=== PATIENT | male | born 1945 | race Caucasian/White ===

== ENCOUNTER 2022-12-19 09:16 | Outpatient (OUT) | payer MEDICARE, SELFPAY ==
[2022-12-19 09:51] LABS: Basophils Absolute Auto 0.1 10^3/uL (0.0-0.1); Basophils Percent Auto 0.6 % (0.2-2.0); Eosinophils Absolute Auto 0.2 10^3/uL (0.0-0.7); Hematocrit 39.2 % (42.0-54.0); Immature Granulocytes Abs Auto 0.07 10^3/uL (0.00-0.03); Immature Granulocytes Pct Auto 0.6 % (0.0-0.5); Lymphocytes Absolute Auto 3.4 10^3/uL (1.2-3.8); Mean Corpuscular HGB Conc 33.2 g/dL (29.9-35.2); Mean Corpuscular Hemoglobin 30.4 pg (25.9-34.0); Mean Corpuscular Volume 91.8 fL (80.0-94.0); Mean Platelet Volume 9.1 fL (9.5-13.5); Monocytes Absolute Auto 0.7 10^3/uL (0.3-0.8); Monocytes Percent Auto 6.5 % (1.7-12.0); Neutrophils Absolute Auto 6.4 10^3/uL (1.4-6.5); Neutrophils Percent Auto 59.3 % (43.0-75.0); Platelet Count 272 10^3/uL (150-450); Red Blood Count 4.27 10^6/uL (4.70-6.10); Red Cell Distribution Width 13.8 % (11.0-15.0); White Blood Count 10.9 10^3/uL (4.0-11.0)
[2022-12-19 10:25] LABS: Alanine Aminotransferase 30 U/L (16-63); Anion Gap 13.7; BUN Creatinine Ratio 18.5; Calcium 9.1 mg/dL (8.5-10.1); Carbon Dioxide 27.4 mmol/L (21.0-32.0); Chloride 101 mmol/L (98-107); Chol HDL Ratio 2.7; Cholesterol 114 mg/dL (<=200); Estimated GFR (African America >60 (>=60); Estimated GFR (Non-African Ame 51 (>=60); Glucose 153 mg/dL (74-106); HDL Cholesterol 42 mg/dL (40-60); LDL Cholesterol Calculated 45.4 mg/dL; Potassium 4.1 mmol/L (3.5-5.1); Sodium 138 mmol/L (136-145); Triglycerides 133 mg/dL (<=150); VLDL CHOLESTEROL 26.6 mg/dL
[2022-12-19 10:37] LABS: Prostate Specific Antigen Scrn 0.46 ng/mL (<=4.00)
[2022-12-19 13:01] LABS: Estimated Average Glucose 131 mg/dL; Glycohemoglobin A1C 6.2 % (4.5-6.2)
== END 2022-12-19 09:17 | disposition home or self-care (01) ==
PROVIDERS: PCP Internal Medicine; Visit Provider Internal Medicine
DX: Z79.899 Other long term (current) drug therapy (principal); E11.65 Type 2 diabetes mellitus with hyperglycemia; E78.00 Pure hypercholesterolemia, unspecified; I25.10 Atherosclerotic heart disease of native coronary artery without angina pectoris; I10 Essential (primary) hypertension; Z12.5 Encounter for screening for malignant neoplasm of prostate
CPT/HCPCS: 36415; 80048; 80061; 82043; 83036; 84460; 85025; G0103

== ENCOUNTER 2023-04-11 07:43 | Outpatient (OUT) | payer MEDICARE, SELFPAY ==
[2023-04-11 08:07] LABS: Basophils Absolute Auto 0.1 10^3/uL (0.0-0.1); Basophils Percent Auto 0.9 % (0.2-2.0); Eosinophils Absolute Auto 0.3 10^3/uL (0.0-0.7); Eosinophils Percent Auto 2.8 % (0.9-7.0); Hematocrit 38.6 % (42.0-54.0); Hemoglobin 12.6 g/dL (14.0-18.0); Immature Granulocytes Abs Auto 0.04 10^3/uL (0.00-0.03); Immature Granulocytes Pct Auto 0.4 % (0.0-0.5); Lymphocytes Absolute Auto 4.2 10^3/uL (1.2-3.8); Lymphocytes Percent Auto 38.2 % (20.5-60.0); Mean Corpuscular HGB Conc 32.6 g/dL (29.9-35.2); Mean Corpuscular Hemoglobin 30.1 pg (25.9-34.0); Mean Corpuscular Volume 92.1 fL (80.0-94.0); Mean Platelet Volume 9.3 fL (9.5-13.5); Monocytes Percent Auto 9.3 % (1.7-12.0); Neutrophils Absolute Auto 5.3 10^3/uL (1.4-6.5); Neutrophils Percent Auto 48.4 % (43.0-75.0); Platelet Count 282 10^3/uL (150-450); Red Blood Count 4.19 10^6/uL (4.70-6.10); Red Cell Distribution Width 14.6 % (11.0-15.0); White Blood Count 10.9 10^3/uL (4.0-11.0)
[2023-04-11 09:33] LABS: Percent Iron Saturation 20.9 %
== END 2023-04-11 07:44 | disposition home or self-care (01) ==
PROVIDERS: PCP Internal Medicine; Visit Provider Internal Medicine
DX: D64.9 Anemia, unspecified (principal)
CPT/HCPCS: 36415; 82607; 82728; 82746; 83540; 83550; 85025

== ENCOUNTER 2023-04-26 07:25 | Outpatient (OUT) | payer MEDICARE, SELFPAY ==
--- NOTE | 2023-04-26 08:30 | CA_ITS ---
[facility] Test Date: 2023-04-26 Pat Name: POOJA QUEVEDO Department: Room: - Gender: Male Hyperbaric Nurse: Kiki Benoit : 1945 Requested By: MAE MCCORMICK Order Number: [id number] Reading MD: ANABELA SAWANT Interpretive Statements Monophasic doppler waveforms of the LLE PVR waveforms with delayed upstroke, blunted amplitude and loss of dicrotic notch in the LLE. Right: - significant pressure gradient between the DP and PT cuff - abnormal OLEG - normal TBI Left: - abnormal pressure gradient between the brachial and calf cuff - abnormal OLEG - abnormal TBI Impression: - nondiagnostic results of the right lower extremity due to elevated indices as a result of calcified, noncompressible arterial anderson - right TBI, which is not influenced by arterial calcification, is slightly depressed, consistent with mild hemodynamic impairment of the right lower extremity at rest. - nondiagnostic results of the left lower extremity due to elevated DP index as a result of calcified, noncompressible arterial anderson - left calf, PT and TBI consistent with severe hemodynamic impairment of the left lower extremity at rest - clinical correlation advised Electronically Signed On 04-28-2023 7:27:19 EDT by ANABELA SAWANT
== END 2023-04-26 07:26 | disposition home or self-care (01) ==
LOC: CARD 07:26
PROVIDERS: PCP Internal Medicine
DX: I65.23 Occlusion and stenosis of bilateral carotid arteries (principal); I73.9 Peripheral vascular disease, unspecified; I99.8 Other disorder of circulatory system
CPT/HCPCS: 93923

== ENCOUNTER 2023-06-28 09:55 | Outpatient (OUT) | payer MEDICARE, SELFPAY ==
--- OUTSIDE RECORDS SUMMARY | 2023-06-28 09:59 | XMS_ITS | CCD ---
Author Name Unknown Address [address] [place] [address] Organization [facility] Care Team Providers Care Weapons Designer Name Role Phone Bipin Cruz Unavailable Unavailable Zahler, Bipin Unavailable Unavailable Nancy, Bipin Unavailable Unavailable ROBIN DAWKINS~[id number] UNKNOWN Unavailable Unavailable Nill, Jean-Paul R Unavailable Unavailable Nill, Jean-Paul R Unavailable Unavailable Nill, Jean-Paul R Unavailable Unavailable ROBIN DAWKINS~[id number] UNKNOWN Unavailable Unavailable Nill, Jean-Paul R Unavailable Unavailable Nill, Jean-Paul R Unavailable Unavailable Nill, Jean-Paul R Unavailable Unavailable ROBIN DAWKINS~[id number] UNKNOWN Unavailable Unavailable TRENT, RONNY Admitting Unavailable TRENT, RONNY Attending Unavailable JUANCHO, ROBIN Referring Unavailable JUANCHO, ROBIN Primary Care Unavailable Juancho, Robin Unavailable JUANCHO, DR PEÑALOZA Admitting Unavailable BALL, DR PEÑALOZA Attending Unavailable BALL, DR PEÑALOZA Primary Care Unavailable BALL, DR PEÑALOZA Consulting Unavailable ABBAS, DR WALL Admitting Unavailable ABBAS, DR WALL Attending Unavailable BALL, DR PEÑALOZA Primary Care Unavailable ABBAS, DR WALL Consulting Unavailable ABBAS, DR WALL Admitting Unavailable ABBAS, DR WALL Attending Unavailable BALL, DR PEÑALOZA Primary Care Unavailable ABBAS, DR WALL Consulting Unavailable ZieberMagdaleno Consulting Unavailable TIFFANY ODONNELL Attending Unavailable MOUKARBRADHA PEÑA Attending Unavailable Allergies Allergy Classification Reported Allergen(s) Allergy Type Date of Onset Reaction(s) Facility (9 sources) lisinopril; Translations: [lisinopril] Drug Allergy 11-02-19 19 [facility], Unknown [facility] Repository (3 sources) losartan; Translations: [losartan] Drug Allergy 04-20-20 [facility] Repository (1 source) nystatin / triamcinolone; Translations: [Tri-Statin II] Drug Allergy [facility] Repository (3 sources) black walnut pollen extract; Translations: [[id number] REDUCTASE INHIBITORS] Drug Allergy 02-07-20 12 [facility] Repository (7 sources) Angiotensin-convert ing enzyme inhibitor agent Drug allergy Unknown [facility] Other (7 sources) Hmg-Coa Reductase Inhibitors (Statins) Propensity to adverse reactions Unknown [facility] Other (7 sources) Simvastatin Drug Allergy Unknown [facility] Other (7 sources) FELICIA inhibitor use, contraindication Propensity to adverse reactions 10-13-19 17 Comment:advers e rxn/side effects [facility] Other (7 sources) patient allergy list reviewed by nurse or physicia Propensity to adverse reactions 12-13-19 Comment:Done [facility] Other Medications Current Medications Medication Drug Class(es) Dates Sig (Normalized) Sig (Original) allopurinol 300 mg oral tablet (14 sources) Xanthine Oxidase Inhibitor take 1 tablet by mouth every twenty-four hours Allopurinol 300 MG 1 tablet Orally Once a day for 90 days Active amLODIPine 10 mg oral tablet (14 sources) Dihydropyridine Calcium Channel [place] take 1 tablet by mouth once daily amLODIPine Besylate 10 MG 1 tablet Orally Once a day Active aspirin 81 mg delayed release oral tablet (9 sources) Platelet Aggregation Inhibitor, Nonsteroidal Anti-inflammatory Drug take 1 tablet by mouth every twenty-four hours Aspirin 81 81 MG 1 tablet Orally Once a day Active azithromycin 250 mg oral tablet (3 sources) Macrolide Antimicrobial Start: 10-31-2022 Azithromycin 250 MG as directed Orally daily for 5 days October, Active benazepril (5 sources) Angiotensin Converting Enzyme Inhibitor Benazepril HCl Active clopidogrel (14 sources) P2Y12 Platelet Inhibitor Plavix Active Contour Next Test - (14 sources) Start: 09-21-2022 Contour Next Test - Use to test home BS qd In Vitro daily for 90 days Aug, Active furosemide 40 mg oral tablet (9 sources) Loop Diuretic take 1 tablet by mouth every twenty-four hours Furosemide 40 MG 1 tablet Orally Once a day Active metFORMIN hydrochloride 500 mg oral tablet (14 sources) Biguanide take 1 tablet by mouth every twenty-four hours metFORMIN HCl 500 MG 1 tablet with a meal Orally Once a day Active metoprolol tartrate 100 mg oral tablet (20 sources) beta-Adrenergic Bronwyn take 1 tablet by mouth twice daily Metoprolol Tartrate 100 MG Take 1 tablet by mouth twice daily Active take 1 tablet by mouth twice brandy ly Metoprolol Tartrate 50 MG Take 1 tablet by mouth twice daily Active omeprazole 40 mg delayed release oral capsule (3 sources) Proton Pump Inhibitor Start: 04-21-2023 take 1 capsule by mouth once daily Omeprazole 40 MG 1 capsule 30 minutes before morning meal Orally Once a day for 30 days Mar, Active microencapsulated potassium chloride 20 meq extended release oral tablet (9 sources) take 1 tablet by mouth every twenty-four hours Klor-Con M20 20 MEQ 1 tablet with food Orally Once a day Active rosuvastatin calcium 20 mg oral tablet (9 sources) HMG-CoA Reductase Inhibitor take 1 tablet by mouth every twenty-four hours Rosuvastatin Calcium 20 MG 1 tablet Orally Once a day Active valACYclovir 1000 mg oral tablet (6 sources) Herpesvirus Nucleoside Analog DNA Polymerase Inhibitor, Herpes Simplex Virus Nucleoside Analog DNA Polymerase Inhibitor, Herpes Zoster Virus Nucleoside Analog DNA Polymerase Inhibitor Start: 03-20-2023 take 1 tablet by mouth every eight hours valACYclovir HCl 1 GM 1 tablet Orally tid for 7 days Feb, Active Completed/Discontinued Medications Medication Drug Class(es) Dates Sig (Normalized) Sig (Original) ASA (14 sources) ASA Not-Taking Fish Oils (14 sources) Fish Oil Not-Angel ing latanoprost (14 sources) Prostaglandin Analog Latanoprost Not-Taking Lidocaine (15 sources) Antiarrhythmic, Amide Local Anesthetic Start: 04-20-2023 Lidocaine Mar, 20 mg Start: 11-22-2022 Lidocaine 30 2022 20 mg Niacin (14 sources) Nicotinic Acid Niacin Not-Takin g Suprep Bowel Prep . (14 sources) Start: 12-03-2014 Suprep Bowel Prep . as directed Orally 1 for 1 days Nov, Not-Taking triamcinolone acetonide 40 mg/ml injectable suspension (20 sources) Corticosteroid Start: 11-22-2022 Kenalog-40 Mar, 40 mg Start: 09-21-2022 Kenalog-40 Aug, 60 mg Problems Active Problems Problem Classification Problem Date Documented Da te Episodic/Chronic Acute bronchitis (2 sources) Acute bronchitis due to other specified organisms; Translations: [Acute bronchitis] Episodic Allergic reactions (1 source) Generalized atopic dermatitis; Translations: [Other atopic dermatitis and related conditions] Onset: 05-09-2013 Chronic Cardiac dysrhythmias (17 sources) Paroxysmal atrial fibrillation; Translations: [Paroxysmal atrial fibrillation] Onset: 05-26-2022 Chronic Chronic kidney disease (14 sources) Chronic kidney disease stage 3A ; Translations: [Stage 3a chronic kidney disease] Chronic Chronic obstructive pulmonary disease and bronchiectasis (12 sources) Simple chronic bronchitis; Translations: [Simple chronic bronchitis] Chronic Coronary atherosclerosis and other heart disease (20 sources) Coronary arteriosclerosis; Translations: [Atherosclerotic heart disease of [place] coronary artery without angina pectoris] Onset: 06-26-1959 Chronic Coronary atherosclerosis and other heart disease (4 sources) Presence of coronary angioplasty implant and graft; Translations: [Presence of aortocoronary bypass graft] Onset: 06-14-2023 Episodic Deficiency and other anemia (4 sources) Anemia, unspecified Episodic Deficiency and other anemia (1 source) Anemia; Translations: [Anemia, unspecified] Episodic Diabetes mellitus with complications (20 sources) Type 2 diabetes mellitus; Translations: [Type 2 diabetes mellitus with hyperglycemia] Onset: 06-26-1959 Chronic Diabetes mellitus without complication (1 source) Type 2 diabetes mellitus without complication; Translations: [Diabetes mellitus without mention of complication, type II or unspecified type, not stated as uncontrolled] Chronic Disorders of lipid metabolism (20 sources) Hypercholesterolemia; Translations: [Pure hypercholesterolemia, unspecified] Onset: 06-26-1959 Chronic Esophageal disorders (3 sources) Gastro-esophageal reflux disease with esophagitis; Translations: [Gastroesophageal reflux disease with esophagitis without hemorrhage] Chronic Essential hypertension (20 sources) Essential hypertension; Translations: [Essential (primary) hypertension] Onset: 12-21-2021 Chronic Gout and other crystal arthropathies (1 source) Primary gout; Translations: [Idiopathic gout, unspecified site] Chronic Hyperplasia of prostate (3 sources) Benign prostatic hypertrophy without outflow obstruction; Translations: [Hypertrophy (benign) of prostate without urinary obstruction and other lower urinary tract symptoms [LUTS]] Onset: 06-26-1959 Chronic Immunizations and screening for infectious disease (2 sources) Contact with and (suspected) exposure to other viral communicable diseases; Translations: [Vaccination given] Resolved: 05-15-2020 Episodic Mycoses (1 source) Candidiasis of mouth; Translations: [Candidal stomatitis] Episodic Occlusion or stenosis of precerebral arteries (20 sources) Occlusion and stenosis of bilateral carotid arteries; Translations: [Right carotid artery stenosis] Onset: 10-03-2018 Chronic Osteoarthritis (20 sources) Osteoarthritis of joint of right shoulder region; Translations: [Primary osteoarthritis, right shoulder] Onset: 09-05-2017 Chronic Other aftercare (2 sources) Other chief executive officer (current) drug therapy; Translations: [OTH FLIGHT OPERATIONS MANAGER CURRENT DRUG THERAPY] Onset: 12-21-2021 Episodic Other aftercare (1 source) Long-term current use of drug therapy; Translations: [Other usp (current) drug therapy] Episodic Other circulatory disease (14 sources) Peripheral arterial occlusive disease; Translations: [Disorder of arteries and arterioles, unspecified] Chronic Other circulatory disease (2 sources) Disorder of arteries and arterioles, unspecified Chronic Other circulatory disease (1 source) Other disorder of circulatory system; Translations: [OTHER DISORDER CIRCULATORY SYSTEM] Onset: 10-09-2022 Episodic Other circulatory disease (1 source) Other specified symptoms and signs involving the circulatory and respiratory systems; Translations: [OTH SPEC SX SIGNS INVLV CIRC RS] Onset: 10-09-2022 Episodic Other connective tissue disease (4 sources) Personal history of other diseases of the musculoskeletal system and connective tissue Episodic Other connective tissue disease (1 source) H/O: musculoskeletal disease; Translations: [Personal history of other diseases of the musculoskeletal system and connective tissue] Episodic Other diseases of veins and lymphatics (16 sources) Peripheral venous insufficiency; Translations: [Venous insufficiency (chronic) (peripheral)] Onset: 02-23-2017 Episodic Other diseases of veins and lymphatics (1 source) Venous insufficiency (chronic) (peripheral) Episodic Other eye disorders (1 source) Optic disc edema; 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] Chronic Other gastrointestinal disorders (9 sources) Diarrhea; Translations: [Diarrhea] Onset: 10-30-2014 Episodic Other gastrointestinal disorders (8 sources) Constipation; Translations: [Constipation] Episodic Other gastrointestinal disorders (1 source) Oropharyngeal dysphagia; Translations: [Dysphagia, oropharyngeal phase] Episodic Other injuries and conditions due to external causes (1 source) History of fall; Translations: [History of falling] Episodic Other lower respiratory disease (2 sources) Shortness of breath; Translations: [Shortness of breath] Onset: 06-14-2023 Episodic Other nervous system disorders (4 sources) Chronic pain; Translations: [Other chronic pain] Chronic Other nervous system disorders (2 sources) Other chronic pain Chronic Other nervous system disorders (1 source) Nervous system and sense organ diseases; Translations: [Other disorders of nervous system and sense organs] Episodic Other non-traumatic joint disorders (1 source) Lower limb joint arthritis; Translations: [Osteoarthrosis, unspecified whether generalized or localized, lower leg] Onset: 06-26-1959 Chronic Other non-traumatic joint disorders (1 source) Pain in right shoulder Episodic Other non-traumatic joint disorders (2 sources) Arthralgia of the lower leg; Translations: [Pain in joint, lower leg] Onset: 11-17-2015 Episodic Other non-traumatic joint disorders (2 sources) Shoulder joint pain; Translations: [Pain in joint, shoulder region] Onset: 09-05-2017 Episodic Other non-traumatic joint disorders (2 sources) Pain in left shoulder Episodic Other nutritional; endocrine; and metabolic disorders (1 source) Obesity; Translations: [Obesity, unspecified] Chronic Other nutritional; endocrine; and metabolic disorders (1 source) Simple obesity ; Translations: [Other obesity due to excess calories] Onset: 10-12-2015 Chronic Other nutritional; endocrine; and metabolic disorders (1 source) Body mass index 30+ - obesity; Translations: [Body mass index 31.0-31.9, adult] Onset: 10-12-2015 Chronic Other nutritional; endocrine; and metabolic disorders (2 sources) Obese class I; Translations: [Body mass index 32.0-32.9, adult] Onset: 10-12-2015 Chronic Other nutritional; endocrine; and metabolic disorders (3 sources) Overweight Episodic Other screening for suspected conditions (not mental disorders or infectious disease) (10 sources) Liver function tests abnormal; Translations: [Elevated liver function tests] Onset: 12-21-2021 Episodic Other skin disorders (1 source) Localized swelling, mass and lump, right lower limb; Translations: [Localized swelling, mass and lump, right lower limb] Episodic Other upper respiratory disease (15 sources) Allergic rhinitis due to pollen; Translations: [Allergic rhinitis due to pollen] Chronic Other upper respiratory disease (1 source) Allergic rhinitis due to pollen Chronic Other upper respiratory disease (1 source) Allergic rhinitis; Translations: [Allergic rhinitis, unspecified] Chronic Other upper respiratory infections (3 sources) Acute maxillary sinusitis; Translations: [Acute maxillary sinusitis, unspecified] Onset: 10-12-2016 Episodic Peripheral and visceral atherosclerosis (12 sources) Peripheral vascular disease, unspecified; Translations: [Peripheral vascular disease] Onset: 10-04-2022 Chronic Spondylosis; intervertebral disc disorders; other back problems (2 sources) Degeneration of lumbar intervertebral disc; Translations: [Degeneration of lumbar or lumbosacral intervertebral disc] Chronic Substance-related disorders (1 source) Tobacco user; Translations: [Nicotine dependence, cigarettes, in remission] Chronic Unclassified (1 source) Long-term current use of drug therapy; Translations: [Long-term (current) use of other medications] Onset: 11-16-2016 Unclassified (1 source) Traumatic subdural hemorrhage with loss of consciousness status unknown, initial encounter; Translations: [Traumatic subdural hemorrhage with loss of consciousness status unknown, initial encounter] Unclassified (1 source) Aortocoronary artery bypass graft; Translations: [Postprocedural aortocoronary bypass status] Onset: 04-04-2016 Unclassified (1 source) Other ventricular tachycardia; Translations: [Other ventricular tachycardia] Viral infection (6 sources) Post-herpetic polyneuropathy; 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] Episodic Past or Other Problems Problem Classification Problem Date Documented Date Episodic/Chronic Abdominal hernia (1 source) Umbilical hernia; Translations: [Umbilical hernia without mention of obstruction or gangrene] Onset: 11-17-2015 Episodic Alcohol-related disorders (1 source) Alcohol withdrawal syndrome; Translations: [Alcohol dependence with withdrawal, uncomplicated] Resolved: 06-13-2020 Chronic Allergic reactions (1 source) Allergic contact dermatitis due to plants, except food; Translations: [Allergic contact dermatitis due to plants, except food] Onset: 02-23-2017 Episodic Bacterial infection; unspecified site (1 source) Bacterial infectious disease; Translations: [Bacterial infection, unspecified, in conditions classified elsewhere and of unspecified site] Onset: 10-12-2016 Episodic Cardiac dysrhythmias (1 source) Tachycardia; Translations: [Tachycardia, unspecified] Onset: 12-23-2014 Episodic Chronic kidney disease (1 source) Chronic kidney disease Chronic ulcer of skin (1 source) Non-pressure chronic ulcer of other part of left foot limited to breakdown of skin; Translations: [Non-prs chronic ulcer oth prt l foot limited to brkdwn skin] Resolved: 06-14-2021 Chronic E Codes: Adverse effects of medical drugs (1 source) Antihypertensive adverse reaction; Translations: [Adverse effect of other antihypertensive drugs, initial encounter] Onset: 04-20-2016 Episodic Esophageal disorders (1 source) Esophageal disorders Nonspecific chest pain (1 source) Chest pain; Translations: [Chest pain, unspecified] Resolved: 03-08-2021 Episodic Open wounds of extremities (1 source) Open wound of shoulder region with tendon involvement; Translations: [Laceration of muscle, fascia and tendon of long head of biceps, left arm, initial encounter] Onset: 01-14-2016 Episodic Other connective tissue disease (1 source) Pain in right leg; Translations: [PAIN IN RIGHT LEG] Onset: 04-01-2022 Episodic Other connective tissue disease (1 source) Pain in left leg; Translations: [PAIN IN LEFT LEG] Onset: 04-01-2022 Episodic Other connective tissue disease (1 source) Cramp in limb; Translations: [Cramp of limb] Onset: 02-15-2016 Episodic Other liver diseases (1 source) Elevated levels of transaminase & lactic acid dehydrogenase; Translations: [Nonspecific elevation of levels of transaminase or lactic acid dehydrogenase (LDH)] Onset: 10-30-2014 Episodic Other lower respiratory disease (2 sources) Cough; Translations: [Cough] Onset: 09-10-2015 Episodic Other lower respiratory disease (1 source) Dyspnea; Translations: [Other forms of dyspnea] Onset: 09-10-2015 Episodic Other nervous system disorders (1 source) Paresthesia; Translations: [Paresthesia of skin] Onset: 02-15-2016 Episodic Other non-traumatic joint disorders (1 source) Arthralgia of the pelvic region and thigh; Translations: [Pain in joint, pelvic region and thigh] Onset: 11-04-2014 Episodic Other non-traumatic joint disorders (1 source) Disorder of bursa of shoulder region; Translations: [Unspecified disorders of bursae and tendons in shoulder region] Onset: 04-23-2018 Episodic Other skin disorders (1 source) Actinic keratosis; Translations: [Actinic keratosis] Onset: 05-09-2013 Episodic Other skin disorders (1 source) Other seborrheic keratosis; Translations: [Other seborrheic keratosis] Onset: 12-05-2017 Episodic Other upper respiratory disease (1 source) Seasonal allergic rhinitis; Translations: [Other seasonal allergic rhinitis] Resolved: 03-08-2021 Chronic Residual codes; unclassified (1 source) Requires influenza virus vaccination; Translations: [Need for prophylactic vaccination and inoculation, Influenza] Onset: 05-11-2017 Episodic Residual codes; unclassified (1 source) Localized edema; Translations: [Localized edema] Onset: 10-12-2015 Episodic Screening and history of mental health and substance abuse codes (1 source) History of tobacco use; Translations: [Personal history of tobacco use, presenting hazards to health] Onset: 10-12-2015 Episodic Viral infection (2 sources) Disease caused by 2019-nCoV; Translations: [COVID-19] Resolved: 09-02-2020 Results Test Name Value Interpretation Reference Range Facility Office Visiton 06-14-2023 Follow-up visit [id number] Eloisa Marrufo 1945 M Date Provider Department Center 06/14/2023 RADHA ESCOBAR FRANCISCO JAVIER [facility] Family History Problem Relation Age of Onset Heart failure Mother Family Status - Relation Status Age at Mother Level of Service:21225 IN OFFICE/OUTPATIENT ESTABLISHED LOW MDM 20 MIN Normal [facility] Office Visiton 12-14-2022 Follow-up visit [id number] Eloisa Marrufo 1945 M Date Provider Department Center 12/14/2022 TIFFANY WINTER [facility] Family History Problem Relation Age of Onset Heart failure Mother Family Status - Relation Status Age at Mother Level of Service:29373 IN OFFICE/OUTPATIENT ESTABLISHED MOD MDM 30-39 MIN Reason for Visit and Comments: Follow-up [023489] - 6 month follow up Normal [facility] US CAROTID ART BILon 023 US CAROTID ART CHER EXAMINATION: US MCKEON TID ART CHER HISTORY: Peripheral vascular disease (disorder) ; carotid bruit bilaterally COMPARISON: Ultrasound carotid artery bilateral 09/09/2021 TECHNIQUE: Duplex Doppler ultrasound analysis of carotid and vertebral arteries. . Bilateral carotid arterial duplex examination was performed using B-mode, color flow and spectral analysis. Carotid stenosis is reported according to validated velocity parameters, similar to NASCET criteria. FINDINGS: RIGHT CAROTID ARTERY: Mild atherosclerotic plaque within CCA; moderate within bulb and ICA. 60% area reduction within proximal ICA. RIGHT VERTEBRAL: Antegrade flow. Subclavian: PSV: 95.1 cm/s EDV: 6.6 cm/s CCA: Prox: PSV: 58.1 cm/s EDV: 10.9 cm/s Mid: PSV: 76.8 cm/s EDV: 10.9 cm/s Distal: PSV: 92.2 cm/s EDV: 13.1 cm/s BULB: PSV: 90.3 cm/s EDV: 12.8 cm/s ICA: Prox: PSV: 64.4 cm/s EDV: 17.6 cm/s Mid: PSV: 180.9 cm/s EDV: 47.1 cm/s Distal: PSV: 34.0 cm/s EDV: 6.5 cm/s ECA: PSV: 81.4 cm/s EDV: 0.0 cm/s VERTEBRAL: PSV: 69.8 cm/s EDV: 23.2 cm/s ICA/CCA ratio: PSV: 2.0 EDV: 3.6 LEFT CAROTID ARTERY: Mild atherosclerotic plaque within CCA; mild/moderate plaque within bulb and ICA. LEFT VERTEBRAL: Antegrade flow. Subclavian: PSV: 148.5 cm/s EDV: 7.2 cm/s CCA: Prox: PSV: 113.6 cm/s EDV: 23.0 cm/s Mid: PSV: 112.9 cm/s EDV: 19.2 cm/s Distal: PSV: 98.4 cm/s EDV: 14.4 cm/s BULB: PSV: 116.1 cm/s EDV: 16.0 cm/s ICA: Prox: PSV: 67.7 cm/s EDV: 14.4 cm/s Mid: PSV: 100.0 cm/s EDV: 20.8 cm/s Distal: PSV: 69.3 cm/s EDV: 19.2 cm/s ECA: PSV: 82.2 cm/s EDV: 4.7 cm/s VERTEBRAL: PSV: 43.9 cm/s EDV: 12.8 cm/s ICA/CCA ratio: PSV: 1.2 EDV: 1.1 IMPRESSION: 1. 50-69% flow stenosis within the right carotid artery. 60% area reduction within proximal ICA. 2. 0-49% flow stenosis within left carotid artery. Mild/moderate atherosclerotic disease. Electronically authenticated by: MAGDALENO GLEZ Date: 2022-10-04 16:[address] [facility] CBC AUTO DIFFon 12-16-2021 BASO # 0.1 103/ul Normal 0.0-0.1 [facility] Comment on above: Performed By: #### C BC #### [facility] [address] [place] [address] Dr. Rui Moore Basophils/100 WBC (Bld) 0.5 % Normal 0.2-2.0 [facility] Comment on above: Performed By: #### C BC #### [facility] [address] [place] [address] Dr. Rui Moore EO # 0.0 103/ul Normal 0.0-0.7 [facility] Comment on above: Performed By: #### C BC #### [facility] [address] [place] [address] Dr. Rui Moore Eosinophils/100 WBC (Bld) 0.4 % Critically low 0.9-7.0 [facility] Comment on above: Performed By: #### C BC #### [facility] [address] [place] [address] Dr. Rui Moore Erythrocyte distribution width (RBC) [Ratio] 13.2 % Normal 11.0-15.0 [facility] Comment on above: Performed By: #### C BC #### [facility] [address] [place] [address] Dr. Rui Moore Hematocrit (Bld) [Volume fraction] 38.1 % Critically low 42.0-54.0 [facility] Comment on above: Performed By: #### C BC #### [facility] [address] [place] [address] Dr. uRi Moore Hemoglobin (Bld) [Mass/Vol] 12.3 g/dL Critically low 14.0-18.0 [facility] Comment on above: Performed By: #### C BC #### [facility] [address] [place] [address] Dr. Rui Moore IG # 0.06 10e3/ul Critically high 0.00-0.03 [facility] Comment on above: Performed By: #### C BC #### [facility] [address] [place] [address] Dr. Rui Moore IG % 0.5 % Normal 0.0-0.5 [facility] [facility] Comment on above: Performed By: #### C BC #### [facility] [address] [place] [address] Dr. Rui Moore LYMPH # 3.5 103/ul Normal 1.2-3.8 [facility] Comment on above: Performed By: #### C BC #### [facility] [address] [place] [address] Dr. Rui Moore Lymphocytes/100 WBC (Bld) 31.9 % Normal 20.5-60.0 [facility] Comment on above: Performed By: #### C BC #### [facility] [address] [place] [address] Dr. Rui Moore MANUAL DIFF REQ NO Normal [facility] Comment on above: Performed By: #### C BC #### [facility] [address] [place] [address] Dr. Rui Moore MCH (RBC) [Entitic mass] 29.9 pg Normal 25.9-34.0 [facility] Comment on above: Performed By: #### C BC #### [facility] [address] [place] [address] Dr. Rui Moore MCHC (RBC) [Mass/Vol] 32.3 g/dL Normal 29.9-35.2 [facility] Comment on above: Performed By: #### C BC #### [facility] [address] [place] [address] Dr. Rui Moore MCV (RBC) [Entitic vol] 92.5 fL Normal 80.0-94.0 [facility] Comment on above: Performed By: #### C BC #### [facility] [address] [address] [address] Rui Moore MONO # 0.7 103/ul Normal 0.3-0.8 [facility] Comment on above: Performed By: #### C BC #### [facility] [address] [address] [address] Rui Moore Monocytes/100 WBC (Bld) 6.6 % Normal 1.7-12.0 [facility] Comment on above: Performed By: #### C BC #### [facility] [address] [place] [address] Dr. Rui Moore NEUT # 6.6 103/ul Critically high 1.4-6.5 [facility] Comment on above: Performed By: #### C BC #### [facility] [address] [place] [address] Dr. Rui Moore Neutrophils/100 WBC (Bld) 60.1 % Normal 43.0-75.0 [facility] Comment on above: Performed By: #### C BC #### [facility] [address] [place] [address] Dr. Rui Moore Platelet mean volume (Bld) [Entitic vol] 9.3 fL Critically low 9.5-13.5 [facility] Comment on above: Performed By: #### C BC #### [facility] [address] [place] [address] Dr. Rui Moore PLT 307 103/ul Normal 150-[address] [facility] Comment on above: Performed By: #### C BC #### [facility] [address] [place] [address] Dr. Rui Moore RBC 4.12 106/ul Critically low 4.70-6.[address] [facility] Comment on above: Performed By: #### C BC #### [facility] [address] [place] [address] Dr. Rui Moore WBC 11.0 103/ul Normal 4.0-11.[address] [facility] Comment on above: Performed By: #### C BC #### [facility] [address] [address] [address] Rui Moore GLYCOHEMOGLOBIN A1Con 2021 ADA RECOMMENDATION SEE BELOW Normal [facility] Comment on above: Result Comment: ADA RECOMMENDED LIMIT 4.0 - 6.0 ADA THERAPEUTIC TARGET < 7.0 ACTION SUGGESTED > 7.0 Performed By: #### A 1C #### [facility] [address] [address] [address] Rui Moore Glucose [Mass/Vol] 143 mg/dL Normal [facility] Comment on above: Performed By: #### A 1C #### [facility] [address] [address] [address] Rui Moore HbA1c (Bld) [Mass fraction] 6.6 % Critically high 4.5-6.2 [facility] Comment on above: Performed By: #### A 1C #### [facility] [address] [place] [address] Dr. Rui Moore LIPID PROFILEon 12-16-2021 CHOL-HDL RATIO NORM SEE BELOW Normal [facility] Comment on above: Result Comment: 3.3 - 4.4 LOW RISK 4.4 - 7.1 AVERAGE RISK 7.1 - 11.0 MODERATE RISK >11.0 HIGH RISK Performed By: #### L JOYA BMP, ALT #### [facility] [address] [place] [address] Dr. Rui Moore Cholesterol [Mass/Vol] 109 mg/dL Normal <=[address] [facility] Comment on above: Performed By: #### L IPID BMP, ALT #### [facility] [address] [place] [address] Dr. Rui Moore Cholesterol in HDL [Mass/Vol] 39 mg/dL Critically low 40-[address] [facility] Comment on above: Performed By: #### L IPID, BMP, ALT #### [facility] [address] [place] [address] Dr. Rui Moore Cholesterol in LDL [Mass/Vol] 51.6 mg/dL Normal [facility] Comment on above: Performed By: #### L IPID, BMP, ALT #### [facility] [address] [address] [address] Rui Moore Cholesterol.total/ Cholesterol in HDL [Mass ratio] 2.8 {ratio} Normal [facility] Comment on above: Performed By: #### L IPID, BMP, ALT #### [facility] [address] [address] [address] Rui Moore HDL NORMAL > or = 60 mg/dl - LO W CARDIOVASCULAR RISK <40 mg/dl - HIGH CARDIOVASCULAR RISK Normal [facility] Comment on above: Performed By: #### L IPID, BMP, ALT #### [facility] [address] [address] [address] Rui Moore LDL CALC NORMAL SEE BELOW Normal [facility] Comment on above: Result Comment: <100 mg/dl OPTIMAL 100 - 129 mg/dl NEAR OR ABOVE OPTIMAL 130 - 159 mg/dl BORDERLINE HIGH 160 - 189 mg/dl HIGH >190 mg/dl VERY HIGH Performed By: #### L IPID, BMP, ALT #### [facility] [address] [place] [address] Dr. Rui Moore Triglyceride [Mass/Vol] 92 mg/dL Normal <=[address] [facility] Comment on above: Performed By: #### L IPID BMP, ALT #### [facility] [address] [place] [address] Dr. Rui Moore VLDL CALC 18.4 mg/dL Normal [facility] Comment on above: Performed By: #### L IPID, BMP, ALT #### [facility] [address] [place] [address] Dr. Rui Moore MICROALBUMIN, RAND URon 11-25 mALB 8.3 mg/L Normal <=30.[address] [facility] Comment on above: Performed By: #### M ALBR #### [facility] [address] [place] [address] Dr. Rui Moore PROF CHEM 8 (BAS METB)on Anion gap [Moles/Vol] 14.6 mmol/L Normal [facility] Comment on above: Performed By: #### L IPID, BMP, ALT #### [facility] [address] [address] [address] Rui Moore Calcium [Mass/Vol] 9.1 mg/dL Normal 8.5-10.[address] [facility] Comment on above: Performed By: #### L IPID, BMP, ALT #### [facility] [address] [address] [address] Rui Moore Chloride [Moles/Vol] 101 mmol/L Normal 98-107 [facility] Comment on above: Performed By: #### L IPID, BMP, ALT #### [facility] [address] [address] [address] Rui Moore CO2 [Moles/Vol] 25.9 mmol/L Normal 21.0-32.[address] [facility] Comment on above: Performed By: #### L IPID, BMP, ALT #### [facility] [address] [address] [address] Rui Moore Creatinine [Mass/Vol] 1.23 mg/dL Normal 0.70-1.30 [facility] Comment on above: Performed By: #### L IPID, BMP, ALT #### [facility] [address] [address] [address] Rui Moore EGFR-AF EGYPTIAN >60 Normal >=60 [facility] Comment on above: Performed By: #### L IPID, BMP, ALT #### [facility] [address] [place] [address] Dr. Rui Moore EGFR-NON AF EGYPTIAN 57 mL/min/1.73m2 Critically low >=60 [facility] Comment on above: Performed By: #### L IPID, BMP, ALT #### [facility] [address] [address] [address] Rui Moore Glucose [Mass/Vol] 141 mg/dL Critically high 74-106 [facility] Comment on above: Performed By: #### L IPID, BMP, ALT #### [facility] [address] [address] [address] Rui Moore Potassium [Moles/Vol] 4.5 mmol/L Normal 3.5-5.[address] [facility] Comment on above: Performed By: #### L IPID, BMP, ALT #### [facility] [address] [address] [address] Rui Moore Sodium [Moles/Vol] 137 mmol/L Normal 136-145 [facility] Comment on above: Performed By: #### L IPID, BMP, ALT #### [facility] [address] [place] [address] Dr. Rui Moore Urea nitrogen [Mass/Vol] 22.0 mg/dL Critically high 7.0-18.0 [facility] Comment on above: Performed By: #### L IPID, BMP, ALT #### [facility] [address] [place] [address] Dr. Rui Moore Urea nitrogen/Creatinin e [Mass ratio] 17.9 mg/mg Normal [facility] Comment on above: Performed By: #### L IPID, BMP, ALT #### [facility] [address] [place] [address] Dr. Rui Moore [place] 12-16-2021 ALT [Catalytic activity/Vol] 42 U/L Normal 16-63 [facility] Comment on above: Performed By: #### L IPID, BMP, ALT #### [facility] [address] [place] [address] Dr. Rui Moore Operative Reporton [id number] Operative Report Date of Surgery: 10/02/2017SURGEON: Shiva Cronin M.D.OPERATION: Bilateral ultrasound-guided single shot transverse abdominisplane blocks for postoperative pain controlANESTHESIA: GeneralPROCEDURE: The patient was interviewed and examined. Anesthetic optionsfor postoperative pain control were discussed in great detail. After alengthy discussion encompassing risks, benefits and alternatives of theprocedure, the patient elected to undergo the procedure. In the OperatingRoom after induction of general anesthesia, the right side of the patientwas prepped in a sterile fashion. Visualization of the transverseabdominis plane was excellent and a 21 gauge 100 mm Pajunk needle wasadvanced with excellent ultrasound visualization. There were noparesthesias and under direct ultrasound visualization, 35 cc of an [place] Naropin solution was injected in divided doses with frequentaspiration. There were no signs of intraneural, intravascular orintraperitoneal injection. Next, the left side was prepped in a sterilefashion. Visualization of the transverse abdominis plane was excellent andagain a 21 gauge 100 mm Pajunk needle was advanced with excellentultrasound visualization. Under direct ultrasound visualization, 35 cc ofthe above solution was injected in divided doses with frequent aspiration.Again, there were no signs of intraneural, intravascular or intraperitonealinjection. The patient tolerated the procedure very well. Within severalminutes, the patient began to show signs and symptoms of successfulblockade.Shiva Cronin M.D.glsDictated: 10/02/2017 #[id number]: 10/02/2017 #[id number]: Shiva Cronin M.D. [facility] Comment on above: Result Comment: Elec tronically Signed By: Shiva Cronin MD\.br\Date and Time Signed: 10/06/17 12:06 EDT Progress Note-Physicianon Progress Note-Physician Patient: POOJA MARRUFO Age: 72 years Sex: Male : 1945 Associated Diagnoses: None Author: Shiva Cronin MD Preoperative Information Anesthesia history: Patient History: No personal or Family history of problems with anesthesia. Re-eval prior to induction: Inital eval reviewed: No significant interval change. Review of Systems Constitutional: Negative. Cardiovascular: Cardiovascular risk stratafacation reviewed, 1 FOS without difficulty, No chest pain. Respiratory: No SOB. Hematology/Lymphatics: Negative. Gastrointestinal: Negative. Musculoskeletal: OTHER. Neurologic Psychiatric: Negative. Health Status Allergies: Allergic Reactions (Selected)Severity Not DocumentedLisinopril- Dry cough.Losartan- Hives.Tri-Statin II- Statins, statins and vomiting. Current medications: (Selected) Inpatient MedicationsOrderedCefazolin 2 gram IVPB: 2 gram = 50 mL, Soln-IV, IV Piggyback, PREOP, Routine, Start date 10/02/17 6:30:00 EDT, 50 mL/hr, Infuse over 1 hour(s)Lactated Ringers IV Maritza 1000 mL 1,000 mL: 1,000 mL, IV, 150 mL/hr, Routine, Start date 10/02/17 6:30:00 EDT, 6.7 hour(s), Total volume (mL): 1,000Documented MedicationsDocumentedFish Oil: 3,600 mg, Oral, Daily, Refill(s) 0, Prophylaxisallopurinol 300 mg Tab: 300 mg = 1 tab(s), Oral, Daily, Refills(s) 0, Gout painamlodipine: 10 mg, Oral, Daily, High blood pressureaspirin: 325 mg, Oral, Daily, Blood Thinnerazithromycin: 250 mg, Oral, Daily, Infection or prophylaxis for antibioticsfurosemide 40 mg Tab: 40 mg = 1 tab(s), Oral, Daily, Refills(s) 0, diuretic/water pillmetformin: 500 mg, Oral, BID, Blood glucosemetoprolol 50 mg ER Tab: 50 mg = 1 tab(s), Oral, BID, Refills(s) 0, High blood pressureniacin 500 mg ER Tab: 2,000 mg = 4 tab(s), Oral, Daily, Refills(s) 0, High cholesterolpotassium chloride 20 mEq ER Tab: 20 mEq = 1 tab(s), Oral, Daily, Refills(s) 0, Prophylaxispravastatin: 30 mg, Oral, Daily, High cholesterol Problem list: All ProblemsHypertension / SNOMED CT 2073619541 / ConfirmedDiabetes / SNOMED CT 479499719 / ConfirmedUmbilical hernia / SNOMED CT 3294757724 / ConfirmedPeripheral artery disease / SNOMED CT 2041267850 / ConfirmedAcid reflux / SNOMED CT 466821926 / ConfirmedCAD (coronary artery disease) / SNOMED CT 97988408 / ConfirmedResolved: High cholesterol / SNOMED CT 34338249 Histories Past Medical History: No active or resolved past medical history items have been selected or recorded. Procedure history: CEA - Carotid endarterectomy left ([id number]) on 03/09/2016 at 70 Years.Allograft bypass of coronary artery x3 stents ([id number]) on 03/09/2016 at 70 Years.Comments:09/19/2017 16:41 - Herman MEEHAN, [facility] , graft to the LAD and left radial artery graft to the OM1 and SVG to PDAColonoscopy ([id number]) on 12/31/2014 at 69 Years.Entire RCA - Right coronary artery stent ([id number]) on 02/10/2012 at 66 Years.History of subdural hematoma ([id number]) on 08/03/2010 at 64 Years.Cataract b/l ([id number]).Femoral-popliteal artery bypass graft right and left ([id number]).Comments: 16:39 - Herman MEEHAN, Dyhvfbw1783/2013stents legs/ 12/13// 10/21/2005/ 12/22/2007. Social History Social & Psychosocial XjbnjiQagwsii06/27/2018 Risk Assessment: High Risk09/19/2017 Use: Current Type: Beer Frequency: 3-5 times per weekSubstance Abuse09/19/2017 Risk Assessment: Denies Substance GwsvkPhttlnn42/27/2018 Risk Assessment: Denies Tobacco Use09/19/2017 Type: Cigarettes Comment: quit in 1991 - 09/19/2017 10:05 - Herman MEEHAN, Elen. Physical Examination Pain assessment: Self-reports no pain. Airway: Mallampati classification: II (soft palate, fauces, uvula visible). Distance: Adequate. Mouth: Adequate opening. Neck: Full range of motion. Respiratory: Respirations are non-labored. Cardiovascular: Regular rhythm. Neurologic: Alert, Oriented. Review / Management Results review: All Results 09/19/2017 10:37 EDT WBC 9.3 E9/L RBC 4.3 E12/L Hgb 13.9 gm/dL Hct 40.0 % MCV 92.8 fL MCH 32.3 pg MCHC 34.9 gm/dL RDW 13.7 % Platelet 311.0 E9/L MPV 8.4 fL Neutro Auto 63.5 % Lymph Auto 25.9 % [place] Auto 8.1 % Eos Auto 1.4 % Basophil Auto 1.1 % Neutro Absolute 5.9 E9/L Lymph Absolute 2.4 E9/L [place] Absolute 0.7 E9/L Eos Absolute 0.1 E9/L Basophil Absolute 0.1 E9/L Glucose Lvl 157 mg/dL BUN 21 mg/dL Creatinine 1.1 mg/dL eGFR >60 mL/min/1.73 m2 eGFR AA >60 mL/min/1.73 m2 BUN/Creat Ratio 19 Sodium Lvl 133 mmol/L LOW Potassium Lvl 3.9 mmol/L Chloride 96 mmol/L LOW CO2 29 mmol/L AGAP 12 mEq/L Calcium Lvl 9.1 mg/dL Alk Phos 66 Int._Unit/L ALT 39 Int._Unit/L AST 28 Int._Unit/L Total Protein 7.7 gm/dL Albumin Lvl 4.1 gm/dL Globulin 3.6 gm/dL A/G Ratio 1.1 Bili Total 0.8 mg/dL , No qualifying data available. Chest x-ray results Reason For ExamPre OpPOWERSCRIBE REPORTIMPRESSION: NO EVIDENCE OF ACTIVE CHEST DISEASE.CLINICAL HISTORY: Pre Op. Prior smoker.COMMENT: There are sternotomy wires and mediastinal surgical clips. The heart is normal insize. The mediastinum is unremarkable. There is a small granuloma at the left lungbase posterolaterally. No infiltration nor pleural effusion is evident. Signature Line FINAL REPORT Dictated: 09/19/2017 1:33 pm Pio Suresh M.D. LSigned (Electronic Signature): 09/19/2017 1:33 pmSigned by: Pio Suresh M.D. LTranscribed by: LOREN Technologist: ABI REPORTThis document has an imageResult type: XR Chest 2 ViewsResult date: September 19, 2017 10:49 EDTResult status: Auth (Verified)Result title: XR Chest 2 ViewsPerformed by: Pio Suresh M.D. on September 19, 2017 13:33 EDTVerified by: Pio Suresh M.D. on September 19, 2017 13:33 EDTEncounter info: [id number], Palomo Dixon, Outpatient, 09/19/2017 - 09/19/2017 Radiology results ECG interpretation: SINUS RHYTHM. Plan [place] [employer] Anesthesiologists (ASA) physical status classification: Class III. Anesthetic Preoperative Plan Anesthesia: General. , Regional TAPblock for post op pain control.. Anesthetic plan, risks, benefits, and alternatives discussed with the patient and/or family. Patient verbalized understanding. Pt agrees with anesthetic plan and accepts all risks including but not limited to; Bleeding, infection, nerve injury, dental injury, eye injury, headache, low blood pressure, serious problems with the heart and lungs, allergic reactions, failed block and .. Normal [facility] Comment on above: Result Comment: Elec tronically Signed By: Shiva Cronin MD\.br\Date and Time Signed: 10/05/17 13:04 EDT Progress Note-Physician Patient: POOJA MARRUFO Age: 72 years Sex: Male : 1945 Associated Diagnoses: None Author: Shiva Cronin MD Postoperative Information Post Operative Note: Post Anesthesia Care Unit. Anesthetic utilized: General. Health Status Allergies: Allergic Reactions (All)Severity Not DocumentedLisinopril- Dry cough.Losartan- Hives.Tri-Statin II- Statins, statins and vomiting. Problem list: All ProblemsHypertension / SNOMED CT 5880164998 / ConfirmedDiabetes / SNOMED CT 557846852 / ConfirmedUmbilical hernia / SNOMED CT 7039898426 / ConfirmedPeripheral artery disease / SNOMED CT 8352547924 / ConfirmedAcid reflux / SNOMED CT 332454830 / ConfirmedCAD (coronary artery disease) / SNOMED CT 05630869 / ConfirmedResolved: High cholesterol / SNOMED CT 52716771 Physical Examination Intake and Output adequate hydration Vital Signs 10/02/2017 11:30 EDT Heart Rate Monitored 75 bpm Respiratory Rate Monitored 17 br/min Systolic Blood Pressure 159 mmHg HI Diastolic Blood Pressure 88 mmHg Blood Pressure Location Right arm SpO2 94 % 10/02/2017 11:24 EDT Temperature Temporal Artery 36.6 DegC Heart Rate Monitored 84 bpm Respiratory Rate Monitored 16 br/min Systolic Blood Pressure 162 mmHg HI Diastolic Blood Pressure 81 mmHg Blood Pressure Location Right arm SpO2 95 % Pain assessment: Self-reports no pain, Pain Assessment 10/02/2017 11:50 EDT Patient Preferred Pain Tool Numeric rating Numeric Pain Scale 0 = No pain Numeric Pain Score 0 10/02/2017 11:24 EDT Patient Preferred Pain Tool Numeric rating Numeric Pain Scale 0 = No pain Numeric Pain Score 0 . General: Alert and oriented, No acute distress. HENT: Oral mucosa is moist, dentition unchanged. Respiratory: Respirations: Are within normal limits. Pattern: Regular. Cardiovascular: Normal rate. Neurologic: Alert, Oriented. Review / Management Lines and Tubes: Peripheral catheter. ECG interpretation: Within normal limits. Condition: Stable. Assessment Anesthetic outcome No anesthetic complications noted. Adequate pain relief. No Complaint of nausea and vomiting. Plan Transfer/ Discharge: Patient can be discharged from PACU when criteria met, Patient can be discharged from anesthesia care. Condition stable. Normal [facility] Comment on above: Result Comment: Elec tronically Signed By: Mehrdad GALE, Shiva\.br\Date and Time Signed: 10/05/17 13:04 EDT Coding Summary.on 10-03-2017 Coding Summary. CODING DATE: 018 FINAL [facility] STATUS: Home (Routine DC) PAYOR: Medicare APC DESCRIPTION 5361 Level 1 Laparoscopy and Related Services ADMIT DX: REASON FOR VISIT DX: K42.0 Umbilical hernia with obstruction, without gangrene FINAL DX: PRINCIPAL: K42.0 Umbilical hernia with obstruction, without gangrene SECONDARY: I25.10 Atherosclerotic heart disease of [place] coronary artery without angina pectoris I10 Essential (primary) hypertension E11.40 Type 2 diabetes mellitus with diabetic neuropathy, unspecified E78.5 Hyperlipidemia, unspecified M10.9 Gout, unspecified I73.9 Peripheral vascular disease, unspecified Z86.79 Personal history of other diseases of the circulatory system Z95.1 Presence of aortocoronary bypass graft Z79.82 nursing home (current) use of aspirin Z95.820 Peripheral vascular angioplasty status with implants and grafts Z87.891 Personal history of nicotine dependence PYMT PROC APC STAT DESCRIPTION DOCTOR NAME DATE 00980 5361 J1 Laparoscopy, surgical, Jean-Paul Roberts MD 10/02/2017 repair, ventral, umbilical, spigelian or epigastric hernia (includes mesh insertion, when performed); incarcerated or strangulated 51989 Anesthesia for hernia JeanP-aul Roberts MD 10/02/2017 repairs in lower abdomen; not otherwise specified 50680 Transversus abdominis Shiva Cronin MD 10/02/2017 plane (TAP) block (abdominal plane block, rectus sheath block) bilateral; by injections (includes imaging guidance, when performed) XP Separate Practitioner * NOTE: The code number assigned matches the documented diagnosis and / or procedure in the patient's chart. However, the narrative phrase printed from the coding software may appear abbreviated, or result in slightly different terminology. Revised Coded By: Haley Leyva Revised Date Saved: 10/03/2017 10:41 am Normal [facility] Main OR Intraoperative Recor don 10-03-2017 Main OR Intraoperative Record IntraOp Document Type FT Summary Primary Physician: Jean-Paul Roberts MD Finalized Date/Time: 10/03/17 10:03:38 Pt. Name: POOJA MARRUFO /Sex: 1945 Male Med Rec #: [id number] Physician: Jean-Paul Roberts MD Financial #: [id number] Pt. Type: A Room/Bed: [facility] Admit/Disch: 10/02/17 06:11:00 - 10/02/17 14:55:00 Institution: Case Times FT Entry 1 Patient Times In Room 10/02/17 08:51:00 Out Room 10/02/17 11:22:00 Procedure Times Start 10/02/17 09:30:00 Stop 10/02/17 11:16:00 Anesthesia Times Start 10/02/17 08:51:00 Stop 10/02/17 11:22:00 Block Timeout w/ 10/02/17 09:10:00 Anesthesia Last Modified By: Kassy Mathews CST 10/02/17 11:25:54 General Comments: 0910- BILATERAL TAP BLOCKS PERFORMED BY DR CORNIN USING ULTRASOUND AND AREA PREPPED USING CHLORAPREP, PATIENT UNDER ANESTHESIA AT TIME OF BLOCKS, UNDER CONSTANT OBSERVATION PER ANESTHESIA. - KYRA MEEHAN 0945- ROBOT DOCKED AT PATIENT. - KYRA RN 0951- SURGEON BACK TO SURGEON CONSOLE. - KYRA RN 1101- SURGEON RESCRUBBED AND AWAY FROM CONSOLE. - KYRA MEEHAN 1102- ROBOT UNDOCKED. - KYRA MEEHAN 10/03/2017 Chart opened to review and send charges Radha rivera Case Attendance FT Entry 1 Entry 2 Entry 3 Case Attendee Mehrdad GALE, Shiva Roberts MD, Jean-Paul Dixon, SHEFALI Watson Role Performed Anesthesiologist of Surgeon - Primary [employer] Record Time In 10/02/17 08:51:00 10/02/17 08:51:00 10/02/17 08:51:00 Time Out 10/02/17 11:22:00 10/02/17 11:22:00 10/02/17 11:22:00 Procedure HERNIA REPAIR, ROBOT HERNIA REPAIR, ROBOT HERNIA REPAIR, ROBOT ASSISTED(.) ASSISTED(.) ASSISTED(.) Comments Last Modified By: Anurag RN, Bia Osborn RN, Bia Osborn RN, Bia Campbell 10/02/17 11:25:55 10/02/17 11:25:55 10/02/17 11:25:55 Entry 4 Entry 5 Case Attendee Anurag MEEHAN, Bia Baker CST/Sushma LEACH Role Performed Infection Control Nurse - Primary Scrub - Primary Time In 10/02/17 08:51:00 10/02/17 08:51:00 Time Out 10/02/17 11:22:00 10/02/17 11:22:00 Procedure HERNIA REPAIR, ROBOT HERNIA REPAIR, ROBOT ASSISTED(.) ASSISTED(.) Comments Last Modified By: Anurag RN, Bia Bryant RN 10/02/17 11:25:55 10/02/17 11:25:55 General Comments: SKIP QUINTANILLA PRESENT FOR PROCEDURE. Jonh RAE RNtaxi truck driver Protocols FT Pre-Care Text: Implements protective measures prior to operative or invasive procedure, confirms identity before the operative or invasive procedure, verifies operative procedure, surgical site, and laterality Entry 1 Procedure(s) HERNIA REPAIR, ROBOT Patient Identity Birthday, ID Band ASSISTED(.) Verified (select at Check, Patient least 2): Participation Consents / H and P Anesthesia Consent, Operative Site N/A Verified HandP, Surgery/Procedure Marking Verified Consent, Transfusion Consent Surgical Site Yes Laterality Verified Yes Verified Procedure Verified Yes Correct Patient Yes Position Verified Availability Equipment, Implant, Prep Dry n/a Verified (If Medication Applicable) PreOp Antibiotic Yes Time Out Shiva Cronin MD, Nill Given Matthias GALE, Zack Braden, RN Anurag Foss RN, Olivia Rios CST/Sushma LEACH Time Out Complete 10/02/17 09:27:00 Outcomes Met? Yes Last Modified By: Bia Osborn RN 10/02/17 09:39:19 Post-Care Text: The patient is free from signs and symptoms of injury caused by extraneous objects Allergy Information FT Pre-Care Text: Verifies allergies Entry 1 Allergies Reviewed? Yes Allergies Reviewed Self/Patient With Outcomes Met? Yes Last Modified By: Bia Osborn RN 10/02/17 07:52:55 Post-Care Text: The patient received appropriate medication(s) safely administered during the perioperative period Surgical Procedures FT Entry 1 Procedure Description Procedure HERNIA REPAIR, ROBOT Modifiers . ASSISTED Surgeon Description ROBOTIC ASSISTED UMBLICIAL HERNIA REPAIR WITH MESH Primary Procedure Yes Primary Surgeon Jean-Paul Roberts MD Start 10/02/17 09:30:00 Stop 10/02/17 11:16:00 Anesthesia Type General Surgical Service General Wound Class 1 - Clean Last Modified By: Bia Osborn RN 10/02/17 11:25:58 General Case Data FT Pre-Care Text: Classifies surgical wound, implements aseptic technique, initiates traffic control Entry 1 Case Information OR OR 6 FT Case Level Level 5 Wound Class 1 - Clean Specialty General ASA Class 3 Preop Diagnosis UMBILICAL HERNIA Postop Same As Preop Yes Postop Diagnosis UMBILICAL HERNIA Outcomes Met? Yes Last Modified By: Bia Osborn RN 10/02/17 09:39:31 Post-Care Text: The patient is free from signs and symptoms of infection Skin Assessment (Pre Procedure) FT Pre-Care Text: Implements protective measures to prevent skin/ tissue injury due to thermal or mechanical sources Evaluates for signs and symptoms of physical injury to skin and tissue Entry 1 Skin Integrity Intact, [place], Warm, and Skin Abnormality Yes Dry, Bruised Abnormality Location BRUISING ON LEFT FOREARM Outcomes Met? Yes Last Modified By: Bia Osborn RN 10/02/17 11:30:38 Post-Care Text: The patient is free from signs and symptoms of injury caused by extraneous objects Patient Positioning FT Pre-Care Text: Identifies physical alterations that require additional precautions for procedure-specific positioning, verifies presence of prosthetics or corrective devices, positions the patient, evaluates the patient for signs and symptoms of injury as a result of positioning Entry 1 Procedure HERNIA REPAIR, ROBOT Body Position Supine ASSISTED(.) Feet Uncrossed? Yes Left Arm Position Tucked and Padded at Side Right Arm Position Extended on Padded Arm Left Leg Position Extended Board Right Leg Position Extended Positioning Device Safety Strap, Pillow Under Head Large, Other/See Comments Press Points Checked Yes By Bia Osborn RN, Sutherland, RN Nichole C, Barney MD, Armando Shannon MD, Jean-Paul RArmando MD, Michael R Outcomes Met? Yes Last Modified By: Bia Osborn RN 10/02/17 09:42:59 Post-Care Text: The patient is free from signs and symptoms of injury related to positioning General Comments: PATIENT POSITONED SUPINE ON BED WITH PILLOW UNDER HEAD PER ANESTHESIA, RIGHT ARM EXTENDED ON PADDED ARM BOARD, LEFT ARM TUCKED AND PADDED AT SIDE WITH PINK FOAM ARM CRADDLE, WEDGE PLACED UNDER RIGHT HIP PER SURGEON, SAFETY STRAP PLACED ACROSS THIGHS, PRESSURE POINTS CHECKED, ANESTHESIA AND SURGEON VERIFIED POSITIONING PRIOR TO PROCEDURE. Jonh RAE RN Patient Care Devices FT Pre-Care Text: Implements protective measures to prevent skin/ tissue injury due to thermal or mechanical sources Entry 1 Entry 2 Entry 3 Equipment Type CAUTERY UNIT[F] INSUFLATORS[F] INSUFLOW HEATER UNIT[F] Equipment Number davinci BOOM ROOM 6 BOOM ROOM 6 Equipment Setting Outcomes Met? Yes Yes Yes Last Modified By: Bia Osborn RN, RN, Bia Bryant RN 10/02/17 07:39:31 10/02/17 07:39:31 10/02/17 07:39:31 Entry 4 Entry 5 Entry 6 Equipment Type MISTRAL FORCED AIR MONITOR CHARGE SURGERY SONOSITE ULTRASOUND WARMING SYSTEM UNIT[F] [F] UNIT[F] Equipment Number [id number] Equipment Setting Outcomes Met? Yes Yes Yes Last Modified By: Bia Osborn RN, RN, Emily A Coy RN, Emily A 10/02/17 07:39:31 10/02/17 07:39:31 10/02/17 07:39:31 Entry 7 Entry 8 Equipment Type VENA FLOW UNIT[F] DAVINCI EQUIPMENT [F] Equipment Number Equipment Setting Outcomes Met? Yes Yes Last Modified By: Bia Osborn RN, RN, Emily A 10/02/17 07:39:31 10/02/17 09:43:20 Post-Care Text: The patient is free from signs and symptoms of injury caused by extraneous objects Transport To OR FT Pre-Care Text: Transports according to individual needs. Evaluates for signs and symptoms of skin and tissue injury as a result of transfer or transport Entry 1 Via Cart By Bia Osborn RN Safety Precautions Side Rails Up Outcomes Met? Yes Last Modified By: Bia Osborn RN 10/02/17 08:15:54 Post-Care Text: The patient is free from signs and symptoms of injury related to transfer/transport Cautery FT Pre-Care Text: Implements protective measures to prevent injury due to electrical sources, and evaluates for signs and symptoms of electrical injury Entry 1 ESU Identification Equipment Number DAVINCI ESU Settings Cut 35 Coag 35 Bipolar 35 ESU Grounding Pad Site Right Thigh Hair Removal Pad No Site Pre Pad Site Clear and Intact Post Pad Site Clear and Intact Condition Condition Grounding Pad Bia Osborn RN Placed By Outcomes Met? Yes Last Modified By: Bia Osborn RN 10/02/17 09:46:14 Post-Care Text: The patient if free from signs and symptoms of electrical injury Counts Verification FT Pre-Care Text: Performs required counts Entry 1 Entry 2 Procedure(s) HERNIA REPAIR, ROBOT HERNIA REPAIR, ROBOT ASSISTED(.) ASSISTED(.) Type Initial Final Items Instruments, Sponges, Sponges, Sharps Sharps Status Correct Correct Time 10/02/17 08:52:00 10/02/17 11:07:00 By Bia Osborn RN, Sharp Bia Osborn RN, Sharp VOCATIONAL TRAINING INSTRUCTOR/SA, Sushma VOCATIONAL TRAINING INSTRUCTOR/SA, Sushma Outcomes Met? Yes Yes Last Modified By: Bia Osborn RN, RN, Emily A 10/02/17 09:46:46 10/02/17 11:07:22 Post-Care Text: The patient is free from signs and symptoms of injury caused by extraneous objects Skin Prep FT Pre-Care Text: Performs skin preparations Entry 1 Procedure HERNIA REPAIR, ROBOT Prep Area abdomen ASSISTED(.) Prep Agents Betadine Scrub and Solution Hair Removal Methods Clipper Site DR ROBERTS USED CLIPPERS ON ABDOMEN By Bia Osborn RN Outcomes Met? Yes Last Modified By: Bia Osborn RN 10/02/17 09:48:03 Post-Care Text: The patient is free from signs and symptoms of infection Departure From OR FT Pre-Care Text: Transports according to individual needs. Evaluates for signs and symptoms of skin and tissue injury as a result of transfer or transport. Entry 1 Via Cart Safety Precautions Side Rails Up PostOp Destination PACU Transported By Bia Osborn RN Patient Status Stable Skin. Condition Intact, [place], Warm, and Description UNCHANGED FROM Dry, Bruised PREVIOUSLY Airway Maintenance Oxygen in Use? Yes Airway Device Simple Mask Flow Rate 8 L/min Outcomes Met? Yes Last Modified By: Bia Osborn RN 10/02/17 11:31:29 Post-Care Text: The patient is free from signs and symptoms of injury related to transfer/transport General Comments: REPORT GIVEN TO MINIATURE TRAIN DRIVERRN. Jonh RAE RN Dressing/Packing FT Pre-Care Text: Administers care to wound sites Entry 1 Type Dressing Site and Details dermanbond mini to all incisions, 2x2, and opsites to rlq abdomen, cottonballs, 4x4's and medipore tape to umbilicus and abdominal binder Outcomes Met? Yes Last Modified By: Bia Osborn RN 10/02/17 11:27:10 Post-Care Text: The patient is free from signs and symptoms of infection Medication Administration FT Pre-Care Text: Verifies allergies, administers prescribed medications and solutions, administers prescribed antibiotic therapy and immunizing agents as ordered, evaluates response to medications Administers prescribed medications and solutions Entry 1 Expiration Date Yes Outcomes Met? Yes Verified Last Modified By: Bia Osborn RN 10/02/17 07:40:06 Post-Care Text: The patient received appropriate medication(s) safely administered during the perioperative period For Culver-Zack please see scanned medication reconcilliation form for medications used at the field during the procedure. Implant Log FT Pre-Care Text: Records devices implanted during the operative or invasive procedure Entry 1 Implant/Explant Implant Implant Identification Description MESH STEX ROUND 9CM Lot Number [id number] (3.6 ) [SYM9][F] Public Relations Studies Director FT-[employer] Catalog ?# [id number] [F] Size 9CM Expiration Date 06/25/22 Usage Data Implant Site ABDOMEN - UMBILICAL Quantity 1 REGION Outcomes Met? Yes Last Modified By: Bia Osborn RN 10/02/17 10:23:24 Post-Care Text: The patient is free from signs and symptoms of injury caused by extraneous objects Drains/Tubes FT Pre-Care Text: Administers care to invasive device sites Entry 1 Device Type TUBE NASOGASTIC SUMP Location MOUTH 18FR [[id number]][F] Quantity 1 Fluid SCANT AMOUNT BLOOD Characteristics Inserted By Shiva Cronin MD Present on Arrival? No Immediate DC? No DC'd at End of Case? Yes DC'd By Shiva Cronin MD Outcomes Met? Yes Last Modified By: Bia Osborn RN 10/02/17 10:01:51 Post-Care Text: The patient is free from signs and symptoms of infection Urinary Catheter Pre-Care Text: Patient is prepped using sterile technique. Entry 1 Urinary Catheter TRAY URINE JANIS CATH Present Upon Arrival No Inserted LF 16FR [[id number]][F] Insertion Date/Time 10/02/17 09:05:00 Urine Residual 100 Insertion Site Uretheral Urine CLEAR/YELLOW URINE Characteristics Inserted By Bia Osborn RN Discontinued? Yes When was the Discontinued at end of DC'd By Bia Osborn RN catheter case discontinued? Outcomes Met? Yes Last Modified By: Bia Osborn RN 10/02/17 11:31:04 Post-Care Text: The patient is free from signs of trauma. Cultures and Specimens FT Pre-Care Text: Manages specimen handling and disposition Manages culture specimen collection Entry 1 Cultures Ordered Yes Culture Disposition Designated OR Area Culture Source URINE FROM PINEDO Specimens Ordered No Frozen Section Times Outcomes Met? Yes Last Modified By: Bia Osborn RN 10/02/17 10:29:15 Post-Care Text: The patient is free from signs and symptoms of injury caused by extraneous objects The patient is free from signs and symptoms of infection Temperature Control Entry 1 Temperature Control BLANKET MISTRAL AIR Quantity 1 Aid TORSO [[id number]][F] Fluid/[place] Unit Mistral warming system Setting HIGH/43 Body Site Upper anterior torso Last Modified By: Bia Osborn RN 10/02/17 09:49:45 Case Comments Finalized By: Kassy Mathews CST Document Signatures Signed By: Bia Osborn RN 10/02/17 11:26 Bia Osborn RN 10/02/17 11:27 Bia Osborn RN 10/02/17 11:29 Bia Osborn RN 10/02/17 11:31 Kassy Mathews CST 10/03/17 10:03 Normal [facility] History and Physicalon 10-02 History and Physical Patient: POOJA MARRUFO Age: 72 years Sex: Male : 1945 Associated Diagnoses: None Author: Jean-Paul Roberts MD Subjective no changes to H & P Normal [facility] Comment on above: Result Comment: Elec tronically Signed By: Jean-Paul Roberts MD\.br\Date and Time Signed: 10/02/17 08:31 EDT Inpatient Patient Summaryon 10-02-2017 [facility] Instructions[facility] INFORMATION Name: POOJA MARRUFO PHYSICIANS Admitting Physician: Jean-Paul Roberst MD Physician: Jean-Paul Roberts MD PCP: Vidhi DAWKINS DO Diagnosis: Incarcerated umbilical hernia Comment: PATIENT EDUCATION INFORMATIONInstructions:Medic ation Leaflets:Follow up:With: Address: When: Jean-Paul [place] [address] [facility] ([employer] Within 7 to 10 days MEDICATION LISTFill New Prescriptions:acetaminophen-h ydrocodone (acetaminophen-hydrocodone 325 mg-5 mg oral tablet) 1 tab(s) By Mouth every 4 hours as needed for Pain not to exceed 8 tablets/day take with food or milkComment: Normal [facility] Main OR PACU I Recordon Main OR PACU I Record PACU Phase I Document Type FT Summary Primary Physician: Jean-Paul Roberts MD Finalized Date/Time: 10/02/17 12:01:59 Pt. Name: JENNA MARRUFOEMMA Membreno.O.B./Sex: 1945 Male Med Rec #: [id number] Physician: Jean-Paul Roberts MD Financial #: [id number] Pt. Type: A Room/Bed: [facility] Admit/Disch: 10/02/17 06:11:42 - Institution: Case Times PACU I FT Pre-Care Text: Identifies barriers to communication and implements measures to provide psychological support Develops individualized plan of care, and ensures continuity of care Maintains patient's dignity and privacy, and maintains patient confidentiality Identifies and reports philosophical, cultural, and spiritual beliefs and values Identifies individual values and wishes concerning care Implements aseptic technique, and administers prescribed antibiotic therapy and immunizing agents as ordered Evaluates postoperative tissue perfusion Implements thermoregulation measures, and monitors body temperature Evaluates postoperative respiratory status Evaluates postoperative cardiac status Evaluates postoperative neurological status Assesses pain control, collaborated in initiating patient-controlled analgesia and implements alternative methods of pain control Verifies allergies, administers prescribed medications and solutions, evaluates response to medications Entry 1 In PACU I 10/02/17 11:24:00 Discharge from PACU 10/02/17 11:54:00 I Outcomes Met? Yes Last Modified By: Cinthia Sharif RN 10/02/17 12:01:48 Post-Care Text: The patient demonstrates knowledge of the expected response to the operative or invasive procedure The patient's care is consistent with the individualized perioperative plan of care The patient's right to privacy is maintained The patient's value system, lifestyle, ethnicity, and culture are considered, respected, and incorporated into the perioperative plan of care The patient participates in decisions affecting his or her perioperative plan of care The patient is free from signs and symptoms of infection The patient has wound/tissue perfusion consistent with or improved from baseline levels established preoperatively The patient is at or returning to normothermia at the conclusion of the immediate postoperative period The patient's respiratory function is consistent with or improved from baseline levels established preoperatively The patient's cardiovascular status is consistent with or improved from baseline levels established preoperatively The patient's cardiovascular status is consistent with or improved from baseline levels established preoperatively The patient demonstrates and/or reports adequate pain control throughout the perioperative period The patient received appropriate medication(s), safely administered during the perioperative period Acuity Level PACU I FT Entry 1 Start Time 10/02/17 11:24:00 Stop Time 10/02/17 11:54:00 Acuity Level Acuity Level I Last Modified By: Cinthia Sharif RN 10/02/17 12:01:56 Finalized By: Cinthia Sharif RN Document Signatures Signed By: Cinthia Sharif RN 10/02/17 12:01 Normal [facility] Main OR Preoperative Recordo n 10-02-2017 Main OR Preoperative Record PreOp Document Type FT Summary Primary Physician: Jean-Paul Roberts MD Finalized Date/Time: 10/02/17 09:50:16 Pt. Name: POOJA MARRUFO/Sex: 1945 Male Med Rec #: [id number] Physician: Jean-Paul Roberts MD Financial #: [id number] Pt. Type: A Room/Bed: [facility] Admit/Disch: 10/02/17 06:11:42 - Institution: Case Times PreOp FT Pre-Care Text: Verifies consent for planned procedure, identifies individual values and wishes concerning care, includes family members in perioperative teaching Entry 1 Patient Times. In Pre Surgery 10/02/17 06:15:00 Out Pre Surgery 10/02/17 08:49:00 Outcomes Met? Yes Last Modified By: Bia Osborn RN 10/02/17 09:50:12 Post-Care Text: The patient participates in decisions affecting his or her perioperative plan of care Finalized By: Bia Osborn RN Document Signatures Signed By: Bia Osborn RN 10/02/17 09:50 Normal [facility] Operative Reporton 8 Operative Report Date of Surgery: 10/02/2017SURGEON: Jean-Paul Roberts M.D.PREOPERATIVE DIAGNOSIS: Chronically incarcerated umbilical herniaPOSTOPERATIVE DIAGNOSIS: Chronically incarcerated umbilical herniaOPERATION: Robotic-assisted umbilicus herniorrhaphy with 9 cm Symbotexmesh insertionANESTHESIA: General endotracheal as well as TAP blockANESTHESIOLOGIST: Shiva Cronin M.D.ESTIMATED BLOOD LOSS: Less than 15 mLINDICATIONS AND CONSENT: The patient is a 72-year-old male with a longhistory of enlarging, chronically incarcerated umbilical hernia. He hashad no previous abdominal surgery. The indications, risks, benefits,alternatives of proceeding with robotic-assisted umbilical herniorrhaphywere explained extensively to the patient including risks of bleeding,infection, scarring pain, recurrent hernia, bowel injury, blood clot,pulmonary embolus, heart attack, anesthesia complications, need for furthersurgery or mesh removal. All of his questions were answered. Informedconsent was obtained.PROCEDURE: The patient was brought to the Operating Room and placed in thesupine position. General anesthesia was induced. A Pinedo catheter wasinserted using sterile technique. Bilateral TAP block was performed by . The patient was then prepped and draped in the usual sterilefashion. A right subcostal port site incision was made with a scalpelblade and carried down through subcutaneous tissue using blunt dissection.The fascia was grasped and incised. Two 0 Vicryl stay sutures were placedon either side of the fascia and was entered sharply. A finger wasinserted. There were no adhesions noted. The Adrianna trocar was theninserted and secured using the stay sutures. The abdomen was theninsufflated with carbon dioxide to a pressure of 15 mmHg. The scope wasthen inserted and the abdomen was visualized. An 8.5 mm robotic cameraport was then inserted laterally in the right mid abdomen under directvisualization and the 8 mm robotic port was then placed in the right lowerquadrant also under direct visualization. The #1 V-Loc suture was thenbrought into the abdomen and placed in the area of the falciform ligamentfor safekeeping until it would be used for closure of the abdominal wall.The robot was then docked. The bipolar grasper was placed in the #2 karuna monopolar scissors in the #1 arm. I then broke scrub and went to thessm health caresole. There was noted to be chronically incarcerated omentum within thehernia. The defect was noted to be approximately 2 cm although the herniasac was approximately 3-4 cm on the external abdomen. It was carefullytaken down using sharp dissection as well as electrocautery. Omentum wasall freed up. The peritoneum and fatty tissue then surrounding theumbilicus was freed up circumferentially to allow apposition of the mesh tothe abdominal wall. The two instruments were then treated out for needledrivers and the #1 nonabsorbable V-Loc was then used to close the defectlongitudinally, running the stitch from the inferior aspect to superiorlyand then back down inferiorly. There was good hemostasis. It should benoted the abdominal pressure was decreased to 8 mmHg during the closure.The scissors were then brought in through the #2 port and the suture wascut. The port was removed from the Adrianna in the right upper quadrant andthe [place] grasper was then used to bring the needle out through theHasson trocar under direct visualization. The 9 cm Symbotex mesh was thenbrought in with three 2-0 absorbable V-Loc sutures. These were all placedin the upper abdominal wall for safekeeping. The mesh was then unrolled sothat coated surface was out. It was secured circumferentially using theinterrupted 2-0 V-Loc sutures. Additional stitch was used to close theperitoneum. There was a small defect due to chronic scarring and thedefect of the hernia itself. This was just overlying the coated mesh.Once this was completed, scissors were brought in through the #2 arm andall three sutures were cut. The robotic port was then removed from theHasson then under direct visualization, the three needles were then broughtout through the Adrianna direct under direct visualization. Once this wascomplete, the last needle concrete mixing truck driver was brought out through the #1 arm. Therobot was then docked. I then scrubbed back into the field and examinedthe repair. It was noted to be intact. There was no evidence of bleeding.All port sites were examined upon withdrawal of the ports. There was notedto be good hemostasis. The fascia from the right subcostal incision wasthen closed with a 0 Vicryl kedojt-pc-fofjr suture. All port sites wereinfiltrated with the Exparel solution as was the umbilical area. Incisionswere then closed with interrupted 4-0 Monocryl subcuticular sutures. Asterile pressure dressing was applied at the umbilicus as well as anabdominal binder. Sponge and needle counts were correct x2 per nursingpersonnel. Dermabond glue was applied to the incisions as well. Thepatient tolerated the procedure well, was extubated. Pinedo catheter wasremoved. He was sent to Recovery Room in good condition.Jean-Paul Roberts M.D.glsDictated: 10/02/2017 #[id number]: 10/02/2017 #[id number]: Cherie Newby M.D. Normal [facility] Comment on above: Result Comment: Elec tronically Signed By: Armando GALE, Jean-Paul Bates\Date and Time Signed: 10/02/17 13:56 EDT UA With Cult Reflexon 2017 Bilirubin Ql (U) Negative Normal Negative [facility] Comment on above: Performed By: #### 1 [id number] ####[id number] [place] [address] COLOR:TYPE:PT:URIN E:NOM:AUTO STRAW Abnormal Yellow [facility] Comment on above: Performed By: #### 1 [id number] ####[facility] [address] [place] [address] Erythrocytes (RBC) 0-3 Normal 0-3 [facility] Comment on above: Performed By: #### 1 [id number] ####[facility] [address] [place] [address] GLUCOSE:MCNC:PT:UR INE:QN:TEST STRIP Negative Normal Negative [facility] Comment on above: Performed By: #### 1 [id number] ####[facility] [address] [place] [id number] KETONES:MCNC:PT:UR INE:QN:TEST STRIP Negative Normal Negative [facility] Comment on above: Performed By: #### 1 [id number] ####[facility] [address] [place] [id number] LEUKOCYTES:PRTHR:P T:URINE:ORD:AUTOMA JAMESON Negative Normal Negative [facility] Comment on above: Performed By: #### 1 [id number] ####[facility] [address] [place] [address] UA Spec Desc Pinedo Normal [facility] Comment on above: Performed By: #### 1 [id number] ####[facility] [address] [place] [address] Urine, clarity CLEAR Normal Clear [facility] Comment on above: Performed By: #### 1 [id number] ####[facility] [address] [place] [address] Urine, hemoglobin presence Negative Normal Negative [facility] Comment on above: Performed By: #### 1 [id number] ####[facility] [address] [place] [address] Urine, leukocytes in sedmiment 0-5 Normal 0-5 [facility] Comment on above: Performed By: #### 1 [id number] ####[facility] [address] [place] [address] Urine, nitrite presence Negative Normal Negative [facility] Comment on above: Performed By: #### 1 [id number] ####[facility] [address] [place] [address] Urine, pH 6.5 [pH] Invalid Interpretation Code 5.0-9.0 [facility] Comment on above: Performed By: #### 1 [id number] ####[facility] [address] [place] [address] Urine, protein Negative Normal Negative [facility] Comment on above: Performed By: #### 1 [id number] ####[facility] [address] [place] [address] Urine, specific gravity <=1.005 Invalid Interpretation Code 1.005-1.030 [facility] Comment on above: Performed By: #### 1 [id number] ####[facility] [address] [place] [address] Urine, squamous cells in sediment 0-2 Normal 0-2 [facility] Comment on above: Performed By: #### 1 [id number] ####[facility] [address] [place] [address] Urine, urobilinogen 0.2 {Aleja'U}/dL Normal 0.0-1.0 [facility] Comment on above: Performed By: #### 1 [id number] ####[facility] [address] [place] [address] Coding Summary.on 09-20-2017 Coding Summary. CODING DATE: 018 FINAL [facility] STATUS: Home (Routine DC) PAYOR: Medicare APC DESCRIPTION 5521 Level 1 Imaging without Contrast ADMIT DX: REASON FOR VISIT DX: Z01.818 Encounter for other preprocedural examination FINAL DX: PRINCIPAL: Z01.818 Encounter for other preprocedural examination SECONDARY: PYMT PROC APC STAT DESCRIPTION DOCTOR NAME DATE NOTE: The code number assigned matches the documented diagnosis and / or procedure in the patient's chart. However, the narrative phrase printed from the coding software may appear abbreviated, or result in slightly different terminology. Coded By: Una Zarco Date Saved: 09/20/2017 11:31 am Normal [facility] Auto Diffon 09-19-2017 Basophils Auto #/vol (Bld) 0.1 E9/L Normal 0.0-0.2 [facility] Comment on above: Order Comment: Order Added by Mike Expert. Performed By: #### 2 104572, 3967723, 4846755, [id number] ####[address] [address] Basophils Auto #/vol (Bld) 1.1 % Normal 0.0-2.0 [facility] Comment on above: Order Comment: Order Added by Mike Expert. Performed By: #### 2 995933, 2612970, 6605427, 04488006 ####[address] [address] Eosinophils 0.1 E9/L Normal 0.0-0.5 [facility] Comment on above: Order Comment: Order Added by Mike Expert. Performed By: #### 2 459075, 6397121, 3634912, [id number] ####[address] [place] [address] Eosinophils/100 leukocytes 1.4 % Normal 0.0-8.0 [facility] Comment on above: Order Comment: Order Added by Mike Expert. Performed By: #### 2 644488, 8087893, 3484704, 63627415 ####[address] [place] [address] Lymphocytes 2.4 E9/L Normal 1.0-4.0 [facility] Comment on above: Order Comment: Order Added by Mike Expert. Performed By: #### 2 420378, 1324988, 4248563, 17784014 ####[address] [address] Lymphocytes/100 leukocytes 25.9 % Normal 14.0-50.0 [facility] Comment on above: Order Comment: Order Added by Mike Expert. Performed By: #### 2 458023, 3286176, 1419405, 33606901 ####[address] [place] [address] Monocytes 0.7 E9/L Normal 0.2-1.0 [facility] Comment on above: Order Comment: Order Added by Discern Expert. Performed By: #### 2 606992, 8963774, 9736888, 91820567 ####[address] [address] Monocytes/100 leukocytes 8.1 % Normal 4.0-14.0 [facility] Comment on above: Order Comment: Order Added by Discern Expert. Performed By: #### 2 535187, 6859678, 4560033, 09316869 ####[address] [address] Neutrophils 5.9 E9/L Normal 2.0-7.5 [facility] Comment on above: Order Comment: Order Added by Discern Expert. Performed By: #### 2 581800, 7297410, 6724177, 15174906 ####[address] [address] Neutrophils/100 leukocytes 63.5 % Normal 36.0-75.0 [facility] Comment on above: Order Comment: Order Added by Discern Expert. Performed By: #### 2 062792, 1950311, 9933292, 31639488 ####[address] [address] CBC w/ Auto Diffon Erythrocyte distribution width Auto Ratio (RBC) 13.7 % Normal 10.9-14.2 [facility] Comment on above: Performed By: #### 2 243663, 0164759, 6063360, 09184596 ####[address] [address] Erythrocytes (RBC) 4.3 E12/L Normal 4.3-5.9 [facility] Comment on above: Performed By: #### 2 416406, 6328798, 2369883, 64309224 ####[address] [address] Hematocrit (HCT) 40.0 % Normal 37.7-49.0 [facility] Comment on above: Performed By: #### 2 310422, 6972231, 8456315, 93583298 ####[address] [place] [address] Hemoglobin mass conc (Bld) 13.9 g/dL Normal 13.5-17.5 [facility] Comment on above: Performed By: #### 2 328543, 7215682, 4121701, 32235471 ####[address] [address] MCH 32.3 pg Normal 27.0-34.0 [facility] Comment on above: Performed By: #### 2 957531, 4347388, 5209972, 36680997 ####[address] [address] MCHC mass conc (RBC) 34.9 g/dL Normal 31.4-39.3 [facility] Comment on above: Performed By: #### 2 437306, 3360753, 3076208, 76090041 ####[address] MCV 92.8 fL Normal 80.0-100.0 [facility] Comment on above: Performed By: #### 2 483738, 8533174, 5569877, 15256882 ####[address] [address] Platelet mean volume (PMV) 8.4 fL Normal 6.4-10.8 [facility] Comment on above: Performed By: #### 2 807170, 1337775, 5190408, 82840086 ####[address] [address] Platelets 311.0 E9/L Normal 150.0-500.0 [facility] Comment on above: Performed By: #### 2 895562, 6836865, 2489655, 93355048 ####[address] [address] WBC (Leukocytes) 9.3 E9/L Normal 4.0-11.0 [facility] Comment on above: Performed By: #### 2 123063, 5811896, 3257715, 88528979 ####[facility] [address] [place] [address] CMPon 09-19-2017 Alanine aminotransferase (ALT) 39 Int._Unit/L Normal 6-46 [facility] Comment on above: Performed By: #### 2 753338, 3071721, 1818708, 30019548 ####[address] [place] [address] Albumin 4.1 g/dL Normal 3.3-5.0 [facility] Comment on above: Performed By: #### 2 674462, 3214981, 3319362, 54262853 ####[address] Albumin 1.1 g/dL Normal 1.1-2.2 [facility] Comment on above: Performed By: #### 2 265325, 9411897, 8306478, 16243392 ####[address] [address] Alkaline phosphatase (ALP) 66 Int._Unit/L Normal 21-98 [facility] Comment on above: Performed By: #### 2 922058, 1846616, 7870457, 91716082 ####[address] [place] [address] Anion gap 12 mmol/L Normal 6-16 [facility] Comment on above: Performed By: #### 2 072199, 0807036, 4198685, 58573280 ####[address] [place] [address] Aspartate aminotransferase (AST) 28 Int._Unit/L Normal 5-43 [facility] Comment on above: Performed By: #### 2 279686, 6821466, 9176937, 11706718 ####[address] [place] [address] Bilirubin (total) 0.8 mg/dL Normal 0.0-1.1 [facility] Comment on above: Performed By: #### 2 849849, 4026627, 2907050, 08673097 ####[facility] [address] [place] [address] BUN/Creatinine Ratio 19 No Units Normal 10-20 [facility] Comment on above: Performed By: #### 2 123717, 5064930, 4706859, 71021574 ####[facility] [address] [place] [address] Calcium 9.1 mg/dL Normal 8.9-11.1 [facility] Comment on above: Performed By: #### 2 009554, 3300299, 8049798, 66258403 ####[facility] [address] [place] [address] Chloride 96 mmol/L Low 101-111 [facility] Comment on above: Performed By: #### 2 216363, 7108853, 9791077, 88999419 ####[facility] [address] CO2 29 mmol/L Normal 21-31 [facility] Comment on above: Performed By: #### 2 001120, 5198790, 0993569, 47616263 ####[facility] [address] [place] [address] Creatinine 1.1 mg/dL Normal 0.5-1.3 [facility] Comment on above: Performed By: #### 2 455233, 8192647, 2865503, 86683625 ####[facility] [address] [place] [address] Globulin 3.6 g/dL Normal 1.4-4.0 [facility] Comment on above: Performed By: #### 2 267071, 7567214, 5358414, 20451945 ####[facility] [address] [place] [address] Glucose mass conc 157 mg/dL Normal 55-199 [facility] Comment on above: Result Comment: If t his glucose result represents a fasting glucose, interpretation should refer to the following reference range: 55-99 mg/dL Performed By: #### 2 933274, 2866807, 4562187, 55148327 ####[facility] [address] [place] [address] Potassium molar conc 3.9 mmol/L Normal 3.5-5.3 [facility] Comment on above: Performed By: #### 2 270162, 0891812, 8026180, 63329700 ####[facility] [address] [place] [address] Protein 7.7 g/dL Normal 6.0-7.8 [facility] Comment on above: Performed By: #### 2 925519, 7848643, 8620417, 81358687 ####[facility] [address] [place] [address] Sodium 133 mmol/L Low 135-145 [facility] Comment on above: Performed By: #### 2 513556, 2526267, 9195677, 60856094 ####[facility] [address] [place] [address] Urea nitrogen 21 mg/dL Normal 5-21 [facility] Comment on above: Performed By: #### 2 936503, 5138870, 5553623, 49096033 ####[facility] [address] [place] [address] XR Chest 2 Viewson 8 XR Chest 2 Views Exam Date/Time:2017 10:49 EDTReason for Exam:Pre OpReportIMPRESSION: NO EVIDENCE OF ACTIVE CHEST DISEASE.CLINICAL HISTORY: Pre Op. Prior smoker.COMMENT: There are sternotomy wires and mediastinal surgical clips. The heart is normal insize. The mediastinum is unremarkable. There is a small granuloma at the left lungbase posterolaterally. No infiltration nor pleural effusion is evident. FINAL REPORT Dictated: 09/19/2017 1:33 pm DemetricePio schumacher M.D. Signed (Electronic Signature): 09/19/2017 1:33 pm Signed by: Pio Suresh M.D. Transcribed by: LOREN Technologist: IRENA Charles [facility] eGFRon 09-19-2017 eGFR (black) mL/min/{1.73_m2} Normal >=59 [facility] Comment on above: Order Comment: Order added by Discern Expert. Result Comment: eGFR is race adjusted. AA=. Performed By: #### 2 064210, 9705454, 1691490, 83544880 ####[facility] [address] [place] [address] eGFR (non-black) mL/min/{1.73_m2} Normal >=59 [facility] Comment on above: Order Comment: Order added by Discern Expert. Result Comment: [employer] chris kidney disease could be indicated at eGFR's of less than 60 mL/min/1.73m2. Kidney failure is indicated at less than 15 mL/min/1.73m2. Performed By: #### 2 692120, 3780876, 4665303, 27898694 ####[facility] [address] [place] [address] Coding Summary.on 04-19-2017 Coding Summary. 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 However, the narrative phrase printed from the coding software may appear abbreviated, or result in slightly different terminology. Coded By: Haley Leyva Date Saved: 04/19/2017 03:05 pm Normal [facility] Vital Signs Date Time Vital Sign Value Performing Clinician Facility 04-20-2023 08:30-0400 Body height 187.96 cm Robin Ball Other [facility] Other 04-20-2023 08:30-0400 Body mass index (BMI) [Ratio] 29.3 kg/m2 Robin Ball Other [facility] Other 04-20-2023 08:30-0400 Body weight 103.51 kg Robin Ball Other [facility] Other 04-20-2023 08:30-0400 Diastolic blood pressure 66 mm[Hg] Robin Ball Other [facility] Other 04-20-2023 08:30-0400 Respiratory rate 12 /min Robin Ball Other [facility] Other 04-20-2023 08:30-0400 Systolic blood pressure 124 mm[Hg] Robin Ball Other [facility] Other 12-15-2022 08:30-0400 Body height 187.96 cm Robin Ball Other [facility] Other 12-15-2022 08:30-0400 Body mass index (BMI) [Ratio] 29.76 kg/m2 Robin Ball Other [facility] Other 12-15-2022 08:30-0400 Body weight 105.14 kg Robin Ball Other [facility] Other 12-15-2022 08:30-0400 Diastolic blood pressure 71 mm[Hg] Robin Ball Other [facility] Other 12-15-2022 08:30-0400 Respiratory rate 12 /min Robin Ball Other [facility] Other 12-15-2022 08:30-0400 Systolic blood pressure 127 mm[Hg] Robin Ball Other [facility] Other 11-22-2022 13:45-0400 Body height 187.96 cm Robin Ball Other [facility] Other 11-22-2022 13:45-0400 Body mass index (BMI) [Ratio] 29.94 kg/m2 Robin Ball Other [facility] Other 11-22-2022 13:45-0400 Body weight 105.78 kg Robin Ball Other [facility] Other 11-22-2022 13:45-0400 Diastolic blood pressure 64 mm[Hg] Robin Ball Other [facility] Other 11-22-2022 13:45-0400 Respiratory rate 12 /min Robin Ball Other [facility] Other 11-22-2022 13:45-0400 Systolic blood pressure 115 mm[Hg] Robin Ball Other [facility] Other 09-21-2022 09:30-0400 Body height 187.96 cm Robin Ball Other [facility] Other 09-21-2022 09:30-0400 Body mass index (BMI) [Ratio] 31.17 kg/m2 Robin Ball Other [facility] Other 09-21-2022 09:30-0400 Body weight 110.13 kg Robin Ball Other [facility] Other 09-21-2022 09:30-0400 Diastolic blood pressure 68 mm[Hg] Robin Ball Other [facility] Other 09-21-2022 09:30-0400 Respiratory rate 12 /min Robin Ball Other [facility] Other 09-21-2022 09:30-0400 Systolic blood pressure 130 mm[Hg] Robin Ball Other [facility] Other Encounters Encounter Date Encounter Type Care Provider Facility Start: 06-14-2023 End: 06-14-[address] [facility] Start: 04-21-2023 End: 04-21-2023 ambulatory Robin Ball Other [facility] Other Start: 04-21-2023 Telephone encounter Robin Ball [facility] Start: 04-20-2023 End: 04-20-2023 ambulatory Robin Ball Other [facility] Other Start: 04-20-2023 Office outpatient vi sit 25 minutes Robin Ball [facility] Start: 04-12-2023 End: 04-12-2023 ambulatory Robin Ball Other [facility] Other Start: 04-12-2023 Telephone encounter Robin Ball [facility] Start: 04-07-2023 End: 04-07-2023 ambulatory Robin Ball Other [facility] Other Start: 04-07-2023 Telephone encounter Robin Ball [facility] Start: 02-06-2023 End: 02-06-2023 ambulatory Robin Ball Other [facility] Other Start: 02-06-2023 Telephone encounter Robin Ball [facility] Start: 12-20-2022 End: 12-20-2022 ambulatory Orbin Ball Other [facility] Other Start: 12-20-2022 Telephone encounter Robin Dawkins [facility] Start: 12-15-2022 End: 12-15-2022 ambulatory Robin Dawkins Other [facility] Other Start: 12-15-2022 Patient encounter procedure Robin Dawkins [facility] Start: 12-14-2022 End: 12-14-2022 ambulatory [facility] Start: 11-22-2022 End: 11-22-2022 ambulatory Robin Dawkins Other [facility] Other Start: 11-22-2022 Office outpatient vi sit 15 minutes Robin Ball [facility] Start: 11-22-2022 Telephone encounter Robin Dawkins [facility] Start: 10-31-2022 End: 10-31-2022 ambulatory Robin Dawkins Other [facility] Other Start: 10-31-2022 Office outpatient vi sit 15 minutes Robin Dawkins [facility] Start: 10-04-2022 End: 10-05-[address] MAE MCCORMICK [facility] Other Start: 10-04-2022 Telephone encounter Robin Dawkins [facility] Start: 09-21-2022 End: 09-21-2022 ambulatory Robin Dawkins Other [facility] Other Start: 09-21-2022 Office outpatient vi sit 25 minutes Robin Dawkins [facility] Start: 03-30-2022 End: 03-31-[address] MAE MCCORMICK Facility:[facility] Start: 12-16-2021 End: 12-17-[address] ROBIN DAWKINS Facility:[facility] Start: 12-06-2021 Adult health examination Robin Dawkins Other [facility] Other Start: 10-03-2018 End: 10-04-2018 Patient encounter procedure RONNY NEWMAN Facility:[facility] Start: 10-02-2017 End: 10-02-2017 Ambulatory Jean-Paul Roberts Facility:[facility] Start: 09-19-2017 End: 09-20-2017 Ambulatory Jean-Paul Roberts Facility:[facility] Start: 04-18-2017 End: 04-18-2017 Ambulatory Bipin Cruz Facility:[facility] Procedures Date Procedure Procedure Detail Performing Clinician Start: 12-16-[address] JOVANY DAWKINS Comment on above: Performed By: #### P [facility] #### [facility] [address] [place] [address] Dr. Rui Moore Start: 06-09-2016 Removal of suture Scott Dawkins Other Start: 11-10-2015 Screening for malign ant neoplasm of colon Robin Dawkins Other Start: 10-21-2013 Screening for malign ant neoplasm of prostate Robin Dawkins Other Depression screening Jose n Juancho Other Screening for malign ant neoplasm of prostate Robin Dawkins Other Immunizations Immunization Date Immunization Notes Care Provider Fa [facility] 11-16-2022 tetanus toxoid, redu suzy diphtheria toxoid, and acellular pertussis vaccine, adsorbed Robin Dawkins Other [facility] Other 04-06-2022 influenza, high dose seasonal, preservative-free Robin Dawkins Other [facility] Other 03-17-2022 COVID-19 Pfizer (bivalent) Robin Dawkins Other [facility] Other 10-06-2021 COVID-19 Vaccine Pfi zer - Documentation Purposes Only Robin Dawkins Other [facility] Other 03-31-2021 COVID-19 Vaccine Pfi zer - Documentation Purposes Only Robin Dawkins Other [facility] Other 09-28-2020 COVID-19 Vaccine Pfi zer - Documentation Purposes Only Robin Dawkins Other [facility] Other 09-01-2020 COVID-19 Vaccine Pfi zer - Documentation Purposes Only Robin Dawkins Other [facility] Other 04-01-2020 influenza virus vaccine, split virus (incl. purified surface antigen) Robin Dawkins Other [facility] Other 04-18-2019 influenza virus vaccine, split virus (incl. purified surface antigen) Robin Dawkins Other [facility] Other 04-12-2018 influenza virus vaccine, split virus (incl. purified surface antigen) Robin Dawkins Other [facility] Other 05-11-2017 influenza virus vaccine, split virus (incl. purified surface antigen) Robin Dawkins Other [facility] Other 04-04-2016 influenza virus vaccine, split virus (incl. purified surface antigen) Robin Dawkins Other [facility] Other 04-16-2015 influenza virus vaccine, split virus (incl. purified surface antigen) Robin Dawkins Other [facility] Other 04-16-2015 pneumococcal conjuga te vaccine, 13 valent Robin Dawkins Other [facility] Other 01-24-2015 zoster vaccine, live Benjami robb Dawkins Other [facility] Other 12-30-2013 pneumococcal polysaccharide vaccine, 23 valent Robin Dawkins Other [facility] Other 04-04-2013 pneumococcal conjuga te vaccine, 13 valent Robin Dawkins Other [facility] Other 04-03-2013 tetanus and diphther ia toxoids, adsorbed, preservative free, for adult use (5 Lf of tetanus toxoid and 2 Lf of diphtheria toxoid) Robin Dawkins Other [facility] Other 03-08-2012 tetanus and diphther ia toxoids, adsorbed, preservative free, for adult use (5 Lf of tetanus toxoid and 2 Lf of diphtheria toxoid) Robin Dawkins Other [facility] Other 09-29-2010 diphtheria, tetanus toxoids and acellular pertussis vaccine, unspecified formulation Robin Dawkins Other [facility] Other 04-28-2010 pneumococcal polysaccharide vaccine, 23 valent Robin [facility] Other [facility] Other Payers Date Payer Category Payer Medicare [id number] 1960 Medicare [id number] 2.1 [id number] 1960 Unknown [id number] 1945 Unknown [id number] [id number] 1945 Unknown [id number] 2.16.84 [id number] 1945 Unknown [id number] 2.16.84 [id number] 1945 Unknown [id number] 2.16.84 [id number] Social History Date Type Detail Facility Sex Assigned At [facility] Other Medical Equipment Procedure Code Equipment Code Equipment Origin al Text Equipment Identifier Dates Start: 09-21-2022 Clinical Notes 09-21-2022 to 06-14-2023 Note Date & Type Note Facility 06-14-2023 Note [facility] Bennett Marrufo is a 77 y.o. year old male patient being seen for 6 mo follow up CAD, hypertension, hyperlipidemia, PAF, and PAD. He underwent PCI to the LLE in December [address] Mccormick. Had OLEG's last month. He denies chest pain, SOB, and palpitations. Doing well. Patient Active Problem List Diagnosis Abnormal results of cardiovascular function studies Bilateral lower extremity pain Cardiac arrhythmia Carotid artery occlusion Coronary atherosclerosis Essential hypertension History of carotid endarterectomy Hyperlipidemia Internal carotid artery stenosis, bilateral Intracranial subdural hemorrhage (CMS/HCC) Lower limb ischemia Obesity Paroxysmal atrial fibrillation (CMS/HCC) PAD (peripheral artery disease) (CMS/HCC) Type 2 diabetes mellitus without complication (CMS/HCC) Pre-operative cardiovascular examination Claudication (CMS/HCC) Dry eyes PCO (posterior capsular opacification), left Peripheral opacity of both corneas Family History Problem Relation Name Age of Onset Heart failure Mother Social History Tobacco Use Smoking status: Former Types: Cigarettes Smokeless tobacco: Never HPI Mr. Pooja Marrufo is seen in follow up. He is a 77-year-old man. He has CAD, hypertension and PAD. He is known to have coronary artery disease status post bare metal stenting of the right coronary artery in January 2012 who is also known to have history of diabetes, hyperlipidemia, hypertension, and peripheral vascular disease status post bypass surgery performed by Dr. Mae Mccormick. His cath in 02/2016 showed severe 3 vessel disease. He underwent combined CABG x3 and left carotid endarterectomy. In April 2020 he was admitted to the [facility] with COVID-19. He developed atrial fibrillation. He has been maintained on Xarelto for anticoagulation. After visit in October 2020 I checked Holter monitor. This showed an episode of NSVT. I checked an echocardiogram and a stress test and those were nonrevealing. His ejection fraction was around 45-50% by echo and 52% by stress test and there was no ischemia. On 01/11/2023 he underwent Left external iliac artery angioplasty and stenting by Dr Mccormick. Today he reports that he has been doing well. No palpitations, no chest pain, He has mild shortness of breath on moderate exertion. He has occasional right lower extremity swelling. Review of Systems Cardiovascular: Positive for claudication (improving s/p PCI), dyspnea on exertion and leg swelling (RLE). Hematologic/Lymphatic: Bruises/bleeds easily. Musculoskeletal: Positive for back pain, joint pain, muscle weakness and myalgias. Neurological: Positive for light-headedness (upon standing too quickly). All other systems reviewed and are negative. Objective Visit Vitals BP 122/70 (BP Location: Left arm, Patient Position: Sitting) Pulse 65 Ht 1.88 m (6' 2 ) Wt 103 kg (226 lb) SpO2 97% BMI 29.02 kg/m??? Smoking Status Former BSA 2.32 m??? Physical Exam Constitutional: Appearance: He is well-developed. He is obese. He is not ill-appearing. HENT: Head: Normocephalic and atraumatic. Nose: Nose normal. Eyes: General: No scleral icterus. Pupils: Pupils are equal, round, and reactive to light. Neck: Thyroid: No thyromegaly. Vascular: No JVD. Cardiovascular: Rate and Rhythm: Normal rate and regular rhythm. Pulses: Radial pulses are 0 on the right side and 2+ on the left side. Heart sounds: Normal heart sounds. No murmur heard. No friction rub. No gallop. Pulmonary: Effort: Pulmonary effort is normal. No respiratory distress. Breath sounds: Normal breath sounds. No wheezing or rales. Chest: Chest wall: No tenderness. Abdominal: General: Bowel sounds are normal. There is no distension. Palpations: Abdomen is soft. Tenderness: There is no abdominal tenderness. Musculoskeletal: General: No swelling. Cervical back: Neck supple. Right lower leg: No edema. Left lower leg: No edema. Skin: General: Skin is warm and dry. Neurological: General: No focal deficit present. Mental Status: He is alert and oriented to person, place, and time. Psychiatric: Mood and Affect: Mood normal. Behavior: Behavior is cooperative. Judgment: Judgment normal. Allergies Allergies Allergen Reactions Anfejly-Obi-Omc Reductase Inhibitors Other Lisinopril Losartan Medications Current Outpatient Medications: allopurinol (Zyloprim) 300 mg tablet, allopurinol 300 mg tablet TAKE 1 TABLET BY MOUTH ONCE DAILY, Disp: , Rfl: amLODIPine (Norvasc) 10 mg tablet, Take 1 tablet (10 mg) by mouth in the morning., Disp: 90 tablet, Rfl: 3 aspirin 81 mg EC tablet, in the morning., Disp: , Rfl: clopidogrel (Plavix) 75 mg tablet, clopidogrel 75 mg tablet, Disp: , Rfl: furosemide (Lasix) 40 mg tablet, Take 1 tablet by mouth once daily, Disp: 90 tablet, Rfl: 3 metFORMIN (Glucophage) 500 m (more content not included)... [facility] 04-20-2023 Evaluation note Encounter Date Diagnosis Assessment Notes Mar, ASHD (arteriosclerotic heart disease) (ICD-10 - I25.10) Mar, Type 2 diabetes mellitus with hyperglycemia, without long-term current use of insulin (ICD-10 - E11.65) Mar, Atherosclerosis of [place] artery of both lower extremities with intermittent claudication (ICD-10 - I70.213) Mar, Pain in left shoulder (ICD-10 - M25.512) Mar, Primary osteoarthritis, left shoulder (ICD-10 - M19.012) Mar, Primary hypertension (ICD-10 - I10) Mar, Elevated cholesterol (ICD-10 - E78.00) Mar, Overweight (ICD-10 - E66.3) Mar, Hx of gout (ICD-10 - Z87.39) Mar, Anemia, unspecified type (ICD-10 - D64.9) Mar, Other chronic pain (ICD-10 - G89.29) [employer] Other [id number] Evaluation note* Encounter Date Diagnosis Assessment Notes Treatment Notes Treatment Clinical Notes Mar, ASHD (arteriosclerotic heart disease) (ICD-10 - I25.10) This patient is stable without activity related CP, dyspnea or lightheadedness. They are instructed to continue exercise and AHA diet plan. Continue secondary prevention measures. Mar, Type 2 diabetes mellitus with hyperglycemia, without long-term current use of insulin (ICD-10 - E11.65) This patient is following a comprehensive diabetic treatment plan. They are checking their feet daily for calluses and nonhealing ulcers. They are being seen for yearly dilated eye examinations. Goals: SBP less than 130, LDL less than 100, FBS less than 140, A1C less than 7%. They are checking their BS daily, will which are reviewed at the office visit. Continue regular routine monitoring of A1C,] Microalbumin, Dilated eye exam and Foot exam Mar, Atherosclerosis of [place] artery of both lower extremities with intermittent claudication (ICD-10 - I70.213) Much improved after his sugery. Continue secondary prevention measures. Walk daily until pain, rest and start again. Inspect feet for cuts or calluses Mar, Pain in left shoulde r (ICD-10 - M25.512) IA injection given w/o complications He is aware his pain may worsen prior to improving Ice and rest. Mar, Primary osteoarthritis, left shoulder (ICD-10 - M19.012) ROM exercises, ice/heat and Tylenol. Requesting IA injection Mar, Primary hypertension (ICD-10 - I10) This patient is instructed to consume a healthy, low-fat, low-salt diet. They are also encouraged to continue exercise to achieve/maintain a normal BMI. Mar, Elevated cholesterol (ICD-10 - E78.00) Instructed on diet and exercise with continued statin therapy.Discussed the beneficial effects of lowering cholesterol in reducing the risk for cerebrovascular and cardiovascular disease. Mar, Overweight (ICD-10 - E66.3) This patient has been instructed on a low-fat, high-fiber diet. They are instructed to reduce calories, portion sizes and snacks. It is recommended that they exercise for 30 minutes, 3-5 times weekly. Mar, Gastroesophageal reflux disease with esophagitis without hemorrhage (ICD-10 - K21.00) Diet instructions: Smaller portions, avoid eating and laying flat, avoid eating or drinking prior to bedtime. Weight loss. Restart PPI Mar, Anemia, unspecified type (ICD-10 - D64.9) Monitor for now, no s/s GIB. Recheck H/H, B12, Fe, FA in 3mo Mar, Other chronic pain (ICD-10 - G89.29) Mar, Hx of gout (ICD-10 - Z87.39) No acute attacks present at this time. [employer] Other 10-13-2023 Evaluation note* Encounter Date Diagnosis Assessment Notes Treatment Notes Treatment Clinical Notes Mar, Anemia, unspecified type (ICD-10 - D64.9) [employer] Other 06-22-2023 Evaluation note* Encounter Date Diagnosis Assessment Notes Treatment Notes Treatment Clinical Notes Nov, Medicare annual wellness visit, subsequent (ICD-10 - Z00.00) Personalized health advice was given to the beneficiary including a written plan for screenings discussed and provided. Advanced care planning reviewed and/or information given as requested. Additional counseling was provided here today in regards to, [ ]. The above visit was performed by [ ], under direct supervision of [ ]. Document reviewed and amended by provider signed below. Nov, ASHD (arteriosclerotic heart disease) (ICD-10 - I25.10) This patient is stable without activity related CP, dyspnea or lightheadedness. They are instructed to continue exercise and AHA diet plan. Nov, Type 2 diabetes mellitus with hyperglycemia, without long-term current use of insulin (ICD-10 - E11.65) This patient is following a comprehensive diabetic treatment plan. They are checking their feet daily for calluses and nonhealing ulcers. They are being seen for yearly dilated eye examinations. Goals: SBP less than 130, LDL less than 100, FBS less than 140, AC and A1C less than 7%. They are checking their BS daily, will which are reviewed at the office visit. Continue regular routine monitoring of A1C,] Microalbumin, Dilated eye exam and Foot exam Nov, Elevated cholesterol (ICD-10 - E78.00) Instructed on diet and exercise with continued statin therapy.Discussed the beneficial effects of lowering cholesterol in reducing the risk for cerebrovascular and cardiovascular disease. Nov, Primary hypertension (ICD-10 - I10) This patient is instructed to consume a healthy, low-fat, low-salt diet. They are also encouraged to continue exercise to achieve/maintain a normal BMI. Nov, Overweight (ICD-10 - E66.3) This patient has been instructed on a low-fat, high-fiber diet. They are instructed to reduce calories, portion sizes and snacks. It is recommended that they exercise for 30 minutes, 3-5 times weekly. Nov, Screening PSA (prostate specific antigen) (ICD-10 - Z12.5) Nov, High risk medication use (ICD-10 - Z79.899) Nov, Hx of gout (ICD-10 - Z87.39) [employer] Other 06-21-2023 NoteRCRI- 3 points Class IV Risk 15.0???% 30-day risk of , PR, or cardiac arrest From a cardiology perspective pt may proceed with planned vascular procedure, he is a moderate risk for a low risk procedure. May hold plavix if neededUn[facility]06-21-2023 NoteContinue metoprolol for rate control, anticoagulation was DCd per Dr Lucero. In rhythm per assessment Previous note per Dr Lucero Mr. Marrufo is stable from the cardiac standpoint with no symptoms of angina or heart failure. His recent cardiac testing included an echocardiogram that showed relatively stable LV systolic function with an ejection fraction around 50%. His stress test did not show ischemia. His blood pressure and heart rate are elevated. I will increase metoprolol tartrate to 150 mg twice daily. He is currently in sinus rhythm. He is asking again about coming off Xarelto. I think this could be reasonable given that there was no evidence of recurrence of atrial fibrillation on monitoring and since the atrial fibrillation happened in the setting of COVID-19 infection.[facility]06-21-2023 NotePT is planning for angiogram/intervention with Dr Mccormick- vascular surgery [facility]06-21-2023 NoteUTP CARDIOLOGY PROGRESS NOTE HPI: Pooja Marrufo is a 77 y.o. male here for Coronary Artery Disease, Hypertension, Atrial Fibrillation, and Peripheral Vascular Disease HPI Currently pt denied chest pain, shortness of breath, orthopnea or palpitations. Reports claudication and symptoms of LLE and planning angiogram/intervention. States he would like to resume exercising but is limited from claudication. Overall from a cardiac perspective pt is doing well. Review of Systems Constitutional: Negative. Respiratory: Negative. Cardiovascular: Negative. Neurological: Negative. All other systems reviewed and are negative. Visit Vitals BP 126/70 (BP Location: Left arm, Patient Position: Sitting, BP Cuff Size: Large adult) Pulse 69 Ht 1.88 m (6' 2 ) Wt 105 kg (232 lb 3.2 oz) SpO2 99% BMI 29.81 kg/m??? Smoking Status Former BSA 2.34 m??? Allergies Allergen Reactions Nljhqjy-Tpa-Bfb Reductase Inhibitors Other Lisinopril Losartan Medications: Current Outpatient Medications on File Prior to Visit Medication Sig Dispense Refill allopurinol (Zyloprim) 300 mg tablet allopurinol 300 mg tablet TAKE 1 TABLET BY MOUTH ONCE DAILY amLODIPine (Norvasc) 10 mg tablet amlodipine 10 mg tablet TAKE 1 TABLET BY MOUTH ONCE DAILY FOR 90 DAYS aspirin 81 mg EC tablet in the morning. clopidogrel (Plavix) 75 mg tablet clopidogrel 75 mg tablet furosemide (Lasix) 40 mg tablet furosemide 40 mg tablet TAKE 1 TABLET BY MOUTH ONCE DAILY metFORMIN (Glucophage) 500 mg tablet metformin 500 mg tablet TAKE 1 TABLET BY MOUTH BEFORE BREAKFAST AND EVENING MEAL methocarbamol (Robaxin) 500 mg tablet Take 500 mg by mouth every 8 (eight) hours if needed. metoprolol tartrate (Lopressor) 100 mg tablet metoprolol tartrate 100 mg tablet TAKE 1 TABLET BY MOUTH TWICE DAILY 180 tablet 3 metoprolol tartrate (Lopressor) 50 mg tablet metoprolol tartrate 50 mg tablet TAKE 1 TABLET BY MOUTH TWICE DAILY 180 tablet 3 omega-3 fatty acids-fish oil 360-1,200 mg capsule Take 3 capsules by mouth in the morning. potassium chloride CR (K-Tab) 20 mEq ER tablet Take 1 tablet (20 mEq) by mouth in the morning. as directed 90 tablet 3 rosuvastatin (Crestor) 20 mg tablet rosuvastatin 20 mg tablet TAKE 1 TABLET BY MOUTH ONCE DAILY IN THE EVENING 90 tablet 3 traMADol (Ultram) 50 mg tablet Take 50 mg by mouth every 4 (four) hours if needed. No current facility-administered medications on file prior to visit. Physical Exam: Constitutional: Appearance: Normal appearance. Without apparent distress, chronically ill HENT: Head: Normocephalic and atraumatic. Nose: Nose normal. Mouth/Throat: Mouth: Mucous membranes are moist. Eyes: Extraocular Movements: Extraocular movements intact. Conjunctiva/sclera: Conjunctivae normal. Neck: Vascular: No JVD. Cardiovascular: Rate and Rhythm: Normal rate and regular rhythm. Pulses: Dorsalis pedis pulses are 2 on the right side and 1on the left side. Posterior tibial pulses are 2 on the right side and 1 on the left side. Heart sounds: Normal heart sounds, S1 normal and S2 normal. Pulmonary: Effort: Pulmonary effort is normal. Breath sounds: Normal breath sounds. Abdominal: General: Bowel sounds are normal. Palpations: Abdomen is soft. Musculoskeletal: General: Normal range of motion. Cervical back: Normal range of motion. Right lower leg: No edema. Left lower leg: No edema. Skin: General: Skin is warm and dry. Capillary Refill: Capillary refill takes less than 2 seconds. Neurological: General: No focal deficit present. Mental Status: alert and oriented to person, place, and time. Psychiatric: Mood and Affect: Mood normal. Behavior: Behavior normal. Thought Content: Thought content normal. Judgment: Judgment normal. Labs: Blood testing 12/16/2021: Hemoglobin 12.3, platelets 307, potassium 4.5, BUN 22, creatinine 1.23, LFTs normal, HDL 39, cholesterol 109, triglycerides 92, LDL 52. Blood testing 12/14/2020: Hemoglobin 12.2, potassium 4.3, BUN 21, creatinine 1.15, LFTs normal, HDL 55, LDL 98, triglycerides 90, cholesterol 169. Last lab values have been reviewed CV Testing: Stress test 12/17/2020: No ischemia, small-moderate fixed inferior wall perfusion defect, similar in size to prior studies, mild ventriculomegaly which has increased in size since prior study. Low ejection fraction just below normal 52%. Normal wall motion. Duplex ultrasound 12/10/2020: Patent femoropopliteal graft on the right, patent left femoral graft with reduced flow. Echocardiogram 12/10/2020: LV function is difficult to assess but appears mildly reduced, EF 45-50%, moderate diastolic dysfunction, RV is normal size and systolic function, mild to moderate tricuspid regurgitation, RVSP is normal at 32 mmHg. Event monitor 11/11/2020-12/10/2020: Sinus rhythm with PVCs and episodes of nonsustained ventricular tachycardia, longest consisting of 10 beats. EKG (more content not included)...[facility] 12-14-2022 NoteLipid abnormalities are Continue crestor- pt having annual labs tomorrow and if LDL remains > 70 he needs to increase crestor to 40 mg daily Chol 163, LDL 99.4UnMad[facility]06-21-2023 NoteHypertension is well controlled 126/70 Continue amlodipine, metoprololUnMadison Health06-21-2023 NoteCoronary artery disease is stable without concerning symptoms Continue GDMT- ASA, plavix, metoprolol, crestor continue risk factor modifications- heart healthy diet, regular exercise as tolerated and continue all medications.[facility] 11-22-2022 Evaluation note* Encounter Date Diagnosis Assessment Notes Treatment Notes Treatment Clinical Notes October, Pain in right shoulder (ICD-10 - M25.511) Injection given under sterile technique w/o complications. Aware it may get worse before it improves. October, Primary osteoarthritis of right shoulder (ICD-10 - M19.011) Ice/heat and ROM exercises. Handout given to patient. October, Peripheral arterial occlusive disease (ICD-10 - I77.9) Walk daily and inspect feet daily for cuts. Continue antiplatelet therapy October, Simple chronic bronchitis (ICD-10 - J41.0) Mucinex as needed. No wheezing or dyspnea noted on examination October, Other This patient is stable without activity related CP, dyspnea or lightheadedness. They are instructed to continue exercise and AHA diet plan. [employer] Other 05-08-2023 Evaluation note* Encounter Date Diagnosis Assessment Notes Treatment Notes Treatment Clinical Notes October, Acute bronchitis due to other specified organisms (ICD-10 - J20.8) Instructed to use Robitussin or Mucinex for cough, saline or Flonase NS for congestion, Tylenol for pain and fever. October, ASHD (arteriosclerotic heart disease) (ICD-10 - I25.10) This patient is stable without activity related CP, dyspnea or lightheadedness. They are instructed to continue exercise and AHA diet plan. [employer] Other 04-11-2023 Evaluation note* Encounter Date Diagnosis Assessment Notes Treatment Notes Treatment Clinical Notes Sep, Stenosis of right carotid artery (ICD-10 - I65.21) Carotid US: 50-69% right carotid artery, 0-49% left carotid artery - 09/2022 [employer] Other 03-29-2023 Evaluation note* Encounter Date Diagnosis Assessment Notes Treatment Notes Treatment Clinical Notes Aug, ASHD (arteriosclerotic heart disease) (ICD-10 - I25.10) This patient is stable without activity related CP, dyspnea or lightheadedness. They are instructed to continue exercise and AHA diet plan. Aug, Peripheral arterial occlusive disease (ICD-10 - I77.9) Walk daily and continue antiplatelet and statin therapy. Inspect feet daily for cuts Aug, Primary hypertension (ICD-10 - I10) This patient is instructed to consume a healthy, low-fat, low-salt diet. They are also encouraged to continue exercise to achieve/maintain a normal BMI. Aug, Elevated cholesterol (ICD-10 - E78.00) Diet and exercise with continued statin therapy. Aug, Type 2 diabetes mellitus with hyperglycemia, without long-term current use of insulin (ICD-10 - E11.65) This patient is following a comprehensive diabetic treatment plan. They are checking their feet daily for calluses and nonhealing ulcers. They are being seen for yearly dilated eye examinations. Goals: SBP less than 130, LDL less than 100, FBS less than 140, AC and A1C less than 7%. They are checking their BS daily, will which are reviewed at the office visit. A1C: [ ] Microalbumin: [ ] Eye exam: [ ] Foot exam: [ ] Aug, Stage 3a chronic kidney disease (ICD-10 - N18.31) The patient is instructed on adequate control of hypertension and diabetes, if appropriate. They are also educated on the associated risks of NSAIDs and PPI use with kidney disease. They were instructed on adequate fluid balance and to avoid dehydration. Aug, Chronic venous insufficiency (ICD-10 - I87.2) Avoid salt and elevate lower extremities, support stockings, inspect legs and feet daily for blisters and ulcerations. Aug, Paroxysmal atrial fibrillation (ICD-10 - I48.0) This patient is in NSR or rate controlled. This patient is anticoagulated to prevent thromboembolic events. 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 Aug, Anemia, unspecified type (ICD-10 - D64.9) Aug, Hx of gout (ICD-10 - Z87.39) No recent flares, continue urate lowering treatment Aug, Acute seasonal allergic rhinitis due to pollen (ICD-10 - J30.1) [employer] Other Evaluation noteNo InformationNort Field [facility] Other History general Narrative - Reported* Type Description Date Medical History Elevated liver function tests Medical History Constipation Medical History Diarrhea Medical History ASHD (arteriosclerotic heart dis ease) Medical History Peripheral arterial occlusive di sease Medical History Primary hypertension Medical History Elevated cholesterol Medical History Controlled type 2 di abetes mellitus with hyperglycemia, without long-term current use of insulin Medical History Stage 3a chronic kidney disease Medical History Chronic venous insufficiency Medical History Paroxysmal atrial fibrillation Surgical History STENTS Surgical History SUBDURAL HEMATOMA Surgical History BYPASS Hospitalization History SEE SURGICAL HX [employer] Other History general Narrative - Reported* Type Description Date Medical History Elevated liver function tests Medical History Constipation Medical History Diarrhea Medical History ASHD (arteriosclerotic heart dis ease) Medical History Peripheral arterial occlusive di sease Medical History Primary hypertension Medical History Elevated cholesterol Medical History Controlled type 2 di abetes mellitus with hyperglycemia, without long-term current use of insulin Medical History Stage 3a chronic kidney disease Medical History Chronic venous insufficiency Medical History Paroxysmal atrial fibrillation Surgical History STENTS Surgical History SUBDURAL HEMATOMA Surgical History BYPASS Surgical History Left external iliac angioplasty /stenting 12/2022 Hospitalization History SEE SURGICAL HX [employer] Other History general Narrative - Reported* Type Description Date Medical History Elevated liver function tests Medical History Constipation Medical History Diarrhea Medical History ASHD (arteriosclerotic heart dis ease) Medical History Peripheral arterial occlusive di sease Medical History Primary hypertension Medical History Elevated cholesterol Medical History Controlled type 2 di abetes mellitus with hyperglycemia, without long-term current use of insulin Medical History Stage 3a chronic kidney disease Medical History Chronic venous insufficiency Medical History Paroxysmal atrial fibrillation Surgical History STENTS Surgical History SUBDURAL HEMATOMA Surgical History BYPASS Surgical History Left external iliac angioplasty /stenting 12/2022 Surgical History Colonoscopy 2015 Hospitalization History SEE SURGICAL HX [employer] Other Summary Purpose Family History No Family History Records FoundNo Family History Records FoundNo Family History Records FoundNo Family History Records Found Advance Directives No Advanced Directives Records FoundNo Advanced Directives Records FoundNo Advanced Directives Records FoundNo Advanced Directives Records Found Additional Source Comments (unrecognized sect ion and content) No Status Records FoundNo Status Records FoundNo Status Records FoundNo Status Records Found INFORMATION SOURCE (unrecogn ized section and content) DATE CREATED AUTHOR 12/14/2017 [facility] DATE CREATED AUTHOR AUTHOR'S ORGANIZ ATION 10/08/2018 [facility] DATE CREATED AUTHOR AUTHOR'S ORGANIZ ATION [facility]20[facility] DATE CREATED AUTHOR AUTHOR'S ORGANIZ ATION 06/15/2023 [facility] REASON FOR VISIT (unrecogniz ed section and content) FOLLOW UPNo InformationCough , Congestion- NEGATIVE COVID [phone] in TodayCheck Up from 6connectNORTHERN COLORADO REHABILITATION HOSPITALLab ResultsNo InformationLab workLab results4 month Follow upScript4 month Follow upNo Information FOR RECORDS PERTAINING TO PATIENTS WHO ARE OR HAVE BEEN ENROLLED IN A CHEMICAL DEPENDENCY/SUBSTANCEABUSE PROGRAM, SOME INFORMATION MAY BE OMITTED. This clinical summary was aggregated from multiple sources. Caution should be exercised in using it in the provision of clinical care. This summary normalizes information from multiple sources, and as a consequence, information in this document may materially change the coding, format and clinical context of patient data. In addition, data may be omitted in some cases. CLINICAL DECISIONS SHOULD BE BASED ON THE PRIMARY CLINICAL RECORDS. [employer] provides no warranty or guarantee of the accuracy or completeness of information in this document.
--- NOTE | 2023-06-28 11:47 | CA_ITS ---
Patient Name: POOJA QUEVEDO MR#: [id number] : 1945 Exam Date: 06/28/2023 Ordering Doctor: DR RADHA CASTELLON M.D. ECHOCARDIOGRAM REPORT PROCEDURE: CA ECHO DOPPLER COMPLETE INDICATIONS: Shortness of breath COMPARISON: None. DESCRIPTION: COMPLETE ECHOCARDIOGRAM Real-time transthoracic echocardiography with 2D, M-mode, spectral and color flow Doppler performed. QUALITY: Technical quality was good. LEFT VENTRICLE: Normal chamber size. Mild concentric left ventricular hypertrophy. LV EF: Global left ventricular systolic function is normal. Calculated left ventricular ejection fraction is 55%. DIASTOLIC: Normal diastolic function. ATRIAL SEPTUM: Inadequately seen. LEFT ATRIUM: Normal chamber size. RIGHT ATRIUM: Normal chamber size. RIGHT VENTRICLE: Normal chamber size. Normal right ventricular systolic function. TRICUSPID VALVE: Normal mobility and thickness. No stenosis with mild regurgitation. No evidence of pulmonary hypertension. RVSP 32mmHg MITRAL VALVE: No evidence of mitral valve stenosis. Mitral annular calcification. Mild mitral regurgitation. AORTIC VALVE: Normal trileaflet appearance. Mildly calcified aortic valve. Normal leaflet mobility. No evidence of aortic valve stenosis. No aortic regurgitation. AORTIC ROOT: Normal diameter and appearance. PULMONIC VALVE: Normal thickness and mobility. No stenosis. Trivial regurgitation. PERICARDIUM: Anterior free space; trivial effusion versus fat pad. IVC: Collapses with inspirations. CONCLUSION: 1. Left ventricular systolic function is normal; visually estimated ejection fraction is 55 to 60% 2. The right ventricle is normal in size and systolic function 3. Mildly increased left ventricular wall thickness 4. Normal diastolic function 5. Mild tricuspid regurgitation 6. Mild mitral regurgitation 7. Anterior free space; trivial effusion versus fat pad Adult Echocardiography Procedure Report Left Ventricle LVEDD (3.7 - 5.6 cm): 5.53 cm LVESD (2.2 - 4.0 cm): 3.74 cm LVIVS thickness (0.6 - 1.2 cm): 1.07 cm LVPW thickness (0.5 - 1.0 cm): 1.15 cm e': 0.08 m/s E - e': 7.22 LVOT Max Gradient: 2.41 mm[Hg] LVOT Area (cm2): 0.78 m/s Peak Velocity (LVOT): 0.78 m/s Mean Velocity (LVOT): 0.53 m/s LVOT Diameter 2.15 cm Left Ventricular Ejection Fraction: 54.99 % Left Atrium LA Volume Index (2D A2C): 29.89 ml/m2 Left Atrium Systolic Dimension: 3.84 cm Mitral Valve MV E to A Ratio: 0.92 Mitral Valve A-Wave Peak Velocity: 0.60 m/s Mitral Valve E-Wave Peak Velocity: 0.55 m/s Right Ventricle RV Internal Diastolic Dimension: 3.32 cm Aorta AO Root Diam: 3.44 cm Ascending Ao Diam: 3.32 cm Aortic Valve AoV Area (Peak Mina): 2.23 cm2, 2.23 cm2 AoV Area (VTI): 2.18 cm2, 2.18 cm2 Peak Velocity(Antegrade Flow): 1.26 m/s Peak Gradient(Antegrade Flow): 6.39 mm[Hg] Mean Velocity(Antegrade Flow): 0.80 m/s Mean Gradient(Antegrade Flow): 3.02 mm[Hg] Velocity Time Integral: 27.69 cm Tricuspid Valve Peak Velocity (Regurgitant Flow): 2.71 m/s, 2.70 m/s, 2.46 m/s, 2.41 m/s Pulmonic Valve Mean Gradient: 3.00 mm[Hg], 4.83 mm[Hg], 4.98 mm[Hg] Mean Velocity: 0.77 m/s, 1.04 m/s, 1.05 m/s Peak Velocity: 1.57 m/s Peak Gradient: 8.03 mm[Hg], 10.55 mm[Hg], 11.20 mm[Hg] Right Atrium Right Atrium Systolic Pressure: 51.39 ml, 51.39 ml Dictated by: Theron Bailey M.D. on 07/04/2023 at 09:37 Approved by: Theron Bailey M.D. on 07/04/2023 at 09:40
== END 2023-06-28 09:56 | disposition home or self-care (01) ==
LOC: CARD 09:55
PROVIDERS: PCP Internal Medicine; Visit Provider Internal Medicine Interventional Cardiology
DX: R06.02 Shortness of breath (principal)
CPT/HCPCS: 93306

== ENCOUNTER 2023-07-20 10:18 | Outpatient (OUT) | payer MEDICARE, SELFPAY ==
--- OUTSIDE RECORDS SUMMARY | 2023-07-20 10:22 | XMS_ITS | CCD ---
Author Name Unknown Address [address] [place] [address] Organization [facility] Care Team Providers Care Sales Correspondent Name Role Phone Bipin Cruz Unavailable Unavailable Zahler, Bipin Unavailable Unavailable Bipin Cruz Unavailable Unavailable ROBIN DAWKINS~[phone] UNKNOWN Unavailable Unavailable Nill, Jean-Paul R Unavailable Unavailable Nill, Jean-Paul R Unavailable Unavailable Nill, Jean-Paul R Unavailable Unavailable ROBIN DAWKINS~[phone] UNKNOWN Unavailable Unavailable Nill, Jean-Paul R Unavailable Unavailable Nill, Jean-Paul R Unavailable Unavailable Nill, Jean-Paul R Unavailable Unavailable ROBIN DAWKINS~[id number] UNKNOWN Unavailable Unavailable TRENT, RONNY Admitting Unavailable TRENT, RONNY Attending Unavailable JUANCHO, ROBIN Referring Unavailable JUANCHO, ROBIN Primary Care Unavailable Robin Dawkins Unavailable JUANCHO, DR PEÑALOZA Admitting Unavailable BALL, [...] Allergy Type Date of Onset Reaction(s) Facility (10 sources) lisinopril; Translations: [lisinopril] Drug Allergy 11-02-19 19 [facility], Unknown [facility] Repository (3 sources) losartan; Translations: [losartan] Drug Allergy 04-20-20 [facility] Repository (1 source) nystatin / triamcinolone; Translations: [Tri-Statin II] Drug Allergy [facility] Repository (3 sources) black walnut pollen extract; Translations: [AJMGIIQ-CRH-FTP REDUCTASE INHIBITORS] Drug Allergy 02-07-20 12 [facility] Repository (8 sources) Angiotensin-convert ing enzyme inhibitor agent Drug allergy Unknown Catacel Other (8 sources) Hmg-Coa Reductase Inhibitors (Statins) Propensity to adverse reactions Unknown Catacel Other (8 sources) Simvastatin Drug Allergy Unknown Catacel Other (8 sources) FELICIA inhibitor use, contraindication Propensity to adverse reactions 10-13-19 17 Comment:advers e rxn/side effects Catacel Other (8 sources) patient allergy list reviewed by nurse or physicia Propensity to adverse reactions 12-13-19 Comment:Done Catacel Other Medications Current Medications Medication Drug Class(es) Dates Sig (Normalized) Sig (Original) allopurinol 300 mg oral tablet (15 sources) Xanthine Oxidase Inhibitor take 1 tablet by mouth every twenty-four hours Allopurinol 300 MG 1 tablet Orally Once a day for 90 days Active amLODIPine 10 mg oral tablet (15 sources) Dihydropyridine Calcium Channel Bronwyn take 1 tablet by mouth every twenty-four hours amLODIPine Besylate 10 MG 1 tablet Orally Once a day Active aspirin 81 mg delayed release oral tablet (10 sources) Platelet Aggregation Inhibitor, Nonsteroidal Anti-inflammatory Drug take 1 tablet by mouth every twenty-four hours Aspirin 81 81 MG 1 tablet Orally Once a day Active azithromycin 250 mg oral tablet (3 sources) Macrolide Antimicrobial Start: 10-31-2022 Azithromycin 250 MG as directed Orally daily for 5 days October, Active benazepril (5 sources) Angiotensin Converting Enzyme Inhibitor Benazepril HCl Active clopidogrel (15 sources) P2Y12 Platelet Inhibitor Plavix Active Contour Next Test - (15 sources) Start: 09-21-2022 Contour Next Test - Use to test home BS qd In Vitro daily for 90 days Aug, Active furosemide 40 mg oral tablet (10 sources) Loop Diuretic take 1 tablet by mouth every twenty-four hours Furosemide 40 MG 1 tablet Orally Once a day Active metFORMIN hydrochloride 500 mg oral tablet (15 sources) Biguanide take 1 tablet by mouth every twelve hours metFORMIN HCl 500 MG 1 tablet with a meal Orally TWICE A DAY for 90 days Active take 1 tablet by frank th every twenty-four hours metFORMIN HCl 500 MG [...] omeprazole 40 mg delayed release oral capsule (4 sources) Proton Pump Inhibitor Start: 04-21-2023 take 1 capsule by mouth once daily Omeprazole 40 MG 1 capsule 30 minutes before morning meal Orally Once a day for 30 days Mar, Active microencapsulated potassium chloride 20 meq extended release oral tablet (10 sources) take 1 tablet by mouth every twenty-four hours Klor-Con M20 20 MEQ 1 tablet with food Orally Once a day Active rosuvastatin calcium 20 mg oral tablet (10 sources) HMG-CoA Reductase Inhibitor take 1 tablet by mouth every twenty-four hours Rosuvastatin Calcium 20 MG 1 tablet Orally Once a day Active valACYclovir 1000 mg oral tablet (7 sources) Herpesvirus Nucleoside Analog DNA Polymerase Inhibitor, Herpes Simplex Virus Nucleoside Analog DNA Polymerase Inhibitor, Herpes Zoster Virus Nucleoside Analog DNA Polymerase Inhibitor Start: 03-20-2023 take 1 tablet by mouth every eight hours valACYclovir HCl 1 GM 1 tablet Orally tid for 7 days Feb, Active Start: 03-20-2023 take 1 tablet by frank th every eight hours valACYclovir HCl 1 GM 1 tablet Orally tid for 7 days Feb, Active Completed/Discontinued Medications Medication Drug Class(es) Dates Sig (Normalized) Sig (Original) ASA (15 sources) ASA Not-Taking/P RN ASA Not-Taking Fish Oils (15 sources) Fish Oil Not-Angel ing/PRN Fish Oil Not-Angel ing latanoprost (15 sources) Prostaglandin Analog Latanoprost Not-Taking/PRN Latanoprost Not- Taking Lidocaine (17 sources) Antiarrhythmic, Amide Local Anesthetic Start: 04-20-2023 Lidocaine 26 Oct 23 20 mg Start: 11-22-2022 Lidocaine 30 M 2022 20 mg Niacin (15 sources) Nicotinic Acid Niacin Not-Takin g/PRN Niacin Not-Takin g Suprep Bowel Prep . (15 sources) Start: 12-03-2014 Suprep Bowel P rep . as directed Orally 1 for 1 days Nov, Not-Taking/PRN Start: 12-03-2014 Suprep Bowel P rep . as directed Orally 1 for 1 [...] related conditions] Onset: 05-09-2013 Chronic Cardiac dysrhythmias (18 sources) Paroxysmal atrial fibrillation; Translations: [Paroxysmal atrial fibrillation] Onset: 05-26-2022 Chronic Chronic kidney disease (15 sources) Chronic kidney disease stage 3A ; Translations: [Stage 3a chronic kidney disease] Chronic Chronic obstructive pulmonary disease and bronchiectasis (13 sources) Simple chronic bronchitis; Translations: [Simple chronic bronchitis] Chronic Coronary atherosclerosis and other heart disease (20 sources) Coronary arteriosclerosis; Translations: [Atherosclerotic heart disease of [place] coronary artery without angina pectoris] Onset: 06-26-1959 Chronic Coronary atherosclerosis and other heart disease (4 sources) Presence of coronary angioplasty implant and graft; Translations: [Presence of aortocoronary bypass graft] Onset: 06-14-2023 Episodic Deficiency and other anemia (5 sources) Anemia, unspecified Episodic Deficiency and other [...] hypercholesterolemia, unspecified] Onset: 06-26-1959 Chronic Esophageal disorders (4 sources) Gastro-esophageal reflux disease with esophagitis; Translations: [...] 09-05-2017 Chronic Other aftercare (2 sources) Other roasterman (current) drug therapy; Translations: [OTH WARDROBE CONSULTANT CURRENT DRUG THERAPY] Onset: 12-21-2021 Episodic Other aftercare (1 source) Long-term current use of drug therapy; Translations: [Other roasterman (current) drug therapy] Episodic Other circulatory disease (15 sources) Peripheral arterial occlusive disease; Translations: [Disorder [...] Episodic Other diseases of veins and lymphatics (17 sources) Peripheral venous insufficiency; Translations: [Venous insufficiency [...] Onset: 06-14-2023 Episodic Other nervous system disorders (5 sources) Chronic pain; Translations: [Other chronic pain] [...] lower limb] Episodic Other upper respiratory disease (16 sources) Allergic rhinitis due to pollen; Translations: [Allergic rhinitis due to pollen] Chronic Other upper respiratory disease (1 source) Allergic rhinitis due to pollen Chronic Other upper respiratory disease (1 source) Allergic rhinitis; Translations: [Allergic rhinitis, unspecified] Chronic Other upper respiratory infections (3 sources) Acute maxillary sinusitis; Translations: [Acute maxillary sinusitis, unspecified] Onset: 10-12-2016 Episodic Peripheral and visceral atherosclerosis (13 sources) Peripheral vascular disease, unspecified; Translations: [Peripheral [...] tachycardia; Translations: [Other ventricular tachycardia] Viral infection (7 sources) Post-herpetic polyneuropathy; 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] Episodic [...] Range Facility Office Visiton 06-14-2023 Follow-up visit [id number] Eloisa Marrufo 1945 M Date Provider Department Center 06/14/2023 RADHA ESCOBAR Family History Problem Relation Age of Onset Heart failure Mother Family Status - Relation Status Age at Mother Level of Service:09092 [place] OFFICE/OUTPATIENT ESTABLISHED LOW MDM 20 MIN Normal [facility] Office Visiton 12-14-2022 Follow-up visit [id number] Eloisa Marrufo 1945 M Date Provider Department Center 12/14/2022 TIFFANY WINTER [facility] Family History Problem Relation Age of Onset Heart failure Mother Family Status - Relation Status Age at Mother Level of Service:77149 [place] OFFICE/OUTPATIENT ESTABLISHED MOD [facility] 30-39 MIN Reason for Visit and Comments: Follow-up [056774] - 6 month follow up Normal [facility] US CAROTID ART BILon 023 US CAROTID [...] MAGDALENO GLEZ Date: 2022-10-04 16:04 Normal [facility] CBC AUTO DIFFon 12-16-2021 BASO # 0.1 103/ul Normal 0.0-0.1 [facility] Comment on above: Performed By: #### C BC #### [facility] [address] [place] [address] Dr. Rui Moore Basophils/100 WBC (Bld) 0.5 % Normal 0.2-2.0 [facility] Comment on above: Performed By: #### C BC #### [facility] [address] [place] [address] Dr. Rui Moore EO # 0.0 103/ul Normal 0.0-0.7 [facility] Comment on above: Performed By: #### C BC #### [facility] [address] [place] [address] Dr. Rui Moore Eosinophils/100 WBC (Bld) 0.4 % Critically low 0.9-7.0 [facility] Comment on above: Performed By: #### C BC #### [facility] [address] [place] [address] Dr. Rui Moore Erythrocyte distribution width (RBC) [Ratio] 13.2 % Normal 11.0-15.0 [facility] Comment on above: Performed By: #### C BC #### [facility] [address] [place] [address] Dr. Rui Moore Hematocrit (Bld) [Volume fraction] 38.1 % Critically low 42.0-54.0 [facility] Comment on above: Performed By: #### C BC #### [facility] [address] [place] [address] Dr. Rui Moore Hemoglobin (Bld) [Mass/Vol] 12.3 g/dL Critically low 14.0-18.0 [facility] Comment on above: Performed By: #### C BC #### [facility] [address] [place] [address] Dr. Rui Moore IG # 0.06 10e3/ul Critically high 0.00-0.03 [facility] Comment on above: Performed By: #### C BC #### [facility] [address] [place] [address] Dr. Rui Moore IG % 0.5 % Normal 0.0-0.5 [facility] Comment on above: Performed By: #### C BC #### [facility] [address] [place] [address] Dr. Rui Moore LYMPH # 3.5 103/ul Normal 1.2-3.8 [facility] Comment on above: Performed By: #### C BC #### [facility] [address] [place] [address] Dr. Rui Moore Lymphocytes/100 WBC (Bld) 31.9 % Normal 20.5-60.0 [facility] Comment on above: Performed By: #### C BC #### [facility] [address] [place] [address] Dr. Rui Moore MANUAL DIFF REQ NO Normal [facility] Comment on above: Performed By: #### C BC #### [facility] [address] [place] [address] Dr. uRi Moore MCH (RBC) [Entitic mass] 29.9 pg Normal 25.9-34.0 [facility] Comment on above: Performed By: #### C BC #### [facility] [address] [place] [address] Dr. Rui Moore MCHC (RBC) [Mass/Vol] 32.3 g/dL Normal 29.9-35.2 [facility] Comment on above: Performed By: #### C BC #### [facility] [address] [place] [address] Dr. Rui Moore MCV (RBC) [Entitic vol] 92.5 fL Normal 80.0-94.0 [facility] Comment on above: Performed By: #### C BC #### [facility] [address] [place] [address] Dr. Rui Moore MONO # 0.7 103/ul Normal 0.3-0.8 [facility] Comment on above: Performed By: #### C BC #### [facility] [address] [place] [address] Dr. Rui Moore Monocytes/100 WBC (Bld) 6.6 % Normal 1.7-12.0 [facility] Comment on above: Performed By: #### C BC #### [facility] [address] [place] [address] Dr. Rui Moore NEUT # 6.6 103/ul Critically high 1.4-6.5 [facility] Comment on above: Performed By: #### C BC #### [facility] [address] [place] [address] Dr. Rui Moore Neutrophils/100 WBC (Bld) 60.1 % Normal 43.0-75.0 [facility] Comment on above: Performed By: #### C BC #### [facility] [address] [place] [address] Dr. Rui Moore Platelet mean volume (Bld) [Entitic vol] 9.3 fL Critically low 9.5-13.5 [facility] Comment on above: Performed By: #### C BC #### [facility] [address] [place] [address] Dr. Rui Moore PLT 307 103/ul Normal 150-450 [facility] Comment on above: Performed By: #### C BC #### [facility] [address] [address] [address] Rui Moore RBC 4.12 106/ul Critically low 4.70-6.10 [facility] Comment on above: Performed By: #### C BC #### [facility] [address] [address] [address] Rui Moore WBC 11.0 103/ul Normal 4.0-11.0 [facility] Comment on above: Performed By: #### C BC #### [facility] [address] [place] [address] Dr. Rui Moore GLYCOHEMOGLOBIN A1Con 2021 ADA RECOMMENDATION SEE BELOW Normal [facility] Comment on above: Result Comment: ADA RECOMMENDED LIMIT 4.0 - 6.0 ADA THERAPEUTIC TARGET < 7.0 ACTION SUGGESTED > 7.0 Performed By: #### A 1C #### [facility] [address] [place] [address] Dr. Rui Moore Glucose [Mass/Vol] 143 mg/dL Normal [facility] Comment on above: Performed By: #### A 1C #### [facility] [address] [place] [address] Dr. Rui Moore HbA1c (Bld) [Mass fraction] 6.6 % Critically high 4.5-6.2 [facility] Comment on above: Performed By: #### A 1C #### [facility] [address] [place] [address] Dr. Rui Moore LIPID PROFILEon 12-16-2021 CHOL-HDL RATIO NORM SEE BELOW Normal [facility] Comment on above: Result Comment: 3.3 - 4.4 LOW RISK 4.4 - 7.1 AVERAGE RISK 7.1 - 11.0 MODERATE RISK >11.0 HIGH RISK Performed By: #### L IPSANDRA BMP, ALT #### [facility] [address] [place] [address] Dr. Rui Moore Cholesterol [Mass/Vol] 109 mg/dL Normal <=200 [facility] Comment on above: Performed By: #### L IPSANDRA, BMP, ALT #### [facility] [address] [address] [address] Rui Moore Cholesterol in HDL [Mass/Vol] 39 mg/dL Critically low 40-60 [facility] Comment on above: Performed By: #### L IPID, BMP, ALT #### [facility] [address] [address] [address] Rui Moore Cholesterol in LDL [Mass/Vol] 51.6 mg/dL Normal [facility] Comment on above: Performed By: #### L IPID, BMP, ALT #### [facility] [address] [address] [address] Rui Moore Cholesterol.total/ Cholesterol in HDL [Mass ratio] 2.8 {ratio} Normal [facility] Comment on above: Performed By: #### L IPID, BMP, ALT #### [facility] [address] [address] [address] Rui Moore HDL NORMAL > or = 60 mg/dl - LO W CARDIOVASCULAR RISK <40 mg/dl - HIGH CARDIOVASCULAR RISK Normal [facility] Comment on above: Performed By: #### L IPID, BMP, ALT #### [facility] [address] [place] [address] Dr. Rui Moore LDL CALC NORMAL SEE BELOW Normal [facility] Comment on above: Result Comment: <100 mg/dl OPTIMAL 100 - 129 mg/dl NEAR OR ABOVE OPTIMAL 130 - 159 mg/dl BORDERLINE HIGH 160 - 189 mg/dl HIGH >190 mg/dl VERY HIGH Performed By: #### L IPID, BMP, ALT #### [facility] [address] [place] [address] Dr. Rui Moore Triglyceride [Mass/Vol] 92 mg/dL Normal <=150 [facility] Comment on above: Performed By: #### L IPID, BMP, ALT #### [facility] [address] [place] [address] Dr. Rui Moore VLDL CALC 18.4 mg/dL Normal [facility] Comment on above: Performed By: #### L IPID, BMP, ALT #### [facility] [address] [address] [address] Rui Moore MICROALBUMIN, RAND URon 06-2 mALB 8.3 mg/L Normal <=30.0 [facility] Comment on above: Performed By: #### M ALBR #### [facility] [address] [address] [address] Rui Moore PROF CHEM 8 (BAS METB)on Anion gap [Moles/Vol] 14.6 mmol/L Normal [facility] Comment on above: Performed By: #### L IPID, BMP, ALT #### [facility] [address] [address] [address] Rui Moore Calcium [Mass/Vol] 9.1 mg/dL Normal 8.5-10.1 [facility] Comment on above: Performed By: #### L IPID, BMP, ALT #### [facility] [address] [place] [address] Dr. Rui Moore Chloride [Moles/Vol] 101 mmol/L Normal 98-107 [facility] Comment on above: Performed By: #### L IPID, BMP, ALT #### [facility] [address] [address] [address] Rui Moore CO2 [Moles/Vol] 25.9 mmol/L Normal 21.0-32.0 [facility] Comment on above: Performed By: #### L IPID, BMP, ALT #### [facility] [address] [address] [address] Rui Moore Creatinine [Mass/Vol] 1.23 mg/dL Normal 0.70-1.30 [facility] Comment on above: Performed By: #### L IPID, BMP, ALT #### [facility] [address] [place] [address] Dr. Rui Moore EGFR-AF SWAZI >60 Normal >=60 [facility] Comment on above: Performed By: #### L IPID, BMP, ALT #### [facility] [address] [address] [address] Rui Moore EGFR-NON AF SWAZI 57 mL/min/1.73m2 Critically low >=60 [facility] Comment on above: Performed By: #### L IPID, BMP, ALT #### [facility] [address] [place] [address] Dr. Rui Moore Glucose [Mass/Vol] 141 mg/dL Critically high 74-106 [facility] Comment on above: Performed By: #### L IPID, BMP, ALT #### [facility] [address] [place] [address] Dr. Rui Moore Potassium [Moles/Vol] 4.5 mmol/L Normal 3.5-5.1 [facility] Comment on above: Performed By: #### L IPID, BMP, ALT #### [facility] [address] [place] [address] Dr. Rui Moore Sodium [Moles/Vol] 137 mmol/L Normal 136-145 [facility] Comment on above: Performed By: #### L IPID, BMP, ALT #### [facility] [address] [place] [address] Dr. Rui Moore Urea nitrogen [Mass/Vol] 22.0 mg/dL Critically high 7.0-18.0 [facility] Comment on above: Performed By: #### L IPID, BMP, ALT #### [facility] [address] [place] [address] Dr. Rui Moore Urea nitrogen/Creatinin e [Mass ratio] 17.9 mg/mg Normal [facility] Comment on above: Performed By: #### L IPID, BMP, ALT #### [facility] [address] [place] [address] Dr. Rui Moore [facility] 12-16-2021 ALT [Catalytic activity/Vol] 42 U/L Normal 16-63 [facility] Comment on above: Performed By: #### L IPID, BMP, ALT #### [facility] [address] [place] [address] Dr. Rui Moore Operative Reporton --[id number] Operative Report Date of Surgery: 10/02/2017SURGEON: [...] and symptoms of successfulblockade.Shiva Cronin M.D.glsDictated: 10/02/2017 #[id number]: 10/02/2017 #[id number]: Shiva Cronin M.D. [facility] Comment on above: Result Comment: Elec tronically [...] Problem list: All ProblemsHypertension / SNOMED CT 9848415024 / ConfirmedDiabetes / SNOMED CT 989416425 / ConfirmedUmbilical hernia / SNOMED CT 5154335202 / ConfirmedPeripheral artery disease / SNOMED CT 4134050689 / ConfirmedAcid reflux / SNOMED CT 222427679 / ConfirmedCAD (coronary artery disease) / SNOMED CT 56009689 / ConfirmedResolved: High cholesterol / SNOMED CT 24380821 Histories Past Medical History: No active or resolved past medical history items have been selected or recorded. Procedure history: CEA - Carotid endarterectomy left ([id number]) on 03/09/2016 at 70 Years.Allograft bypass of coronary artery x3 stents ([id number]) on 03/09/2016 at 70 Years.Comments:09/19/2017 16:41 - Elen Sutton RNwith left mammary artery , graft to the LAD and left radial artery graft to the OM1 and SVG to PDAColonoscopy ([id number]) on 12/31/2014 at 69 Years.Entire RCA - Right coronary artery stent ([id number]) on 02/10/2012 at 66 Years.History of subdural hematoma ([id number]) on 08/03/2010 at 64 Years.Cataract b/l ([id number]).Femoral-popliteal artery bypass graft right and left ([id number]).Comments: 16:39 - Elen Sutton RNstents legs/ /// 10/21/2005/ 12/22/2007. Social History Social & Psychosocial [id number]/27/2018 Risk Assessment: High Risk09/19/2017 Use: Current Type: Beer Frequency: 3-5 times per weekSubstance Abuse09/19/2017 Risk Assessment: Denies Substance IzacbPizfgkm13/27/2018 Risk Assessment: Denies Tobacco Use09/19/2017 Type: Cigarettes Comment: quit in 1991 - 09/19/2017 10:05 - Elen Sutton RN. Physical Examination Pain assessment: Self-reports no pain. [...] Auto 63.5 % Lymph Auto 25.9 % [place] Auto 8.1 % Eos Auto 1.4 % Basophil Auto 1.1 % Neutro Absolute 5.9 E9/L Lymph Absolute 2.4 E9/L [place] Absolute 0.7 E9/L Eos Absolute 0.1 E9/L [...] (Electronic Signature): 09/19/2017 1:33 pmSigned by: Pio Suersh M.D. LTranscribed by: LOREN Technologist: ABI REPORTThis document has an imageResult type: XR Chest 2 ViewsResult date: September 19, 2017 10:49 EDTResult status: Auth (Verified)Result title: XR Chest 2 ViewsPerformed by: Pio Suresh M.D. on September 19, 2017 13:33 EDTVerified by: Pio Suresh M.D. on September 19, 2017 13:33 EDTEncounter info: [id number], [facility], Outpatient, 09/19/2017 - 09/19/2017 Radiology results ECG interpretation: SINUS RHYTHM. Plan [place] [employer] (ASA) physical status classification: [...] allergic reactions, failed block and .. Normal [facility] Comment on above: Result Comment: Elec [...] Problem list: All ProblemsHypertension / SNOMED CT 1237613658 / ConfirmedDiabetes / SNOMED CT 318592089 / ConfirmedUmbilical hernia / SNOMED CT 3897556335 / ConfirmedPeripheral artery disease / SNOMED CT 1629005797 / ConfirmedAcid reflux / SNOMED CT 313992742 / ConfirmedCAD (coronary artery disease) / SNOMED CT 28995858 / ConfirmedResolved: High cholesterol / SNOMED CT 55201280 Physical Examination Intake and Output adequate hydration [...] discharged from anesthesia care. Condition stable. Normal [facility] Comment on above: Result Comment: Elec tronically Signed By: Mehrdad GALE, Shiva\.br\Date and Time Signed: 10/05/17 13:04 EDT Coding Summary.on 10-03-2017 Coding Summary. CODING DATE: 018 FINAL [facility] DSCH STATUS: Home (Routine DC) PAYOR: Medicare APC DESCRIPTION 5361 Level 1 Laparoscopy and Related Services ADMIT DX: REASON FOR VISIT DX: K42.0 Umbilical hernia with obstruction, without gangrene FINAL DX: PRINCIPAL: K42.0 Umbilical hernia with obstruction, without gangrene SECONDARY: I25.10 Atherosclerotic heart disease of [place] coronary artery without angina pectoris I10 Essential (primary) hypertension E11.40 Type 2 diabetes mellitus with diabetic neuropathy, unspecified E78.5 Hyperlipidemia, unspecified M10.9 Gout, unspecified I73.9 Peripheral vascular disease, unspecified Z86.79 Personal history of other diseases of the circulatory system Z95.1 Presence of aortocoronary bypass graft Z79.82 MCFP (current) use of aspirin Z95.820 Peripheral vascular angioplasty status with implants and grafts Z87.891 Personal history of nicotine dependence PYMT PROC APC STAT DESCRIPTION DOCTOR NAME DATE 31879 0598 J1 Laparoscopy, surgical, Jean-Paul Roberts MD 10/02/2017 repair, ventral, umbilical, spigelian or epigastric hernia (includes mesh insertion, when performed); incarcerated or strangulated 14062 Anesthesia for hernia Jean-Paul Roberts MD 10/02/2017 repairs in lower abdomen; not otherwise specified 94822 Transversus abdominis Shiva Cronin MD 10/02/2017 plane [...] Revised Date Saved: 10/03/2017 10:41 am Normal [facility] Main OR Intraoperative Recor don 10-03-2017 Main OR Intraoperative Record IntraOp Document Type FT Summary Primary Physician: Jean-Paul Roberts MD Finalized Date/Time: 10/03/17 10:03:38 Pt. Name: POOJA MARRUFO D.O.B./Sex: 1945 Male Med Rec #: [id number] Physician: Jean-Paul Roberts MD Financial #: [id number] Pt. Type: A Room/Bed: [place] [address] Admit/Disch: 10/02/17 06:11:00 - 10/02/17 14:55:00 Institution: Case Times FT Entry 1 Patient Times In Room 10/02/17 08:51:00 Out Room 10/02/17 11:22:00 Procedure Times Start 10/02/17 09:30:00 Stop 10/02/17 11:16:00 Anesthesia Times Start 10/02/17 08:51:00 Stop 10/02/17 11:22:00 Block Timeout w10/02/17 09:10:00 Anesthesia Last Modified By: Kassy Mathews CST 10/02/17 11:25:54 General Comments: 0910- BILATERAL TAP BLOCKS PERFORMED BY DR CRONIN USING ULTRASOUND AND AREA PREPPED USING CHLORAPREP, PATIENT UNDER ANESTHESIA AT TIME OF BLOCKS, UNDER CONSTANT OBSERVATION PER ANESTHESIA. - KYRA MEEHAN 0919- ROBOT DOCKED AT PATIENT. - KYRA MEEHAN 0941- SURGEON BACK TO SURGEON CONSOLE. - KYRA MEEHAN 6353- SURGEON RESCRUBBED AND AWAY FROM CONSOLE. - E.COY RN 1102- ROBOT UNDOCKED. Jonh RAE RN 10/03/2017 Chart opened to review and send charges Radha staff rn Case Attendance FT Entry 1 Entry 2 Entry 3 Case Attendee Mehrdad GALE, Shiva Roberts MD, Jean-Paul Dixon, RN Rajwinder Watson Role Performed Anesthesiologist of Surgeon - Primary ENGLISH COMPOSITION TEACHER Record Time In 10/02/17 08:51:00 10/02/17 08:51:00 10/02/17 08:51:00 Time Out 10/02/17 11:22:00 10/02/17 11:22:00 10/02/17 11:22:00 Procedure HERNIA REPAIR, ROBOT HERNIA REPAIR, ROBOT HERNIA REPAIR, ROBOT ASSISTED(.) ASSISTED(.) ASSISTED(.) Comments Last Modified By: Anurag RN, Bia Osborn RN, Bia Osborn RN, Bia Campbell 10/02/17 11:25:55 10/02/17 11:25:55 10/02/17 11:25:55 Entry 4 Entry 5 Case Attendee Anurag MEEHAN, Bia Baker INSERT MOLDING OPERATOR/Sushma LEACH Role Performed Fractionation Supervisor - Primary Scrub - Primary Time In 10/02/17 08:51:00 10/02/17 08:51:00 Time Out 10/02/17 11:22:00 10/02/17 11:22:00 Procedure HERNIA REPAIR, ROBOT HERNIA REPAIR, ROBOT ASSISTED(.) ASSISTED(.) Comments Last Modified By: Anurag MEEHAN, Bia Osborn RN, Bia Campbell 10/02/17 11:25:55 10/02/17 11:25:55 General Comments: SKIP SINGH REP PRESENT FOR PROCEDURE. Jonh RAE RNduplex trimmer Protocols FT Pre-Care Text: Implements protective measures [...] Medication Applicable) PreOp Antibiotic Yes Time Out Mehrdad GALE, Armando Shannon MD, Jean-Paul Fritz, Zack, RN Rajwinder Watson, Anurag MEEHAN, Olivia Rios INSERT MOLDING OPERATOR/SASushma Time Out Complete 10/02/17 09:27:00 Outcomes Met? [...] and tissue Entry 1 Skin Integrity Intact, [place], Warm, and Skin Abnormality Yes Dry, Bruised [...] Other/See Comments Press Points Checked Yes By Anurag MEEHAN, Zack Rios RN Nichole C, Barney MD, Armando Shannon MD, Armando Braden MD, Jean-Paul Fritz Outcomes Met? Yes Last Modified By: Bia [...] Met? Yes Yes Yes Last Modified By: Anurag RN, Bia Osborn RN, Bia Bryant RN 10/02/17 07:39:31 10/02/17 07:39:31 10/02/17 07:39:31 Entry 4 Entry 5 Entry 6 Equipment Type MISTRAL FORCED AIR MONITOR CHARGE SURGERY SONOSITE ULTRASOUND WARMING SYSTEM UNIT[F] [F] UNIT[F] Equipment Number M6 Equipment Setting Outcomes Met? Yes Yes Yes Last Modified By: Anurag RN, Bia Osborn RN, Bia Bryant RN 10/02/17 07:39:31 10/02/17 [...] injury Entry 1 ESU Identification Equipment Number [id number] ESU Settings Cut 35 Coag 35 Bipolar [...] 08:52:00 10/02/17 11:07:00 By Bia Osborn RN, Bia Camara RN, Sharp INSERT MOLDING OPERATOR/SA, Sushma INSERT MOLDING OPERATOR/SA, Sushma Outcomes Met? Yes Yes Last Modified [...] RN Patient Status Stable Skin. Condition Intact, [place], Warm, and Description UNCHANGED FROM Dry, Bruised PREVIOUSLY Airway Maintenance Oxygen in Use? Yes Airway Device Simple Mask Flow Rate 8 L/min Outcomes Met? Yes Last Modified By: Bia Osborn RN 10/02/17 11:31:29 Post-Care Text: The patient is free from signs and symptoms of injury related to transfer/transport General Comments: REPORT GIVEN TO [facility]. Jonh RAE RN Dressing/Packing FT Pre-Care Text: [...] Description MESH STEX ROUND 9CM Lot Number [id number] (3.6 ) [SYM9][F] Call Or Contact Centre Manager FT-COVIDIEN Catalog ?# SYM9 [F] Size 9CM Expiration [...] Type TUBE NASOGASTIC SUMP Location MOUTH 18FR [[id number]][F] Quantity 1 Fluid SCANT AMOUNT BLOOD Characteristics [...] Present Upon Arrival No Inserted LF 16FR [[id number]][F] Insertion Date/Time 10/02/17 09:05:00 Urine Residual 100 [...] BLANKET MISTRAL AIR Quantity 1 Aid TORSO [[id number]][F] Fluid/Carson Unit Mistral warming system Setting HIGH/43 Body Site Upper anterior torso Last Modified By: Bia Osborn RN 10/02/17 09:49:45 Case Comments Finalized By: Kassy Mathews CST Document Signatures Signed By: Bia Osborn RN 10/02/17 11:26 Anurag MEEHAN, Bia Campbell 10/02/17 11:27 Anurag MEEHAN, Bia Campbell 10/02/17 11:29 Anurag MEEHAN, Bia Campbell 10/02/17 11:31 Kassy Mathews CST 10/03/17 10:03 [facility] History and Physicalon 10-02 History and Physical Patient: POOJA MARRUFO Age: 72 years Sex: Male : 1945 Associated Diagnoses: None Author: Jean-Paul Roberts MD Subjective no changes to H & P [facility] Comment on above: Result Comment: Elec tronically Signed By: Jean-Paul Roberts MD\.br\Date and Time Signed: 10/02/17 08:31 EDT Inpatient Patient Summaryon 10-02-2017 Inpatient [facility] InstructionsPERSON INFORMATION Name: POOJA MARRUFO PHYSICIANS Admitting Physician: Jean-Paul Roberts MD Physician: Jean-Paul Roberts MD PCP: Vidhi DAWKINS DO Diagnosis: Incarcerated umbilical hernia Comment: PATIENT EDUCATION INFORMATIONInstructions:Medic ation Leaflets:Follow up:With: Address: When: Jean-Paul Roberts [address] [place] [id number] [facility] [place] () Within 7 to 10 days MEDICATION LISTFill New Prescriptions:acetaminophen-h ydrocodone (acetaminophen-hydrocodone 325 mg-5 mg oral tablet) 1 tab(s) By Mouth every 4 hours as needed for Pain not to exceed 8 tablets/day take with food or milkComment: Normal [facility] Main OR PACU I Recordon Main OR PACU I Record PACU Phase I Document Type FT Summary Primary Physician: Jean-Paul Roberts MD Finalized Date/Time: 10/02/17 12:01:59 Pt. Name: POOJA MARRUFO Lam /Sex: 1945 Male Med Rec #: [id number] Physician: Jean-Paul Roberts MD Financial #: [id number] Pt. Type: A Room/Bed: [facility] Admit/Disch: 10/02/17 06:11:42 - Institution: Case [...] By: Cinthia Sharif RN 10/02/17 12:01 Normal [facility] Main OR Preoperative Recordo n 10-02-2017 Main OR Preoperative Record PreOp Document Type FT Summary Primary Physician: Jean-Paul Roberts MD Finalized Date/Time: 10/02/17 09:50:16 Pt. Name: POOJA MARRUFO Lam CastanoB./Sex: 1945 Male Med Rec #: [id number] Physician: Jean-Paul Roberts MD Financial #: [id number] Pt. Type: A Room/Bed: Admit/Disch: 10/02/17 06:11:42 - Institution: Case Times [...] By: Bia Osborn RN 10/02/17 09:50 Normal [facility] Operative Reporton 8 Operative Report Date of [...] [facility] to [facility] [...] visualization. Once this wascomplete, the last needle gas truck driver was brought out through the #1 arm. Therobot was then docked. I then scrubbed back into the field and examinedthe repair. It was noted to be intact. There was no evidence of bleeding.All port sites were examined upon withdrawal of the ports. There was notedto be good hemostasis. The fascia from the right subcostal incision wasthen closed with a 0 Vicryl hfbjio-xa-otvrh suture. All port sites wereinfiltrated with the [...] Room in good condition.Jean-Paul Roberts M.D.glsDictated: 10/02/2017 #[id number]: 10/02/2017 #[id number]: Cherie Newby M.D. Normal [facility] Comment on above: Result Comment: Elec tronically Signed By: Armando GALE, eJan-Paul Bates\Date and Time Signed: 10/02/17 13:56 EDT UA With Cult Reflexon 2017 Bilirubin Ql (U) Negative Normal Negative [facility] Comment on above: Performed By: #### 1 [id number] ####[place] [address] COLOR:TYPE:PT:URIN E:NOM:AUTO STRAW Abnormal Yellow [facility] Comment on above: Performed By: #### 1 [id number] ####[place] [address] Erythrocytes (RBC) 0-3 Normal 0-3 [facility] Comment on above: Performed By: #### 1 [id number] ####[place] [address] GLUCOSE:MCNC:PT:UR INE:QN:TEST STRIP Negative Normal Negative [facility] Comment on above: Performed By: #### 1 [id number] ####[place] [address] KETONES:MCNC:PT:UR INE:QN:TEST STRIP Negative Normal Negative [facility] Comment on above: Performed By: #### 1 [id number] ####[place] [address] LEUKOCYTES:PRTHR:P T:URINE:ORD:AUTOMA JAMESON Negative Normal Negative [facility] Comment on above: Performed By: #### 1 [id number] ####[address] [address] UA Spec Desc Pinedo Normal [facility] Comment on above: Performed By: #### 1 [id number] ####[address] [address] Urine, clarity CLEAR Normal Clear [facility] Comment on above: Performed By: #### 1 [id number] ####[facility] [address] [place] [facility] [place] [address] Urine, hemoglobin presence Negative Normal Negative [facility] Comment on above: Performed By: #### 1 [id number] ####[facility] [address] [facility] [place] [address] Urine, leukocytes in sedmiment 0-5 Normal 0-5 [facility] Comment on above: Performed By: #### 1 1786620 ####[facility] [address] [place] [address] Urine, nitrite presence Negative Normal Negative [facility] Comment on above: Performed By: #### 1 6910213 ####[facility] [address] [place] [address] Urine, pH 6.5 [pH] Invalid Interpretation Code 5.0-9.0 [facility] Comment on above: Performed By: #### 1 1309080 ####[facility] [address] [place] [address] Urine, protein Negative Normal Negative [facility] Comment on above: Performed By: #### 1 8608515 ####[facility] [address] [place] [address] Urine, specific gravity <=1.005 Invalid Interpretation Code 1.005-1.030 [facility] Comment on above: Performed By: #### 1 [id number] ####[facility] [address] [place] [address] Urine, squamous cells in sediment 0-2 Normal 0-2 [facility] Comment on above: Performed By: #### 1 1774158 ####[facility] [address] [place] [facility] [place] [address] Urine, urobilinogen 0.2 {Aleja'U}/dL Normal 0.0-1.0 [facility] Comment on above: Performed By: #### 1 9014480 ####[facility] [address] [place] [address] Coding Summary.on 09-20-2017 Coding Summary. CODING DATE: 03/28/2 018 [facility] DSCH STATUS: Home (Routine DC) PAYOR: Medicare APC [...] Zarco Date Saved: 09/20/2017 11:31 am Normal [facility] Auto Diffon 09-19-2017 Basophils Auto #/vol (Bld) 0.1 E9/L Normal 0.0-0.2 [facility] Comment on above: Order Comment: Order Added by Discern Expert. Performed By: #### 2 410071, 7236928, 6184158, 30440855 ####[facility] [address] [place] [address] Basophils Auto #/vol (Bld) 1.1 % Normal 0.0-2.0 [facility] Comment on above: Order Comment: Order Added by Discern Expert. Performed By: #### 2 951301, 7357955, 1615911, 88055139 ####[facility] [address] [place] [address] Eosinophils 0.1 E9/L Normal 0.0-0.5 [facility] Comment on above: Order Comment: Order Added by Discern Expert. Performed By: #### 2 760400, 7646476, 6031372, 62848022 ####[facility] [address] [place] [address] Eosinophils/100 leukocytes 1.4 % Normal 0.0-8.0 [facility] Comment on above: Order Comment: Order Added by Discern Expert. Performed By: #### 2 034355, 6346914, 6690667, 59506294 ####[facility] [address] [place] [address] Lymphocytes 2.4 E9/L Normal 1.0-4.0 [facility] Comment on above: Order Comment: Order Added by Mike Expert. Performed By: #### 2 222886, 8936315, 2316849, 11603558 ####[place] [address] [place] [address] Lymphocytes/100 leukocytes 25.9 % Normal 14.0-50.0 [facility] Comment on above: Order Comment: Order Added by Mike Expert. Performed By: #### 2 515334, 7196749, 7885956, 36399677 ####[place] [address] [place] [address] Monocytes 0.7 E9/L Normal 0.2-1.0 [facility] Comment on above: Order Comment: Order Added by Mike Expert. Performed By: #### 2 644783, 5008700, 9814451, 41160047 ####[address] [address] Monocytes/100 leukocytes 8.1 % Normal 4.0-14.0 [facility] Comment on above: Order Comment: Order Added by Mike Expert. Performed By: #### 2 390401, 3625880, 8130087, 80668783 ####[place] [address] [place] [address] Neutrophils 5.9 E9/L Normal 2.0-7.5 [facility] Comment on above: Order Comment: Order Added by Mike Expert. Performed By: #### 2 103147, 0499586, 2220538, 73939549 ####[place] [address] [place] [address] Neutrophils/100 leukocytes 63.5 % Normal 36.0-75.0 [facility] Comment on above: Order Comment: Order Added by Mike Expert. Performed By: #### 2 965154, 9047103, 5565030, 23008024 ####[place] [address] [place] [address] CBC w/ Auto Diffon 8 Erythrocyte distribution width Auto Ratio (RBC) 13.7 % Normal 10.9-14.2 [facility] Comment on above: Performed By: #### 2 888536, 4827627, 4745065, 13058185 ####[facility] [address] [place] [address] Erythrocytes (RBC) 4.3 E12/L Normal 4.3-5.9 [facility] Comment on above: Performed By: #### 2 116629, 3465383, 1512504, 55228535 ####[place] [address] Hematocrit (HCT) 40.0 % Normal 37.7-49.0 [facility] Comment on above: Performed By: #### 2 155755, 2233747, 7220490, 90532226 ####[place] [address] Hemoglobin mass conc (Bld) 13.9 g/dL Normal 13.5-17.5 [facility] Comment on above: Performed By: #### 2 994940, 0967775, 5312972, 28878382 ####[place] [address] [place] [address] MCH 32.3 pg Normal 27.0-34.0 [facility] Comment on above: Performed By: #### 2 597406, 5354374, 4276305, 54596687 ####[place] [address] [place] [address] MCHC mass conc (RBC) 34.9 g/dL Normal 31.4-39.3 [facility] Comment on above: Performed By: #### 2 661981, 7332164, 8352819, 02908340 ####[place] [address] [place] [address] MCV 92.8 fL Normal 80.0-100.0 [facility] Comment on above: Performed By: #### 2 531069, 1862325, 3367675, 37502668 ####[place] [address] Platelet mean volume (PMV) 8.4 fL Normal 6.4-10.8 [facility] Comment on above: Performed By: #### 2 930386, 7661663, 3973556, 08018232 ####[place] [address] [place] [address] Platelets 311.0 E9/L Normal 150.0-500.0 [facility] Comment on above: Performed By: #### 2 978378, 7287875, 0010140, 49765136 ####[address] [address] WBC (Leukocytes) 9.3 E9/L Normal 4.0-11.0 [facility] Comment on above: Performed By: #### 2 073399, 9874707, 1437471, 00352267 ####[address] [address] CMPon 09-19-2017 Alanine aminotransferase (ALT) 39 Int._Unit/L Normal 6-46 [facility] Comment on above: Performed By: #### 2 609514, 4361493, 7432503, 74114286 ####[place] [address] Albumin 4.1 g/dL Normal 3.3-5.0 [facility] Comment on above: Performed By: #### 2 853523, 9604548, 0949050, 58570442 ####[place] [address] [place] [address] Albumin 1.1 g/dL Normal 1.1-2.2 [facility] Comment on above: Performed By: #### 2 339621, 1808188, 4517645, 96831877 ####[place] [address] Alkaline phosphatase (ALP) 66 Int._Unit/L Normal 21-98 [facility] Comment on above: Performed By: #### 2 991597, 3439553, 2030667, 55067474 ####[address] [place] [address] Anion gap 12 mmol/L Normal 6-16 [facility] Comment on above: Performed By: #### 2 565112, 5797844, 9760685, 39767374 ####[facility] [address] [place] [address] Aspartate aminotransferase (AST) 28 Int._Unit/L Normal 5-43 [facility] Comment on above: Performed By: #### 2 947549, 0652675, 5340992, 08235372 ####[facility] [address] [place] [address] Bilirubin (total) 0.8 mg/dL Normal 0.0-1.1 [facility] Comment on above: Performed By: #### 2 648200, 1188380, 1090428, 38956614 ####[facility] [address] [place] [address] BUN/Creatinine Ratio 19 No Units Normal 10-20 [facility] Comment on above: Performed By: #### 2 551591, 1000034, 1115897, 42205179 ####[facility] [address] [place] [address] Calcium 9.1 mg/dL Normal 8.9-11.1 [facility] Comment on above: Performed By: #### 2 723381, 8545799, 0691067, 98563844 ####[facility] [address] [place] [address] Chloride 96 mmol/L Low 101-111 [facility] Comment on above: Performed By: #### 2 664912, 5239353, 3186942, 22446307 ####[facility] [address] [place] [address] CO2 29 mmol/L Normal 21-31 [facility] Comment on above: Performed By: #### 2 428798, 8673929, 0195531, 47018808 ####[facility] [address] [place] [address] Creatinine 1.1 mg/dL Normal 0.5-1.3 [facility] Comment on above: Performed By: #### 2 814154, 9335960, 9181423, 03251025 ####[facility] [address] [place] [address] Globulin 3.6 g/dL Normal 1.4-4.0 [facility] Comment on above: Performed By: #### 2 683624, 7368334, 6922351, 76172220 ####[facility] [address] [place] [address] Glucose mass conc 157 mg/dL Normal 55-199 [facility] Comment on above: Result Comment: If t his glucose result represents a fasting glucose, interpretation should refer to the following reference range: 55-99 mg/dL Performed By: #### 2 978064, 7003824, 3674904, 50129536 ####[facility] [address] [place] [address] Potassium molar conc 3.9 mmol/L Normal 3.5-5.3 [facility] Comment on above: Performed By: #### 2 631950, 6583429, 6108339, 03782496 ####[facility] [address] [place] [address] Protein 7.7 g/dL Normal 6.0-7.8 [facility] Comment on above: Performed By: #### 2 966435, 6264446, 1243555, 42376935 ####[facility] [address] [place] [address] Sodium 133 mmol/L Low 135-145 [facility] Comment on above: Performed By: #### 2 939799, 0502099, 0802794, 06784522 ####[facility] [address] [place] [address] Urea nitrogen 21 mg/dL Normal 5-21 [facility] Comment on above: Performed By: #### 2 191792, 0602749, 9397682, 58379412 ####[facility] [address] [place] [address] XR Chest 2 Viewson 8 XR Chest [...] evident. FINAL REPORT Dictated: 09/19/2017 1:33 pm Pio Suresh M.D. Signed (Electronic Signature): 09/19/2017 1:33 pm Signed by: Pio Suresh M.D. Transcribed by: LOREN Technologist: IRENA [facility] eGFRon 09-19-2017 eGFR (black) mL/min/{1.73_m2} Normal >=59 [facility] Comment on above: Order Comment: Order added by Discern Expert. Result Comment: eGFR is race adjusted. AA=. Performed By: #### 2 797643, 3134173, 4667165, 89177090 ####[facility] [address] [place] [address] eGFR (non-black) mL/min/{1.73_m2} Normal >=59 [facility] Comment on above: Order Comment: Order added by Discern Expert. Result Comment: Software Engineering Project Manager chris kidney disease could be indicated at eGFR's of less than 60 mL/min/1.73m2. Kidney failure is indicated at less than 15 mL/min/1.73m2. Performed By: #### 2 079689, 1812558, 0537245, 42859229 ####[facility] [address] [place] [address] Coding Summary.on 04-19-2017 Coding Summary. 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 SECONDARY: PYMT PROC APC STAT DESCRIPTION DOCTOR NAME DATE 95728 5481 T Discission of secondary Bipin Cruz [...] Haley Leyva Date Saved: 04/19/2017 03:05 pm [facility] Vital Signs Date Time Vital Sign Value Performing Clinician Facility 04-20-2023 08:30-0400 Body height 187.96 cm Robin Ball Other [facility] Other 04-20-2023 08:30-0400 Body mass index (BMI) [Ratio] 29.3 kg/m2 Robin Ball Other [facility] Other 04-20-2023 08:30-0400 Body weight 103.51 kg Robin Ball Other [facility] Other 04-20-2023 08:30-0400 Diastolic blood pressure 66 mm[Hg] Robin Ball Other [facility] Other 04-20-2023 08:30-0400 Respiratory rate 12 /min Robin Ball Other [facility] Other 04-20-2023 08:30-0400 Systolic blood pressure 124 mm[Hg] Robin Ball Other [facility] Other 12-15-2022 08:30-0400 Body height 187.96 cm Robin Ball Other [facility] Other 12-15-2022 08:30-0400 Body mass index (BMI) [Ratio] 29.76 kg/m2 Robin Ball Other [facility] Other 12-15-2022 08:30-0400 Body weight 105.14 kg Robin Ball Other [facility] Other 12-15-2022 08:30-0400 Diastolic blood pressure 71 mm[Hg] Robin Ball Other [facility] Other 12-15-2022 08:30-0400 Respiratory rate 12 /min Robin Ball Other [facility] Other 12-15-2022 08:30-0400 Systolic blood pressure 127 mm[Hg] Robin Ball Other [facility] Other 11-22-2022 13:45-0400 Body height 187.96 cm Robin Ball Other [facility] Other 11-22-2022 13:45-0400 Body mass index (BMI) [Ratio] 29.94 kg/m2 Robin Ball Other [facility] Other 11-22-2022 13:45-0400 Body weight 105.78 kg Robin Ball Other [facility] Other 11-22-2022 13:45-0400 Diastolic blood pressure 64 mm[Hg] Robin Ball Other [facility] Other 11-22-2022 13:45-0400 Respiratory rate 12 /min Robin Ball Other [facility] Other 11-22-2022 13:45-0400 Systolic blood pressure 115 mm[Hg] Robin Ball Other [facility] Other 09-21-2022 09:30-0400 Body height 187.96 cm Robin Ball Other [facility] Other 09-21-2022 09:30-0400 Body mass index (BMI) [Ratio] 31.17 kg/m2 Robin Ball Other [facility] Other 09-21-2022 09:30-0400 Body weight 110.13 kg Robin Ball Other [facility] Other 09-21-2022 09:30-0400 Diastolic blood pressure 68 mm[Hg] Roibn Ball Other [facility] Other 09-21-2022 09:30-0400 Respiratory rate 12 /min Robin Ball Other [facility] Other 09-21-2022 09:30-0400 Systolic blood pressure 130 mm[Hg] Robin Ball Other [facility] Other Encounters Encounter Date Encounter Type Care Provider Facility Start: 07-19-2023 End: 07-19-2023 ambulatory Robin Ball Other [facility] Other Start: 07-19-2023 Telephone encounter [facility] Start: 06-14-2023 End: 06-14-2023 ambulatory [facility] Start: 04-21-2023 End: 04-21-2023 ambulatory Robin Ball Other [facility] Other Start: 04-21-2023 Telephone encounter Robin Ball [facility] Start: 04-20-2023 End: 04-20-2023 ambulatory Robin Ball Other [facility] Other Start: 04-20-2023 Office outpatient vi sit 25 minutes Robin Ball [facility] Start: 04-12-2023 End: 04-12-2023 ambulatory Robin Ball Other [facility] Other Start: 04-12-2023 Telephone encounter Robin Ball [facility] Start: 04-07-2023 End: 04-07-2023 ambulatory Robin Ball Other [facility] Other Start: 04-07-2023 Telephone encounter Robin Ball [facility] Start: 02-06-2023 End: 02-06-2023 ambulatory Robin Ball Other [facility] Other Start: 02-06-2023 Telephone encounter Robin Ball [facility] Start: 12-20-2022 End: 12-20-2022 ambulatory Robin Ball Other [facility] Other Start: 12-20-2022 Telephone encounter Robin Ball [facility] Start: 12-15-2022 End: 12-15-2022 ambulatory Robin Ball Other [facility] Other Start: 12-15-2022 Patient encounter procedure Robin Ball [facility] Start: 12-14-2022 End: 12-14-2022 ambulatory [facility] Start: 11-22-2022 End: 11-22-2022 ambulatory Robin Ball Other [facility] Other Start: 11-22-2022 Office outpatient vi sit 15 minutes Robin Ball [facility] Start: 11-22-2022 Telephone encounter Robin Ball [facility] Start: 10-31-2022 End: 10-31-2022 ambulatory Robin Ball Other [facility] Other Start: 10-31-2022 Office outpatient vi sit 15 minutes Robin Ball [facility] Start: 10-04-2022 End: 10-05-[address] MAE MCCORMICK [facility] Start: 10-04-2022 Telephone encounter [facility] Start: 09-21-2022 End: 09-21-2022 ambulatory Robin Dawkins Other [facility] Other Start: 09-21-2022 Office outpatient vi sit 25 minutes Robin Dawkins [facility] Start: 03-30-2022 End: 03-31-[address] MAE MCCORMICK Facility:[facility] Start: 12-16-2021 End: 12-17-[address] ORBIN DAWKINS Facility:[facility] Start: 12-06-2021 Adult health examination Robin Dawkins Other [facility] Other Start: 10-03-2018 End: 10-04-2018 Patient encounter procedure RONNY NEWMAN Facility:[facility] Start: 10-02-2017 End: 10-02-2017 Ambulatory Jean-Paul Roberts Facility:[place] Start: 09-19-2017 End: 09-20-2017 Ambulatory Jean-Paul Roberts Facility:[place] Start: 04-18-2017 End: 04-18-2017 Ambulatory Bipin Cruz Facility:[place] Procedures Date Procedure Procedure Detail Performing Clinician Start: 12-16-[address] MANZO IN [place] Comment on above: Performed By: #### P [facility] #### [facility] [address] [place] [address] Dr. Rui Moore Start: 06-09-2016 Removal of suture Scott Dawkins Other Start: 11-10-2015 Screening for malign ant neoplasm of colon Robin Dawkins Other Start: 10-21-2013 Screening for malign ant neoplasm of prostate Robin Dawkins Other Depression screening Jose Dawkins Other Screening for malign ant neoplasm of prostate Robin Dawkins Other Immunizations Immunization Date Immunization Notes Care Provider Karyn messina 11-16-2022 tetanus toxoid, redu suzy diphtheria toxoid, and acellular pertussis vaccine, adsorbed Robin Dawkins Other [facility] Other 04-06-2022 influenza, high dose seasonal, preservative-free Robin Dawkins Other [facility] Other 03-17-2022 COVID-19 Pfizer (bivalent) Robin Dawkins Other [facility] Other 10-06-2021 COVID-19 Vaccine Pfi zer - Documentation Purposes Only Robin Dawkins Other [facility] Other 03-31-2021 COVID-19 Vaccine Pfi zer - Documentation Purposes Only Robin Dawkins Other [facility] Other 09-28-2020 COVID-19 Vaccine Pfi zer - Documentation Purposes Only Robin Dawkins Other [facility] Other 09-01-2020 COVID-19 Vaccine Pfi zer - Documentation Purposes Only Robin Dawkins Other [facility] Other 04-01-2020 influenza virus vaccine, split virus (incl. purified surface antigen) Robin Dawkins Other [facility] Other 04-18-2019 influenza virus vaccine, split virus (incl. purified surface antigen) Robin Dawkins Other [facility] Other 04-12-2018 influenza virus vaccine, split virus (incl. purified surface antigen) Robin Dawkins Other [facility] Other 05-11-2017 influenza virus vaccine, split virus (incl. purified surface antigen) Robin Dawkins Other [facility] Other 04-04-2016 influenza virus vaccine, split virus (incl. purified surface antigen) Robin Dawkins Other [facility] Other 04-16-2015 influenza virus vaccine, split virus (incl. purified surface antigen) Robin Dawkins Other [facility] Other 04-16-2015 pneumococcal conjuga te vaccine, 13 valent Robin Dawkins Other [facility] Other 01-24-2015 zoster vaccine, live Jose Dawkins Other [facility] Other 12-30-2013 pneumococcal polysaccharide vaccine, 23 valent Robin Dawkins Other [facility] Other 04-04-2013 pneumococcal conjuga te vaccine, 13 valent Robin Dawkins Other [facility] Other 04-03-2013 tetanus and diphther ia toxoids, adsorbed, preservative free, for adult use (5 Lf of tetanus toxoid and 2 Lf of diphtheria toxoid) Robin Dawkins Other [facility] Other 03-08-2012 tetanus and diphther ia toxoids, adsorbed, preservative free, for adult use (5 Lf of tetanus toxoid and 2 Lf of diphtheria toxoid) Robin Dawkins Other [facility] Other 09-29-2010 diphtheria, tetanus toxoids and acellular pertussis vaccine, unspecified formulation Robin Dawkins Other [facility] Other 04-28-2010 pneumococcal polysaccharide vaccine, 23 valent Robin Dawkins Other [facility] Other Payers Date Payer Category Payer Medicare [id number] 1960 Medicare [id number] [id number] [id number] 1960 Unknown [id number] 1945 Unknown [id number] 1945 Unknown [id number] 1945 Unknown [id number] 1945 Unknown [id number] Social History Date Type Detail Facility Sex Assigned At [facility] Other Medical Equipment Procedure Code Equipment Code Equipment Origin al Text Equipment Identifier Dates Start: 09-21-2022 Clinical Notes 09-21-2022 to 07-19-2023 Note Date & Type Note Facility 07-19-2023 Evaluation note Encounter Date Diagnosis Assessment Notes Jun, Anemia, unspecified type (ICD-10 - D64.9) [facility] Other [id number] NoteUT Cardiology [facility] Subjective Pooja Marrufo is a 77 y.o. year old [...] April 2020 he was admitted to the [facility] with COVID-19. He developed atrial fibrillation. [...] Judgment: Judgment normal. 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 (ICD-10 - I70.213) Mar, Pain in left shoulde r (ICD-10 - M25.512) Mar, Primary osteoarthritis, left shoulder (ICD-10 - M19.012) Mar, Primary hypertension (ICD-10 - I10) Mar, Elevated cholesterol (ICD-10 - E78.00) Mar, Overweight (ICD-10 - E66.3) Mar, Hx of gout (ICD-10 - Z87.39) Mar, Anemia, unspecified type (ICD-10 - D64.9) Mar, Other chronic pain (ICD-10 - G89.29) [place] Other 10-26-2023 Evaluation note* Encounter Date Diagnosis Assessment Notes [...] exam and Foot exam Mar, Atherosclerosis of holy cross artery of both lower extremities with intermittent [...] No acute attacks present at this time. [facility] Other 10-13-2023 Evaluation note* Encounter Date Diagnosis Assessment Notes Treatment Notes Treatment Clinical Notes Mar, Anemia, unspecified type (ICD-10 - D64.9) [facility] Other 06-22-2023 Evaluation note* Encounter Date Diagnosis [...] Nov, Hx of gout (ICD-10 - Z87.39) [facility] Other 06-21-2023 NoteRCRI- 3 points Class IV Risk 15.0???% 30-day risk of , [place], or cardiac arrest From a cardiology perspective pt may proceed with planned vascular procedure, he is a moderate risk for a low risk procedure. May hold plavix if neededThe [facility] NoteContinue metoprolol for rate control, anticoagulation was [...] fibrillation happened in the setting of COVID-19 infection.[facility]06-21-2023 NotePT is planning for angiogram/intervention with Dr Mccormick- vascular surgery [facility]06-21-2023 NoteUTP CARDIOLOGY PROGRESS NOTE HPI: Pooja Marrufo [...] Former BSA 2.34 m??? Allergies Allergen Reactions Csbqvci-Oju-Nuw Reductase Inhibitors Other Lisinopril Losartan Medications: Current [...] of 10 beats. EKG (more content not included)...[facility] 12-14-2022 NoteLipid abnormalities are Continue crestor- pt having annual labs tomorrow and if LDL remains > 70 he needs to increase crestor to 40 mg daily Chol 163, LDL 99.4Un[facility]06-[facility]-2023 NoteHypertension is well controlled 126/70 Continue amlodipine, metoprololUnMount Carmel Health System06-21-2023 NoteCoronary artery disease is stable without concerning symptoms Continue GDMT- ASA, plavix, metoprolol, crestor continue risk factor modifications- heart healthy diet, regular exercise as tolerated and continue all medications.[facility] 11-22-2022 Evaluation note* Encounter Date Diagnosis Assessment [...] to continue exercise and AHA diet plan. [facility] Other 05-08-2023 Evaluation note* Encounter Date Diagnosis [...] to continue exercise and AHA diet plan. [facility] Other 04-11-2023 Evaluation note* Encounter Date Diagnosis Assessment Notes Treatment Notes Treatment Clinical Notes Sep, Stenosis of right carotid artery (ICD-10 - I65.21) Carotid US: 50-69% right carotid artery, 0-49% left carotid artery - 09/2022 [facility] Other 03-29-2023 Evaluation note* Encounter Date Diagnosis [...] are maintaining regular scheduled appts with their x ray technician. Aug, Anemia, unspecified type (ICD-10 - D64.9) Aug, Hx of gout (ICD-10 - Z87.39) No recent flares, continue urate lowering treatment Aug, Acute seasonal allergic rhinitis due to pollen (ICD-10 - J30.1) [facility] Other Evaluation noteNo InformationNortMomondo Group Limited Other History general Narrative - Reported* Type [...] History BYPASS Hospitalization History SEE SURGICAL HX [facility] Other Hisrmho general Narrative - Reported* Type Description Date [...] /stenting 12/2022 Hospitalization History SEE SURGICAL HX [facility] Other History general Narrative - Reported* Type [...] iliac angioplasty /stenting 12/2022 Surgical History Colonoscopy 2014 Hospitalization History SEE SURGICAL HX [facility] Other Summary Purpose Family History No Family [...] section and content) DATE CREATED AUTHOR 12/14/2017 [facility] DATE CREATED AUTHOR AUTHOR'S ORGANIZ ATION 10/08/2018 [facility] DATE CREATED AUTHOR AUTHOR'S ORGANIZ ATION 10/09/2022 [facility] DATE CREATED AUTHOR AUTHOR'S ORGANIZ ATION 06/15/2023 [facility] REASON FOR VISIT (unrecogniz ed section and content) FOLLOW UPNo InformationCough , Congestion- NEGATIVE COVID [id number] in TodayCheck Up from [facility] ResultsNo InformationLab workLab results4 month Follow upScript4 month Follow upNo InformationRepeat Labs FOR RECORDS PERTAINING TO PATIENTS WHO ARE [...] BE BASED ON THE PRIMARY CLINICAL RECORDS. [facility]. provides no warranty or guarantee of the accuracy or completeness of information in this document.
[2023-07-20 10:35] LABS: Basophils Absolute Auto 0.1 10^3/uL (0.0-0.1); Eosinophils Absolute Auto 0.2 10^3/uL (0.0-0.7); Eosinophils Percent Auto 2.2 % (0.9-7.0); Hematocrit 37.7 % (42.0-54.0); Hemoglobin 12.3 g/dL (14.0-18.0); Immature Granulocytes Abs Auto 0.04 10^3/uL (0.00-0.03); Immature Granulocytes Pct Auto 0.4 % (0.0-0.5); Lymphocytes Absolute Auto 3.7 10^3/uL (1.2-3.8); Lymphocytes Percent Auto 36.1 % (20.5-60.0); Mean Corpuscular HGB Conc 32.6 g/dL (29.9-35.2); Mean Corpuscular Hemoglobin 30.4 pg (25.9-34.0); Mean Corpuscular Volume 93.1 fL (80.0-94.0); Mean Platelet Volume 9.1 fL (9.5-13.5); Monocytes Absolute Auto 0.9 10^3/uL (0.3-0.8); Monocytes Percent Auto 8.9 % (1.7-12.0); Neutrophils Absolute Auto 5.3 10^3/uL (1.4-6.5); Neutrophils Percent Auto 51.4 % (43.0-75.0); Platelet Count 258 10^3/uL (150-450); Red Blood Count 4.05 10^6/uL (4.70-6.10); Red Cell Distribution Width 13.4 % (11.0-15.0); White Blood Count 10.3 10^3/uL (4.0-11.0)
[2023-07-20 11:29] LABS: Percent Iron Saturation 21.9 %
== END 2023-07-20 10:19 | disposition home or self-care (01) ==
LOC: LAB 10:19
PROVIDERS: PCP Internal Medicine; Visit Provider Internal Medicine
DX: D64.9 Anemia, unspecified (principal)
CPT/HCPCS: 36415; 82607; 82728; 82746; 83540; 83550; 85025

== ENCOUNTER 2023-07-27 10:26 | Outpatient (OUT) | payer MEDICARE, SELFPAY ==
--- NOTE | 2023-07-27 10:30 | NM_ITS ---
Patient Name: POOJA QUEVEDO MR#: [id number] : 1945 Exam Date: 07/27/2023 Ordering Doctor: DR RADHA CASTELLON M.D. RADIOLOGY REPORT PROCEDURE: NM MANDY PERF SPECT REST STR COMPARISON: None. INDICATIONS: CHEST PAIN, CORONARY ARTERY DISEASE TECHNIQUE: Exam Description: Stress/Rest one day protocol gated SPECT Rest Imagin.0 mCi Tc-99m Cardiolite IV on 07/27/2023 Stress Imaging 30.9 mCi Tc-99m Cardiolite IV on 07/27/2023 Exercise Protocol: 0.4 mg Lexiscan given IV Heart Rate (bpm): Rest: 70 Max: 80 PMHR: 52 Blood Pressure: Rest: 128/68 Max: 128/68 Symptoms: Rest and peak stress ECG findings were normal and the exercise portion of the study was normal per attending physician Dr. Josse Dawkins . For more details please see separate cardiac stress test report. FINDINGS: QUALITY OF STUDY: Excellent. PERFUSION DEFECT: None. LOCATION: N/A SIZE: N/A. SEVERITY: N/A. TYPE: N/A. WALL MOTION: Normal. LV SIZE: Normal. 100 mL. TID / TCD: None; 0.8 LVEF: Normal. Calculated EF 57%. SUMMARY: Myocardial perfusion imaging study is NORMAL. CONCLUSION: 1. Normal nuclear medicine myocardial perfusion scan. Dictated by: Magdaleno Irwin M.D. on 07/28/2023 at 14:51 Approved by: Magdaleno Irwin M.D. on 07/28/2023 at 14:59
--- OUTSIDE RECORDS SUMMARY | 2023-07-27 10:40 | XMS_ITS | CCD ---
Author Name Unknown Address [address] [place] [address] Organization [facility] Care Team Providers [facility] Name Role Phone Bipin Cruz Unavailable Unavailable Zahler, Bipin Unavailable Unavailable Bipin Cruz Unavailable Unavailable ROBIN DAWKINS~[id number] UNKNOWN Unavailable Unavailable Nill, Jean-Paul R Unavailable Unavailable Nill, Jean-Paul R Unavailable Unavailable Nill, Jean-Paul R Unavailable Unavailable ROBIN DAWKINS~[id number] UNKNOWN Unavailable Unavailable Nill, Jean-Paul R Unavailable Unavailable Nill, Jean-Paul R Unavailable Unavailable Nill, Jean-Paul R Unavailable Unavailable ROBIN DAWKINS~[id number] UNKNOWN Unavailable Unavailable TRENT, RONNY Admitting Unavailable [...] Allergy Type Date of Onset Reaction(s) Facility (11 sources) lisinopril; Translations: [lisinopril] Drug Allergy 11-02-19 19 AOF, Unknown [facility] Repository (3 sources) losartan; Translations: [losartan] Drug Allergy 04-20-20 [facility] Repository (1 source) nystatin / triamcinolone; Translations: [Tri-Statin II] Drug Allergy AOF [facility] Repository (3 sources) black walnut pollen extract; Translations: [[id number] REDUCTASE INHIBITORS] Drug Allergy 02-07-20 12 [facility] Repository (9 sources) Angiotensin-convert ing enzyme inhibitor agent Drug allergy Unknown [facility] Other (9 sources) Hmg-Coa Reductase Inhibitors (Statins) Propensity to adverse reactions Unknown [facility] Other (9 sources) Simvastatin Drug Allergy Unknown [facility] Other (9 sources) FELICIA inhibitor use, contraindication Propensity to adverse reactions 10-13-19 17 Comment:advers e rxn/side effects [facility] Other (9 sources) patient allergy list reviewed by nurse or physicia Propensity to adverse reactions 12-13-19 Comment:Done [facility] Other Medications Current Medications Medication Drug Class(es) Dates Sig (Normalized) Sig (Original) allopurinol 300 mg oral tablet (16 sources) Xanthine Oxidase Inhibitor take 1 tablet by mouth every twenty-four hours Allopurinol 300 MG 1 tablet Orally Once a day for 90 days Active amLODIPine 10 mg oral tablet (16 sources) Dihydropyridine Calcium Channel Bronwyn take 1 tablet by mouth every twenty-four hours amLODIPine Besylate 10 MG 1 tablet Orally Once a day Active aspirin 81 mg delayed release oral tablet (11 sources) Platelet Aggregation Inhibitor, Nonsteroidal Anti-inflammatory Drug take 1 tablet by mouth every twenty-four hours Aspirin 81 81 MG 1 tablet Orally Once a day Active azithromycin 250 mg oral tablet (3 sources) Macrolide Antimicrobial Start: 10-31-2022 Azithromycin 250 MG as directed Orally daily for 5 days October, Active benazepril (5 sources) Angiotensin Converting Enzyme Inhibitor Benazepril HCl Active clopidogrel (16 sources) P2Y12 Platelet Inhibitor Plavix Active Contour Next Test - (16 sources) Start: 09-21-2022 Contour Next Test - Use to test home BS qd In Vitro daily for 90 days Aug, Active furosemide 40 mg oral tablet (11 sources) Loop Diuretic take 1 tablet by mouth every twenty-four hours Furosemide 40 MG 1 tablet Orally Once a day Active metFORMIN hydrochloride 500 mg oral tablet (16 sources) Biguanide take 1 tablet by mouth [...] omeprazole 40 mg delayed release oral capsule (5 sources) Proton Pump Inhibitor Start: 04-21-2023 take 1 capsule by mouth once daily Omeprazole 40 MG 1 capsule 30 minutes before morning meal Orally Once a day for 30 days Mar, Active microencapsulated potassium chloride 20 meq extended release oral tablet (11 sources) take 1 tablet by mouth every twenty-four hours Klor-Con M20 20 MEQ 1 tablet with food Orally Once a day Active rosuvastatin calcium 20 mg oral tablet (11 sources) HMG-CoA Reductase Inhibitor take 1 tablet by mouth every twenty-four hours Rosuvastatin Calcium 20 MG 1 tablet Orally Once a day Active valACYclovir 1000 mg oral tablet (8 sources) Herpesvirus Nucleoside Analog DNA Polymerase Inhibitor, [...] Class(es) Dates Sig (Normalized) Sig (Original) ASA (16 sources) ASA Not-Taking/P RN ASA Not-Taking Fish Oils (16 sources) Fish Oil Not-Angel ing/PRN Fish Oil Not-Angel ing latanoprost (16 sources) Prostaglandin Analog Latanoprost Not-Taking/PRN Latanoprost Not- Taking Lidocaine (19 sources) Antiarrhythmic, Amide Local Anesthetic Start: 04-20-2023 Lidocaine 26 Oct 23 20 mg Start: 11-22-2022 Lidocaine 30 M 2022 20 mg Niacin (16 sources) Nicotinic Acid Niacin Not-Takin g/PRN Niacin Not-Takin g Suprep Bowel Prep . (16 sources) Start: 12-03-2014 Suprep Bowel P rep [...] related conditions] Onset: 05-09-2013 Chronic Cardiac dysrhythmias (19 sources) Paroxysmal atrial fibrillation; Translations: [Paroxysmal atrial fibrillation] Onset: 05-26-2022 Chronic Chronic kidney disease (16 sources) Chronic kidney disease stage 3A ; Translations: [Stage 3a chronic kidney disease] Chronic Chronic obstructive pulmonary disease and bronchiectasis (14 sources) Simple chronic bronchitis; Translations: [Simple chronic bronchitis] Chronic Coronary atherosclerosis and other heart disease (20 sources) Coronary arteriosclerosis; Translations: [Atherosclerotic heart disease of elem coronary artery without angina pectoris] Onset: 06-26-1960 [...] hypercholesterolemia, unspecified] Onset: 06-26-1959 Chronic Esophageal disorders (5 sources) Gastro-esophageal reflux disease with esophagitis; Translations: [...] 09-05-2017 Chronic Other aftercare (2 sources) Other termination clerk (current) drug therapy; Translations: [OTH SENIOR ARCHITECT CURRENT DRUG THERAPY] Onset: 12-21-2021 Episodic Other aftercare (1 source) Long-term current use of drug therapy; Translations: [Other termination clerk (current) drug therapy] Episodic Other circulatory disease (16 sources) Peripheral arterial occlusive disease; Translations: [Disorder [...] Episodic Other diseases of veins and lymphatics (18 sources) Peripheral venous insufficiency; Translations: [Venous insufficiency [...] Onset: 06-14-2023 Episodic Other nervous system disorders (6 sources) Chronic pain; Translations: [Other chronic pain] [...] lower limb] Episodic Other upper respiratory disease (17 sources) Allergic rhinitis due to pollen; Translations: [Allergic rhinitis due to pollen] Chronic Other upper respiratory disease (1 source) Allergic rhinitis due to pollen Chronic Other upper respiratory disease (1 source) Allergic rhinitis; Translations: [Allergic rhinitis, unspecified] Chronic Other upper respiratory infections (3 sources) Acute maxillary sinusitis; Translations: [Acute maxillary sinusitis, unspecified] Onset: 10-12-2016 Episodic Peripheral and visceral atherosclerosis (14 sources) Peripheral vascular disease, unspecified; Translations: [Peripheral [...] tachycardia; Translations: [Other ventricular tachycardia] Viral infection (8 sources) Post-herpetic polyneuropathy; 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] Episodic [...] Range Facility Office Visiton 06-14-2023 Follow-up visit [id number] Eloisa Marrufo 1945 M Date Provider Department Center 06/14/2023 RADHA ESCOBAR Family History Problem Relation Age of Onset Heart failure Mother Family Status - Relation Status Age at Mother Level of Service:18968 MA OFFICE/OUTPATIENT ESTABLISHED LOW MDM 20 MIN Normal [facility] Office Visiton 12-14-2022 Follow-up visit [id number] Eloisa Marrufo 1945 M Date Provider Department Center 12/14/2022 TIFFANY WINTER [facility] Family History Problem Relation Age of Onset Heart failure Mother Family Status - Relation Status Age at Mother Level of Service:29525 MA OFFICE/OUTPATIENT ESTABLISHED MOD [facility] 30-39 MIN Reason for Visit and Comments: Follow-up [573093] - 6 month follow up Normal [facility] US CAROTID ART BILon 023 US CAROTID [...] MAGDALENO GLEZ Date: 2022-10-04 16:04 Normal [facility] CBC AUTO DIFFon 12-16-2021 BASO # 0.1 103/ul Normal 0.0-0.1 [facility] Comment on above: Performed By: #### C BC #### [facility] [address] [place] [address] Dr. Rui Moore Basophils/100 WBC (Bld) 0.5 % Normal 0.2-2.0 [facility] Comment on above: Performed By: #### C BC #### [facility] [address] [place] [address] Dr. Rui Moore EO # 0.0 103/ul Normal 0.0-0.7 [facility] Comment on above: Performed By: #### C BC #### [facility] [address] [place] [address] Dr. Rui Moore Eosinophils/100 WBC (Bld) 0.4 % Critically low 0.9-7.0 [facility] Comment on above: Performed By: #### C BC #### [facility] [address] [place] [address] Dr. Rui Moore Erythrocyte distribution width (RBC) [Ratio] 13.2 % Normal 11.0-15.0 [facility] Comment on above: Performed By: #### C BC #### [facility] [address] [place] [address] Dr. Rui Moore Hematocrit (Bld) [Volume fraction] 38.1 % Critically low 42.0-54.0 [facility] Comment on above: Performed By: #### C BC #### [facility] [address] [place] [address] Dr. Rui Moore Hemoglobin (Bld) [Mass/Vol] 12.3 g/dL Critically low 14.0-18.0 [facility] Comment on above: Performed By: #### C BC #### [facility] [address] [place] [address] Dr. Rui Moore IG # 0.06 10e3/ul Critically high 0.00-0.03 [facility] Comment on above: Performed By: #### C BC #### [facility] [address] [place] [address] Dr. Rui Moore IG % 0.5 % Normal 0.0-0.5 [facility] Comment on above: Performed By: #### C BC #### [facility] [address] [place] [address] Dr. Rui Moore LYMPH # 3.5 103/ul Normal 1.2-3.8 [facility] Comment on above: Performed By: #### C BC #### [facility] [address] [place] [address] Dr. Rui Moore Lymphocytes/100 WBC (Bld) 31.9 % Normal 20.5-60.0 [facility] Comment on above: Performed By: #### C BC #### [facility] [address] [place] [address] Dr. Rui Moore MANUAL DIFF REQ NO Normal [facility] Comment on above: Performed By: #### C BC #### [facility] [address] [place] [address] Dr. Rui Moore MCH (RBC) [Entitic mass] 29.9 pg Normal 25.9-34.0 [facility] Comment on above: Performed By: #### C BC #### [facility] [address] [place] [address] Dr. Rui Moore MCHC (RBC) [Mass/Vol] 32.3 g/dL Normal 29.9-35.2 [facility] Comment on above: Performed By: #### C BC #### [facility] [address] [place] [address] Dr. Rui Moore MCV (RBC) [Entitic vol] 92.5 fL Normal 80.0-94.0 [facility] Comment on above: Performed By: #### C BC #### [facility] [address] [place] [address] Dr. Rui Moore MONO # 0.7 103/ul Normal 0.3-0.8 [facility] Comment on above: Performed By: #### C BC #### [facility] [address] [place] [address] Dr. Rui Moore Monocytes/100 WBC (Bld) 6.6 % Normal 1.7-12.0 [facility] Comment on above: Performed By: #### C BC #### [facility] [address] [place] [address] Dr. Rui Moore NEUT # 6.6 103/ul Critically high 1.4-6.5 [facility] Comment on above: Performed By: #### C BC #### [facility] [address] [place] [address] Dr. Rui Moore Neutrophils/100 WBC (Bld) 60.1 % Normal 43.0-75.0 [facility] Comment on above: Performed By: #### C BC #### [facility] [address] [place] [address] Dr. Rui Moore Platelet mean volume (Bld) [Entitic vol] 9.3 fL Critically low 9.5-13.5 [facility] Comment on above: Performed By: #### C BC #### [facility] [address] [place] [address] Dr. Rui Moore PLT 307 103/ul Normal 150-450 [facility] Comment on above: Performed By: #### C BC #### [facility] [address] [address] [address] Rui Moore RBC 4.12 106/ul Critically low 4.70-6.10 [facility] Comment on above: Performed By: #### C BC #### [facility] [address] [address] [address] Rui Moore WBC 11.0 103/ul Normal 4.0-11.0 [facility] Comment on above: Performed By: #### C BC #### [facility] [address] [place] [address] Dr. Rui Moore GLYCOHEMOGLOBIN A1Con 2021 ADA RECOMMENDATION SEE BELOW Normal [facility] Comment on above: Result Comment: ADA RECOMMENDED LIMIT 4.0 - 6.0 ADA THERAPEUTIC TARGET < 7.0 ACTION SUGGESTED > 7.0 Performed By: #### A 1C #### [facility] [address] [place] [address] Dr. Rui Moore Glucose [Mass/Vol] 143 mg/dL Normal [facility] Comment on above: Performed By: #### A 1C #### [facility] [address] [place] [address] Dr. Rui Moore HbA1c (Bld) [Mass fraction] 6.6 % Critically high 4.5-6.2 [facility] Comment on above: Performed By: #### A 1C #### [facility] [address] [place] [address] Dr. Rui Moore LIPID PROFILEon 12-16-2021 CHOL-HDL RATIO NORM SEE BELOW Normal [facility] Comment on above: Result Comment: 3.3 - 4.4 LOW RISK 4.4 - 7.1 AVERAGE RISK 7.1 - 11.0 MODERATE RISK >11.0 HIGH RISK Performed By: #### L IPSANDRA BMP, ALT #### [facility] [address] [place] [address] Dr. Rui Moore Cholesterol [Mass/Vol] 109 mg/dL Normal <=200 [facility] Comment on above: Performed By: #### L IPSANDRA, BMP, ALT #### [facility] [address] [address] [address] Rui Moore Cholesterol in HDL [Mass/Vol] 39 mg/dL Critically low 40-60 [facility] Comment on above: Performed By: #### L IPID, BMP, ALT #### [facility] [address] [address] [address] Rui Moore Cholesterol in LDL [Mass/Vol] 51.6 mg/dL Normal [facility] Comment on above: Performed By: #### L IPID, BMP, ALT #### [facility] [address] [address] [address] Rui Moore Cholesterol.total/ Cholesterol in HDL [Mass ratio] 2.8 {ratio} Normal [facility] Comment on above: Performed By: #### L IPID, BMP, ALT #### [facility] [address] [address] [address] Rui Moore HDL NORMAL > or = 60 mg/dl - LO W CARDIOVASCULAR RISK <40 mg/dl - HIGH CARDIOVASCULAR RISK Normal [facility] Comment on above: Performed By: #### L IPID, BMP, ALT #### [facility] [address] [place] [address] Dr. Rui Moore LDL CALC NORMAL SEE BELOW Normal [facility] Comment on above: Result Comment: <100 mg/dl OPTIMAL 100 - 129 mg/dl NEAR OR ABOVE OPTIMAL 130 - 159 mg/dl BORDERLINE HIGH 160 - 189 mg/dl HIGH >190 mg/dl VERY HIGH Performed By: #### L IPID, BMP, ALT #### [facility] [address] [place] [address] Dr. Rui Moore Triglyceride [Mass/Vol] 92 mg/dL Normal <=150 [facility] Comment on above: Performed By: #### L IPID, BMP, ALT #### [facility] [address] [place] [address] Dr. Rui Moore VLDL CALC 18.4 mg/dL Normal [facility] Comment on above: Performed By: #### L IPID, BMP, ALT #### [facility] [address] [address] [address] Rui Moore MICROALBUMIN, RAND URon 06-2 mALB 8.3 mg/L Normal <=30.0 [facility] Comment on above: Performed By: #### M ALBR #### [facility] [address] [address] [address] Rui Moore PROF CHEM 8 (BAS METB)on Anion gap [Moles/Vol] 14.6 mmol/L Normal [facility] Comment on above: Performed By: #### L IPID, BMP, ALT #### [facility] [address] [address] [address] Rui Moore Calcium [Mass/Vol] 9.1 mg/dL Normal 8.5-10.1 [facility] Comment on above: Performed By: #### L IPID, BMP, ALT #### [facility] [address] [place] [address] Dr. Rui Moore Chloride [Moles/Vol] 101 mmol/L Normal 98-107 [facility] Comment on above: Performed By: #### L IPID, BMP, ALT #### [facility] [address] [address] [address] Rui Moore CO2 [Moles/Vol] 25.9 mmol/L Normal 21.0-32.0 [facility] Comment on above: Performed By: #### L IPID, BMP, ALT #### [facility] [address] [address] [address] Rui Moore Creatinine [Mass/Vol] 1.23 mg/dL Normal 0.70-1.30 [facility] Comment on above: Performed By: #### L IPID, BMP, ALT #### [facility] [address] [place] [address] Dr. Rui Moore EGFR-AF PUERTO RICAN >60 Normal >=60 [facility] Comment on above: Performed By: #### L IPID, BMP, ALT #### [facility] [address] [address] [address] Rui Moore EGFR-NON AF PUERTO RICAN 57 mL/min/1.73m2 Critically low >=60 [facility] Comment on above: Performed By: #### L IPID, BMP, ALT #### [facility] [address] [place] [address] Dr. Rui Moore Glucose [Mass/Vol] 141 mg/dL Critically high 74-106 [facility] Comment on above: Performed By: #### L IPID, BMP, ALT #### [facility] [address] [place] [address] Dr. Rui Moore Potassium [Moles/Vol] 4.5 mmol/L Normal 3.5-5.1 [facility] Comment on above: Performed By: #### L IPID, BMP, ALT #### [facility] [address] [place] [address] Dr. Rui Moore Sodium [Moles/Vol] 137 mmol/L Normal 136-145 [facility] Comment on above: Performed By: #### L IPID, BMP, ALT #### [facility] [address] [place] [address] Dr. Rui Moore Urea nitrogen [Mass/Vol] 22.0 mg/dL Critically high 7.0-18.0 [facility] Comment on above: Performed By: #### L IPID, BMP, ALT #### [facility] [address] [place] [address] Dr. Rui Moore Urea nitrogen/Creatinin e [Mass ratio] 17.9 mg/mg Normal [facility] Comment on above: Performed By: #### L IPID, BMP, ALT #### [facility] [address] [place] [address] Dr. Rui Moore [facility] 12-16-2021 ALT [Catalytic activity/Vol] 42 U/L Normal 16-63 [facility] Comment on above: Performed By: #### L IPID, BMP, ALT #### [facility] [address] [place] [address] Dr. Rui Moore Operative Reporton --201 8 [...] and symptoms of successfulblockade.Shiva Cronin M.D.glsDictated: 10/02/2017 #[id number]: 10/02/2017 #[id number]: Shiva Cronin M.D. [place] Comment on above: Result Comment: Elec tronically [...] Problem list: All ProblemsHypertension / SNOMED CT 4082763685 / ConfirmedDiabetes / SNOMED CT 739274532 / ConfirmedUmbilical hernia / SNOMED CT 8057115544 / ConfirmedPeripheral artery disease / SNOMED CT 3939148492 / ConfirmedAcid reflux / SNOMED CT 428566959 / ConfirmedCAD (coronary artery disease) / SNOMED CT 56011938 / ConfirmedResolved: High cholesterol / SNOMED CT 48225747 Histories Past Medical History: No active or resolved past medical history items have been selected or recorded. Procedure history: CEA - Carotid endarterectomy left ([id number]) on 03/09/2016 at 70 Years.Allograft bypass of coronary artery x3 stents ([id number]) on 03/09/2016 at 70 Years.Comments:09/19/2017 16:41 - Elen Sutton RNwith left mammary artery , graft to the LAD and left radial artery graft to the OM1 and SVG to PDAColonoscopy ([id number]) on 12/31/2014 at 69 Years.Entire RCA - Right coronary artery stent ([id number]) on 02/10/2012 at 66 Years.History of subdural hematoma ([id number]) on 08/03/2010 at 64 Years.Cataract b/l ([id number]).Femoral-popliteal artery bypass graft right and left ([id number]).Comments: 16:39 - Elen Sutton RNstents legs/ /// 10/21/2005/ 12/22/2007. Social History Social & Psychosocial AizwhvQvhpszb51/27/2018 Risk Assessment: High Risk09/19/2017 Use: Current Type: Beer Frequency: 3-5 times per weekSubstance Abuse09/19/2017 Risk Assessment: Denies Substance ThhpeHixouqa53/27/2018 Risk Assessment: Denies Tobacco Use09/19/2017 Type: Cigarettes [...] Auto 63.5 % Lymph Auto 25.9 % [place] Auto 8.1 % Eos Auto 1.4 % Basophil Auto 1.1 % Neutro Absolute 5.9 E9/L Lymph Absolute 2.4 E9/L [place]lette Absolute 0.7 E9/L Eos Absolute 0.1 E9/L [...] title: XR Chest 2 ViewsPerformed by: Pio Surehs M.D. on September 19, 2017 13:33 EDTVerified by: Pio Suresh M.D. on September 19, 2017 13:33 EDTEncounter info: [id number], [facility], Outpatient, 09/19/2017 - 09/19/2017 Radiology results ECG interpretation: SINUS RHYTHM. Plan Citizen Of [place] Society of Anesthesiologists (ASA) physical status classification: [...] allergic reactions, failed block and .. Normal [facility] Comment on above: Result Comment: Elec [...] Problem list: All ProblemsHypertension / SNOMED CT 2774606408 / ConfirmedDiabetes / SNOMED CT 065407346 / ConfirmedUmbilical hernia / SNOMED CT 6948706395 / ConfirmedPeripheral artery disease / SNOMED CT 1374156610 / ConfirmedAcid reflux / SNOMED CT 634805657 / ConfirmedCAD (coronary artery disease) / SNOMED CT 37486661 / ConfirmedResolved: High cholesterol / SNOMED CT 51661282 Physical Examination Intake and Output adequate hydration [...] discharged from anesthesia care. Condition stable. Normal [facility] Comment on above: Result Comment: Elec tronically Signed By: Mehrdad GALE, Shiva\.br\Date and Time Signed: 10/05/17 13:04 EDT Coding Summary.on 10-03-2017 Coding Summary. CODING DATE: 018 FINAL [facility] STATUS: Home (Routine DC) PAYOR: Medicare APC DESCRIPTION 5361 Level 1 Laparoscopy and Related Services ADMIT DX: REASON FOR VISIT DX: K42.0 Umbilical hernia with obstruction, without gangrene FINAL DX: PRINCIPAL: K42.0 Umbilical hernia with obstruction, without gangrene SECONDARY: I25.10 Atherosclerotic heart disease of elem coronary artery without angina pectoris I10 Essential (primary) hypertension E11.40 Type 2 diabetes mellitus with diabetic neuropathy, unspecified E78.5 Hyperlipidemia, unspecified M10.9 Gout, unspecified I73.9 Peripheral vascular disease, unspecified Z86.79 Personal history of other diseases of the circulatory system Z95.1 Presence of aortocoronary bypass graft Z79.82 half-way (current) use of aspirin Z95.820 Peripheral vascular angioplasty status with implants and grafts Z87.891 Personal history of nicotine dependence PYMT PROC APC STAT DESCRIPTION DOCTOR NAME DATE 07472 [id number] J1 Laparoscopy, surgical, Jean-Paul Roberts MD 10/02/2017 repair, ventral, umbilical, spigelian or epigastric hernia (includes mesh insertion, when performed); incarcerated or strangulated 18650 Anesthesia for hernia Jean-Paul Roberts MD 10/02/2017 repairs in lower abdomen; not otherwise specified 12989 Transversus abdominis Shiva Cronin MD 10/02/2017 plane [...] Revised Date Saved: 10/03/2017 10:41 am Normal [facility] Main OR Intraoperative Recor don 10-03-2017 Main OR Intraoperative Record IntraOp Document Type FT Summary Primary Physician: Jean-Paul Roberts MD Finalized Date/Time: 10/03/17 10:03:38 Pt. Name: POOJA MARRUFO D.O.B./Sex: 1945 Male Med Rec #: [id number] Physician: Jean-Paul Roberts MD Financial #: [id number] Pt. Type: A Room/Bed: [place] [address] Admit/Disch: 10/02/17 06:11:00 - 10/02/17 14:55:00 Institution: [...] CONSTANT OBSERVATION PER ANESTHESIA. - KYRA MEEHAN 0968- ROBOT DOCKED AT PATIENT. - KYRA MEEHAN 0933- SURGEON BACK TO SURGEON CONSOLE. - KYRA MEEHAN 4092- SURGEON RESCRUBBED AND AWAY FROM CONSOLE. - E.COY RN 1102- ROBOT UNDOCKED. Jonh RAE RN 10/03/2017 Chart opened to review and send charges Radha yarrow gatherer Case Attendance FT Entry 1 Entry 2 Entry 3 Case Attendee Mehrdad GALE, Shiva Roberts MD, Jean-Paul Dixon, RN Rajwinder Watson Role Performed Anesthesiologist of Surgeon - Primary INTERNATIONAL ACCOUNT REPRESENTATIVE Record Time In 10/02/17 08:51:00 10/02/17 08:51:00 10/02/17 08:51:00 Time Out 10/02/17 11:22:00 10/02/17 11:22:00 10/02/17 11:22:00 Procedure HERNIA REPAIR, ROBOT HERNIA REPAIR, ROBOT HERNIA REPAIR, ROBOT ASSISTED(.) ASSISTED(.) ASSISTED(.) Comments Last Modified By: Anurag RN, Bia Osborn RN, Bia Osborn RN, Bia Campbell 10/02/17 11:25:55 10/02/17 11:25:55 10/02/17 11:25:55 Entry 4 Entry 5 Case Attendee Anurag MEEHAN, Bia Baker BURLAP WORKER/Sushma LEACH Role Performed Survey Worker - Primary Scrub - Primary Time In 10/02/17 08:51:00 10/02/17 08:51:00 Time Out 10/02/17 11:22:00 10/02/17 11:22:00 Procedure HERNIA REPAIR, ROBOT HERNIA REPAIR, ROBOT ASSISTED(.) ASSISTED(.) Comments Last Modified By: Anurag MEEHAN, Bia Osborn RN, Bia Campbell 10/02/17 11:25:55 10/02/17 11:25:55 General Comments: SKIP SINGH REP PRESENT FOR PROCEDURE. Jonh RAE RNfinisher denture Protocols FT Pre-Care Text: Implements protective measures [...] RN Rajwinder Watson, Anurag MEEHAN, Olivia Rios BURLAP WORKER/SASushma Time Out Complete 10/02/17 09:27:00 Outcomes Met? [...] and tissue Entry 1 Skin Integrity Intact, Franquez, Warm, and Skin Abnormality Yes Dry, Bruised [...] Bia Osborn RN, Bia Camara RN, Sharp BURLAP WORKER/SA, Sushma BURLAP WORKER/SA, Sushma Outcomes Met? Yes Yes Last Modified [...] DR ROBERTS USED CLIPPERS ON ABDOMEN By Bai Osborn RN Outcomes Met? Yes Last Modified [...] RN Patient Status Stable Skin. Condition Intact, Franquez, Warm, and Description UNCHANGED FROM Dry, Bruised PREVIOUSLY Airway Maintenance Oxygen in Use? Yes Airway Device Simple Mask Flow Rate 8 L/min Outcomes Met? Yes Last Modified By: Bia Osborn RN 10/02/17 11:31:29 Post-Care Text: The patient is free from signs and symptoms of injury related to transfer/transport General Comments: REPORT GIVEN TO SECURITY MESSENGERRN. Jonh RAE RN Dressing/Packing FT Pre-Care Text: [...] Description MESH STEX ROUND 9CM Lot Number [id number] (3.6 ) [SYM9][F] Brush Holder Inspector FT-COVIDIEN Catalog ?# [id number] [F] Size 9CM [...] Type TUBE NASOGASTIC SUMP Location MOUTH 18FR [[id number]][F] Quantity 1 Fluid SCANT AMOUNT BLOOD Characteristics [...] Present Upon Arrival No Inserted LF 16FR [[id number]][F] Insertion Date/Time 10/02/17 09:05:00 Urine Residual 100 [...] BLANKET MISTRAL AIR Quantity 1 Aid TORSO [[id number]][F] Fluid/Townsend Unit Mistral warming system Setting HIGH/43 Body Site Upper anterior torso Last Modified By: Bia Osborn RN 10/02/17 09:49:45 Case Comments Finalized By: Kassy Mathews CST Document Signatures Signed By: Bia Osborn RN 10/02/17 11:26 Anurag MEEHAN, Bia Campbell 10/02/17 11:27 Anurag MEEHAN, Bia Campbell 10/02/17 11:29 Anurag MEEHAN, Bia Campbell 10/02/17 11:31 Kassy Mathews CST 10/03/17 10:03 [place] History and Physicalon 10-02 History and Physical Patient: POOJA MARRUFO Age: 72 years Sex: Male : 1945 Associated Diagnoses: None Author: Jean-Paul Roberts MD Subjective no changes to H & P [place] Comment on above: Result Comment: Elec tronically Signed By: Jean-Paul Roberts MD\.br\Date and Time Signed: 10/02/17 08:31 EDT Inpatient Patient Summaryon 10-02-2017 [facility] Name: POOJA MARRUFO PHYSICIANS Admitting Physician: Jean-Paul Roberts MD Physician: Jean-Paul Roberts MD PCP: Vidhi DAWKINS DO Diagnosis: Incarcerated umbilical hernia Comment: PATIENT EDUCATION INFORMATIONInstructions:Medic ation Leaflets:Follow up:With: Address: When: Jean-Paul Roberts [address] [place] [id number] [facility] () Within 7 to 10 days MEDICATION LISTFill New Prescriptions:acetaminophen-h ydrocodone (acetaminophen-hydrocodone 325 mg-5 mg oral tablet) 1 tab(s) By Mouth every 4 hours as needed for Pain not to exceed 8 tablets/day take with food or milkComment: Normal [facility] Main OR PACU I Recordon Main OR PACU I Record PACU Phase I Document Type FT Summary Primary Physician: Jean-Paul Roberts MD Finalized Date/Time: 10/02/17 12:01:59 Pt. Name: POOJA MARRUFO Lam /Sex: 1945 Male Med Rec #: [id number] Physician: Jean-Paul Roberts MD Financial #: [id number] Pt. Type: A Room/Bed: [facility] Admit/Disch: 10/02/17 06:11:42 - Institution: Case Times [...] By: Cinthia Sharif RN 10/02/17 12:01 Normal [facility] Main OR Preoperative Recordo n 10-02-2017 Main OR Preoperative Record PreOp Document Type FT Summary Primary Physician: Jean-Paul Roberts MD Finalized Date/Time: 10/02/17 09:50:16 Pt. Name: POOJA MARRUFO Lam CastanoB./Sex: 1945 Male Med Rec #: [id number] Physician: Jean-Paul Roberts MD Financial #: [id number] Pt. Type: A Room/Bed: Admit/Disch: 10/02/17 06:11:42 [...] By: Bia Osborn RN 10/02/17 09:50 Normal [facility] Operative Reporton 8 Operative Report Date [...] [facility] [...] visualization. 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 Therobot was then docked. I then scrubbed back into the field and examinedthe repair. It was noted to be intact. There was no evidence of bleeding.All port sites were examined upon withdrawal of the ports. There was notedto be good hemostasis. The fascia from the right subcostal incision wasthen closed with a 0 Vicryl aytkwr-vz-wqigb suture. All port sites wereinfiltrated with the [...] Room in good condition.Jean-Paul Roberts M.D.glsDictated: 10/02/2017 #[id number]: 10/02/2017 #[id number]: Cherie Newby M.D. Normal [facility] Comment on above: Result Comment: Elec tronically Signed By: Armando GALE, Jean-Paul Bates\Date and Time Signed: 10/02/17 13:56 EDT UA With Cult Reflexon 2017 Bilirubin Ql (U) Negative Normal Negative [facility] Comment on above: Performed By: #### 1 [id number] ####[place] [address] COLOR:TYPE:PT:URIN E:NOM:AUTO STRAW Abnormal Yellow [facility] Comment on above: Performed By: #### 1 [id number] ####[place] [address] Erythrocytes (RBC) 0-3 Normal 0-3 [facility] Comment on above: Performed By: #### 1 [id number] ####[place] [address] GLUCOSE:MCNC:PT:UR INE:QN:TEST STRIP Negative Normal Negative [facility] Comment on above: Performed By: #### 1 [id number] ####[place] [address] KETONES:MCNC:PT:UR INE:QN:TEST STRIP Negative Normal Negative [facility] Comment on above: Performed By: #### 1 [id number] ####[place] [address] LEUKOCYTES:PRTHR:P T:URINE:ORD:AUTOMA JAMESON Negative Normal Negative [facility] Comment on above: Performed By: #### 1 [id number] ####[address] [address] UA Spec Desc Pinedo Normal [facility] Comment on above: Performed By: #### 1 [id number] ####[address] [address] Urine, clarity CLEAR Normal Clear [facility] Comment on above: Performed By: #### 1 [id number] ####[facility] [address] [place] [address] Urine, hemoglobin presence Negative Normal Negative [facility] Comment on above: Performed By: #### 1 [id number] ####[facility] [address] [facility] [place] [address] Urine, leukocytes in sedmiment 0-5 Normal 0-5 [facility] Comment on above: Performed By: #### 1 [id number] ####[facility] [address] [place] [address] Urine, nitrite presence Negative Normal Negative [facility] Comment on above: Performed By: #### 1 [id number] ####[facility] [address] [place] [address] Urine, pH 6.5 [pH] Invalid Interpretation Code 5.0-9.0 [facility] Comment on above: Performed By: #### 1 [id number] ####[facility] [address] [place] [address] Urine, protein Negative Normal Negative [facility] Comment on above: Performed By: #### 1 5708975 ####[facility] [address] [place] [address] Urine, specific gravity <=1.005 Invalid Interpretation Code 1.005-1.030 [facility] Comment on above: Performed By: #### 1 2600668 ####[facility] [address] [place] [address] Urine, squamous cells in sediment 0-2 Normal 0-2 [facility] Comment on above: Performed By: #### 1 [id number] ####[facility] [address] [place] [address] Urine, urobilinogen 0.2 {Aleja'U}/dL Normal 0.0-1.0 [facility] Comment on above: Performed By: #### 1 5642287 ####[facility] [address] [place] [address] Coding Summary.on 09-20-2017 Coding Summary. CODING DATE: 03/28/2 018 [facility] STATUS: Home (Routine DC) PAYOR: [...] Zarco Date Saved: 09/20/2017 11:31 am Normal [facility] Auto Diffon 09-19-2017 Basophils Auto #/vol (Bld) 0.1 E9/L Normal 0.0-0.2 [facility] Comment on above: Order Comment: Order Added by Discern Expert. Performed By: #### 2 321644, 6778185, 7991568, 52104037 ####[facility] [address] [place] [address] Basophils Auto #/vol (Bld) 1.1 % Normal 0.0-2.0 [facility] Comment on above: Order Comment: Order Added by Discern Expert. Performed By: #### 2 265860, 6449456, 0814747, 52064908 ####[facility] [address] [place] [address] Eosinophils 0.1 E9/L Normal 0.0-0.5 [facility] Comment on above: Order Comment: Order Added by Discern Expert. Performed By: #### 2 929052, 9362379, 7204805, 97120355 ####[facility] [address] [place] [address] Eosinophils/100 leukocytes 1.4 % Normal 0.0-8.0 [facility] Comment on above: Order Comment: Order Added by Discern Expert. Performed By: #### 2 301617, 1622261, 6428427, 40613144 ####[facility] [address] [place] [address] Lymphocytes 2.4 E9/L Normal 1.0-4.0 [facility] Comment on above: Order Comment: Order Added by Mike Expert. Performed By: #### 2 878211, 4647504, 2632307, 61522364 ####[place] [address] [place] [address] Lymphocytes/100 leukocytes 25.9 % Normal 14.0-50.0 [facility] Comment on above: Order Comment: Order Added by Mike Expert. Performed By: #### 2 731786, 1830144, 0128397, 83623404 ####[place] [address] [place] [address] Monocytes 0.7 E9/L Normal 0.2-1.0 [facility] Comment on above: Order Comment: Order Added by Mike Expert. Performed By: #### 2 210923, 9770155, 4755872, 54810509 ####[address] [address] Monocytes/100 leukocytes 8.1 % Normal 4.0-14.0 [facility] Comment on above: Order Comment: Order Added by Mike Expert. Performed By: #### 2 842794, 0567222, 7899117, 97590826 ####[place] [address] [place] [address] Neutrophils 5.9 E9/L Normal 2.0-7.5 [facility] Comment on above: Order Comment: Order Added by Mike Expert. Performed By: #### 2 337501, 0223982, 9925750, 57112231 ####[place] [address] [place] [address] Neutrophils/100 leukocytes 63.5 % Normal 36.0-75.0 [facility] Comment on above: Order Comment: Order Added by Mike Expert. Performed By: #### 2 428918, 9887917, 0143804, 01697507 ####[place] [address] [place] [address] CBC w/ Auto Diffon 8 Erythrocyte distribution width Auto Ratio (RBC) 13.7 % Normal 10.9-14.2 [facility] Comment on above: Performed By: #### 2 450531, 0032735, 4234219, 46177160 ####[facility] [address] [place] [address] Erythrocytes (RBC) 4.3 E12/L Normal 4.3-5.9 [facility] Comment on above: Performed By: #### 2 657886, 0773913, 7644635, 52261845 ####[place] [address] Hematocrit (HCT) 40.0 % Normal 37.7-49.0 [facility] Comment on above: Performed By: #### 2 759578, 2494304, 1333423, 58743148 ####[place] [address] Hemoglobin mass conc (Bld) 13.9 g/dL Normal 13.5-17.5 [facility] Comment on above: Performed By: #### 2 459039, 2334299, 4633429, 94489158 ####[place] [address] [place] [address] MCH 32.3 pg Normal 27.0-34.0 [facility] Comment on above: Performed By: #### 2 644158, 0353079, 8961465, 38732060 ####[place] [address] [place] [address] MCHC mass conc (RBC) 34.9 g/dL Normal 31.4-39.3 [facility] Comment on above: Performed By: #### 2 776284, 3588300, 2776567, 00098044 ####[place] [address] [place] [address] MCV 92.8 fL Normal 80.0-100.0 [facility] Comment on above: Performed By: #### 2 821517, 8003176, 4851638, 08276102 ####[place] [address] Platelet mean volume (PMV) 8.4 fL Normal 6.4-10.8 [facility] Comment on above: Performed By: #### 2 678440, 9576166, 1777613, 26768788 ####[place] [address] [place] [address] Platelets 311.0 E9/L Normal 150.0-500.0 [facility] Comment on above: Performed By: #### 2 112204, 4294822, 0216525, 33663565 ####[address] [address] WBC (Leukocytes) 9.3 E9/L Normal 4.0-11.0 [facility] Comment on above: Performed By: #### 2 865118, 1589181, 6121034, 24973064 ####[address] [address] CMPon 09-19-2017 Alanine aminotransferase (ALT) 39 Int._Unit/L Normal 6-46 [facility] Comment on above: Performed By: #### 2 272957, 3102082, 4446719, 65684651 ####[place] [address] Albumin 4.1 g/dL Normal 3.3-5.0 [facility] Comment on above: Performed By: #### 2 854366, 5085518, 9057656, 02217718 ####[place] [address] [place] [address] Albumin 1.1 g/dL Normal 1.1-2.2 [facility] Comment on above: Performed By: #### 2 748831, 4935075, 7686123, 90886564 ####[place] [address] Alkaline phosphatase (ALP) 66 Int._Unit/L Normal 21-98 [facility] Comment on above: Performed By: #### 2 800675, 2572590, 0316938, 79921619 ####[address] [place] [address] Anion gap 12 mmol/L Normal 6-16 [facility] Comment on above: Performed By: #### 2 070098, 2114124, 4018096, 87338961 ####[facility] [address] [place] [address] Aspartate aminotransferase (AST) 28 Int._Unit/L Normal 5-43 [facility] Comment on above: Performed By: #### 2 207899, 6183927, 9913128, 48469153 ####[facility] [address] [place] [address] Bilirubin (total) 0.8 mg/dL Normal 0.0-1.1 [facility] Comment on above: Performed By: #### 2 498094, 6155892, 6478543, 79151735 ####[facility] [address] [place] [address] BUN/Creatinine Ratio 19 No Units Normal 10-20 [facility] Comment on above: Performed By: #### 2 890988, 9463845, 3173510, 13887368 ####[facility] [address] [place] [address] Calcium 9.1 mg/dL Normal 8.9-11.1 [facility] Comment on above: Performed By: #### 2 509200, 0088061, 6225610, 60361044 ####[facility] [address] [place] [address] Chloride 96 mmol/L Low 101-111 [facility] Comment on above: Performed By: #### 2 415445, 7796249, 1031269, 40470456 ####[facility] [address] [place] [address] CO2 29 mmol/L Normal 21-31 [facility] Comment on above: Performed By: #### 2 187055, 3498534, 4205486, 20537024 ####[facility] [address] [place] [address] Creatinine 1.1 mg/dL Normal 0.5-1.3 [facility] Comment on above: Performed By: #### 2 139463, 5811088, 8728252, 24055632 ####[facility] [address] [place] [address] Globulin 3.6 g/dL Normal 1.4-4.0 [facility] Comment on above: Performed By: #### 2 055166, 3426523, 6796651, 85759782 ####[facility] [address] [place] [address] Glucose mass conc 157 mg/dL Normal 55-199 [facility] Comment on above: Result Comment: If t his glucose result represents a fasting glucose, interpretation should refer to the following reference range: 55-99 mg/dL Performed By: #### 2 906049, 7105035, 4593795, 13353525 ####[facility] [address] [place] [address] Potassium molar conc 3.9 mmol/L Normal 3.5-5.3 [facility] Comment on above: Performed By: #### 2 400901, 2244770, 0382762, 96925826 ####[facility] [address] [place] [address] Protein 7.7 g/dL Normal 6.0-7.8 [facility] Comment on above: Performed By: #### 2 817872, 1072105, 6626103, 72062418 ####[facility] [address] [place] [address] Sodium 133 mmol/L Low 135-145 [facility] Comment on above: Performed By: #### 2 097851, 8979086, 1504283, 39188456 ####[facility] [address] [place] [address] Urea nitrogen 21 mg/dL Normal 5-21 [facility] Comment on above: Performed By: #### 2 912950, 6363461, 9525301, 11269913 ####[facility] [address] [place] [address] XR Chest 2 Viewson 8 XR Chest [...] M.D. Transcribed by: LOREN Technologist: IRENA Charles [facility] eGFRon 09-19-2017 eGFR (black) mL/min/{1.73_m2} Normal >=59 [facility] Comment on above: Order Comment: Order added by Discern Expert. Result Comment: eGFR is race adjusted. AA=. Performed By: #### 2 295178, 1226850, 3109455, 11325505 ####[facility] [address] [place] [address] eGFR (non-black) mL/min/{1.73_m2} Normal >=59 [facility] Comment on above: Order Comment: Order added by Discern Expert. Result Comment: Drafter Topographical chris kidney disease could be indicated at eGFR's of less than 60 mL/min/1.73m2. Kidney failure is indicated at less than 15 mL/min/1.73m2. Performed By: #### 2 908355, 3235260, 0151303, 26390039 ####[facility] [address] [place] [address] Coding Summary.on 04-19-2017 Coding Summary. 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 FINAL DX: PRINCIPAL: H26.40 Unspecified secondary cataract SECONDARY: PYMT PROC APC STAT DESCRIPTION DOCTOR NAME DATE 43531 5481 T Discission of secondary Bipin Cruz [...] Haley Leyva Date Saved: 04/19/2017 03:05 pm [place] Vital Signs Date Time Vital Sign Value Performing Clinician Facility 04-20-2023 08:30-0400 Body height 187.96 cm Robin Ball Other [facility] Other 04-20-2023 08:30-0400 Body mass index (BMI) [Ratio] 29.3 kg/m2 Robin Ball Other [facility] Other 04-20-2023 08:30-0400 Body weight 103.51 kg Robin Ball Other [facility] Other 04-20-2023 08:30-0400 Diastolic blood pressure 66 mm[Hg] Robin Ball Other [facility] Other 04-20-2023 08:30-0400 Respiratory rate 12 /min Robin Ball Other [facility] Other 04-20-2023 08:30-0400 Systolic blood pressure 124 mm[Hg] Robin Ball Other [facility] Other 12-15-2022 08:30-0400 Body height 187.96 cm Robin Ball Other [facility] Other 12-15-2022 08:30-0400 Body mass index (BMI) [Ratio] 29.76 kg/m2 Robin Ball Other [facility] Other 12-15-2022 08:30-0400 Body weight 105.14 kg Robin Ball Other [facility] Other 12-15-2022 08:30-0400 Diastolic blood pressure 71 mm[Hg] Robin Ball Other [facility] Other 12-15-2022 08:30-0400 Respiratory rate 12 /min Robin Ball Other [facility] Other 12-15-2022 08:30-0400 Systolic blood pressure 127 mm[Hg] Robin Ball Other [facility] Other 11-22-2022 13:45-0400 Body height 187.96 cm Robin Ball Other [facility] Other 11-22-2022 13:45-0400 Body mass index (BMI) [Ratio] 29.94 kg/m2 Robin Ball Other [facility] Other 11-22-2022 13:45-0400 Body weight 105.78 kg Robin Ball Other [facility] Other 11-22-2022 13:45-0400 Diastolic blood pressure 64 mm[Hg] Robin Ball Other [facility] Other 11-22-2022 13:45-0400 Respiratory rate 12 /min Robin Ball Other [facility] Other 11-22-2022 13:45-0400 Systolic blood pressure 115 mm[Hg] Robin Ball Other [facility] Other 09-21-2022 09:30-0400 Body height 187.96 cm Robin Ball Other [facility] Other 09-21-2022 09:30-0400 Body mass index (BMI) [Ratio] 31.17 kg/m2 Robin Ball Other [facility] Other 09-21-2022 09:30-0400 Body weight 110.13 kg Robin Ball Other [facility] Other 09-21-2022 09:30-0400 Diastolic blood pressure 68 mm[Hg] Robin Ball Other [facility] Other 09-21-2022 09:30-0400 Respiratory rate 12 /min Robin Ball Other [facility] Other 09-21-2022 09:30-0400 Systolic blood pressure 130 mm[Hg] Robin Ball Other [facility] Other Encounters Encounter Date Encounter Type Care Provider Facility Start: 07-19-2023 End: 07-19-2023 ambulatory Robin Ball Other [facility] Other Start: 07-19-2023 Telephone encounter Robin Ball [facility] Start: 06-14-2023 End: 06-14-2023 ambulatory [facility] Start: 04-21-2023 End: 04-21-2023 ambulatory Robin Ball Other [facility] Other Start: 04-21-2023 Telephone encounter Robin Ball [facility] Start: 04-20-2023 End: 04-20-2023 ambulatory Robin Ball Other [facility] Other Start: 04-20-2023 Office outpatient vi sit 25 minutes Robin Ball [facility] Start: 04-12-2023 End: 04-12-2023 ambulatory Robin Ball Other [facility] Other Start: 04-12-2023 Telephone encounter Robin Ball [facility] Start: 04-07-2023 End: 04-07-2023 ambulatory Robin Ball Other [facility] Other Start: 04-07-2023 Telephone encounter Robin Ball [facility] Start: 02-06-2023 End: 02-06-2023 ambulatory Robin Ball Other [facility] Other Start: 02-06-2023 Telephone encounter Robin Ball [facility] Start: 12-20-2022 End: 12-20-2022 ambulatory Robin Ball Other [facility] Other Start: 12-20-2022 Telephone encounter Robin Ball [facility] Start: 12-15-2022 End: 12-15-2022 ambulatory Robin Ball Other [facility] Other Start: 12-15-2022 Patient encounter procedure Robin Ball [facility] Start: 12-14-2022 End: 12-14-2022 ambulatory [facility] Start: 11-22-2022 End: 11-22-2022 ambulatory Robin Ball Other [facility] Other Start: 11-22-2022 Office outpatient vi sit 15 minutes Robin Ball [facility] Start: 11-22-2022 Telephone encounter Robin Ball [facility] Start: 10-31-2022 End: 10-31-2022 ambulatory Robin Ball Other [facility] Other Start: 10-31-2022 Office outpatient vi sit 15 minutes Robin Ball [facility] Start: 10-04-2022 End: 10-05-[address] MAE MCCORMICK [facility] Other Start: 10-04-2022 Telephone encounter [facility] Start: 09-21-2022 End: 09-21-2022 ambulatory Robin Dawkins Other [facility] Other Start: 09-21-2022 Office outpatient vi sit 25 minutes Robin Dawkins [facility] Start: 03-30-2022 End: 03-31-[address] MAE MCCORMICK Facility:[facility] Start: 12-16-2021 End: 12-17-[address] ROBIN DAWKINS Facility:[facility] Start: 12-06-2021 Adult health examination Robin Dawkins Other [facility] Other Start: 10-03-2018 End: 10-04-2018 Patient encounter procedure RONNY NEWMAN Facility:[facility] Start: 10-02-2017 End: 10-02-2017 Ambulatory Jean-Paul Roberts Facility:[facility] Start: 09-19-2017 End: 09-20-2017 Ambulatory Jean-Paul Roberts Facility:[facility] Start: 04-18-2017 End: 04-18-2017 Ambulatory Bipin Cruz Facility:[facility] Procedures Date Procedure Procedure Detail Performing Clinician Start: 12-16-[address] MANZO [place] Comment on above: Performed By: #### P [facility] #### [facility] [address] [place] [address] Dr. Rui Moore Start: 06-09-2016 Removal of [...] acellular pertussis vaccine, adsorbed Robin Dawkins Other [facility] Other 04-06-2022 influenza, high dose seasonal, preservative-free Robin Dawknis Other [facility] Other 03-17-2022 COVID-19 Pfizer (bivalent) Robin Dawkins Other [facility] Other 10-06-2021 COVID-19 Vaccine Pfi zer - Documentation Purposes Only Robin Dawkins Other [facility] Other 03-31-2021 COVID-19 Vaccine Pfi zer - Documentation Purposes Only Robin Dawkins Other [facility] Other 09-28-2020 COVID-19 Vaccine Pfi zer - Documentation Purposes Only Robin Dawkins Other [facility] Other 09-01-2020 COVID-19 Vaccine Pfi zer - Documentation Purposes Only Robin Dawkins Other [facility] Other 04-01-2020 influenza virus vaccine, split virus (incl. purified surface antigen) Robin Dawkins Other [facility] Other 04-18-2019 influenza virus vaccine, split virus (incl. purified surface antigen) Robin Dawkins Other [facility] Other 04-12-2018 influenza virus vaccine, split virus (incl. purified surface antigen) Robin Dawkins Other [facility] Other 05-11-2017 influenza virus vaccine, split virus (incl. purified surface antigen) Robin Dawkins Other [facility] Other 04-04-2016 influenza virus vaccine, split virus (incl. purified surface antigen) Robin Dawkins Other [facility] Other 04-16-2015 influenza virus vaccine, split virus (incl. purified surface antigen) Robin Dawkins Other [facility] Other 04-16-2015 pneumococcal conjuga te vaccine, 13 valent Robin Dawkins Other [facility] [facility] Other 01-24-2015 zoster vaccine, live Jose Dawkins Other [facility] Other 12-30-2013 pneumococcal polysaccharide vaccine, 23 valent Robin Dawkins Other [facility] Other 04-04-2013 pneumococcal conjuga te vaccine, 13 valent Robin Dawkins Other [facility] Other 04-03-2013 tetanus and diphther ia toxoids, adsorbed, preservative free, for adult use (5 Lf of tetanus toxoid and 2 Lf of diphtheria toxoid) Robin Dawkins Other [facility] Other 03-08-2012 tetanus and diphther ia toxoids, adsorbed, preservative free, for adult use (5 Lf of tetanus toxoid and 2 Lf of diphtheria toxoid) Robin Dawkins Other [facility] Other 09-29-2010 diphtheria, tetanus toxoids and acellular pertussis vaccine, unspecified formulation Robin Dawkins Other [facility] Other 04-28-2010 pneumococcal polysaccharide vaccine, 23 valent Robin Dawkins Other [facility] Other Payers Date Payer Category Payer Medicare [id number] 1960 Medicare [id number] 2.1 [id number] 1960 Unknown [id number] 1945 Unknown [id number] 1945 Unknown [id number] [id number] [id number] 1944 Unknown [id number] [id number] [id number] 1944 Unknown [id number] [id number] Social History Date Type Detail Facility Sex Assigned At [facility] Other Medical Equipment Procedure Code Equipment Code Equipment Origin al Text Equipment Identifier Dates Start: 09-21-2022 Clinical Notes 09-21-2022 to 07-19-2023 Note Date & Type Note Facility 07-19-2023 Evaluation note Encounter Date Diagnosis Assessment Notes Jun, Anemia, unspecified type (ICD-10 - D64.9) [facility] Other 01-24-2024 Evaluation note* Encounter Date Diagnosis Assessment Notes Treatment Notes Treatment Clinical Notes Jun, Type 2 diabetes mellitus with hyperglycemia, without long-term current use of insulin (ICD-10 - E11.65) [facility] Other [id number] [facility] Subjective Pooja Marrufo is a 77 [...] April 2020 he was admitted to the [facility] with COVID-19. He developed atrial fibrillation. [...] Judgment: Judgment normal. Allergies Allergies Allergen Reactions Cmapiyi-Izy-Ihw Reductase Inhibitors Other Lisinopril Losartan Medications Current [...] metFORMIN (Glucophage) 500 m (more content not included)...[facility]10-26-20[facility] Evaluation note* Encounter Date Diagnosis Assessment Notes Treatment Notes Treatment Clinical Notes Mar, ASHD (arteriosclerot ic heart disease) (ICD-10 - I25.10) Mar, Type 2 diabetes mellitus with hyperglycemia, without long-term current use of insulin (ICD-10 - E11.65) Mar, Atherosclerosis of elem artery of both lower extremities with intermittent [...] Mar, Other chronic pain (ICD-10 - G89.29) [facility] Other 10-26-2023 Evaluation note* Encounter Date Diagnosis [...] exam and Foot exam Mar, Atherosclerosis of elem artery of both lower extremities with intermittent [...] No acute attacks present at this time. [facility] Other 10-13-2023 Evaluation note* Encounter Date Diagnosis Assessment Notes Treatment Notes Treatment Clinical Notes Mar, Anemia, unspecified type (ICD-10 - D64.9) [facility] Other 06-22-2023 Evaluation note* Encounter Date Diagnosis [...] Nov, Hx of gout (ICD-10 - Z87.39) [facility] Other 06-21-2023 NoteRCRI- 3 points Class IV Risk 15.0???% 30-day risk of , [place], or cardiac arrest From a cardiology perspective pt may proceed with planned vascular procedure, he is a moderate risk for a low risk procedure. May hold plavix [facility]2023 NoteContinue metoprolol for rate control, anticoagulation was [...] fibrillation happened in the setting of COVID-19 infection.[facility]2023 NotePT is planning for angiogram/intervention with Dr Mccormick- vascular surgery [facility]06-21-2023 NoteUTP CARDIOLOGY PROGRESS NOTE HPI: Pooja Marrufo [...] Former BSA 2.34 m??? Allergies Allergen Reactions Zkpytos-Bbt-Jzu Reductase Inhibitors Other Lisinopril Losartan Medications: Current [...] of 10 beats. EKG (more content not included)...[facility] 12-14-2022 NoteLipid abnormalities are Continue crestor- pt having annual labs tomorrow and if LDL remains > 70 he needs to increase crestor to 40 mg daily Chol 163, LDL 99.4Un[facility] NoteHypertension is well controlled 126/70 Continue amlodipine, metoprololUnC[facility]06-21-2023 NoteCoronary artery disease is stable without concerning symptoms Continue GDMT- ASA, plavix, metoprolol, crestor continue risk factor modifications- heart healthy diet, regular exercise as tolerated and continue all medications.[facility] 11-22-2022 Evaluation note* Encounter Date Diagnosis Assessment [...] to continue exercise and AHA diet plan. [facility] Other 05-08-2023 Evaluation note* Encounter Date Diagnosis [...] to continue exercise and AHA diet plan. 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 Aug, Anemia, unspecified type (ICD-10 - D64.9) Aug, Hx of gout (ICD-10 - Z87.39) No recent flares, continue urate lowering treatment Aug, Acute seasonal allergic rhinitis due to pollen (ICD-10 - J30.1) [facility] Other Evaluation noteNo InformationNort Zeus Other History general Narrative - Reported* Type [...] History BYPASS Hospitalization History SEE SURGICAL HX [facility] Other History general Narrative - Reported* Type [...] /stenting 12/2022 Hospitalization History SEE SURGICAL HX [facility] Other History general Narrative - Reported* Type [...] Colonoscopy 2015 Hospitalization History SEE SURGICAL HX [facility] Other Summary Purpose Family History No Family [...] section and content) DATE CREATED AUTHOR 12/14/2017 [facility] DATE CREATED AUTHOR AUTHOR'S ORGANIZ ATION 10/08/2018 [facility] DATE CREATED AUTHOR AUTHOR'S ORGANIZ ATION 10/09/2022 [facility] DATE CREATED AUTHOR AUTHOR'S ORGANIZ ATION 06/15/2023 [facility] REASON FOR VISIT (unrecogniz ed section and content) FOLLOW UPNo InformationCough , Congestion- NEGATIVE COVID [phone] in TodayCheck Up from FallWELLNESSLab ResultsNo InformationLab workLab results4 month Follow upScript4 month Follow upNo InformationRepeat LabsRefill FOR RECORDS PERTAINING TO PATIENTS WHO ARE [...] BE BASED ON THE PRIMARY CLINICAL RECORDS. [facility]. provides no warranty or guarantee of the accuracy or completeness of information in this document.
[2023-07-27] MEDS: REGADENOSON 0.4 MG/5 ML SYRINGE IV (13:10)
--- NOTE | 2023-07-27 13:26 | PM.STRESS ---
Stress Test Stress Test Allergies Allergy/AdvReac Type Severity Reaction Status Date / Time lisinopril AdvReac Unknown Unverified 07/27/23 12:07 losartan AdvReac Unknown Unverified 07/27/23 12:07 Ftbtzol-KXY-BmO Reductase AdvReac Unknown Unverified 07/27/23 12:07 Inhibitor Requesting physician: RADHA CASTELLON Procedure: Lexiscan stress test General Information: Reason for Stress Test: Evaluation of a patient with known coronary artery disease.] Cardiac History and Risk Factors: [Mr. Marrufo is a 77-year-old patient with known coronary disease with a history off coronary artery bypass grafting ?3 as well as PCI and stent placements ?1. Additional risk factors include essential hypertension hyperlipidemia and type 2 diabetes mellitus and peripheral vascular disease.] Resting 12 - Lead Electrocardiogram: Normal sinus rhythm with a ventricular rate of 78 bpm. MS interval is 0.14, QRS 0.08 and QT 0.40. The axis is normal there is QS deformity and in inferior limb lead III and nonspecific ST-T wave changes Stress Test: Protocol: [Lexiscan protocol] Exercise Capacity: [Not applicable] Blood Pressure Response: [Patient's blood pressure decreased with an increase in heart rate, which is appropriate for Lexiscan infusion] Rhythm: [Patient remained in sinus rhythm with occasional PVCs.] ST - Response: [There was no ST T-wave changes during infusion.] Patient Response: [The patient denied chest pain during infusion.] Interpretation: There was no objective evidence of myocardial ischemia during infusion. Cardiolite was injected with images in interpretation pending
== END 2023-07-27 10:27 | disposition home or self-care (01) ==
PROVIDERS: PCP Internal Medicine; Visit Provider Internal Medicine Interventional Cardiology
DX: I25.119 Atherosclerotic heart disease of native coronary artery with unspecified angina pectoris (principal); R07.89 Other chest pain
CPT/HCPCS: 78452; 93017; A9500; J2785

== ENCOUNTER 2023-12-23 08:32 | Outpatient (OUT) | payer MEDICARE, SELFPAY ==
--- OUTSIDE RECORDS SUMMARY | 2023-12-23 08:37 | XMS_ITS | CCD ---
Author Organization [facility] Care Team Providers Care Rejected Items Clerk Name Role Phone Nancy, Bipin Unavailable Unavailable Zahler, Bipin Unavailable Unavailable Zahler, Bipin Unavailable Unavailable ROBIN DAWKINS~[id number] UNKNOWN Unavailable Unavailable Nill, Jean-Paul R Unavailable Unavailable Nill, Jean-Paul R Unavailable Unavailable Nill, Jean-Paul R Unavailable Unavailable ROBIN DAWKINS~[phone] UNKNOWN Unavailable Unavailable Nill, Jean-Paul R Unavailable Unavailable Nill, Jean-Paul R Unavailable Unavailable Nill, Jean-Paul R Unavailable Unavailable ROBIN DAWKINS~[id number] UNKNOWN Unavailable Unavailable RONNY NEWMAN Admitting Unavailable TRENTRONNY Attending Unavailable ROBIN DAWKINS Referring Unavailable ROBIN DAWKINS Primary Care Unavailable Robin Dawkins Unavailable JESE, DR PEÑALOZA Admitting Unavailable BALL, DR PEÑALOZA Attending Unavailable BALL, DR PEÑALOZA Primary Care Unavailable BALL, DR PEÑALOZA Consulting Unavailable ABBAS, DR WALL Admitting Unavailable ABBAS, DR WALL Attending Unavailable BALL, DR PEÑALOZA Primary Care Unavailable ABBAS, DR WALL Consulting Unavailable ABBAS, DR WALL Admitting Unavailable ABBAS, DR WALL Attending Unavailable BALL, DR PEÑALOZA Primary Care Unavailable ABBAS, DR WALL Consulting Unavailable Zieber, Rancho Consulting Unavailable MOUKARBELRADHA Attending Unavailable BELLETIFFANY Attending Unavailable JANES BARRERA Attending Unavailable ROBIN DAWKINS Referring Unavailable JESE, ROBIN Carrillo Primary Care Unavailable Allergies Allergy Classification Reported Allergen(s) Allergy Type Date of Onset Reaction(s) Facility (15 sources) lisinopril; Translations: [lisinopril] Drug Allergy 11-02-19 19 [facility], Unknown, Unknown Reaction [facility] (4 sources) losartan; Translations: [losartan] Drug Allergy 04-20-20 16 [facility] (1 source) nystatin / triamcinolone; Translations: [Tri-Statin II] Drug Allergy [facility]OF [facility] (4 sources) black walnut pollen extract; Translations: [[id number]-SBO REDUCTASE INHIBITORS] Drug Allergy 02-07-20 12 [facility] Repository (9 sources) Angiotensin-convert ing enzyme inhibitor agent Drug allergy Unknown [employer] Other (10 sources) Hmg-Coa Reductase Inhibitors (Statins) Propensity to adverse reactions Unknown [employer] Other (12 sources) Simvastatin Drug Allergy 07-26-19 24 Unknown, Unknown Reaction [facility] (10 sources) FELICIA inhibitor use, contraindication Propensity to adverse reactions 10-13-19 17 Comment:advers e rxn/side effects [facility] [employer] Other (9 sources) patient allergy list reviewed by nurse or physicia Propensity to adverse reactions 12-13-19 19 Comment:Done [employer] Other (2 sources) Pjuyxyw-YVI-MfE Reductase Inhibitor Allergy to substance 07-26-19 24 Unknown Reaction [facility] (1 source) atorvastatin; Translations: [ATORVASTATIN] Drug Allergy 03-16-20 16 [facility] (1 source) cilostazol; Translations: [CILOSTAZOL] Drug Allergy 01-03-20 23 [facility] Medications Current Medications Medication Drug Class(es) Dates Sig (Normalized) Sig (Original) Allopurinol (20 sources) Xanthine Oxidase Inhibitor Start: 11-21-2023 take 1 tablet by mouth once daily Allopurinol Active 0 .ROUTE .COMPLEX 90 November 21, 2023 12:57pm Take 1 tablet by mouth once daily Start: 08-25-2023 End: 11-21-2023 take 300 mg by mouth once daily Allopurinol Discontinu ed 300 MG PO Daily August 25, 2023 1:00am November 21, 2023 12:57pm take 1 tablet by frank th every twenty-four hours Allopurinol 300 MG 1 tablet Orally Once a day Active amLODIPine 10 mg oral tablet (19 sources) Dihydropyridine Calcium Channel Bronwyn Start: 08-25-2023 take 10 mg by mouth once daily Amlodipine Active 10 MG PO Daily August 25, 2023 1:00am take 1 tablet by frank th every twenty-four hours amLODIPine Besylate 10 MG 1 tablet Orall y Once a day Active aspirin 81 mg delayed release oral tablet (14 sources) Platelet Aggregation Inhibitor, Nonsteroidal Anti-inflammatory Drug Start: 08-25-2023 take 81 mg by mouth once daily Aspirin Active 81 MG PO Daily August 25, 2023 1:00am take 1 tablet by frank th every twenty-four hours Aspirin 81 81 MG 1 tablet Orally Once a day Active azithromycin 250 mg oral tablet (3 sources) Macrolide Antimicrobial Start: 10-31-2022 Azithromycin 250 MG as directed Orally daily for 5 days October, Active benazepril (5 sources) Angiotensin Converting Enzyme Inhibitor Benazepril HCl Active clopidogrel 75 mg oral tablet (19 sources) P2Y12 Platelet Inhibitor Start: 08-25-2023 take 1 tablet by mouth once daily Clopidogrel (Plavix) 75 mg tablet Active 75 MG PO Daily August 25, 2023 1:00am Plavix Active Contour Next Test - (17 sources) Start: 09-21-2022 Contour Next T est - Use to test home BS qd In Vitro daily for 90 days Aug, Active doxycycline hyclate 100 mg oral capsule (2 sources) Tetracycline-cla ss Drug Start: 08-25-2023 take 100 mg by mouth twice daily Doxycycline Hyclate Active 100 MG PO Twice daily August 25, 2023 1:00am furosemide 40 mg oral tablet (14 sources) Loop Diuretic Start: 08-25-2023 take 40 mg by mouth once daily Furosemide Active 40 MG PO Daily August 25, 2023 1:00am take 1 tablet by frank th every twenty-four hours Furosemide 40 MG 1 tablet Orally Once a day Active latanoprost 0.05 mg/ml ophthalmic solution (19 sources) Prostaglandin Analog Start: 08-25-2023 take 1 drop(s) into the eye(s) once daily Latanoprost Active 1 DROPS EYE-BOTH Daily August 25, 2023 1:00am Latanoprost Not- Taking/PRN Latanoprost Not- Taking metFORMIN hydrochloride 500 mg oral tablet (19 sources) Biguanide Start: 08-25-2023 take 500 mg by mouth twice daily Metformin Active 500 MG PO Twice daily August 25, 2023 1:00am take 1 tablet by frank th every twelve hours metFORMIN HCl 500 MG 1 tablet with a florian l Orally TWICE A DAY Active take 1 tablet by frank th every twenty-four hours metFORMIN HCl 500 MG 1 tablet with a florian l Orally Once a day Active metoprolol tartrate 50 mg oral tablet (20 sources) beta-Adrenergic Bronwyn Start: 11-21-2023 take 1 tablet by mouth twice daily Metoprolol Tartrate Active 0 .ROUTE .COMPLEX 180 November 21, 2023 12:57pm Take 1 tablet by mouth twice daily Start: 11-21-2023 take 1 tablet by frank th twice daily Metoprolol Tartrate Active 0 .ROUTE .COMPLEX 180 November 21, 2023 12:56pm Take 1 tablet by mouth twice daily Start: 08-25-2023 End: 11-21-2023 take 100 mg by mouth twice daily Metoprolol Tartrate Discontinued 100 MG PO Twice daily August 25, 2023 1:00am November 21, 2023 12:57pm Start: 08-25-2023 End: 11-21-2023 take 50 mg by mouth twice daily Metoprolol Tartrate Di scontinued 50 MG PO Twice daily August 25, 2023 1:00am November 21, 2023 12:57pm take 1 tablet by frank th twice daily Metoprolol Tartrate 100 MG Take 1 tablet by mouth twice daily Active take 1 tablet by frank th twice daily Metoprolol Tartrate 50 MG Take 1 tablet by mouth twice daily Active niacin 500 mg oral tablet (19 sources) Nicotinic Acid Start: 08-25-2023 take 500 mg by mouth once daily Niacin Active 500 MG PO Daily August 25, 2023 1:00am Niacin Not-Takin g/PRN Niacin Not-Takin g [place]-3 Fatty Acids-Fish Oil (Fish Oil Pearls) 300-400 mg capsule (2 sources) Start: 08-25-2023 take 1 capsule by mouth once daily [place]-3 Fatty Acids-Fish Oil (Fish Oil Pearls) 300-400 mg capsule Active 1 CAP PO Daily August 25, 2023 1:00am omeprazole 40 mg delayed release oral capsule (5 sources) Proton Pump Inhibitor Start: 04-21-2023 take 1 capsule by mouth once daily Omeprazole 40 MG 1 capsule 30 minutes before morning meal Orally Once a day for 30 days Mar, Active microencapsulated potassium chloride 20 meq extended release oral tablet (14 sources) Start: 08-25-2023 Potassium Chloride (Klor-Con M20) 20 mEq tablet,ER particles/cindi ls Active 20 MEQ PO Daily August 25, 2023 1:00am take 1 tablet by frank th every twenty-four hours Klor-Con M20 20 MEQ 1 tablet with food Orally Once a day Active rosuvastatin calcium 20 mg oral tablet (14 sources) HMG-CoA Reductase Inhibitor Start: 08-25-2023 take 20 mg by mouth once daily Rosuvastatin Active 20 MG PO Daily August 25, 2023 1:00am take 1 tablet by frank th every twenty-four hours Rosuvastatin Calcium 20 MG 1 tablet Oral ly Once a day Active valACYclovir 1000 mg oral tablet (11 sources) Herpesvirus Nucleoside Analog DNA Polymerase Inhibitor, Herpes Simplex Virus Nucleoside Analog DNA Polymerase Inhibitor, Herpes Zoster Virus Nucleoside Analog DNA Polymerase Inhibitor Start: 08-25-2023 take 1000 mg by mouth three times daily Valacyclovir Active 1000 MG PO Three times daily August 25, 2023 1:00am Start: 03-20-2023 take 1 tablet by frank th every eight hours valACYclovir HCl 1 GM 1 tablet Orally tid for 7 days Feb, Active Start: 03-20-2023 take 1 tablet by frank th every eight hours valACYclovir HCl 1 GM 1 tablet Orally tid for 7 days Feb, Active Completed/Discontinued Medications Medication Drug Class(es) Dates Sig (Normalized) Sig (Original) ASA (17 sources) ASA Not-Taking/P RN ASA Not-Taking Fish Oils (17 sources) Fish Oil Not-Angel ing/PRN Fish Oil Not-Angel ing Lidocaine (20 sources) Antiarrhythmic, Amide Local Anesthetic Start: 04-20-2023 Lidocaine Mar, 20 mg Start: 11-22-2022 Lidocaine 30 2022 20 mg Suprep Bowel Prep . (17 sources) Start: 12-03-2014 Suprep Bowel P rep [...] Date Documented Da te Episodic/Chronic Acute bronchitis (3 sources) Acute bronchitis due to other specified organisms; Translations: [Acute bronchitis] Episodic Allergic reactions (1 source) Generalized atopic dermatitis; Translations: [Other atopic dermatitis and related conditions] Onset: 05-09-2013 Chronic Cardiac dysrhythmias (20 sources) Paroxysmal atrial fibrillation; Translations: [Paroxysmal atrial fibrillation] Onset: 05-26-2022 Chronic Chronic kidney disease (20 sources) Chronic kidney disease stage 3A ; Translations: [Stage 3a chronic kidney disease] 08-25-2023 Chronic Chronic obstructive pulmonary disease and bronchiectasis (15 sources) Simple chronic bronchitis; Translations: [Simple chronic bronchitis] Chronic Coronary atherosclerosis and other heart disease (20 sources) Coronary arteriosclerosis; Translations: [Atherosclerotic heart disease of [place] coronary artery without angina pectoris] Onset: 06-26-1959 Chronic Coronary atherosclerosis and other heart disease (4 sources) Presence of coronary angioplasty implant and graft; Translations: [Presence of aortocoronary bypass graft] Onset: 06-14-2023 Episodic Deficiency and other anemia (7 sources) Anemia, unspecified; Translations: [Anemia, unspecified] Episodic Deficiency and other anemia (2 sources) Anemia; Translations: [Anemia, unspecified] 12-17-2023 Episodic Diabetes mellitus with complications (20 sources) [...] hypercholesterolemia, unspecified] Onset: 06-26-1959 Chronic Esophageal disorders (8 sources) Gastro-esophageal reflux disease with esophagitis; Translations: [Gastroesophageal reflux disease with esophagitis without hemorrhage] 08-25-2023 Chronic Essential hypertension (20 sources) Essential hypertension; [...] 09-05-2017 Chronic Other aftercare (2 sources) Other ocean transportation intermediary (current) drug therapy; Translations: [OTH LONG-TERM CURRENT DRUG THERAPY] Onset: 12-21-2021 Episodic Other aftercare (1 source) Long-term current use of drug therapy; Translations: [Other ocean transportation intermediary (current) drug therapy] Episodic Other circulatory disease (19 sources) Peripheral arterial occlusive disease; Translations: [Disorder of arteries and arterioles, unspecified] 08-25-2023 Chronic Other circulatory disease (2 sources) Disorder of arteries and arterioles, unspecified Chronic Other circulatory disease (1 source) Other disorder of circulatory system; Translations: [OTHER DISORDER CIRCULATORY SYSTEM] Onset: 10-09-2022 Episodic Other circulatory disease (1 source) Other specified symptoms and signs involving the circulatory and respiratory systems; Translations: [OTH SPEC SX SIGNS INVLV CIRC RS] Onset: 10-09-2022 Episodic Other connective tissue disease (5 sources) Personal history of other diseases of the musculoskeletal system and connective tissue Episodic Other connective tissue disease (1 source) H/O: musculoskeletal disease; Translations: [Personal history of other diseases of the musculoskeletal system and connective tissue] Episodic Other diseases of veins and lymphatics (20 sources) Peripheral venous insufficiency; Translations: [Venous insufficiency (chronic) (peripheral)] Onset: 02-23-2017 08-25-2023 Episodic Other diseases of veins and lymphatics (2 sources) Venous insufficiency (chronic) (peripheral); Translations: [Venous (peripheral) insufficiency, unspecified] Episodic Other eye disorders (1 source) Optic [...] Onset: 06-14-2023 Episodic Other nervous system disorders (9 sources) Chronic pain; Translations: [Other chronic pain] 08-25-2023 Chronic Other nervous system disorders (3 sources) Other chronic pain Chronic Other nervous system disorders (1 source) Nervous system and sense organ diseases; Translations: [Other disorders of nervous system and sense organs] Episodic Other nervous system disorders (1 source) Claudication Onset: 10-05-2023 Episodic Other non-traumatic joint disorders (1 source) [...] Chronic Other nutritional; endocrine; and metabolic disorders (4 sources) Overweight Episodic Other screening for suspected conditions (not mental disorders or infectious disease) (11 sources) Liver function tests abnormal; Translations: [Elevated liver function tests] Onset: 12-21-2021 Episodic Other skin disorders (1 source) Localized swelling, mass and lump, right lower limb; Translations: [Localized swelling, mass and lump, right lower limb] Episodic Other upper respiratory disease (20 sources) Allergic rhinitis due to pollen; Translations: [Allergic rhinitis due to pollen] 08-25-2023 Chronic Other upper respiratory disease (2 sources) Allergic rhinitis due to pollen; Translations: [Allergic rhinitis due to pollen] Chronic Other upper respiratory disease (1 source) Allergic rhinitis; Translations: [Allergic rhinitis, unspecified] Chronic Other upper respiratory infections (3 sources) Acute maxillary sinusitis; Translations: [Acute maxillary sinusitis, unspecified] Onset: 10-12-2016 Episodic Peripheral and visceral atherosclerosis (16 sources) Peripheral vascular disease, unspecified; Translations: [Peripheral [...] Other ventricular tachycardia; Translations: [Other ventricular tachycardia] Unclassified (1 source) Lower Limb Ischemia Onset: 10-05-2023 Viral infection (11 sources) Post-herpetic polyneuropathy; 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] 08-25-2023 Episodic Past or Other Problems Problem Classification [...] initial encounter] Onset: 04-20-2016 Episodic Esophageal disorders (2 sources) Esophageal disorders Nonspecific chest pain (1 source) [...] edema; Translations: [Localized edema] Onset: 10-12-2015 Episodic Residual codes; unclassified (1 source) Other specified postprocedural states; Translations: [Other specified postprocedural states] Onset: 11-02-2018 Episodic Screening and history of mental health and substance abuse codes (1 source) History of tobacco use; Translations: [Personal history of tobacco use, presenting hazards to health] Onset: 10-12-2015 Episodic Viral infection (2 sources) Disease caused by 2019-nCoV; Translations: [COVID-19] Resolved: 09-02-2020 Results Test Name Value Interpretation Reference Range Facility 36on 08-10-2023 36 Regarding echo perfo rmed on 06/28/2023 and stress test performed on 07/27/2023: MD Roseline Akers MA His stress test is normal. Please tell him that with both stress test and echocardiogram being normal there is no cardiac cause behind his shortness of breath. I will see him as planned. Spoke with patient and informed him of results per Dr. Lucero. He verbalized understanding. Normal [facility] Office Visiton 12-20-2023 Follow-up visit [id number] Eloisa Marrufo R 1945 M Date Provider Department Center 06/14/2023 RADHA ESCOBAR FRANCISCO J[facility] Family History Problem Relation Age of Onset Heart failure Mother Family Status - Relation Status Age at Mother Level of Service:89478 IN OFFICE/OUTPATIENT ESTABLISHED LOW MDM 20 MIN Normal [facility] Office Visiton 12-14-2022 Follow-up visit [id number] Eloisa Marrufo R 1945 M Date Provider Department Center 12/14/2022 TIFFANY WINTER FRANCISCO J[facility] Family History Problem Relation Age of Onset Heart failure Mother Family Status - Relation Status Age at Mother Level of Service:75567 IN OFFICE/OUTPATIENT ESTABLISHED MOD MDM 30-39 MIN Reason for Visit and Comments: Follow-up [137839] - 6 month follow up Normal [facility] US CAROTID ART BILon 023 US [...] artery. Mild/moderate atherosclerotic disease. Electronically authenticated by: RANCHO GLEZ Date: 2022-10-04 16:04 Normal [facility] CBC AUTO DIFFon 12-16-2021 BASO # 0.1 103/ul Normal 0.0-0.1 [facility] Comment on above: Performed By: #### C BC #### [facility] [address] [address] [address] Rui Moore Basophils/100 WBC (Bld) 0.5 % Normal 0.2-2.0 [facility] Comment on above: Performed By: #### C BC #### [facility] [address] [place] [address] Dr. Rui Moore EO # 0.0 103/ul Normal 0.0-0.7 [facility] Comment on above: Performed By: #### C BC #### [facility] [address] [place] [address] Dr. Rui Moore Eosinophils/100 WBC (Bld) 0.4 % Critically low 0.9-7.0 [facility] Comment on above: Performed By: #### C BC #### [facility] [address] [place] [address] Dr. Rui Moore Erythrocyte distribution width (RBC) [Ratio] 13.2 % Normal 11.0-15.0 [facility] Comment on above: Performed By: #### C BC #### [facility] [address] [place] [address] Dr. Rui Moore Hematocrit (Bld) [Volume fraction] 38.1 % Critically low 42.0-54.0 [facility] Comment on above: Performed By: #### C BC #### [facility] [address] [place] [address] Dr. Rui Moore Hemoglobin (Bld) [Mass/Vol] 12.3 g/dL Critically low 14.0-18.0 [facility] Comment on above: Performed By: #### C BC #### [facility] [address] [place] [address] Dr. Rui Moore IG # 0.06 10e3/ul Critically high 0.00-0.03 [facility] Comment on above: Performed By: #### C BC #### [facility] [address] [place] [address] Dr. Rui Moore IG % 0.5 % Normal 0.0-0.5 [facility] Comment on above: Performed By: #### C BC #### [facility] [address] [place] [address] Dr. Rui Moore LYMPH # 3.5 103/ul Normal 1.2-3.8 [facility] Comment on above: Performed By: #### C BC #### [facility] [address] [place] [address] Dr. Rui Moore Lymphocytes/100 WBC (Bld) 31.9 % Normal 20.5-60.0 [facility] Comment on above: Performed By: #### C BC #### [facility] [address] [place] [address] Dr. Rui Moore MANUAL DIFF REQ NO Normal [facility] Comment on above: Performed By: #### C BC #### [facility] [address] [place] [address] Dr. Rui Moore MCH (RBC) [Entitic mass] 29.9 pg Normal 25.9-34.0 [facility] Comment on above: Performed By: #### C BC #### [facility] [address] [place] [address] Dr. Rui Moore MCHC (RBC) [Mass/Vol] 32.3 g/dL Normal 29.9-35.2 [facility] Comment on above: Performed By: #### C BC #### [facility] [address] [place] [address] Dr. Rui Moore MCV (RBC) [Entitic vol] 92.5 fL Normal 80.0-94.0 [facility] Comment on above: Performed By: #### C BC #### [facility] [address] [place] [address] Dr. Rui Moore MONO # 0.7 103/ul Normal 0.3-0.8 [facility] Comment on above: Performed By: #### C BC #### [facility] [address] [place] [address] Dr. Rui Moore Monocytes/100 WBC (Bld) 6.6 % Normal 1.7-12.0 [facility] Comment on above: Performed By: #### C BC #### [facility] [address] [place] [address] Dr. Rui Moore NEUT # 6.6 103/ul Critically high 1.4-6.5 [facility] Comment on above: Performed By: #### C BC #### [facility] [address] [place] [address] Dr. Rui Moore Neutrophils/100 WBC (Bld) 60.1 % Normal 43.0-75.0 [facility] Comment on above: Performed By: #### C BC #### [facility] [address] [address] [address] Rui Moore Platelet mean volume (Bld) [Entitic vol] 9.3 fL Critically low 9.5-13.5 [facility] Comment on above: Performed By: #### C BC #### [facility] [address] [address] [address] Rui Moore PLT 307 103/ul Normal 150-450 [facility] Comment on above: Performed By: #### C BC #### [facility] [address] [address] [address] Rui Moore RBC 4.12 106/ul Critically low 4.70-6.10 [facility] Comment on above: Performed By: #### C BC #### [facility] [address] [address] [address] Rui Moore WBC 11.0 103/ul Normal 4.0-11.0 [facility] Comment on above: Performed By: #### C BC #### [facility] [address] [address] [address] Rui Moore GLYCOHEMOGLOBIN A1Con 2021 ADA RECOMMENDATION SEE BELOW Normal [facility] Comment on above: Result Comment: ADA RECOMMENDED LIMIT 4.0 - 6.0 ADA THERAPEUTIC TARGET < 7.0 ACTION SUGGESTED > 7.0 Performed By: #### A 1C #### [facility] [address] [address] [address] Rui Moore Glucose [Mass/Vol] 143 mg/dL Normal [facility] Comment on above: Performed By: #### A 1C #### [facility] [address] [address] [address] Rui Moore HbA1c (Bld) [Mass fraction] 6.6 % Critically high 4.5-6.2 [facility] Comment on above: Performed By: #### A 1C #### [facility] [address] [address] [address] Rui Moore LIPID PROFILEon 12-16-2021 CHOL-HDL RATIO NORM SEE BELOW Normal [facility] Comment on above: Result Comment: 3.3 - 4.4 LOW RISK 4.4 - 7.1 AVERAGE RISK 7.1 - 11.0 MODERATE RISK >11.0 HIGH RISK Performed By: #### L IPID, BMP, ALT #### [facility] [address] [address] [address] Rui Moore Cholesterol [Mass/Vol] 109 mg/dL Normal <=200 [facility] Comment on above: Performed By: #### L IPID, BMP, ALT #### [facility] [address] [place] [address] Dr. Rui Moore Cholesterol in HDL [Mass/Vol] 39 mg/dL Critically low 40-60 [facility] Comment on above: Performed By: #### L IPID, BMP, ALT #### [facility] [address] [place] [address] Dr. Rui Moore Cholesterol in LDL [Mass/Vol] 51.6 mg/dL Normal [facility] Comment on above: Performed By: #### L IPID, BMP, ALT #### [facility] [address] [place] [address] Dr. Rui Moore Cholesterol.total/ Cholesterol in HDL [Mass ratio] 2.8 {ratio} Normal [facility] Comment on above: Performed By: #### L IPID, BMP, ALT #### [facility] [facility] [address] [place] [address] Dr. Rui Moore HDL NORMAL > or = 60 mg/dl - LO W CARDIOVASCULAR RISK <40 mg/dl - HIGH CARDIOVASCULAR RISK Normal [facility] Comment on above: Performed By: #### L IPID, BMP, ALT #### [facility] [address] [place] [address] Dr. Rui Moore LDL CALC NORMAL SEE BELOW Normal [facility] Comment on above: Result Comment: <100 mg/dl OPTIMAL 100 - 129 mg/dl NEAR OR ABOVE OPTIMAL 130 - 159 mg/dl BORDERLINE HIGH 160 - 189 mg/dl HIGH >190 mg/dl VERY HIGH Performed By: #### L IPID, BMP, ALT #### [facility] [address] [address] [address] Rui Moore Triglyceride [Mass/Vol] 92 mg/dL Normal <=150 [facility] Comment on above: Performed By: #### L IPID, BMP, ALT #### [facility] [address] [address] [address] Rui Moore VLDL CALC 18.4 mg/dL Normal [facility] Comment on above: Performed By: #### L IPID, BMP, ALT #### [facility] [address] [address] [address] Rui Moore MICROALBUMIN, RAND URon 11-25 mALB 8.3 mg/L Normal <=30.0 [facility] Comment on above: Performed By: #### M ALBR #### [facility] [address] [place] [address] Dr. Rui Moore PROF CHEM 8 (BAS METB)on Anion gap [Moles/Vol] 14.6 mmol/L Normal [facility] Comment on above: Performed By: #### L IPID, BMP, ALT #### [facility] [address] [place] [address] Dr. Rui Moore Calcium [Mass/Vol] 9.1 mg/dL Normal 8.5-10.1 [facility] Comment on above: Performed By: #### L IPID, BMP, ALT #### [facility] [address] [address] [address] Rui Moore Chloride [Moles/Vol] 101 mmol/L Normal 98-107 [facility] Comment on above: Performed By: #### L IPID, BMP, ALT #### [facility] [address] [place] [address] Dr. Rui Moore CO2 [Moles/Vol] 25.9 mmol/L Normal 21.0-32.0 [facility] Comment on above: Performed By: #### L IPID, BMP, ALT #### [facility] [address] [place] [address] Dr. Rui Moore Creatinine [Mass/Vol] 1.23 mg/dL Normal 0.70-1.30 [facility] Comment on above: Performed By: #### L IPID, BMP, ALT #### [facility] [address] [address] [address] Rui Moore EGFR-AF CAMEROONIAN >60 Normal >=60 [facility] Comment on above: Performed By: #### L IPID, BMP, ALT #### [facility] [address] [address] [address] Rui Moore EGFR-NON AF CAMEROONIAN 57 mL/min/1.73m2 Critically low >=60 [facility] Comment on above: Performed By: #### L IPID, BMP, ALT #### [facility] [address] [place] [address] Dr. Rui Moore Glucose [Mass/Vol] 141 mg/dL Critically high 74-106 T [facility] Comment on above: Performed By: #### L IPID, BMP, ALT #### [facility] [address] [place] [address] Dr. Rui Moore Potassium [Moles/Vol] 4.5 mmol/L Normal 3.5-5.1 [facility] Comment on above: Performed By: #### L IPID, BMP, ALT #### [facility] [address] [place] [address] Dr. Rui Moore Sodium [Moles/Vol] 137 mmol/L Normal 136-145 [facility] Comment on above: Performed By: #### L IPID, BMP, ALT #### [facility] [address] [place] [address] Dr. Rui Moore Urea nitrogen [Mass/Vol] 22.0 mg/dL Critically high 7.0-18.0 [facility] Comment on above: Performed By: #### L IPID, BMP, ALT #### [facility] [address] [address] [address] Rui Moore Urea nitrogen/Creatinin e [Mass ratio] 17.9 mg/mg Normal [facility] Comment on above: Performed By: #### L IPID, BMP, ALT #### [facility] [address] [place], [place] [address] Dr. Rui Moore [facility] 12-16-2021 ALT [Catalytic activity/Vol] 42 U/L Normal 16-63 [facility] Comment on above: Performed By: #### L IPID, BMP, ALT #### [facility] [address] [place], [place] [address] Dr. Rui Moore Operative Reporton 8 Operative Report Date of [...] and symptoms of successfulblockade.Shiva Cronin M.D.glsDictated: 10/02/2017 #[id number]: 10/02/2017 #[id number]: Shiva Cronin M.D. [facility] Comment on above: Result Comment: Elec tronically Signed By: Mehrdad GALEShiva\.br\Date and Time Signed: 10/06/17 12:06 EDT Progress Note-Physicianon Progress Note-Physician Patient: CHANO MARRUFO Age: 72 years Sex: Male : [...] Problem list: All ProblemsHypertension / SNOMED CT 3157982734 / ConfirmedDiabetes / SNOMED CT 145884944 / ConfirmedUmbilical hernia / SNOMED CT 6080128853 / ConfirmedPeripheral artery disease / SNOMED CT 2588386484 / ConfirmedAcid reflux / SNOMED CT 846288196 / ConfirmedCAD (coronary artery disease) / SNOMED CT 00502620 / ConfirmedResolved: High cholesterol / SNOMED CT 87798681 Histories Past Medical History: No active or resolved past medical history items have been selected or recorded. Procedure history: CEA - Carotid endarterectomy left ([id number]) on 03/09/2016 at 70 Years.Allograft bypass of coronary artery x3 stents ([id number]) on 03/09/2016 at 70 Years.Comments:09/19/2017 16:41 - Herman MEEHAN, Elenwith left mammary artery , graft to the LAD and left radial artery graft to the OM1 and SVG to PDAColonoscopy ([id number]) on 12/31/2014 at 69 Years.Entire RCA - Right coronary artery stent ([id number]) on 02/10/2012 at 66 Years.History of subdural hematoma (0970989380) on 08/03/2010 at 64 Years.Cataract b/l ([id number]).Femoral-popliteal artery bypass graft right and left ([id number]).Comments: 16:39 - Elen Sutton RN2012/2012stents / 12/13// 10/21/2005/ 12/22/2007. Social History Social & Psychosocial LszbtaZwxqage80/27/2018 Risk Assessment: High Risk09/19/2017 Use: Current Type: Beer Frequency: 3-5 times per weekSubstance Abuse09/19/2017 Risk Assessment: Denies Substance KujifGugbtil32/27/2018 Risk Assessment: Denies Tobacco Use09/19/2017 Type: Cigarettes [...] Auto 63.5 % Lymph Auto 25.9 % Wagoner Auto 8.1 % Eos Auto 1.4 % Basophil Auto 1.1 % Neutro Absolute 5.9 E9/L Lymph Absolute 2.4 E9/L Wagoner Absolute 0.7 E9/L Eos Absolute 0.1 E9/L [...] on September 19, 2017 13:33 EDTEncounter info: [id number], [facility], Outpatient, 09/19/2017 - 09/19/2017 Radiology results ECG interpretation: SINUS RHYTHM. Plan Citizen Of The [place] Society of Anesthesiologists (ASA) physical status classification: [...] allergic reactions, failed block and .. Normal [facility] Comment on above: Result Comment: Elec tronically Signed By: Shiva Cronin MD\.br\Date and Time Signed: 10/05/17 13:04 EDT Progress Note-Physician Patient: CHANO MARRUFO Age: 72 years Sex: Male : 1945 Associated Diagnoses: None Author: Shiva Cronin MD Postoperative Information Post Operative Note: Post Anesthesia Care Unit. Anesthetic utilized: General. Health Status Allergies: Allergic Reactions (All)Severity Not DocumentedLisinopril- Dry cough.Losartan- Hives.Tri-Statin II- Statins, statins and vomiting. Problem list: All ProblemsHypertension / SNOMED CT 7554863718 / ConfirmedDiabetes / SNOMED CT 960765245 / ConfirmedUmbilical hernia / SNOMED CT 6204360181 / ConfirmedPeripheral artery disease / SNOMED CT 5958952626 / ConfirmedAcid reflux / SNOMED CT 765164327 / ConfirmedCAD (coronary artery disease) / SNOMED CT 38037823 / ConfirmedResolved: High cholesterol / SNOMED CT 24017610 Physical Examination Intake and Output adequate hydration [...] discharged from anesthesia care. Condition stable. Normal [facility] Comment on above: Result Comment: Elec tronically Signed By: Mehrdad GALE, Shiva\.br\Date and Time Signed: 10/05/17 13:04 EDT Coding Summary.on 10-03-2017 Coding Summary. CODING DATE: 018 FINAL [facility] STATUS: Home (Routine DC) PAYOR: Medicare APC DESCRIPTION 5361 Level 1 Laparoscopy and Related Services ADMIT DX: REASON FOR VISIT DX: K42.0 Umbilical hernia with obstruction, without gangrene FINAL DX: PRINCIPAL: K42.0 Umbilical hernia with obstruction, without gangrene SECONDARY: I25.10 Atherosclerotic heart disease of [place] coronary artery without angina pectoris I10 Essential (primary) hypertension E11.40 Type 2 diabetes mellitus with diabetic neuropathy, unspecified E78.5 Hyperlipidemia, unspecified M10.9 Gout, unspecified I73.9 Peripheral vascular disease, unspecified Z86.79 Personal history of other diseases of the circulatory system Z95.1 Presence of aortocoronary bypass graft Z79.82 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 Z95.820 Peripheral vascular angioplasty status with implants and grafts Z87.891 Personal history of nicotine dependence PYMT PROC APC STAT DESCRIPTION DOCTOR NAME DATE 52225 5361 J1 Laparoscopy, surgical, Jean-Paul Roberts MD 10/02/2017 repair, ventral, umbilical, spigelian or epigastric hernia (includes mesh insertion, when performed); incarcerated or strangulated 77464 Anesthesia for hernia Jean-Paul Roberts MD 10/02/2017 repairs in lower abdomen; not otherwise specified 88532 Transversus abdominis Shiva Cronin MD 10/02/2017 plane [...] Revised Date Saved: 10/03/2017 10:41 am Normal [facility] Main OR Intraoperative Recor oswaldo 10-03-2017 Main OR Intraoperative Record IntraOp Document Type FT Summary Primary Physician: Jean-Paul Roberts MD Finalized Date/Time: 10/03/17 10:03:38 Pt. Name: CHANO MARRUFO/Sex: 1945 Male Med Rec #: [id number] Physician: Jean-Paul Roberts MD Financial #: [id number] Pt. Type: A Room/Bed: Admit/Disch: 10/02/17 06:11:00 - 10/02/17 14:55:00 Institution: Case Times FT Entry 1 Patient Times In Room 10/02/17 08:51:00 Out Room 10/02/17 11:22:00 Procedure Times Start 10/02/17 09:30:00 Stop 10/02/17 11:16:00 Anesthesia Times Start 10/02/17 08:51:00 Stop 10/02/17 11:22:00 Block Timeout w/ 10/02/17 09:10:00 Anesthesia Last Modified By: Kassy Mathews CST 10/02/17 11:25:54 General Comments: 09- BILATERAL TAP BLOCKS PERFORMED BY DR CRONIN USING ULTRASOUND AND AREA PREPPED USING CHLORAPREP, PATIENT UNDER ANESTHESIA AT TIME OF BLOCKS, UNDER CONSTANT OBSERVATION PER ANESTHESIA. - KYRA RN 0945- ROBOT DOCKED AT PATIENT. - KYRA RN 0951- SURGEON BACK TO SURGEON CONSOLE. - KYRA RN 1101- SURGEON RESCRUBBED AND AWAY FROM CONSOLE. - KYRA RN 1102- ROBOT UNDOCKED. - KYRA MEEHAN 10/03/2017 Chart opened to review and send charges Radha bobbin fixer Case Attendance FT Entry 1 Entry 2 Entry 3 Case Attendee Mehrdad GALE, Shiva Roberts MD, Jean-Paul Dixon, RN Rajwinder Watosn Role Performed Anesthesiologist of Surgeon - Primary FINISHER MACHINE Record Time In 10/02/17 08:51:00 10/02/17 08:51:00 10/02/17 08:51:00 Time Out 10/02/17 11:22:00 10/02/17 11:22:00 10/02/17 11:22:00 Procedure HERNIA REPAIR, ROBOT HERNIA REPAIR, ROBOT HERNIA REPAIR, ROBOT ASSISTED(.) ASSISTED(.) ASSISTED(.) Comments Last Modified By: Anurag MEEHAN, Bia Osborn RN, Bia Bryant RN 10/02/17 11:25:55 10/02/17 11:25:55 10/02/17 11:25:55 Entry 4 Entry 5 Case Attendee Anurag MEEHAN, Bia Baker CST/Sushma LEACH Role Performed Slubber Frame Changer - Primary Scrub - Primary Time In 10/02/17 08:51:00 10/02/17 08:51:00 Time Out 10/02/17 11:22:00 10/02/17 11:22:00 Procedure HERNIA REPAIR, ROBOT HERNIA REPAIR, ROBOT ASSISTED(.) ASSISTED(.) Comments Last Modified By: Anurag MEEHAN, Bia Osborn RN, Bia Campbell 10/02/17 11:25:55 10/02/17 11:25:55 General Comments: SKIP SINGH REP PRESENT FOR PROCEDURE. Jonh RAE RNoracle adf developer Protocols FT Pre-Care Text: Implements protective measures [...] Time Out Mehrdad GALE, Armando Shannon MD, Zack Braden, SHEFALI Watson, Anurag MEEHAN, Olivia Rios WOOL GRADER/SA, Sushma Time Out Complete 10/02/17 09:27:00 Outcomes Met? [...] and tissue Entry 1 Skin Integrity Intact, [place], Warm, and Skin Abnormality Yes Dry, Bruised [...] Met? Yes Yes Yes Last Modified By: Alexander RN, Bai A AlexanderBia palmer RN, RN, Emily A 10/02/17 07:39:31 10/02/17 07:39:31 [...] 10/02/17 11:07:00 By Bia Osborn RN, Sharp Coy RN, Emily A, Sharp WOOL GRADER/SA, Sushma WOOL GRADER/SA, Sushma Outcomes Met? Yes Yes Last Modified [...] RN Patient Status Stable Skin. Condition Intact, [place], Warm, and Description UNCHANGED FROM Dry, Bruised PREVIOUSLY Airway Maintenance Oxygen in Use? Yes Airway Device Simple Mask Flow Rate 8 L/min Outcomes Met? Yes Last Modified By: Bia Osborn RN 10/02/17 11:31:29 Post-Care Text: The patient is free from signs and symptoms of injury related to transfer/transport General Comments: REPORT GIVEN TO HELICOPTER TECHNICIANRN. Jonh RAE RN Dressing/Packing FT Pre-Care Text: [...] safely administered during the perioperative period For [place] please see scanned medication reconcilliation form for medications used at the field during the procedure. Implant Log FT Pre-Care Text: Records devices implanted during the operative or invasive procedure Entry 1 Implant/Explant Implant Implant Identification Description MESH STEX ROUND 9CM Lot Number [id number] (3.6 ) [SYM9][F] Dowel Maker FT-EnvironmentIQ Catalog ?# SYM9 [F] Size 9CM Expiration [...] Type TUBE NASOGASTIC SUMP Location MOUTH 18FR [[id number]][F] Quantity 1 Fluid SCANT AMOUNT BLOOD Characteristics [...] Present Upon Arrival No Inserted LF 16FR [[id number]][F] Insertion Date/Time 10/02/17 09:05:00 Urine Residual 100 [...] BLANKET MISTRAL AIR Quantity 1 Aid TORSO [[id number]][F] Fluid/Entiat Unit Mistral warming system Setting HIGH/43 Body Site Upper anterior torso Last Modified By: Bia Osborn RN 10/02/17 09:49:45 Case Comments Finalized By: Kassy Mathews CST Document Signatures Signed By: Bia Osborn RN 10/02/17 11:26 Bia Osborn RN 10/02/17 11:27 Bia Osborn RN 10/02/17 11:29 Bia Osborn RN 10/02/17 11:31 Kassy Mathews CST 10/03/17 10:03 Normal [facility] History and Physicalon 10-02 History and Physical Patient: CHANO MARRUFO Age: 72 years Sex: Male : 1945 Associated Diagnoses: None Author: Jean-Paul Roberts MD Subjective no changes to H & P Normal [facility] Comment on above: Result Comment: Elec tronically Signed By: Jean-Paul Roberts MD\.br\Date and Time Signed: 10/02/17 08:31 EDT Inpatient Patient Summaryon 10-02-2017 Inpatient [facility] Dis[facility] InstructionsPERSON INFORMATION Name: CHANO MARRUFO PHYSICIANS Admitting Physician: Jean-Paul Roberts MD Physician: Jean-Paul Roberts MD PCP: Vidhi DAWKINS DO Diagnosis: Incarcerated umbilical hernia Comment: PATIENT EDUCATION INFORMATIONInstructions:Medic ation Leaflets:Follow up:With: Address: When: [address] [address] Business (1) Within 7 to 10 days MEDICATION LISTFill New Prescriptions:acetaminophen-h ydrocodone (acetaminophen-hydrocodone 325 mg-5 mg oral tablet) 1 tab(s) By Mouth every 4 hours as needed for Pain not to exceed 8 tablets/day take with food or milkComment: Araceli [facility] Main OR PACU I Recordon Main OR PACU I Record PACU Phase I Document Type FT Summary Primary Physician: Jean-Paul Roberts MD Finalized Date/Time: 10/02/17 12:01:59 Pt. Name: CHAON MARRUFO Lam Coker./Sex: 1945 Male Med Rec #: [id number] Physician: Jean-Paul Roberts MD Financial #: [id number] Pt. Type: A Room/Bed: [facility] Admit/Disch: 10/02/17 06:11:42 - Institution: Case Times [...] I Outcomes Met? Yes Last Modified By: Koel MEEHAN, Cinthia Foster 10/02/17 12:01:48 Post-Care Text: The patient demonstrates [...] By: Cinthia Sharif RN 10/02/17 12:01 Normal [facility] Main OR Preoperative Recordo n 10-02-2017 Main OR Preoperative Record PreOp Document Type FT Summary Primary Physician: Jean-Paul Roberts MD Finalized Date/Time: 10/02/17 09:50:16 Pt. Name: CHANO MARRUFO Lam /Sex: 1945 Male Med Rec #: [id number] Physician: Jean-Paul Roberts MD Financial #: [id number] Pt. Type: Room/Bed: [address] [place] [address] Admit/Disch: 10/02/17 06:11:42 - Institution: Case Times [...] By: Bia Osborn RN 10/02/17 09:50 Normal [facility] Operative Reporton 8 Operative Report Date of [...] I [facility] was noted to be chronically incarcerated [...] visualization. Once this wascomplete, the last needle special needs bus driver was brought out through the #1 arm. Therobot was then docked. I then scrubbed back into the field and examinedthe repair. It was noted to be intact. There was no evidence of bleeding.All port sites were examined upon withdrawal of the ports. There was notedto be good hemostasis. The fascia from the right subcostal incision wasthen closed with a 0 Vicryl [id number]-jp-[id number] suture. All port sites wereinfiltrated with the [...] Room in good condition.Jean-Paul Roberts M.D.glsDictated: 10/02/2017 #[id number]: 10/02/2017 #[id number]: Cherie Newby M.D. Normal [facility] Comment on above: Result Comment: Elec tronically Signed By: Armando GALE, Jean-Paul Mcknightbr\Date and Time Signed: 10/02/17 13:56 EDT UA With Cult Reflexon 2017 Bilirubin Ql (U) Negative Normal Negative [facility] Comment on above: Performed By: #### 1 [id number] ####[place] [address] COLOR:TYPE:PT:URIN E:NOM:AUTO STRAW Abnormal Yellow [facility] Comment on above: Performed By: #### 1 [id number] ####[place] [address] Erythrocytes (RBC) 0-3 Normal 0-3 [facility] Comment on above: Performed By: #### 1 [id number] ####[address] [place] [id number] GLUCOSE:MCNC:PT:UR INE:QN:TEST STRIP Negative Normal Negative [facility] Comment on above: Performed By: #### 1 [id number] ####[id number] KETONES:MCNC:PT:UR INE:QN:TEST STRIP Negative Normal Negative [facility] Comment on above: Performed By: #### 1 [id number] ####[facility] [address] [address] LEUKOCYTES:PRTHR:P T:URINE:ORD:AUTOMA JAMESON Negative Normal Negative [facility] Comment on above: Performed By: #### 1 [id number] ####[facility] [address] [place] [address] UA Spec Desc [place] Normal [facility] Comment on above: Performed By: #### 1 [id number] ####[address] [address] Urine, clarity CLEAR Normal Clear [facility] Comment on above: Performed By: #### 1 [id number] ####[address] [address] Urine, hemoglobin presence Negative Normal Negative [facility] Comment on above: Performed By: #### 1 [id number] ####[address] [address] Urine, leukocytes in sedmiment 0-5 Normal 0-5 [facility] Comment on above: Performed By: #### 1 [id number] ####[address] [address] Urine, nitrite presence Negative Normal Negative [facility] Comment on above: Performed By: #### 1 [id number] ####[address] [address] Urine, pH 6.5 [pH] Invalid Interpretation Code 5.0-9.0 [facility] Comment on above: Performed By: #### 1 [id number] ####[address] [address] Urine, protein Negative Normal Negative [facility] Comment on above: Performed By: #### 1 [id number] ####[address] [address] Urine, specific gravity <=1.005 Invalid Interpretation Code 1.005-1.030 [facility] Comment on above: Performed By: #### 1 [id number] ####[address] [address] Urine, squamous cells in sediment 0-2 Normal 0-2 [facility] Comment on above: Performed By: #### 1 [id number] ####[address] [place] [address] Urine, urobilinogen 0.2 {Aleja'U}/dL Normal 0.0-1.0 [facility] Comment on above: Performed By: #### 1 [id number] ####[address] [address] Coding Summary.on 09-20-2017 Coding Summary. CODING DATE: 018 FINAL [facility] STATUS: Home (Routine DC) PAYOR: [...] [place] Date Saved: 09/20/2017 11:31 am Normal [facility] Auto Diffon 09-19-2017 Basophils Auto #/vol (Bld) 0.1 E9/L Normal 0.0-0.2 [facility] Comment on above: Order Comment: Order Added by Discern Expert. Performed By: #### 2 709580, 6285320, 3124374, [id number] ####[facility] [address] [place] [address] Basophils Auto #/vol (Bld) 1.1 % Normal 0.0-2.0 [facility] Comment on above: Order Comment: Order Added by Discern Expert. Performed By: #### 2 578127, 4711254, 3066586, 09676482 ####[facility] [address] [place] [address] Eosinophils 0.1 E9/L Normal 0.0-0.5 [facility] Comment on above: Order Comment: Order Added by Discern Expert. Performed By: #### 2 280116, 0007957, 6370402, 17756018 ####[facility] [address] [place] [address] Eosinophils/100 leukocytes 1.4 % Normal 0.0-8.0 [facility] Comment on above: Order Comment: Order Added by Mike Expert. Performed By: #### 2 254970, 3432423, 8815258, 53461456 ####[address] [place] [address] Lymphocytes 2.4 E9/L Normal 1.0-4.0 [facility] Comment on above: Order Comment: Order Added by Mike Expert. Performed By: #### 2 352721, 1251192, 5767965, 45779156 ####[address] [address] Lymphocytes/100 leukocytes 25.9 % Normal 14.0-50.0 [facility] Comment on above: Order Comment: Order Added by Mike Expert. Performed By: #### 2 668037, 2355402, 8383321, 60757738 ####[facility] [address] [place] [address] Monocytes 0.7 E9/L Normal 0.2-1.0 [facility] Comment on above: Order Comment: Order Added by Mike Expert. Performed By: #### 2 026271, 9260297, 1116756, 65971082 ####[facility] [address] [place] [address] Monocytes/100 leukocytes 8.1 % Normal 4.0-14.0 [facility] Comment on above: Order Comment: Order Added by Miek Expert. Performed By: #### 2 452569, 7021279, 9943813, 84968771 ####[facility] [address] [place] [address] Neutrophils 5.9 E9/L Normal 2.0-7.5 [facility] Comment on above: Order Comment: Order Added by Mike Expert. Performed By: #### 2 782860, 9541858, 9156409, 31752904 ####[address] [place] [address] Neutrophils/100 leukocytes 63.5 % Normal 36.0-75.0 [facility] Comment on above: Order Comment: Order Added by Discern Expert. Performed By: #### 2 328083, 0300510, 5897023, [id number] ####[address] [address] CBC w/ Auto Diffon 8 Erythrocyte distribution width Auto Ratio (RBC) 13.7 % Normal 10.9-14.2 [facility] Comment on above: Performed By: #### 2 361209, 6337738, 7392417, 92949406 ####[address] [address] Erythrocytes (RBC) 4.3 E12/L Normal 4.3-5.9 [facility] Comment on above: Performed By: #### 2 997834, 5775989, 3223404, 20611821 ####[address] [address] Hematocrit (HCT) 40.0 % Normal 37.7-49.0 [facility] Comment on above: Performed By: #### 2 296567, 8000642, 5940812, 13866650 ####[address] [place] [address] Hemoglobin mass conc (Bld) 13.9 g/dL Normal 13.5-17.5 [facility] Comment on above: Performed By: #### 2 514620, 7602098, 5740124, 91223900 ####[address] [place] [address] MCH 32.3 pg Normal 27.0-34.0 [facility] Comment on above: Performed By: #### 2 860341, 6447878, 7835007, 28040157 ####[address] [place] [address] MCHC mass conc (RBC) 34.9 g/dL Normal 31.4-39.3 [facility] Comment on above: Performed By: #### 2 329522, 3019860, 4786611, 66774045 ####[facility] [address] [place] [address] MCV 92.8 fL Normal 80.0-100.0 [facility] Comment on above: Performed By: #### 2 450372, 5289320, 2833553, 93745955 ####[address] [address] Platelet mean volume (PMV) 8.4 fL Normal 6.4-10.8 [facility] Comment on above: Performed By: #### 2 686778, 1787733, 6430813, 76183390 ####[address] [address] Platelets 311.0 E9/L Normal 150.0-500.0 [facility] Comment on above: Performed By: #### 2 413988, 2066797, 7883882, 86667770 ####[address] [address] WBC (Leukocytes) 9.3 E9/L Normal 4.0-11.0 [facility] Comment on above: Performed By: #### 2 757463, 9695269, 2963088, 12857836 ####[address] [address] CMPon 09-19-2017 Alanine aminotransferase (ALT) 39 Int._Unit/L Normal 6-46 [facility] Comment on above: Performed By: #### 2 082466, 3301705, 4109364, 83378125 ####[address] [address] Albumin 4.1 g/dL Normal 3.3-5.0 [facility] Comment on above: Performed By: #### 2 712541, 2750410, 6481852, 74467180 ####[address] [place] [address] Albumin 1.1 g/dL Normal 1.1-2.2 [facility] Comment on above: Performed By: #### 2 053279, 3972455, 3019757, 50762855 ####[facility] [address] [place] [address] Alkaline phosphatase (ALP) 66 Int._Unit/L Normal 21-98 [facility] Comment on above: Performed By: #### 2 964050, [id number], [id number], [id number] ####[facility] [address] [place] [address] Anion gap 12 mmol/L Normal 6-16 [facility] Comment on above: Performed By: #### 2 252370, 0254658, [id number], [id number] ####[id number] [place] [address] Aspartate aminotransferase (AST) 28 Int._Unit/L Normal 5-43 [facility] Comment on above: Performed By: #### 2 101906, [id number], [id number], [id number] ####[address] [address] Bilirubin (total) 0.8 mg/dL Normal 0.0-1.1 [facility] Comment on above: Performed By: #### 2 420800, 2746324, 7961061, [id number] ####[facility] [id number] BUN/Creatinine Ratio 19 No Units Normal 10-20 [facility] Comment on above: Performed By: #### 2 694048, 0580056, 5077663, [id number] ####[facility] [address] [place] [address] Calcium 9.1 mg/dL Normal 8.9-11.1 [facility] Comment on above: Performed By: #### 2 468032, 1399102, 3792768, [id number] ####[facility] [address] [place] [address] Chloride 96 mmol/L Low 101-111 [facility] Comment on above: Performed By: #### 2 877434, 0621055, 3282490, [id number] ####[facility] [address] [place] [address] CO2 29 mmol/L Normal 21-31 [facility] Comment on above: Performed By: #### 2 522205, 1637085, 9584409, [id number] ####[facility] [address] [place] [address] Creatinine 1.1 mg/dL Normal 0.5-1.3 [facility] Comment on above: Performed By: #### 2 885003, 0979789, 8960212, [id number] ####[facility] [address] [place] [address] Globulin 3.6 g/dL Normal 1.4-4.0 [facility] Comment on above: Performed By: #### 2 035004, 2628818, 6726731, [id number] ####[facility] [address] [place] [address] Glucose mass conc 157 mg/dL Normal 55-199 [facility] Comment on above: Result Comment: If t his glucose result represents a fasting glucose, interpretation should refer to the following reference range: 55-99 mg/dL Performed By: #### 2 495519, 7441644, 2643108, [id number] ####[facility] [address] [place] [address] Potassium molar conc 3.9 mmol/L Normal 3.5-5.3 [facility] Comment on above: Performed By: #### 2 069636, 0142647, 7905269, [id number] ####[facility] [address] [place] [address] Protein 7.7 g/dL Normal 6.0-7.8 [facility] Comment on above: Performed By: #### 2 340743, 0531769, 9961531, [id number] ####[facility] [address] [place] [address] Sodium 133 mmol/L Low 135-145 [facility] Comment on above: Performed By: #### 2 033027, 8986103, 1568227, [id number] ####[facility] [address] [place] [address] Urea nitrogen 21 mg/dL Normal 5-21 [facility] Comment on above: Performed By: #### 2 603311, 1972478, 7087558, [id number] ####[facility] [address] [place] [address] XR Chest 2 Viewson 8 XR Chest [...] Suresh M.D. Transcribed by: LOREN Technologist: IRENA Normal [facility] eGFRon 09-19-2017 eGFR (black) mL/min/{1.73_m2} Normal >=59 [facility] Comment on above: Order Comment: Order added by Discern Expert. Result Comment: eGFR is race adjusted. AA=. Performed By: #### 2 090438, 5350721, 7986942, [id number] ####[facility] [address] [place] [address] eGFR (non-black) mL/min/{1.73_m2} Normal >=59 [facility] Comment on above: Order Comment: Order added by Discern Expert. Result Comment: Cop Breaker chris kidney disease could be indicated at eGFR's of less than 60 mL/min/1.73m2. Kidney failure is indicated at less than 15 mL/min/1.73m2. Performed By: #### 2 406586, 7384603, 9165589, [id number] ####[facility] [address] [place] [address] Coding Summary.on 04-19-2017 Coding Summary. CODING DATE: 017 [facility] STATUS: Home (Routine DC) PAYOR: Medicare APC DESCRIPTION [facility] Procedures ADMIT DX: REASON FOR VISIT DX: H26.40 Unspecified secondary cataract FINAL DX: PRINCIPAL: H26.40 Unspecified secondary cataract SECONDARY: PYMT PROC APC STAT DESCRIPTION DOCTOR NAME DATE 5480 T Discission of secondary Bipin Cruz DO [...] Leyva Date Saved: 04/19/2017 03:05 pm Normal [facility] Vital Signs Date Time Vital Sign Value Performing Clinician Facility 12-19-2023 09:120400 Body height 187.96 cm [facility] 12-19-2023 09:120400 Body mass index (BMI) [Ratio] 28.6 kg/m2 [facility] 12-19-2023 09:12-0400 Body weight 101.26 kg [facility] 12-19-2023 09:12-0400 Diastolic blood pressure 66 mm[Hg] [facility] 12-19-2023 09:12-0400 Heart rate 60 /min [facility] 12-19-2023 09:12-0400 [facility] 12-19-2023 09:12-0400 Systolic blood pressure 127 mm[Hg] [facility] 07-26-2023 08:30-0500 Body height 187.96 cm Robin Ball Other [facility] 07-26-2023 08:30-0500 Body mass index (BMI) [Ratio] 29.04 kg/m2 Robin Ball Other [facility] [employer] Other 07-26-2023 08:30-0500 Body weight 102.6 kg Robin Ball Other [facility] 07-26-2023 08:30-0500 Diastolic blood pressure 67 mm[Hg] Robin Ball Other [facility] 07-26-2023 08:30-0500 Respiratory rate 12 /min Robin Ball Other [facility] [employer] Other 07-26-2023 08:30-0500 Systolic blood pressure 122 mm[Hg] Robin Ball Other [facility] 04-20-2023 08:30-0400 Body height 187.96 cm Robin Ball Other [facility] [employer] Other 04-20-2023 08:30-0400 Body mass index (BMI) [Ratio] 29.3 kg/m2 Robin Ball Other [employer] Other 04-20-2023 08:30-0400 Body weight 103.51 kg Robin Ball Other [employer] Other 04-20-2023 08:30-0400 Diastolic blood pressure 66 mm[Hg] Robin Ball Other [employer] Other 04-20-2023 08:30-0400 Respiratory rate 12 /min Robin Ball Other [employer] Other 04-20-2023 08:30-0400 Systolic blood pressure 124 mm[Hg] Robin Ball Other [employer] Other 12-15-2022 08:30-0400 Body height 187.96 cm Robin Ball Other [employer] Other 12-15-2022 08:30-0400 Body mass index (BMI) [Ratio] 29.76 kg/m2 Robin Ball Other [employer] Other 12-15-2022 08:30-0400 Body weight 105.14 kg Robin Ball Other [employer] Other 12-15-2022 08:30-0400 Diastolic blood pressure 71 mm[Hg] Robin Ball Other [employer] Other 12-15-2022 08:30-0400 Respiratory rate 12 /min Robin Ball Other [employer] Other 12-15-2022 08:30-0400 Systolic blood pressure 127 mm[Hg] Robin Ball Other [employer] Other 11-22-2022 13:45-0400 Body height 187.96 cm Robin Ball Other [employer] Other 11-22-2022 13:45-0400 Body mass index (BMI) [Ratio] 29.94 kg/m2 Robin Ball Other [employer] Other 11-22-2022 13:45-0400 Body weight 105.78 kg Robin Ball Other [employer] Other 11-22-2022 13:45-0400 Diastolic blood pressure 64 mm[Hg] Robin Ball Other [employer] Other 11-22-2022 13:45-0400 Respiratory rate 12 /min Robin Ball Other [employer] Other 11-22-2022 13:45-0400 Systolic blood pressure 115 mm[Hg] Robin Ball Other [employer] Other 09-21-2022 09:30-0400 Body height 187.96 cm Robin Ball Other [employer] Other 09-21-2022 09:30-0400 Body mass index (BMI) [Ratio] 31.17 kg/m2 Robin Ball Other [employer] Other 09-21-2022 09:30-0400 Body weight 110.13 kg Robin Ball Other [employer] Other 09-21-2022 09:30-0400 Diastolic blood pressure 68 mm[Hg] Robin Ball Other [employer] Other 09-21-2022 09:30-0400 Respiratory rate 12 /min Robin Ball Other [employer] Other 09-21-2022 09:30-0400 Systolic blood pressure 130 mm[Hg] Robin Ball Other [employer] Other Encounters Encounter Date Encounter Type Care Provider Facility Start: 12-19-2023 End: 12-19-2023 ambulatory [facility] Work Phone: Start: 12-19-2023 End: 12-19-2023 Patient encounter procedure [facility] Work Phone: Start: 10-05-2023 End: 10-05-2023 ambulatory [facility] Start: 09-07-2023 End: 09-07-2023 ambulatory [facility] Work Phone: Start: 09-07-2023 End: 09-07-2023 Patient encounter procedure [facility] Work Phone: Start: 08-25-2023 End: 08-25-2023 Patient encounter procedure [facility] Work Phone: Start: 07-26-2023 End: 07-26-2023 ambulatory Robin Ball Other [employer] Other Start: 07-26-2023 Office outpatient vi sit 25 minutes Robin Ball [facility] Start: 07-26-2023 End: 07-26-2023 Patient encounter procedure [facility]- Start: 07-19-2023 End: 07-19-2023 ambulatory Robin Ball Other [employer] Other Start: 07-19-2023 Telephone encounter Robin Ball [facility] Start: 06-14-2023 End: 06-14-2023 ambulatory [facility] Start: 04-21-2023 End: 04-21-2023 ambulatory Robin Ball Other [employer] Other Start: 04-21-2023 Telephone encounter Robin Ball [facility] Start: 04-20-2023 End: 04-20-2023 ambulatory Robin Ball Other [employer] Other Start: 04-20-2023 Office outpatient vi sit 25 minutes Robin Ball [facility] Start: 04-12-2023 End: 04-12-2023 ambulatory Robin Ball Other [employer] Other Start: 04-12-2023 Telephone encounter Robin Ball [facility] Start: 04-07-2023 End: 04-07-2023 ambulatory Robin Ball Other [employer] Other Start: 04-07-2023 Telephone encounter Robin Ball [facility] Start: 02-06-2023 End: 02-06-2023 ambulatory Robin Ball Other [employer] Other Start: 02-06-2023 Telephone encounter Robin Dawkins [facility] Start: 12-20-2022 End: 12-20-2022 ambulatory Robin Dawkins Other [employer] Other Start: 12-20-2022 Telephone encounter Robin Dawkins [facility] Start: 12-15-2022 End: 12-15-2022 ambulatory Robin Dawkins Other [employer] Other Start: 12-15-2022 Patient encounter procedure Robin Dawkins [facility] Start: 12-14-2022 End: 12-14-2022 ambulatory [facility] Start: 11-22-2022 End: 11-22-2022 ambulatory Robin Dawkins Other [employer] Other Start: 11-22-2022 Office outpatient vi sit 15 minutes Robin Ball [facility] Start: 11-22-2022 Telephone encounter Robin Dawkins [facility] Start: 10-31-2022 End: 10-31-2022 ambulatory Robin Dawkins Other [employer] Other Start: 10-31-2022 Office outpatient vi sit 15 minutes Robin Ball [facility] Start: 10-04-2022 End: 10-05-[address] MAE MCCORMICK [employer] Other Start: 10-04-2022 Telephone encounter Robin Dawkins [facility] Start: 09-21-2022 End: 09-21-2022 ambulatory Robin Dawkins Other [employer] Other Start: 09-21-2022 Office outpatient vi sit 25 minutes Robin Ball [facility] Start: 03-30-2022 End: 03-31-[address] MAE MCCORMICK Facility:[facility] Start: 12-16-2021 End: 12-17-[address] ROBIN DAWKINS Facility:[facility] Start: 12-06-2021 Adult health examination Robin Dawkins Other [employer] Other Start: 10-03-2018 End: 10-04-2018 Patient encounter procedure RONNY NEWMAN [facility] Start: 10-02-2017 End: 10-02-2017 Ambulatory Jean-Paul Roberts Facility:[facility] Start: 09-19-2017 End: 09-20-2017 Ambulatory Jean-Paul Roberts Facility:[facility] Start: 04-18-2017 End: 04-18-2017 Ambulatory Bipin Cruz Facility:[facility] Procedures Date Procedure Procedure Detail Performing Clinician Start: 12-16-[address] JOVANY TIWARI JESE Comment on above: Performed By: #### P [facility] #### [facility] [address] [place] [address] Dr. Rui Moore Start: 06-09-2016 Removal of suture Scott Dawkins Other Start: 11-10-2015 Screening for malign ant neoplasm of colon Robin Dawkins Other Start: 10-21-2013 Screening for malign ant neoplasm of prostate Robin Dawkins Other Depression screening Jose Dawkins Other Screening for malign ant neoplasm of prostate Robin Dawkins Other Plan of Treatment Date Care Activity Detail Author Comprehensive metabo lic 2000 panel - Serum or Plasma [facility] enter Microalbumin [Mass/volume] in Urine [facility] Immunizations Immunization Date Immunization Notes Care Provider Karyn messina 11-16-2022 tetanus and diphther ia toxoids, adsorbed, preservative free, for adult use (5 Lf of tetanus toxoid and 2 Lf of diphtheria toxoid) [facility] 11-16-2022 tetanus toxoid, redu suzy diphtheria toxoid, and acellular pertussis vaccine, adsorbed Robin Dawkins Other [employer] Other 04-06-2022 influenza virus vaccine, unspecified formulation [facility] 04-06-2022 influenza, high dose seasonal, preservative-free Robin Dawkins Other [facility] [employer] Other 03-17-2022 COVID-19 Pfizer (bivalent) Robin Dawkins Other [facility] 10-06-2021 COVID-19 Vaccine Pfi zer - Documentation Purposes Only Robin Dawkins Other [facility] 03-31-2021 COVID-19 Vaccine Pfi zer - Documentation Purposes Only Robin Dawkins Other [facility] 09-28-2020 COVID-19 Vaccine Pfi zer - Documentation Purposes Only Robin Dawkins Other [facility] 09-01-2020 COVID-19 Vaccine Pfi zer - Documentation Purposes Only Robin Dawkins Other [facility] 04-01-2020 influenza virus vaccine, split virus (incl. purified surface antigen) Robin Dawkins Other [facility] [employer] Other 04-01-2020 influenza virus vaccine, unspecified formulation [facility] 04-18-2019 influenza virus vaccine, split virus (incl. purified surface antigen) Robin Dawkins Other [facility] [employer] Other 04-18-2019 influenza virus vaccine, unspecified formulation [facility] 04-12-2018 influenza virus vaccine, split virus (incl. purified surface antigen) Robin Dawkins Other [facility] [employer] Other 04-12-2018 influenza virus vaccine, unspecified formulation [facility] 05-11-2017 influenza virus vaccine, split virus (incl. purified surface antigen) Robin Dawkins Other [facility] [employer] Other 05-11-2017 influenza virus vaccine, unspecified formulation [facility] 04-04-2016 influenza virus vaccine, split virus (incl. purified surface antigen) Robin Dawkins Other [facility] [employer] Other 04-04-2016 influenza virus vaccine, unspecified formulation [facility] 04-16-2015 influenza virus vaccine, split virus (incl. purified surface antigen) Robin Dawkins Other [facility] [employer] Other 04-16-2015 influenza virus vaccine, unspecified formulation [facility] 04-16-2015 pneumococcal conjuga te vaccine, 13 valent Robin Dawkins Other [facility] 01-24-2015 zoster vaccine, live Benjeladia Dawkins Other [facility] 12-30-2013 pneumococcal polysaccharide vaccine, 23 valent Robin Dawkins Other [facility] 04-04-2013 pneumococcal conjuga te vaccine, 13 valent Robin Dawkins Other [facility] 04-03-2013 tetanus and diphther ia toxoids, adsorbed, preservative free, for adult use (5 Lf of tetanus toxoid and 2 Lf of diphtheria toxoid) Robin Dawkins Other [facility] 03-08-2012 tetanus and diphther ia toxoids, adsorbed, preservative free, for adult use (5 Lf of tetanus toxoid and 2 Lf of diphtheria toxoid) Robin Dawkins Other [facility] 09-29-2010 diphtheria, tetanus toxoids and acellular pertussis vaccine, unspecified formulation Robin Dawkins Other [facility] 04-28-2010 pneumococcal polysaccharide vaccine, 23 valent Robin Dawkins Other [facility] Payers Date Payer Category Payer Medicare [id number] 1960 Medicare [id number] 2.1 [id number] 1960 Unknown [id number] 1945 Unknown [id number] [id number] 1945 Unknown [id number] [id number] 1945 Unknown [id number] 2.16.84 [id number] 1945 Unknown [id number] 2.16.84 [id number] 1945 Unknown [id number] 2.16.8 [id number] Social History Date Type Detail Facility Sex Assigned At [facility] [employer] Other Start: [facility] Start: 1945 Sex Assigned At Male [facility] Procedure Code Equipment Code Equipment Origin al Text Equipment Identifier Dates Start: 09-21-2022 Blood Sugar Diagnostic (Contour Next Test Strips) strip Start: 08-25-2023 Lancets (Micro T hin Lancets) 33 gauge misc Start: 08-25-2023 Blood Sugar Diagnostic (Contour Next Test Strips) strip Start: 08-25-2023 Lancets (Micro T hin Lancets) 33 gauge misc Start: 08-25-2023 Clinical Notes 09-21-2022 to 07-26-2023 Note Date & Type Note Facility 07-26-2023 Evaluation note Encounter Date Diagnosis Assessment Notes Jun, ASHD (arteriosclerotic heart disease) (ICD-10 - I25.10) This patient is stable without activity related CP, dyspnea or lightheadedness. They are instructed to continue exercise and AHA diet plan. Continue secondary prevention measures. Jun, Type 2 diabetes mellitus with hyperglycemia, [...] office visit. Continue regular routine monitoring of A1C, Microalbumin, Dilated eye exam and Foot exam Jun, Primary hypertension (ICD-10 - I10) This patient is instructed to consume a healthy, low-fat, low-salt diet. They are also encouraged to continue exercise to achieve/maintain a normal BMI. Patient is instructed on home BP measurements: - rest for 5 minutes w/o talking.- positioned w/ feet on floor and arm supported.- average best 2/3 readings w/ goal < 135/85.- update office w/ home readings in 2 weeks. Jun, Elevated cholesterol (ICD-10 - E78.00) Instructed on diet and exercise with continued statin therapy.Discussed the beneficial effects of lowering cholesterol in reducing the risk for cerebrovascular and cardiovascular disease. Jun, Overweight (ICD-10 - E66.3) Jun, Gastroesophageal reflux disease with esophagitis without hemorrhage (ICD-10 - K21.00) Avoid lying flat after eating. Avoid eating 2 hours prior to bedtime. Smaller, frequent meals may be better tolerated.Weight loss if overweight.Monito r for dysphagia. Intolerant to PPI Jun, Anemia, unspecified type (ICD-10 - D64.9) Normal Fe, FA and B12 Decreased appetite w/ weight loss Decreased beer consumption, which may be contributing Taking DAPT for vascular disease, which may be contributing Monitor for now Discussed CT abdomen and GI evaluation Jun, Other chronic pain (ICD-10 - G89.29) Jun, Hx of gout (ICD-10 - Z87.39) No acute flares Reviewed diet restrictions [employer] Other 01-24-2024 Evaluation note* Encounter Date Diagnosis Assessment Notes Treatment Notes Treatment Clinical Notes Jun, Anemia, unspecified type (ICD-10 - D64.9) [employer] Other 01-24-2024 Evaluation note* Encounter Date Diagnosis Assessment Notes Treatment Notes Treatment Clinical Notes Jun, Type 2 diabetes mellitus with hyperglycemia, without long-term current use of insulin (ICD-10 - E11.65) [employer] Other 12-20-2023 Note[facility] - [facility] Subjective Chano Marrufo is a 77 y.o. year old [...] Types: Cigarettes Smokeless tobacco: Never HPI Mr. Chano Marrufo is seen in follow up. He [...] April 2020 he was admitted to the [facility] with COVID-19. He developed atrial fibrillation. [...] Judgment: Judgment normal. Allergies Allergies Allergen Reactions Cvupauk-Ycp-Jpr Reductase Inhibitors Other Lisinopril Losartan Medications Current [...] metFORMIN (Glucophage) 500 m (more content not included)...[facility]10-26-2023 Evaluation note* Encounter Date Diagnosis Assessment Notes Treatment Notes Treatment Clinical Notes Mar, ASHD (arteriosclerot ic heart disease) (ICD-10 - I25.10) Mar, Type 2 diabetes mellitus with hyperglycemia, without long-term current use of insulin (ICD-10 - E11.65) Mar, Atherosclerosis of [place] artery of both lower extremities with intermittent [...] Mar, Other chronic pain (ICD-10 - G89.29) [employer] Other 10-26-2023 Evaluation note* Encounter Date Diagnosis [...] exam and Foot exam Mar, Atherosclerosis of [place] artery of both lower extremities with intermittent [...] No acute attacks present at this time. [employer] Other 10-13-2023 Evaluation note* Encounter Date Diagnosis Assessment Notes Treatment Notes Treatment Clinical Notes Mar, Anemia, unspecified type (ICD-10 - D64.9) [employer] Other 06-22-2023 Evaluation note* Encounter Date Diagnosis [...] Nov, Hx of gout (ICD-10 - Z87.39) [employer] Other 06-21-2023 NoteRCRI- 3 points Class IV Risk 15.0???% 30-day risk of , MA, or cardiac arrest From a cardiology perspective pt may proceed with planned vascular procedure, he is a moderate risk for a low risk procedure. May hold plavix [facility] needed[facility]2023 NoteContinue metoprolol for rate control, anticoagulation was [...] fibrillation happened in the setting of COVID-19 infection.[facility]06-21-2023 NotePT is planning for angiogram/intervention with Dr Mccormick- vascular surgery [facility]06-21-2023 NoteUTP CARDIOLOGY PROGRESS NOTE HPI: Chano Marrufo is a 77 y.o. male here [...] Former BSA 2.34 m??? Allergies Allergen Reactions Ihaphke-Ghp-Dul Reductase Inhibitors Other Lisinopril Losartan Medications: Current [...] of 10 beats. EKG (more content not included)...[facility] 12-14-2022 NoteLipid abnormalities are Continue crestor- pt having annual labs tomorrow and if LDL remains > 70 he needs to increase crestor to 40 mg daily Chol 163, LDL 99.[facility] NoteHypertension is well controlled 126/70 Continue amlodipine, metoprololUnGood [facility]06-21-2023 NoteCoronary artery disease is stable without concerning symptoms Continue GDMT- ASA, plavix, metoprolol, crestor continue risk factor modifications- heart healthy diet, regular exercise as tolerated and continue all medications.[facility] 11-22-2022 Evaluation note* Encounter Date Diagnosis [...] to continue exercise and AHA diet plan. [employer] Other 05-08-2023 Evaluation note* Encounter Date Diagnosis [...] to continue exercise and AHA diet plan. 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 Aug, Anemia, unspecified type (ICD-10 - D64.9) Aug, Hx of gout (ICD-10 - Z87.39) No recent flares, continue urate lowering treatment Aug, Acute seasonal allergic rhinitis due to pollen (ICD-10 - J30.1) [employer] Other Evaluation noteNo [employer]Nort [employer] Other Evaluation note* Diagnosis Onset Date Resolution Status [id number] acute Acute bronchitis due to other specified organisms noneactive Acute seasonal allergic rhinitis due to pollen [facility] Work Phone: Evaluation note* Diagnosis Onset Date Resolution Status Anemia acute ASHD (arteriosclerotic heart disease) acute Chronic kidney disease acute Chronic venous insufficiency acute Hypercholesterolemia acute Paroxysmal atrial fibrillation acute Primary hypertension acute Type 2 diabetes mellitus with hyperglycemia acute Medicare annual wellness visit, subsequent noneactive Screening PSA (prostate specific antigen) noneactive [facility] Work Phone: History general Narrative - Reported* Type Description [...] History BYPASS Hospitalization History SEE SURGICAL HX [employer] Other Hisvtvl general Narrative - Reported* Type Description Date [...] /stenting 12/2022 Hospitalization History SEE SURGICAL HX [employer] Other Hisuqyt general Narrative - Reported* Type Description Date [...] Colonoscopy 2015 Hospitalization History SEE SURGICAL HX [employer] Other Summary Purpose Family History Relationship Condition Age at Onset Recorded Date/T alonso father Unknown Malignant neoplasm Unknown Advance Directives Advance Directive Response Recorded Date/ Time Advance Directives No July 26, 2023 10:15am Chief Complaint and Reason for Visit Chief Complaint 3 Month Follow Up Sinuses, cough- neg covid Allergy Shot Reason for Visit [id number] Acute bronchitis due to other specified organisms Acute seasonal allergic rhinitis due to pollen Chief Complaint Medicare Wellness Reason for Visit Anemia ASHD (arteriosclerotic heart disease) Chronic kidney disease Chronic venous insufficiency Hypercholesterolemia Paroxysmal atrial fibrillation Primary hypertension Type 2 diabetes mellitus with hyperglycemia Medicare annual wellness visit, subsequent Screening PSA (prostate specific antigen) Additional Source Comments (unrecognized sect ion and content) No Status Records FoundNo Status Records FoundNo Status Records FoundNo Status Records FoundNo Status Records Found INFORMATION SOURCE (unrecogn ized section and content) DATE CREATED AUTHOR 12/14/2017 [facility] DATE CREATED AUTHOR AUTHOR'S ORGANIZ ATION 10/08/2018 [facility] DATE CREATED AUTHOR AUTHOR'S ORGANIZ ATION 10/09/2022 [facility] DATE CREATED AUTHOR AUTHOR'S ORGANIZ ATION 08/12/2023 [facility] DATE CREATED AUTHOR AUTHOR'S ORGANIZ ATION 10/06/2023 [facility] REASON FOR VISIT (unrecogniz ed section and content) FOLLOW UPNo InformationCough , Congestion- NEGATIVE COVID [phone] in TodayCheck Up from FallPrime Wire MediaNESSLab ResultsNo InformationLab workLab results4 month Follow upScript4 month Follow upNo InformationRepeat LabsRefill3 month Follow up Care Teams (unrecognized sec tion and content) Team Status: Active Member Role Status Dates Robin Dawkins DO Primary Care Provider Active Team Status: Inactive Member Role Status Dates Robin Dawkins DO Attending Provider Active Sta rt: July 26, 2023 End: July 26, 2023 Team Status: Inactive Member Role Status Dates Robin Dawkins DO Primary Care Provide r, Attending Provider Active Start: August 25, 2023 End: August 25, 2023 Team Status: Inactive Member Role Status Dates Robin Dawkins DO Primary Care Provide r, Attending Provider Active Start: September 07, 2023 End: September 07, 2023 Team Status: Inactive Member Role Status Dates Robin Dawkins Primary Care Provide r, Attending Provider Active Start: December 19, 2023 End: December 19, 2023 Goals (unrecognized section and content) Goals may be documented in a n alternate section FOR RECORDS PERTAINING TO PATIENTS WHO ARE [...] BE BASED ON THE PRIMARY CLINICAL RECORDS. [facility] [employer], [facility]. provides no warranty or guarantee of the accuracy or completeness of information in this document.
[2023-12-23 08:58] LABS: Basophils Absolute Auto 0.1 10^3/uL (0.0-0.1); Basophils Percent Auto 0.8 % (0.2-2.0); Eosinophils Absolute Auto 0.3 10^3/uL (0.0-0.7); Hematocrit 37.9 % (42.0-54.0); Hemoglobin 12.3 g/dL (14.0-18.0); Immature Granulocytes Abs Auto 0.04 10^3/uL (0.00-0.03); Immature Granulocytes Pct Auto 0.4 % (0.0-0.5); Lymphocytes Absolute Auto 3.4 10^3/uL (1.2-3.8); Lymphocytes Percent Auto 36.8 % (20.5-60.0); Mean Corpuscular HGB Conc 32.5 g/dL (29.9-35.2); Mean Corpuscular Hemoglobin 30.3 pg (25.9-34.0); Mean Corpuscular Volume 93.3 fL (80.0-94.0); Mean Platelet Volume 9.4 fL (9.5-13.5); Monocytes Absolute Auto 0.8 10^3/uL (0.3-0.8); Monocytes Percent Auto 9.1 % (1.7-12.0); Neutrophils Absolute Auto 4.6 10^3/uL (1.4-6.5); Neutrophils Percent Auto 49.9 % (43.0-75.0); Platelet Count 280 10^3/uL (150-450); Red Blood Count 4.06 10^6/uL (4.70-6.10); Red Cell Distribution Width 13.5 % (11.0-15.0); White Blood Count 9.1 10^3/uL (4.0-11.0)
[2023-12-23 09:06] LABS: Microalbumin Urine Random 6.2 mg/dL (<=30.0)
[2023-12-23 09:15] LABS: Estimated Average Glucose 128 mg/dL; Glycohemoglobin A1C 6.1 % (4.5-6.2)
[2023-12-23 09:44] LABS: Alanine Aminotransferase 28 U/L (16-63); Albumin Globulin Ratio 1.1; Albumin Level 3.8 g/dL (3.4-5.0); Alkaline Phosphatase 81 U/L (46-116); Anion Gap 14.6; Aspartate Amino Transferase 21 U/L (15-37); BUN Creatinine Ratio 17.4; Bilirubin Total 0.7 mg/dL (0.2-1.0); Carbon Dioxide 27.7 mmol/L (21.0-32.0); Chloride 102 mmol/L (98-107); Chol HDL Ratio 2.6; Cholesterol 118 mg/dL (<=200); Estimated GFR (African America >60 (>=60); Estimated GFR (Non-African Ame 50 (>=60); Globulin 3.4 g/dL; Glucose 137 mg/dL (74-106); HDL Cholesterol 46 mg/dL (40-60); LDL Cholesterol Calculated 44.8 mg/dL; Potassium 4.3 mmol/L (3.5-5.1); Sodium 140 mmol/L (136-145); Total Protein 7.2 g/dL (6.4-8.2); Triglycerides 136 mg/dL (<=150); VLDL CHOLESTEROL 27.2 mg/dL
[2023-12-23 09:57] LABS: Percent Iron Saturation 21.5 %
[2023-12-23 10:11] LABS: Prostate Specific Antigen Scrn 0.37 ng/mL (<=4.00)
== END 2023-12-23 08:33 | disposition home or self-care (01) ==
PROVIDERS: PCP Internal Medicine; Visit Provider Internal Medicine
DX: I25.10 Atherosclerotic heart disease of native coronary artery without angina pectoris (principal); E11.65 Type 2 diabetes mellitus with hyperglycemia; N18.9 Chronic kidney disease, unspecified; E78.00 Pure hypercholesterolemia, unspecified; D64.9 Anemia, unspecified; Z12.5 Encounter for screening for malignant neoplasm of prostate; I12.9 Hypertensive chronic kidney disease with stage 1 through stage 4 chronic kidney disease, or unspecified chronic kidney disease
CPT/HCPCS: 36415; 80053; 80061; 82043; 82607; 82728; 83036; 83540; 83550; 85025; G0103

== ENCOUNTER 2024-01-11 10:16 | Outpatient (OUT) | payer MEDICARE, SELFPAY ==
--- NOTE | 2024-01-11 10:17 | VEIN_ITS ---
[address] [address] Patient Name: POOJA QUEVEDO MRN: [id number] date: 1945 Sex: M Assigned Patient Location: Current Patient Location: Accession/Order Number: [id number] Exam Date: 01/11/2024 10:17 Report Date: 01/15/2024 07:45 At the request of: JANES BARRERA Procedure: VC US Carotid EXAM: VC US Carotid HISTORY: I65.23 COMPARISON: None. TECHNIQUE: Grayscale, color and Doppler FINDINGS: Right neck: Moderate atherosclerosis with maximal reduction 71% in the mid internal carotid artery Subclavian: 101 cm/s CCA: 93 - 103 cm/s ICA: 101 - 179 cm/s Bulb: 67 cm/s ECA: 75 cm/s Vertebral: 40 cm/s antegrade ICA/CCA ratio: 2.4 Left neck: Mild atherosclerosis Subclavian: 81 cm/s CCA: 83-95 cm/s ICA: 82-108 cm/s Bulb: 73 cm/s ECA: 56 cm/s Vertebral: 60 cm/s antegrade ICA/CCA ratio: 1.1 VEIN/VC US Carotid IMPRESSION: Flow velocities suggests 50-69% flow stenosis in the right internal artery artery although the maximum area of reduction was measured 71% 0-49% flow stenosis left internal carotid artery Electronically authenticated by: JESSIE ALLEN Date: 01/15/2024 07:45
--- NOTE | 2024-01-11 10:18 | VEIN_ITS ---
The [address] [address] Patient Name: POOJA QUEVEDO MRN: [id number] date: 1945 Sex: M Assigned Patient Location: Current Patient Location: Accession/Order Number: [id number] Exam Date: 01/11/2024 10:20 Report Date: 01/15/2024 07:41 At the request of: JANES BARRERA Procedure: VC SEGMENTAL PRESSURES EXAM: VC SEGMENTAL PRESSURES HISTORY: I73.9 COMPARISON: None. FINDINGS: Segmental pressures presented as follows (right, left) in mmHg. Brachial: 145, 149 Upper thigh: Not obtained Lower thigh: Not obtained Calf: 194, 305 DPA: 307, 123 DINKER: 200, 53 1st Toe: 242, 62 OLEG: 2.06, 0.63 TBI: 1.62, 0.42 The ABIs suggests right leg arterial sclerosis and mild left leg arterial occlusive disease The TBI's was elevated on the right suggesting arterial sclerosis, moderate ischemia on the left PVR waveforms: Right leg: Thigh: Not obtained Above knee: Not obtained Below knee: Normal Right ankle: Moderate ischemia Metatarsal: Mild ischemia Left leg: Thigh: Not obtained Above knee: Not obtained Below knee: Moderate ischemia Right ankle: Severe ischemia Metatarsal: Severe ischemia VEIN/VC SEGMENTAL PRESSURES IMPRESSION: Marked arterial atherosclerosis throughout the right leg and in the left calf resulting in elevated OLEG and TBI values No waveforms obtained in the thighs The PVR waveforms suggest mild to moderate right leg ischemia and moderate to severe left leg ischemia Electronically authenticated by: JESSIE ALLEN Date: 01/15/2024 07:41
--- OUTSIDE RECORDS SUMMARY | 2024-01-11 10:28 | XMS_ITS | CCD ---
Author Organization [facility] Care Team Providers Care Development Expert Name Role Phone Nancy, Bipin Unavailable Unavailable Zahler, Bipin Unavailable Unavailable Zahler, Bipin Unavailable Unavailable ROBIN DAWKINS~[phone] UNKNOWN Unavailable Unavailable Nill, Jean-Paul R Unavailable Unavailable Nill, Jea-Npaul R Unavailable Unavailable Nill, Jean-Paul R Unavailable Unavailable ROBIN DAWKINS~[phone] UNKNOWN Unavailable Unavailable Nill, Jean-Paul R Unavailable Unavailable Nill, Jean-Paul R Unavailable Unavailable Nill, Jean-Paul R Unavailable Unavailable ROBIN DAWKINS~[phone] UNKNOWN Unavailable Unavailable RONNY NEWMAN Admitting Unavailable [...] Allergy 11-02-19 19 AOF, Unknown, Unknown Reaction [facility] Repository (4 sources) losartan; Translations: [losartan] Drug Allergy 04-20-20 16 [facility] Repository (1 source) nystatin / triamcinolone; Translations: [Tri-Statin II] Drug Allergy AOF [facility] Repository (4 sources) black walnut pollen extract; Translations: [DOXPHTX-UDE-PDZ REDUCTASE INHIBITORS] Drug Allergy 02-07-[address] [facility] Repository (9 sources) Angiotensin-convert ing enzyme inhibitor agent Drug allergy Unknown [facility] Other (10 sources) Hmg-Coa Reductase Inhibitors (Statins) Propensity to adverse reactions Unknown [facility]XEN Other (12 sources) Simvastatin Drug Allergy 07-26-19 24 Unknown, Unknown Reaction [facility] (10 sources) FELICIA inhibitor use, contraindication Propensity to adverse reactions 10-13-19 17 Comment:advers e rxn/side effects [facility] Localler Other (9 sources) patient allergy list reviewed by nurse or physicia Propensity to adverse reactions 12-13-19 19 Comment:Done KXEN Other (2 sources) Zmuuhdy-RTF-HeY Reductase Inhibitor Allergy to substance 07-26-19 24 Unknown Reaction [facility] (1 source) atorvastatin; Translations: [ATORVASTATIN] Drug Allergy [...] 1:00am Niacin Not-Takin g/PRN Niacin Not-Takin g Sturkie-3 Fatty Acids-Fish Oil (Fish Oil Pearls) 300-400 mg capsule (2 sources) Start: 08-25-2023 take 1 capsule by mouth once daily Sturkie-3 Fatty Acids-Fish Oil (Fish Oil Pearls) 300-400 [...] Coronary arteriosclerosis; Translations: [Atherosclerotic heart disease of [place] coronary artery without angina pectoris] Onset: 06-26-1960 [...] 09-05-2017 Chronic Other aftercare (2 sources) Other intermediate manager (current) drug therapy; Translations: [OTH FDC CURRENT DRUG THERAPY] Onset: 12-21-2021 Episodic Other aftercare (1 source) Long-term current use of drug therapy; Translations: [Other intermediate manager (current) drug therapy] Episodic Other circulatory disease [...] per Dr. Lucero. He verbalized understanding. Normal [facility] Office Visiton 12-20-2023 Follow-up visit [id number] Eloisa Marrufo R 1945 M Date Provider Department Center 06/14/2023 RADHA ESCOBAR FRANCISCO [facility] Family History Problem Relation Age of Onset Heart failure Mother Family Status - Relation Status Age at Mother Level of Service:93633 [facility] OFFICE/OUTPATIENT ESTABLISHED LOW MDM [address] [facility] Office Visiton 12-14-2022 Follow-up visit [id number] Eloisa Marrufo R 1945 M Date Provider Department Center 12/14/2022 TIFFANY WINTER FRANCISCO [facility] Family History Problem Relation Age of Onset Heart failure Mother Family Status - Relation Status Age at Mother Level of Service:21847 [place] OFFICE/OUTPATIENT ESTABLISHED MOD MDM 30-39 MIN Reason for Visit and Comments: Follow-up [390224] - 6 month follow up Normal [facility] US CAROTID ART BILon 023 US [...] RANCHO GLEZ Date: 2022-10-04 16:04 [address] [facility] CBC AUTO DIFFon 12-16-2021 BASO # 0.1 103/ul Normal 0.0-0.[address] [facility] Comment on above: Performed By: #### C BC #### [facility] Laboratory [address] [address] [address] Rui Moore Basophils/100 WBC (Bld) 0.5 % Normal 0.2-2.[address] [facility] Comment on above: Performed By: #### C BC #### [facility] [address] [place] [address] Dr. Rui Moore EO # 0.0 103/ul Normal 0.0-0.[address] [facility] Comment on above: Performed By: #### C BC #### [facility] [address] [place] [address] Dr. Rui Moore Eosinophils/100 WBC (Bld) 0.4 % Critically low 0.9-7.[address] [facility] Comment on above: Performed By: #### C BC #### [facility] [address] [place] [address] Dr. Rui Moore Erythrocyte distribution width (RBC) [Ratio] 13.2 % Normal 11.0-15.0 [facility] Comment on above: Performed By: #### C BC #### [facility] [address] [place] [address] Dr. Rui Moore Hematocrit (Bld) [Volume fraction] 38.1 % Critically low 42.0-54.0 [facility] Comment on above: Performed By: #### C BC #### [facility] [address] [place] [address] Dr. Rui Moore Hemoglobin (Bld) [Mass/Vol] 12.3 g/dL Critically low 14.0-18.0 [facility] Comment on above: Performed By: #### C BC #### [facility] [address] [place] [address] Dr. Rui Moore IG # 0.06 10e3/ul Critically high 0.00-0.[address] [facility] Comment on above: Performed By: #### C BC #### [facility] [address] [place] [address] Dr. Rui Moore IG % 0.5 % Normal 0.0-0.[address] [facility] Comment on above: Performed By: #### C BC #### [facility] [address] [place] [address] Dr. Rui Moore LYMPH # 3.5 103/ul Normal 1.2-3.[address] [facility] Comment on above: Performed By: #### C BC #### [facility] [address] [place] [address] Dr. Rui Moore Lymphocytes/100 WBC (Bld) 31.9 % Normal 20.5-60.[address] [facility] Comment on above: Performed By: #### C BC #### [facility] [address] [place] [address] Dr. Rui Moore MANUAL DIFF REQ NO Normal [facility] Comment on above: Performed By: #### C BC #### [facility] [address] [place] [address] Dr. Rui Moore MCH (RBC) [Entitic mass] 29.9 pg Normal 25.9-34.[address] [facility] Comment on above: Performed By: #### C BC #### [facility] [address] [place] [address] Dr. Rui Moore MCHC (RBC) [Mass/Vol] 32.3 g/dL Normal 29.9-35.[address] [facility] Comment on above: Performed By: #### C BC #### [facility] [address] [place] [address] Dr. Rui Moore MCV (RBC) [Entitic vol] 92.5 fL Normal 80.0-94.[address] [facility] Comment on above: Performed By: #### C BC #### [facility] [address] [place] [address] Dr. Rui Moore MONO # 0.7 103/ul Normal 0.3-0.[address] [facility] Comment on above: Performed By: #### C BC #### [facility] [address] [place] [address] Dr. Rui Moore Monocytes/100 WBC (Bld) 6.6 % Normal 1.7-12.[address] [facility] Comment on above: Performed By: #### C BC #### [facility] [address] [place] [address] Dr. Rui Moore NEUT # 6.6 103/ul Critically high 1.4-6.[address] [facility] Comment on above: Performed By: #### C BC #### [facility] [address] [place] [address] Dr. Rui Moore Neutrophils/100 WBC (Bld) 60.1 % Normal 43.0-75.0 [facility] Comment on above: Performed By: #### C BC #### [facility] [address] [address] [address] Rui Moore Platelet mean volume (Bld) [Entitic vol] 9.3 fL Critically low 9.5-13.[address] [facility] Comment on above: Performed By: #### C BC #### [facility] [address] [address] [address] Rui Moore PLT 307 103/ul Normal 150-[address] [facility] Comment on above: Performed By: #### C BC #### [facility] [address] [address] [address] Rui Moore RBC 4.12 106/ul Critically low 4.70-6.[address] [facility] Comment on above: Performed By: #### C BC #### [facility] [address] [address] [address] Rui Moore WBC 11.0 103/ul Normal 4.0-11.0 [facility] Comment on above: Performed By: #### C BC #### [facility] [address] [address] [address] Rui Moore GLYCOHEMOGLOBIN A1Con 2021 ADA RECOMMENDATION SEE BELOW Normal [facility] Comment on above: Result Comment: ADA RECOMMENDED LIMIT 4.0 - 6.0 ADA THERAPEUTIC TARGET < 7.0 ACTION SUGGESTED > 7.0 Performed By: #### A 1C #### [facility] [address] [address] [address] Rui Moore Glucose [Mass/Vol] 143 mg/dL Normal [facility] Comment on above: Performed By: #### A 1C #### [facility] [address] [address] [address] Rui Moore HbA1c (Bld) [Mass fraction] 6.6 % Critically high 4.5-6.2 [facility] Comment on above: Performed By: #### A 1C #### [facility] [address] [address] [address] Rui Moore LIPID PROFILEon 12-16-2021 CHOL-HDL RATIO NORM SEE BELOW Normal [facility] Comment on above: Result Comment: 3.3 - 4.4 LOW RISK 4.4 - 7.1 AVERAGE RISK 7.1 - 11.0 MODERATE RISK >11.0 HIGH RISK Performed By: #### L IPID, BMP, ALT #### [facility] [address] [address] [address] Rui Moore Cholesterol [Mass/Vol] 109 mg/dL Normal <=200 [facility] Comment on above: Performed By: #### L IPID, BMP, ALT #### [facility] [address] [place] [address] Dr. Rui Moore Cholesterol in HDL [Mass/Vol] 39 mg/dL Critically low 40-60 [facility] Comment on above: Performed By: #### L IPID, BMP, ALT #### [facility] [address] [place] [address] Dr. Rui Moore Cholesterol in LDL [Mass/Vol] 51.6 mg/dL Normal [facility] Comment on above: Performed By: #### L IPID, BMP, ALT #### [facility] [address] [place] [address] Dr. Rui Moore Cholesterol.total/ Cholesterol in HDL [Mass ratio] 2.8 {ratio} Normal [facility] Comment on above: Performed By: #### L IPID, BMP, ALT #### [facility] [address] [place] [address] Dr. Rui Moore HDL NORMAL > or = 60 mg/dl - LO W CARDIOVASCULAR RISK <40 mg/dl - HIGH CARDIOVASCULAR RISK Normal [facility] Comment on above: Performed By: #### L IPID, BMP, ALT #### [facility] [address] [place] [address] Dr. Rui Moore LDL CALC NORMAL SEE BELOW Normal [facility] Comment on above: Result Comment: <100 mg/dl OPTIMAL 100 - 129 mg/dl NEAR OR ABOVE OPTIMAL 130 - 159 mg/dl BORDERLINE HIGH 160 - 189 mg/dl HIGH >190 mg/dl VERY HIGH Performed By: #### L IPID, BMP, ALT #### [facility] [address] [address] [address] Rui Moore Triglyceride [Mass/Vol] 92 mg/dL Normal <=150 [facility] Comment on above: Performed By: #### L IPID, BMP, ALT #### [facility] [address] [address] [address] Rui Moore VLDL CALC 18.4 mg/dL Normal [facility] Comment on above: Performed By: #### L IPID, BMP, ALT #### [facility] [address] [address] [address] Rui Moore MICROALBUMIN, RAND URon 11-25 mALB 8.3 mg/L Normal <=30.0 [facility] Comment on above: Performed By: #### M ALBR #### [facility] [address] [place] [address] Dr. Rui Moore PROF CHEM 8 (BAS METB)on Anion gap [Moles/Vol] 14.6 mmol/L Normal [facility] Comment on above: Performed By: #### L IPID, BMP, ALT #### [facility] [address] [place] [address] Dr. Rui Moore Calcium [Mass/Vol] 9.1 mg/dL Normal 8.5-10.[address] [facility] Comment on above: Performed By: #### L IPID, BMP, ALT #### [facility] [address] [address] [address] Rui Moore Chloride [Moles/Vol] 101 mmol/L Normal 98-[address] [facility] Comment on above: Performed By: #### L IPID, BMP, ALT #### [facility] [address] [place] [address] Dr. Rui Moore CO2 [Moles/Vol] 25.9 mmol/L Normal 21.0-32.[address] [facility] Comment on above: Performed By: #### L IPID, BMP, ALT #### [facility] [address] [place] [address] Dr. Riu Moore Creatinine [Mass/Vol] 1.23 mg/dL Normal 0.70-1.30 [facility] Comment on above: Performed By: #### L IPID, BMP, ALT #### [facility] [address] [address] [address] Rui Moore EGFR-AF WELSH >60 Normal >=60 [facility] Comment on above: Performed By: #### L IPID, BMP, ALT #### [facility] [address] [address] [address] Rui Moore EGFR-NON AF WELSH 57 mL/min/1.73m2 Critically low >=60 [facility] Comment on above: Performed By: #### L IPID, BMP, ALT #### [facility] [address] [place] [address] Dr. Rui Moore Glucose [Mass/Vol] 141 mg/dL Critically high 74-106 [facility] Comment on above: Performed By: #### L IPID, BMP, ALT #### [facility] [address] [place] [address] Dr. Rui Moore Potassium [Moles/Vol] 4.5 mmol/L Normal 3.5-5.1 [facility] Comment on above: Performed By: #### L IPID, BMP, ALT #### [facility] [address] [place] [address] Dr. Rui Moore Sodium [Moles/Vol] 137 mmol/L Normal 136-145 [facility] Comment on above: Performed By: #### L IPID, BMP, ALT #### [facility] [address] [place] [address] Dr. Rui Moore Urea nitrogen [Mass/Vol] 22.0 mg/dL Critically high 7.0-18.0 [facility] Comment on above: Performed By: #### L IPID, BMP, ALT #### [facility] [address] [address] [address] Rui Moore Urea nitrogen/Creatinin e [Mass ratio] 17.9 mg/mg Normal [facility] Comment on above: Performed By: #### L IPID, BMP, ALT #### [facility] [address] [place], [place] [address] Dr. Rui Moore [facility] 12-16-2021 ALT [Catalytic activity/Vol] 42 U/L Normal 16-63 [facility] Comment on above: Performed By: #### L IPID, BMP, ALT #### [facility] [address] [place], [place] [address] Dr. Rui Moore Operative Reporton 8 Operative [...] and symptoms of successfulblockade.Shiva Cronin M.D.glsDictated: 10/02/2017 #[id number]: 10/02/2017 #[id number]: Shiva Cronin M.D. [facility] Comment on above: Result Comment: Elec [...] Problem list: All ProblemsHypertension / SNOMED CT 2096506412 / ConfirmedDiabetes / SNOMED CT 265172954 / ConfirmedUmbilical hernia / SNOMED CT 3325892500 / ConfirmedPeripheral artery disease / SNOMED CT 5012060756 / ConfirmedAcid reflux / SNOMED CT 949305888 / ConfirmedCAD (coronary artery disease) / SNOMED CT 80890385 / ConfirmedResolved: High cholesterol / SNOMED CT 74667963 Histories Past Medical History: No active or resolved past medical history items have been selected or recorded. Procedure history: CEA - Carotid endarterectomy left ([id number]) on 03/09/2016 at 70 Years.Allograft bypass of coronary artery x3 stents ([id number]) on 03/09/2016 at 70 Years.Comments:09/19/2017 16:41 - Herman MEEHAN, Elenwith left mammary artery , graft to the LAD and left radial artery graft to the OM1 and SVG to PDAColonoscopy ([id number]) on 12/31/2014 at 69 Years.Entire RCA - Right coronary artery stent ([id number]) on 02/10/2012 at 66 Years.History of subdural hematoma (1337596202) on 08/03/2010 at 64 Years.Cataract b/l (807765463).Femoral-popliteal artery bypass graft right and left ([id number]).Comments: 16:39 - Elen Sutton RN2012/2012stents / 12/13// 10/21/2005/ 12/22/2007. Social History Social & Psychosocial QygsmqKcylojq76/27/2018 Risk Assessment: High Risk09/19/2017 Use: Current Type: Beer Frequency: 3-5 times per weekSubstance Abuse09/19/2017 Risk Assessment: Denies Substance OanomDkjkdpe03/27/2018 Risk Assessment: Denies Tobacco Use09/19/2017 Type: Cigarettes [...] Auto 63.5 % Lymph Auto 25.9 % Nobles Auto 8.1 % Eos Auto 1.4 % Basophil Auto 1.1 % Neutro Absolute 5.9 E9/L Lymph Absolute 2.4 E9/L Nobles Absolute 0.7 E9/L Eos Absolute 0.1 E9/L [...] on September 19, 2017 13:33 EDTEncounter info: [id number], [facility], Outpatient, 09/19/2017 - 09/19/2017 Radiology results ECG interpretation: SINUS RHYTHM. Plan [place] [employer] Anesthesiologists (ASA) physical status classification: [...] allergic reactions, failed block and .. Normal [facility] Comment on above: Result Comment: Elec [...] Problem list: All ProblemsHypertension / SNOMED CT 2039577989 / ConfirmedDiabetes / SNOMED CT 380844763 / ConfirmedUmbilical hernia / SNOMED CT 1749737611 / ConfirmedPeripheral artery disease / SNOMED CT 3628266684 / ConfirmedAcid reflux / SNOMED CT 758251030 / ConfirmedCAD (coronary artery disease) / SNOMED CT 26029446 / ConfirmedResolved: High cholesterol / SNOMED CT 82267451 Physical Examination Intake and Output adequate hydration [...] discharged from anesthesia care. Condition stable. 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 Z95.820 Peripheral vascular angioplasty status with implants and grafts Z87.891 Personal history of nicotine dependence PYMT PROC APC STAT DESCRIPTION DOCTOR NAME DATE [id number] J1 Laparoscopy, surgical, Jean-Paul Roberts MD 10/02/2017 repair, ventral, umbilical, spigelian or epigastric hernia (includes mesh insertion, when performed); incarcerated or strangulated 79694 Anesthesia for hernia Jean-Paul Roberts MD 10/02/2017 repairs in lower abdomen; not otherwise specified 05082 Transversus abdominis Shiva Cronin MD 10/02/2017 plane [...] Revised Date Saved: 10/03/2017 10:41 am Normal [facility] Main OR Intraoperative Recor oswaldo 10-03-2017 Main OR Intraoperative Record IntraOp Document Type FT Summary Primary Physician: Jean-Paul Roberts MD Finalized Date/Time: 10/03/17 10:03:38 Pt. Name: CHANO MARRUFO/Sex: 1945 Male Med Rec #: [id number] Physician: Jean-Paul Roberts MD Financial #: [id number] Pt. 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 Case Attendance FT Entry 1 Entry 2 Entry 3 Case Attendee Mehrdad GALE, Shiva Roberst MD, Jean-Paul Dixon, RN Rajwinder Watson Role Performed Anesthesiologist of Surgeon - Primary FUR BUYER Record Time In 10/02/17 08:51:00 10/02/17 08:51:00 10/02/17 08:51:00 Time Out 10/02/17 11:22:00 10/02/17 11:22:00 10/02/17 11:22:00 Procedure HERNIA REPAIR, ROBOT HERNIA REPAIR, ROBOT HERNIA REPAIR, ROBOT ASSISTED(.) ASSISTED(.) ASSISTED(.) Comments Last Modified By: Anurag MEEHAN, Bia Osborn RN, Bia Bryant RN 10/02/17 11:25:55 10/02/17 11:25:55 10/02/17 11:25:55 Entry 4 Entry 5 Case Attendee Anurag MEEHAN, Bia Baker CST/Sushma LEACH Role Performed Salesperson Handbags - Primary Scrub - Primary Time In 10/02/17 08:51:00 10/02/17 08:51:00 Time Out 10/02/17 11:22:00 10/02/17 11:22:00 Procedure HERNIA REPAIR, ROBOT HERNIA REPAIR, ROBOT ASSISTED(.) ASSISTED(.) Comments Last Modified By: Anurag MEEHAN, Bia Osborn RN, Bia Campbell 10/02/17 11:25:55 10/02/17 11:25:55 General Comments: SKIP SINGH REP PRESENT FOR PROCEDURE. Jonh RAE RNoperations intern Protocols FT Pre-Care Text: Implements protective measures [...] Braden, SHEFALI Watson, Anurag MEEHAN, Olivia Rios RN TELEMETRY/SA, Sushma Time Out Complete 10/02/17 09:27:00 Outcomes [...] and tissue Entry 1 Skin Integrity Intact, Gering, Warm, and Skin Abnormality Yes Dry, Bruised [...] Nichole C, Barney MD, Armando Shannon MD, Armadno Braden MD, Jean-Paul Fritz Outcomes Met? Yes [...] Met? Yes Yes Yes Last Modified By: Wilson RN, Bia A WilsonBia palmer RN, RN, Emily A 10/02/17 07:39:31 [...] RN, Sharp Coy RN, Emily A, Sharp RN TELEMETRY/SA, Sushma RN TELEMETRY/SA, Sushma Outcomes Met? Yes Yes Last Modified [...] RN Patient Status Stable Skin. Condition Intact, Gering, Warm, and Description UNCHANGED FROM Dry, Bruised PREVIOUSLY Airway Maintenance Oxygen in Use? Yes Airway Device Simple Mask Flow Rate 8 L/min Outcomes Met? Yes Last Modified By: Bia Osborn RN 10/02/17 11:31:29 Post-Care Text: The patient is free from signs and symptoms of injury related to transfer/transport General Comments: REPORT GIVEN TO FAMILY SERVICE ASSISTANTRN. Jonh RAE RN Dressing/Packing FT Pre-Care Text: [...] safely administered during the perioperative period For [place] please see scanned medication reconcilliation form for medications used at the field during the procedure. Implant Log FT Pre-Care Text: Records devices implanted during the operative or invasive procedure Entry 1 Implant/Explant Implant Implant Identification Description MESH STEX ROUND 9CM Lot Number [id number] (3.6 ) [SYM9][F] Door Hanger [facility] [employer] [facility] Catalog ?# SYM9 [F] Size 9CM Expiration [...] Type TUBE NASOGASTIC SUMP Location MOUTH 18FR [[id number]][F] Quantity 1 Fluid SCANT AMOUNT BLOOD Characteristics [...] Present Upon Arrival No Inserted LF 16FR [[id number]][F] Insertion Date/Time 10/02/17 09:05:00 Urine Residual 100 [...] BLANKET MISTRAL AIR Quantity 1 Aid TORSO [[id number]][F] Fluid/Hustler Unit Mistral warming system Setting HIGH/43 Body Site Upper anterior torso Last Modified By: Bia Osborn RN 10/02/17 09:49:45 Case Comments Finalized By: Kassy Mathews CST Document Signatures Signed By: Bia Osborn RN 10/02/17 11:26 Bia Osborn RN 10/02/17 11:27 Bia Osborn RN 10/02/17 11:29 Bia Osborn RN 10/02/17 11:31 Kassy Mathews CST 10/03/17 10:03 Normal [facility] History and Physicalon 10-02 History and Physical Patient: CHANO MARRUFO Age: 72 years Sex: Male : 1945 Associated Diagnoses: None Author: Jean-Paul Roberts MD Subjective no changes to H & P Normal [facility] Comment on above: Result Comment: Elec [...] up:With: Address: When: Jean-Paul [place] [address] Business (1) Within 7 to 10 days MEDICATION LISTFill New Prescriptions:acetaminophen-h ydrocodone (acetaminophen-hydrocodone 325 mg-5 mg oral tablet) 1 tab(s) By Mouth every 4 hours as needed for Pain not to exceed 8 tablets/day take with food or milkComment: Araceli [facility] Main OR PACU I Recordon Main OR PACU I Record PACU Phase I Document Type FT Summary Primary Physician: Jean-Paul Roberts MD Finalized Date/Time: 10/02/17 12:01:59 Pt. Name: CHANO MARRUFO Lam Coker./Sex: 1945 Male Med Rec #: [id number] Physician: Jean-Paul Roberts MD Financial #: [id number] Pt. Type: A Room/Bed: [facility] Admit/Disch: 10/02/17 06:11:42 - Institution: Case Times [...] I Outcomes Met? Yes Last Modified By: Kole MEEHAN, Cinthia Foster 10/02/17 12:01:48 Post-Care Text: [...] By: Cinthia Sharif RN 10/02/17 12:01 Normal [facility] Main OR Preoperative Recordo n 10-02-2017 Main OR Preoperative Record PreOp Document Type FT Summary Primary Physician: Jean-Paul Roberts MD Finalized Date/Time: 10/02/17 09:50:16 Pt. Name: CHANO MARRUFO Lam /Sex: 1945 Male Med Rec #: [id number] Physician: Jean-Paul Roberts MD Financial #: [id number] Pt. Type: Room/Bed: [place] [address] Admit/Disch: 10/02/17 06:11:42 - Institution: Case Times [...] By: Bia Osborn RN 10/02/17 09:50 Normal [facility] Operative Reporton 8 Operative Report Date of [...] [facility] noted to be [facility] [...] visualization. Once this wascomplete, the last needle superintendent drivers was brought out through the #1 arm. Therobot was then docked. I then scrubbed back into the field and examinedthe repair. It was noted to be intact. There was no evidence of bleeding.All port sites were examined upon withdrawal of the ports. There was notedto be good hemostasis. The fascia from the right subcostal incision wasthen closed with a 0 Vicryl [id number] suture. All port sites wereinfiltrated with the [...] Room in good condition.Jean-Paul Roberts M.D.glsDictated: 10/02/2017 #[id number]: 10/02/2017 #[id number]: Cherie Newby M.D. Normal [facility] Comment on above: Result Comment: Elec tronically Signed By: Armando GALE, Jean-Paul Mcknightbr\Date and Time Signed: 10/02/17 13:56 EDT UA With Cult Reflexon 2017 Bilirubin Ql (U) Negative Normal Negative [facility] Comment on above: Performed By: #### 1 [id number] ####[place] [address] COLOR:TYPE:PT:URIN E:NOM:AUTO STRAW Abnormal Yellow [facility] Comment on above: Performed By: #### 1 [id number] ####[place] [address] Erythrocytes (RBC) 0-3 Normal 0-3 [facility] Comment on above: Performed By: #### 1 [id number] ####[place] [id number] GLUCOSE:MCNC:PT:UR INE:QN:TEST STRIP Negative Normal Negative [facility] Comment on above: Performed By: #### 1 [id number] ####[place] [address]57 KETONES:MCNC:PT:UR INE:QN:TEST STRIP Negative Normal Negative [facility] Comment on above: Performed By: #### 1 [id number] ####[facility] [address] [address] LEUKOCYTES:PRTHR:P T:URINE:ORD:AUTOMA JAMESON Negative Normal Negative [facility] Comment on above: Performed By: #### 1 [id number] ####[facility] [address] [place] [address] UA Spec Desc Pinedo Normal [facility] Comment on above: Performed By: #### 1 [id number] ####[address] [address] Urine, clarity CLEAR Normal Clear [facility] Comment on above: Performed By: #### 1 [id number] ####[address] [address] Urine, hemoglobin presence Negative Normal Negative [facility] Comment on above: Performed By: #### 1 8742214 ####[address] [address] Urine, leukocytes in sedmiment 0-5 Normal 0-5 [facility] Comment on above: Performed By: #### 1 8345112 ####[address] [address] Urine, nitrite presence Negative Normal Negative [facility] Comment on above: Performed By: #### 1 [id number] ####[address] [address] Urine, pH 6.5 [pH] Invalid Interpretation Code 5.0-9.0 [facility] Comment on above: Performed By: #### 1 [id number] ####[address] [address] Urine, protein Negative Normal Negative [facility] Comment on above: Performed By: #### 1 [id number] ####[address] [address] Urine, specific gravity <=1.005 Invalid Interpretation Code 1.005-1.030 [facility] Comment on above: Performed By: #### 1 [id number] ####[address] [address] Urine, squamous cells in sediment 0-2 Normal 0-2 [facility] Comment on above: Performed By: #### 1 [id number] ####[place] [address] [place] [address] Urine, urobilinogen 0.2 {Aleja'U}/dL Normal 0.0-1.0 [facility] Comment on above: Performed By: #### 1 8970328 ####[address] [address] Coding Summary.on 09-20-2017 Coding Summary. CODING DATE: 018 FINAL [facility] STATUS: Home (Routine DC) PAYOR: [...] [place]co Date Saved: 09/20/2017 11:31 am Normal [facility] Auto Diffon 09-19-2017 Basophils Auto #/vol (Bld) 0.1 E9/L Normal 0.0-0.2 [facility] Comment on above: Order Comment: Order Added by Discern Expert. Performed By: #### 2 017869, 9784257, 0293031, 94200036 ####[facility] [address] [place] [address] Basophils Auto #/vol (Bld) 1.1 % Normal 0.0-2.0 [facility] Comment on above: Order Comment: Order Added by Discern Expert. Performed By: #### 2 737226, 7103233, 3470059, 22309855 ####[facility] [address] [place] [address] Eosinophils 0.1 E9/L Normal 0.0-0.5 [facility] Comment on above: Order Comment: Order Added by Discern Expert. Performed By: #### 2 204300, 5759378, 3612804, 31320910 ####[facility] [address] [place] [address] Eosinophils/100 leukocytes 1.4 % Normal 0.0-8.0 [facility] Comment on above: Order Comment: Order Added by Mike Expert. Performed By: #### 2 375318, 1459191, 9092606, 44981899 ####[place] [address] [place] [address] Lymphocytes 2.4 E9/L Normal 1.0-4.0 [facility] Comment on above: Order Comment: Order Added by Mike Expert. Performed By: #### 2 777656, 4833702, 0101429, 60583305 ####[address] [address] Lymphocytes/100 leukocytes 25.9 % Normal 14.0-50.0 [facility] Comment on above: Order Comment: Order Added by Mike Expert. Performed By: #### 2 747304, 9723550, 4388329, 20472595 ####[facility] [address] [place] [address] Monocytes 0.7 E9/L Normal 0.2-1.0 [facility] Comment on above: Order Comment: Order Added by Mike Expert. Performed By: #### 2 409223, 9750725, 5123249, 28284712 ####[facility] [address] [place] [address] Monocytes/100 leukocytes 8.1 % Normal 4.0-14.0 [facility] Comment on above: Order Comment: Order Added by Mike Expert. Performed By: #### 2 126502, 5927357, 3590968, 99936194 ####[facility] [address] [place] [address] Neutrophils 5.9 E9/L Normal 2.0-7.5 [facility] Comment on above: Order Comment: Order Added by Mike Expert. Performed By: #### 2 438405, 1870890, 2027403, 62865042 ####[place] [address] [place] [address] Neutrophils/100 leukocytes 63.5 % Normal 36.0-75.0 [facility] Comment on above: Order Comment: Order Added by Discern Expert. Performed By: #### 2 633375, 9537872, 2055793, 72826030 ####[address] [address] CBC w/ Auto Diffon 8 Erythrocyte distribution width Auto Ratio (RBC) 13.7 % Normal 10.9-14.2 [facility] Comment on above: Performed By: #### 2 997958, 8536397, 5160631, 90728741 ####[address] [address] Erythrocytes (RBC) 4.3 E12/L Normal 4.3-5.9 [facility] Comment on above: Performed By: #### 2 846263, 9503252, 2036754, 89684849 ####[address] [address] Hematocrit (HCT) 40.0 % Normal 37.7-49.0 [facility] Comment on above: Performed By: #### 2 513439, 4927529, 1973740, 70509685 ####[place] [address] [place] [address] Hemoglobin mass conc (Bld) 13.9 g/dL Normal 13.5-17.5 [facility] Comment on above: Performed By: #### 2 482914, 3666514, 7964904, 82428887 ####[place] [address] [place] [address] MCH 32.3 pg Normal 27.0-34.0 [facility] Comment on above: Performed By: #### 2 109968, 3243441, 3093033, 89107404 ####[place] [address] [place] [address] MCHC mass conc (RBC) 34.9 g/dL Normal 31.4-39.3 [facility] Comment on above: Performed By: #### 2 999055, 0839802, 3771318, 33103840 ####[facility] [address] [place] [address] MCV 92.8 fL Normal 80.0-100.0 [facility] Comment on above: Performed By: #### 2 847811, 5516915, 1872278, 97924537 ####[address] [address] Platelet mean volume (PMV) 8.4 fL Normal 6.4-10.8 [facility] Comment on above: Performed By: #### 2 957643, 7938598, 9001877, 99228568 ####[address] [address] Platelets 311.0 E9/L Normal 150.0-500.0 [facility] Comment on above: Performed By: #### 2 486740, 4049920, 3575347, 01440581 ####[address] [address] WBC (Leukocytes) 9.3 E9/L Normal 4.0-11.0 [facility] Comment on above: Performed By: #### 2 551636, 4204548, 7164996, 28829069 ####[address] [address] CMPon 09-19-2017 Alanine aminotransferase (ALT) 39 Int._Unit/L Normal 6-46 [facility] Comment on above: Performed By: #### 2 950347, 1026468, 8580365, 73489775 ####[address] [address] Albumin 4.1 g/dL Normal 3.3-5.0 [facility] Comment on above: Performed By: #### 2 335147, 2085473, 1660491, 77721044 ####[address] [place] [address] Albumin 1.1 g/dL Normal 1.1-2.2 [facility] Comment on above: Performed By: #### 2 420691, 8928969, 6652121, 19887733 ####[facility] [address] [place] [address] Alkaline phosphatase (ALP) 66 Int._Unit/L Normal 21-98 [facility] Comment on above: Performed By: #### 2 493176, 7212336, 5724120, 56802626 ####[facility] [address] [place] [address] Anion gap 12 mmol/L Normal 6-16 [facility] Comment on above: Performed By: #### 2 289259, 3269655, 4194138, 67946601 ####[place] [address] [place] [address] Aspartate aminotransferase (AST) 28 Int._Unit/L Normal 5-43 [facility] Comment on above: Performed By: #### 2 319904, 7769014, 1707501, 75870396 ####[address] [address] Bilirubin (total) 0.8 mg/dL Normal 0.0-1.1 [facility] Comment on above: Performed By: #### 2 933981, 9929142, 4775487, 31006046 ####[facility] [address] [place] [address] BUN/Creatinine Ratio 19 No Units Normal 10-20 [facility] Comment on above: Performed By: #### 2 481267, 1302317, 8660703, 32548518 ####[facility] [address] [place] [address] Calcium 9.1 mg/dL Normal 8.9-11.1 [facility] Comment on above: Performed By: #### 2 164703, 2954070, 0025895, 44973067 ####[facility] [address] [place] [address] Chloride 96 mmol/L Low 101-111 [facility] Comment on above: Performed By: #### 2 867273, 5132379, 5963896, 85664113 ####[facility] [address] [place] [address] CO2 29 mmol/L Normal 21-31 [facility] Comment on above: Performed By: #### 2 671983, 8359088, 2643381, 42947587 ####[facility] [address] [place] [address] Creatinine 1.1 mg/dL Normal 0.5-1.3 [facility] Comment on above: Performed By: #### 2 938687, 9877575, 2444537, 18278437 ####[facility] [address] [place] [address] Globulin 3.6 g/dL Normal 1.4-4.0 [facility] Comment on above: Performed By: #### 2 724032, 6929348, 2021664, 87477032 ####[facility] [address] [place] [address] Glucose mass conc 157 mg/dL Normal 55-199 [facility] Comment on above: Result Comment: If t his glucose result represents a fasting glucose, interpretation should refer to the following reference range: 55-99 mg/dL Performed By: #### 2 851815, 6149027, 8623823, 03521781 ####[facility] [address] [place] [address] Potassium molar conc 3.9 mmol/L Normal 3.5-5.3 [facility] Comment on above: Performed By: #### 2 542788, 7171713, 5668401, 24480380 ####[facility] [address] [place] [address] Protein 7.7 g/dL Normal 6.0-7.8 [facility] Comment on above: Performed By: #### 2 292460, 3587257, 3718835, 83207184 ####[facility] [address] [place] [address] Sodium 133 mmol/L Low 135-145 [facility] Comment on above: Performed By: #### 2 677401, 2400879, 4617105, 18105430 ####[facility] [address] [place] [address] Urea nitrogen 21 mg/dL Normal 5-21 [facility] Comment on above: Performed By: #### 2 839205, 8406980, 3002741, 90624081 ####[facility] [address] [place] [address] XR Chest 2 Viewson 8 XR Chest [...] M.D. Transcribed by: LOREN Technologist: IRENA Normal [facility] eGFRon 09-19-2017 eGFR (black) mL/min/{1.73_m2} Normal >=59 [facility] Comment on above: Order Comment: Order added by Discern Expert. Result Comment: eGFR is race adjusted. AA=. Performed By: #### 2 941650, 9546512, 1211533, 55627015 ####[facility] [address] [place] [address] eGFR (non-black) mL/min/{1.73_m2} Normal >=59 [facility] Comment on above: Order Comment: Order added by Discern Expert. Result Comment: Awning Erector chris kidney disease could be indicated at eGFR's of less than 60 mL/min/1.73m2. Kidney failure is indicated at less than 15 mL/min/1.73m2. Performed By: #### 2 796226, 0219873, 1134307, 49045483 ####[facility] [address] [place] [address] Coding Summary.on 04-19-2017 Coding Summary. CODING DATE: 017 [facility] STATUS: Home (Routine DC) PAYOR: [...] Leyva Date Saved: 04/19/2017 03:05 pm Normal [facility] Vital Signs Date Time Vital Sign Value Performing Clinician Facility 12-19-2023 09:120400 Body height 187.96 cm [facility] 12-19-2023 09:120400 Body mass index (BMI) [Ratio] 28.6 kg/m2 [facility] 12-19-2023 09:12-0400 Body weight 101.26 kg [facility] 12-19-2023 09:12-0400 Diastolic blood pressure 66 mm[Hg] [facility] 12-19-2023 09:12-0400 Heart rate 60 /min [facility] 12-19-2023 09:12-0400 Respiratory rate 12 /min [facility] 12-19-2023 09:12-0400 Systolic blood pressure 127 mm[Hg] [facility] 07-26-2023 08:30-0500 Body height 187.96 cm Robin Ball Other [facility] 07-26-2023 08:30-0500 Body mass index (BMI) [Ratio] 29.04 kg/m2 Robin Ball Other [facility] Other 07-26-2023 08:30-0500 Body weight 102.6 kg Robin Ball Other [facility] 07-26-2023 08:30-0500 Diastolic blood pressure 67 mm[Hg] Robin Ball Other [facility] 07-26-2023 08:30-0500 Respiratory rate 12 /min Robin Ball Other [facility] Other 07-26-2023 08:30-0500 Systolic blood pressure 122 mm[Hg] Robin Ball Other [facility] 04-20-2023 08:30-0400 Body height 187.96 cm Robin Ball Other [facility] Other 04-20-2023 08:30-0400 Body mass index (BMI) [Ratio] 29.3 kg/m2 Robin Ball Other [facility] [employer] Other 04-20-2023 08:30-0400 Body weight 103.51 kg Robin Ball Other [facility] [employer] Other 04-20-2023 08:30-0400 Diastolic blood pressure 66 mm[Hg] Robin Ball Other [facility] Other 04-20-2023 08:30-0400 Respiratory rate 12 /min Robin Ball Other [facility] Other 04-20-2023 08:30-0400 Systolic blood pressure 124 mm[Hg] Robin Ball Other [facility] Other 12-15-2022 08:30-0400 Body height 187.96 cm Robin Ball Other [facility] Other 12-15-2022 08:30-0400 Body mass index (BMI) [Ratio] 29.76 kg/m2 Robin Ball Other [facility] Other 12-15-2022 08:30-0400 Body weight 105.14 kg Robin Ball Other [facility] Other 12-15-2022 08:30-0400 Diastolic blood pressure 71 mm[Hg] Robin Ball Other [facility] Other 12-15-2022 08:30-0400 Respiratory rate 12 /min Robin Ball Other [facility] Other 12-15-2022 08:30-0400 Systolic blood pressure 127 mm[Hg] Robin Ball Other [facility] Other 11-22-2022 13:45-0400 Body height 187.96 cm Robin Ball Other [facility] Other 11-22-2022 13:45-0400 Body mass index (BMI) [Ratio] 29.94 kg/m2 Robin Ball Other [facility] Other 11-22-2022 13:45-0400 Body weight 105.78 kg Robin Ball Other [facility] Other 11-22-2022 13:45-0400 Diastolic blood pressure 64 mm[Hg] Robin Ball Other [facility] Other 11-22-2022 13:45-0400 Respiratory rate 12 /min Robin Ball Other [facility] Other 11-22-2022 13:45-0400 Systolic blood pressure 115 mm[Hg] Robin Ball Other [facility] Other 09-21-2022 09:30-0400 Body height 187.96 cm Robin Ball Other [facility] Other 09-21-2022 09:30-0400 Body mass index (BMI) [Ratio] 31.17 kg/m2 Robin Ball Other [facility] Other 09-21-2022 09:30-0400 Body weight 110.13 kg Robin Ball Other [facility] Other 09-21-2022 09:30-0400 Diastolic blood pressure 68 mm[Hg] Robin Ball Other [facility] Other 09-21-2022 09:30-0400 Respiratory rate 12 /min Robin Ball Other [facility] Other 09-21-2022 09:30-0400 Systolic blood pressure 130 mm[Hg] Robin Ball Other [facility] Other Encounters Encounter Date Encounter Type Care Provider Facility Start: 12-19-2023 End: 12-19-2023 ambulatory [facility] Work Phone: Start: 12-19-2023 End: 12-19-2023 Patient encounter procedure [facility] Work Phone: Start: 10-05-2023 End: 10-05-2023 ambulatory [facility] Start: 09-07-2023 End: 09-07-2023 ambulatory [facility] Work Phone: Start: 09-07-2023 End: 09-07-2023 Patient encounter procedure [facility] Work Phone: Start: 08-25-2023 End: 08-25-2023 Patient encounter procedure [facility] Work Phone: Start: 07-26-2023 End: 07-26-2023 ambulatory Robin Ball Other [facility] Other Start: 07-26-2023 Office outpatient vi sit 25 minutes Robin Ball [facility] Start: 07-26-2023 End: 07-26-2023 Patient encounter procedure [facility]- Start: 07-19-2023 End: 07-19-2023 ambulatory Robin Ball Other [facility] Other Start: 07-19-2023 Telephone encounter Robin Ball [facility] Start: 06-14-2023 End: 06-14-2023 ambulatory [facility] Start: 04-21-2023 End: 04-21-2023 ambulatory Robin Ball Other [facility] Other Start: 04-21-2023 Telephone encounter Robin Ball [facility] Start: 04-20-2023 End: 04-20-2023 ambulatory Robin Ball Other [facility] Other Start: 04-20-2023 Office outpatient vi sit 25 minutes Robin Ball [facility] Start: 04-12-2023 End: 04-12-2023 ambulatory Robin Ball Other [facility] Other Start: 04-12-2023 Telephone encounter Robin Ball [facility] Start: 04-07-2023 End: 04-07-2023 ambulatory Robin Ball Other [facility] Other Start: 04-07-2023 Telephone encounter Robin Ball [facility] Start: 02-06-2023 End: 02-06-2023 ambulatory Robin Ball Other [facility] Other Start: 02-06-2023 Telephone encounter Robin Dawkins [facility] Start: 12-20-2022 End: 12-20-2022 ambulatory Robin Dawkins Other [facility] Other Start: 12-20-2022 Telephone encounter Robin Dawkins [facility] Start: 12-15-2022 End: 12-15-2022 ambulatory Robin Dawkins Other [facility] Other Start: 12-15-2022 Patient encounter procedure Robin Dawkins [facility] Start: 12-14-2022 End: 12-14-2022 ambulatory [facility] Start: 11-22-2022 End: 11-22-2022 ambulatory Robin Dawkins Other [facility] Other Start: 11-22-2022 Office outpatient vi sit 15 minutes Robin Ball [facility] Start: 11-22-2022 Telephone encounter Robin Dawkins [facility] Start: 10-31-2022 End: 10-31-2022 ambulatory Robin Dawkins Other [facility] Other Start: 10-31-2022 Office outpatient vi sit 15 minutes Robin Ball [facility] Start: 10-04-2022 End: 10-05-[address] MAE MCCORMICK [facility] Other Start: 10-04-2022 Telephone encounter Robin Dawkins [facility] Start: 09-21-2022 End: 09-21-2022 ambulatory Robin Dawkins Other [facility] Other Start: 09-21-2022 Office outpatient vi sit 25 minutes Robin Ball [facility] Start: 03-30-2022 End: 03-31-[address] MAE MCCORMICK Facility:[facility] Start: 12-16-2021 End: 12-17-[address] ROBIN DAWKINS Facility:[facility] Start: 12-06-2021 Adult health examination Robin Dawkins Other [facility] Other Start: 10-03-2018 End: 10-04-2018 Patient encounter procedure RONNY NEWMAN Facility:[facility] Start: 10-02-2017 End: 10-02-2017 Ambulatory Jean-Paul Roberts Facility[facility] Start: 09-19-2017 End: 09-20-2017 Ambulatory Jean-Paul Roberts Facility:[facility] Start: 04-18-2017 End: 04-18-2017 Ambulatory Bipin Cruz Facility:[facility] Procedures Date Procedure Procedure Detail Performing Clinician Start: 12-16-[address] JOVANY TIWARI JESE Comment on above: Performed By: #### P [facility] #### [facility] [address] [place] [address] Dr. Rui Moore Start: 06-09-2016 Removal of [...] lic 2000 panel - Serum or Plasma [facility] enter Microalbumin [Mass/volume] in Urine [facility] Immunizations Immunization Date Immunization Notes Care Provider Karyn messina 11-16-2022 tetanus and diphther ia toxoids, adsorbed, preservative free, for adult use (5 Lf of tetanus toxoid and 2 Lf of diphtheria toxoid) [facility] 11-16-2022 tetanus toxoid, redu suzy diphtheria toxoid, and acellular pertussis vaccine, adsorbed Robin Dawkins Other [facility] Other 04-06-2022 influenza virus vaccine, unspecified formulation [facility] 04-06-2022 influenza, high dose seasonal, preservative-free Robin Dawkins Other [facility] Other 03-17-2022 COVID-19 Pfizer (bivalent) Robin Dawkins Other [facility] 10-06-2021 COVID-19 Vaccine Pfi zer - Documentation Purposes Only Robin Dawkins Other [facility] 03-31-2021 COVID-19 Vaccine Pfi zer - Documentation Purposes Only Robin Dawkins Other [facility] 09-28-2020 COVID-19 Vaccine Pfi zer - Documentation Purposes Only Robin Dawkins Other [facility] 09-01-2020 COVID-19 Vaccine Pfi zer - Documentation Purposes Only Robin Dawkins Other [facility] 04-01-2020 influenza virus vaccine, split virus (incl. purified surface antigen) Robin Dawkins Other [facility] Other 04-01-2020 influenza virus vaccine, unspecified formulation [facility] 04-18-2019 influenza virus vaccine, split virus (incl. purified surface antigen) Robin Dawkins Other [facility] Other 04-18-2019 influenza virus vaccine, unspecified formulation [facility] 04-12-2018 influenza virus vaccine, split virus (incl. purified surface antigen) Robin Dawkins Other [facility] Other 04-12-2018 influenza virus vaccine, unspecified formulation [facility] 05-11-2017 influenza virus vaccine, split virus (incl. purified surface antigen) Robin Dawkins Other [facility] Other 05-11-2017 influenza virus vaccine, unspecified formulation [facility] 04-04-2016 influenza virus vaccine, split virus (incl. purified surface antigen) Robin Dawkins Other [facility] Other 04-04-2016 influenza virus vaccine, unspecified formulation [facility] 04-16-2015 influenza virus vaccine, split virus (incl. purified surface antigen) Robin Dawkins Other [facility] Other 04-16-2015 influenza virus vaccine, unspecified formulation [facility] 04-16-2015 pneumococcal conjuga te vaccine, 13 valent Robin Dawkins Other [facility] [facility] 01-24-2015 zoster vaccine, live Benjeladia Dawkins Other [facility] 12-30-2013 pneumococcal polysaccharide vaccine, 23 valent Robin Dawkins Other [facility] 04-04-2013 pneumococcal conjuga te vaccine, 13 valent Robin Dawkins Other [facility] 04-03-2013 tetanus and diphther ia toxoids, adsorbed, preservative free, for adult use (5 Lf of tetanus toxoid and 2 Lf of diphtheria toxoid) Robin Dawkins Other [facility] 03-08-2012 tetanus and diphther ia toxoids, adsorbed, preservative free, for adult use (5 Lf of tetanus toxoid and 2 Lf of diphtheria toxoid) Robin Dawkins Other [facility] 09-29-2010 diphtheria, tetanus toxoids and acellular pertussis vaccine, unspecified formulation Robin Dawkins Other [facility] 04-28-2010 pneumococcal polysaccharide vaccine, 23 valent Robin Dawkins Other [facility] Payers Date Payer Category Payer Medicare [id number] 1960 Medicare [id number] 2.1 [id number] 1960 Unknown [id number] 1945 Unknown [id number] 2.16.8 [id number] 1945 Unknown [id number] 2.16.84 [id number] 1944 Unknown [id number] 2.16.84 [id number] 1944 Unknown [id number] 2.16.84 [id number] 1944 Unknown [id number] 2.16.8 [id number] Social History Date Type Detail Facility Sex Assigned At [facility] Localler Other Start: [facility]20[facility] Start: 1945 Sex Assigned At Male F [facility] Medical Equipment Procedure Code Equipment Code Equipment [...] Z87.39) No acute flares Reviewed diet restrictions [facility] Other 01-24-2024 Evaluation note* Encounter Date Diagnosis Assessment Notes Treatment Notes Treatment Clinical Notes Jun, Anemia, unspecified type (ICD-10 - D64.9) [facility] Other 01-24-2024 Evaluation note* Encounter Date Diagnosis Assessment Notes Treatment Notes Treatment Clinical Notes Jun, Type 2 diabetes mellitus with hyperglycemia, without long-term current use of insulin (ICD-10 - E11.65) [facility] Other 12-20-2023 [facility] Subjective Chano Marrufo is a 77 [...] he was admitted to the [facility] with COVID-19. He developed atrial fibrillation. He [...] Judgment: Judgment normal. Allergies Allergies Allergen Reactions Ngmlokz-Okz-Nce Reductase Inhibitors Other Lisinopril Losartan Medications Current [...] metFORMIN (Glucophage) 500 m (more content not included)...[facility]10-26-2023 Evaluation note* Encounter Date Diagnosis Assessment Notes Treatment Notes Treatment Clinical Notes Mar, ASHD (arteriosclerot ic heart disease) (ICD-10 - I25.10) Mar, Type 2 diabetes mellitus with hyperglycemia, without long-term current use of insulin (ICD-10 - E11.65) Mar, Atherosclerosis of [place] artery of both lower extremities with intermittent [...] Mar, Other chronic pain (ICD-10 - G89.29) [facility] Other 10-26-2023 Evaluation note* Encounter Date Diagnosis [...] exam and Foot exam Mar, Atherosclerosis of [place] artery of both lower extremities with intermittent [...] No acute attacks present at this time. [facility] Other 10-13-2023 Evaluation note* Encounter Date Diagnosis Assessment Notes Treatment Notes Treatment Clinical Notes Mar, Anemia, unspecified type (ICD-10 - D64.9) [facility] Other 06-22-2023 Evaluation note* Encounter Date Diagnosis [...] Nov, Hx of gout (ICD-10 - Z87.39) [facility] Other 06-21-2023 NoteRCRI- 3 points Class IV Risk 15.0???% 30-day risk of , [place], or cardiac arrest From a cardiology perspective pt may proceed with planned vascular procedure, he is a moderate risk for a low risk procedure. [facility] NoteContinue metoprolol for rate control, anticoagulation [...] fibrillation happened in the setting of COVID-[address]06-21-2023 NotePT is planning for angiogram/intervention with Dr Mccormick- vascular surgery [facility]06-21-2023 NoteUTP CARDIOLOGY PROGRESS NOTE HPI: Chano [...] Former BSA 2.34 m??? Allergies Allergen Reactions Iwvgkgt-Mlp-Ldz Reductase Inhibitors Other Lisinopril Losartan Medications: Current [...] of 10 beats. EKG (more content not included)...[facility] 12-14-2022 NoteLipid abnormalities are Continue crestor- pt having annual labs tomorrow and if LDL remains > 70 he needs to increase crestor to 40 mg daily Chol 163, [facility] NoteHypertension is well controlled 126/70 Continue amlodipine, metoprololUnK[facility]06-21-2023 NoteCoronary artery disease is stable without concerning symptoms Continue GDMT- ASA, plavix, metoprolol, crestor continue risk factor modifications- heart healthy diet, regular exercise as tolerated and continue all medications.[facility] 11-22-2022 Evaluation note* Encounter Date Diagnosis [...] to continue exercise and AHA diet plan. [facility] Other 05-08-2023 Evaluation note* Encounter Date Diagnosis [...] to continue exercise and AHA diet plan. 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 Aug, Anemia, unspecified type (ICD-10 - D64.9) Aug, Hx of gout (ICD-10 - Z87.39) No recent flares, continue urate lowering treatment Aug, Acute seasonal allergic rhinitis due to pollen (ICD-10 - J30.1) [facility] Other Evaluation noteNo InformationNort [employer] Other Evaluation note* Diagnosis Onset Date Resolution Status [id number] acute Acute bronchitis due to other specified organisms noneactive Acute seasonal allergic rhinitis due to pollen acute [facility] Work Phone: Evaluation note* Diagnosis Onset Date Resolution Status Anemia acute ASHD (arteriosclerotic heart disease) acute Chronic kidney disease acute Chronic venous insufficiency acute Hypercholesterolemia acute Paroxysmal atrial fibrillation acute Primary hypertension acute Type 2 diabetes mellitus with hyperglycemia acute Medicare annual wellness visit, subsequent noneactive Screening PSA (prostate specific antigen) noneactive [facility] Work Phone: History general Narrative - Reported* [...] History BYPASS Hospitalization History SEE SURGICAL HX [facility] Other [facility] general Narrative - Reported* Type Description Date [...] /stenting 12/2022 Hospitalization History SEE SURGICAL HX [facility] Other [facility] general Narrative - Reported* Type Description Date [...] Colonoscopy 2015 Hospitalization History SEE SURGICAL HX [facility] Other Summary Purpose Family History Relationship Condition Age at Onset Recorded Date/T alonso father Unknown Malignant neoplasm Unknown Advance Directives Advance Directive Response Recorded Date/ Time Advance Directives No July 26, 2023 10:15am Chief Complaint and Reason for Visit Chief Complaint 3 Month Follow Up Sinuses, cough- neg covid Allergy Shot Reason for Visit [id number] Acute bronchitis due to other specified organisms [...] section and content) DATE CREATED AUTHOR 12/14/2017 [facility] DATE CREATED AUTHOR AUTHOR'S ORGANIZ ATION 10/08/2018 [facility] DATE CREATED AUTHOR AUTHOR'S ORGANIZ ATION 10/09/[address] [facility] DATE CREATED AUTHOR AUTHOR'S ORGANIZ ATION 08/12/2023 [facility] DATE CREATED AUTHOR AUTHOR'S ORGANIZ ATION 10/06/2023 [facility] REASON FOR VISIT (unrecogniz ed section and content) FOLLOW UPNo InformationCough , Congestion- NEGATIVE COVID [phone] in TodayCheck Up from [facility] ResultsNo InformationLab workLab results4 month Follow upScript4 [...] Team Status: Inactive Member Role Status Dates Rboin Dawkins DO Primary Care Provide r, Attending [...] BE BASED ON THE PRIMARY CLINICAL RECORDS. [facility] [employer], [facility]. provides no warranty or guarantee of the accuracy or completeness of information in this document.
== END 2024-01-11 10:17 | disposition home or self-care (01) ==
LOC: VC 10:16
PROVIDERS: PCP Internal Medicine; Visit Provider Student in an Organized Health Care Education/Training Program
DX: I73.9 Peripheral vascular disease, unspecified (principal); I65.23 Occlusion and stenosis of bilateral carotid arteries; Z98.890 Other specified postprocedural states
CPT/HCPCS: 93880; 93923

== ENCOUNTER 2024-03-04 07:09 | Outpatient (OUT) | payer MEDICARE, SELFPAY ==
--- OUTSIDE RECORDS SUMMARY | 2024-03-04 07:13 | XMS_ITS | CCD ---
Author Organization [facility] Care Team Providers Care Subcontracts Manager Name Role Phone Nancy, Bipin Unavailable Unavailable Zahler, Bipin Unavailable Unavailable Zahler, Bipin Unavailable Unavailable ROBIN DAWKINS~[phone] UNKNOWN Unavailable Unavailable Nill, Jean-Paul R Unavailable Unavailable Nill, Jean-Paul R Unavailable Unavailable Nill, Jean-Paul R Unavailable Unavailable ROBIN DAWKINS~[phone] UNKNOWN Unavailable Unavailable Nill, Jean-Paul R Unavailable Unavailable Nill, Jean-Paul R Unavailable Unavailable Nill, Jean-Paul R Unavailable Unavailable ROBIN DAWKINS~[phone] UNKNOWN Unavailable Unavailable RONNY NEWMAN Admitting Unavailable [...] Allergy Type Date of Onset Reaction(s) Facility (16 sources) lisinopril; Translations: [lisinopril] Drug Allergy 11-02-19 19 AOF, Unknown, Unknown Reaction [facility] Repository (4 sources) losartan; Translations: [losartan] Drug Allergy 04-20-20 [facility] Repository (1 source) nystatin / triamcinolone; Translations: [Tri-Statin II] Drug Allergy AOF [facility] Repository (4 sources) black walnut pollen extract; Translations: [[id number] REDUCTASE INHIBITORS] Drug Allergy 02-07-20 12 [facility] Repository (9 sources) Angiotensin-convert ing enzyme inhibitor agent Drug allergy Unknown [facility] Other (10 sources) Hmg-Coa Reductase Inhibitors (Statins) Propensity to adverse reactions Unknown [facility] Other (13 sources) Simvastatin Drug Allergy 07-26-19 24 Unknown, Unknown Reaction [facility] (10 sources) FELICIA inhibitor use, contraindication Propensity to adverse reactions 10-13-19 17 Comment:advers e rxn/side effects [employer] [facility] [employer] Other (9 sources) patient allergy list reviewed by nurse or physicia Propensity to adverse reactions 12-13-19 19 Comment:Done [facility] Other (3 sources) [id number] Reductase Inhibitor Allergy to substance 07-26-19 24 Unknown Reaction [facility] (1 source) atorvastatin; Translations: [ATORVASTATIN] Drug Allergy 03-16-20 16 [facility] Repository (1 source) cilostazol; Translations: [CILOSTAZOL] Drug Allergy 01-03-20 23 [facility] Medications Current Medications Medication Drug Class(es) Dates Sig (Normalized) Sig (Original) allopurinol 300 mg oral tablet (20 sources) Xanthine Oxidase Inhibitor Start: 12-19-2023 take 300 mg by mouth once daily Allopurinol Active 300 MG PO Daily December 19, 2023 10:01am Start: 11-21-2023 End: 12-19-2023 take 1 tablet by mouth once daily Allopurinol Discontinued 0 .ROUTE .COMPLEX November 21, 2023 12:57pm December 19, 2023 10:05am Take 1 tablet by mouth once daily Start: 11-21-2023 take 1 tablet by frank th once daily Allopurinol Active 0 .ROUTE .COMPLEX November 21, 2023 12:57pm Take 1 tablet by mouth once daily Start: 08-25-2023 End: 11-21-2023 take 300 mg by mouth once daily Allopurinol Discontinu ed 300 MG PO Daily August 25, 2023 1:00am November 21, 2023 12:57pm take 1 tablet by frank th every twenty-four hours Allopurinol 300 MG 1 tablet Orally Once a day Active amLODIPine 10 mg oral tablet (20 sources) Dihydropyridine Calcium Channel Bronwyn Start: 08-25-2023 take 10 mg by mouth once daily Amlodipine Active 10 MG PO Daily August 25, 2023 1:00am take 1 tablet by frank th every twenty-four hours amLODIPine Besylate 10 MG 1 tablet Orall y Once a day Active aspirin 81 mg delayed release oral tablet (15 sources) Platelet Aggregation Inhibitor, Nonsteroidal Anti-inflammatory Drug [...] HCl Active clopidogrel 75 mg oral tablet (20 sources) [id number] Platelet Inhibitor Start: 08-25-2023 take 1 tablet by mouth once daily Clopidogrel (Plavix) 75 mg tablet Active 75 MG PO Daily August 25, 2023 1:00am Plavix Active Contour Next Test - (17 sources) Start: 09-21-2022 Contour Next T est - Use to test home BS qd In Vitro daily for 90 days Aug, Active furosemide 40 mg oral tablet (15 sources) Loop Diuretic Start: 08-25-2023 take 40 mg by mouth once daily Furosemide Active 40 MG PO Daily August 25, 2023 1:00am take 1 tablet by frank th every twenty-four hours Furosemide 40 MG 1 tablet Orally Once a day Active metFORMIN hydrochloride 500 mg oral tablet (20 sources) Biguanide Start: 08-25-2023 take 500 mg [...] oral tablet (20 sources) beta-Adrenergic Bronwyn Start: 12-19-2023 take 50 mg by mouth twice daily Metoprolol Tartrate Active 50 MG PO Twice daily 180 December 19, 2023 10:03am Start: 12-19-2023 take 100 mg by mouth twice daily Metoprolol Tartrate Active 100 MG PO Twice daily 180 December 19, 2023 10:03am Start: 11-21-2023 End: 12-19-2023 take 1 tablet by mouth twice daily Metoprolol Tartrate Discontinued 0 .ROUTE .COMPLEX 180 November 21, 2023 12:57pm December 19, 2023 10:05am Take 1 tablet by mouth twice daily Start: 11-21-2023 End: 12-19-2023 take 1 tablet by mouth twice daily Metoprolol Tartrate Discontinued 0 .ROUTE .COMPLEX 180 November 21, 2023 12:56pm December 19, 2023 10:05am Take 1 tablet by mouth twice daily [...] 1 tablet by mouth twice daily Active Casanova-3 Fatty Acids-Fish Oil (Fish Oil Pearls) 300-400 mg capsule (3 sources) Start: 08-25-2023 take 1 capsule by mouth once daily Casanova-3 Fatty Acids-Fish Oil (Fish Oil Pearls) 300-400 [...] chloride 20 meq extended release oral tablet (15 sources) Start: 08-25-2023 Potassium Chloride (Klor-Con M20) 20 mEq tablet,ER particles/cindi ls Active 20 MEQ PO Daily August 25, 2023 1:00am take 1 tablet by frank th every twenty-four hours Klor-Con M20 20 MEQ 1 tablet with food Orally Once a day Active rosuvastatin calcium 20 mg oral tablet (15 sources) HMG-CoA Reductase Inhibitor Start: 08-25-2023 take 20 mg by mouth once daily Rosuvastatin Active 20 MG PO Daily August 25, 2023 1:00am take 1 tablet by frank th every twenty-four hours Rosuvastatin Calcium 20 MG 1 tablet Oral ly Once a day Active Completed/Discontinued Medications Medication Drug Class(es) Dates Sig (Normalized) Sig (Original) ASA (17 sources) ASA Not-Taking/P RN ASA Not-Taking doxycycline hyclate 100 mg oral capsule (3 sources) Tetracycline-class Drug Start: 08-25-2023 End: 12-19-2023 take 100 mg by mouth twice daily Doxycycline Hyclate Discontinued 100 MG PO Twice daily August 25, 2023 1:00am December 19, 2023 10:02am Fish Oils (17 sources) Fish Oil Not-Taking/PRN Fish Oil Not-Angel ing latanoprost 0.05 mg/ml ophthalmic solution (20 sources) Prostaglandin Analog Start: 08-25-2023 End: 12-19-2023 take 1 drop(s) into the eye(s) once daily Latanoprost Discontinued 1 DROPS EYE-BOTH Daily August 25, 2023 1:00am December 19, 2023 10:02am Latanoprost Not- Taking/PRN Latanoprost Not- Taking Lidocaine (20 sources) Antiarrhythmic, Amide Local Anesthetic Start: 04-20-2023 Lidocaine 26 Oct, 20 23 20 mg Start: 11-22-2022 Lidocaine 30 M 2022 20 mg niacin 500 mg oral tablet (20 sources) Nicotinic Acid Start: 08-25-2023 End: 12-19-2023 take 500 mg by mouth once daily Niacin Discontinued 500 MG PO Daily August 25, 2023 1:00am December 19, 2023 10:04am Niacin Not-Takin g/PRN Niacin Not-Takin g Suprep Bowel Prep . (17 sources) Start: 12-03-2014 Suprep Bowel P rep . as directed Orally 1 for 1 days Nov, Not-Taking/PRN Start: 12-03-2014 Suprep Bowel P rep . as directed Orally 1 for 1 days Nov, Not-Taking triamcinolone acetonide 40 mg/ml injectable suspension (20 sources) Corticosteroid Start: 11-22-2022 Kenalog-40 Mar, 40 mg Start: 09-21-2022 Kenalog-40 Aug, 60 mg valACYclovir 1000 mg oral tablet (12 sources) Herpesvirus Nucleoside Analog DNA Polymerase Inhibitor, Herpes Simplex Virus Nucleoside Analog DNA Polymerase Inhibitor, Herpes Zoster Virus Nucleoside Analog DNA Polymerase Inhibitor Start: 08-25-2023 End: 12-19-2023 take 1000 mg by mouth three times daily Valacyclovir Discontinued 1000 MG PO Three times daily August 25, 2023 1:00am December 19, 2023 10:05am Start: 03-20-2023 take 1 tablet by frank th every eight hours valACYclovir HCl 1 GM 1 tablet Orally tid for 7 days Feb, Active Start: 03-20-2023 take 1 tablet by frank th every eight hours valACYclovir HCl 1 GM 1 tablet Orally tid for 7 days Feb, Active Problems Active Problems Problem Classification Problem Date [...] Coronary arteriosclerosis; Translations: [Atherosclerotic heart disease of [place] coronary artery without angina pectoris] Onset: 06-26-1960 Chronic Coronary atherosclerosis and other heart disease (4 sources) Presence of coronary angioplasty implant and graft; Translations: [Presence of aortocoronary bypass graft] Onset: 06-14-2023 Episodic Deficiency and other anemia (8 sources) Anemia, unspecified; Translations: [Anemia, unspecified] Episodic Deficiency and other anemia (3 sources) Anemia; Translations: [Anemia, unspecified] 12-17-2023 Episodic [...] hypercholesterolemia, unspecified] Onset: 06-26-1960 Chronic Esophageal disorders (9 sources) Gastro-esophageal reflux disease with esophagitis; Translations: [...] 09-05-2017 Chronic Other aftercare (2 sources) Other senior living (current) drug therapy; Translations: [OTH [facility] CURRENT DRUG THERAPY] Onset: 12-21-2021 Episodic Other aftercare (1 source) Long-term current use of drug therapy; Translations: [Other clinical laboratory aide (current) drug therapy] Episodic Other circulatory disease (20 sources) Peripheral arterial occlusive disease; Translations: [Disorder [...] Episodic Other diseases of veins and lymphatics (3 sources) Venous insufficiency (chronic) (peripheral); Translations: [Venous [...] Onset: 06-14-2023 Episodic Other nervous system disorders (10 sources) Chronic pain; Translations: [Other chronic pain] [...] conditions (not mental disorders or infectious disease) (12 sources) Liver function tests abnormal; Translations: [Elevated [...] Lower Limb Ischemia Onset: 10-05-2023 Viral infection (12 sources) Post-herpetic polyneuropathy; 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] 08-25-2023 [...] Test Name Value Interpretation Reference Range Facility Basophils Auto (Bld) [#/Vol] on 12-23-2023 Basophils (Bld) [#/Vol] 0.1 10 3/uL 0.0-0.1 [facility] Basophils/100 WBC Auto (Bld) on 12-23-2023 Basophils/100 WBC (Bld) 0.8 % 0.2-2.0 [facility] Cholesterol in LDL Calc [Mas s/Vol]on 12-23-2023 Cholesterol in LDL [Mass/Vol] 44.8 mg/dL [facility] Comment on above: <100 mg/dl [id number] 0-129 mg/dl NEAR OR ABOVE [id number] mg/dl BORDERLINE [id number] mg/dl HIGH>190 mg/dl VERY HIGH Cholesterol in VLDL Calc [Ma ss/Vol]on 12-23-2023 Cholesterol in VLDL [Mass/Vol] 27.2 mg/dL [facility] Eosinophils/100 WBC Auto (Bl d)on 12-23-2023 Eosinophils/100 WBC (Bld) 3.0 % 0.9-7.0 [facility] Erythrocyte distribution wid th Auto (RBC) [Ratio]on 12-23-2023 Erythrocyte distribution width (RBC) [Ratio] 13.5 % 11.0-15.0 [facility] Estimated glomerular filtrat ion rate (GFR) non- Americanon 12-23-2023 GFR/1.73 sq M.predicted among non-blacks MDRD (S/P/Bld) [Vol rate/Area] 50 mL/min/{1.73_m2} Low >=60 [facility] Globulin Calc (S) [Mass/Vol] on 12-23-2023 Globulin (S) [Mass/Vol] 3.4 g/dL [facility] Glucose mean value [Mass/vol ume] in Blood Estimated from glycated hemoglobinon 12-23-2023 Average glucose Estimated from glycated hemoglobin (Bld) [Mass/Vol] 128 mg/dL [facility] Hematocrit Auto (Bld) [Volum e fraction]on 12-23-2023 Hematocrit (Bld) [Volume fraction] 37.9 % Low 42.0-54.0 [facility] Hemoglobin [Mass/volume] in Bloodon 12-23-2023 Hemoglobin (Bld) [Mass/Vol] 12.3 g/dL Low 14.0-18.0 [facility] Iron binding capacity [Mass/ volume] in Serum or Plasmaon 12-23-2023 Iron binding capacity [Mass/Vol] 367.0 ug/dL 250.0-450.0 [facility] Iron saturation [Mass Fracti on] in Serum or Plasmaon 12-23-2023 Iron saturation [Mass fraction] 21.5 % [facility] Laboratory - Chemistry and C hemistry - challengeon 12-23-2023 Albumin [Mass/Vol] 3.8 g/dL 3.4-5.0 [facility] ALP [Catalytic activity/Vol] 81 U/L 46-116 [facility] ALT [Catalytic activity/Vol] 28 U/L 16-63 [facility] AST [Catalytic activity/Vol] 21 U/L 15-37 [facility] Bilirubin [Mass/Vol] 0.7 mg/dL 0.2-1.0 [facility] Calcium [Mass/Vol] 9.0 mg/dL 8.5-10.1 [facility] Chloride [Moles/Vol] 102 mmol/L 98-107 [facility] Cholesterol [Mass/Vol] 118 mg/dL <=200 [facility] Cholesterol in HDL [Mass/Vol] 46 mg/dL 40-60 [facility] Comment on above: > or =60 mg/dl - LOW CARDIOVASCULAR RISK<40 mg/dl - HIGH CARDIOVASCULAR RISK CO2 [Moles/Vol] 27.7 mmol/L 21.0-32.0 [facility] Cobalamin (Vitamin B12) [Mass/Vol] 211.0 pg/mL 193.0-986.0 [facility] Creatinine [Mass/Vol] 1.38 mg/dL High 0.70-1.30 [facility] Ferritin [Mass/Vol] 101.0 ng/mL 26.0-388.0 [facility] GFR/1.73 sq M.predicted MDRD (S/P/Bld) [Vol rate/Area] mL/min/{1.73_m2} >=60 [facility] Glucose [Mass/Vol] 137 mg/dL High 74-106 [facility] Iron [Mass/Vol] 79.0 ug/dL 65.0-175.0 [facility] Potassium [Moles/Vol] 4.3 mmol/L 3.5-5.1 [facility] Protein [Mass/Vol] 7.2 g/dL 6.4-8.2 [facility] Sodium [Moles/Vol] 140 mmol/L 136-145 [facility] Triglyceride [Mass/Vol] 136 mg/dL <=150 [facility] Urea nitrogen [Mass/Vol] 24.0 mg/dL High 7.0-18.0 [facility] Urea nitrogen/Creatinin e [Mass ratio] 17.4 mg/mg [facility] Laboratory - Hematology and Cell countson 12-23-2023 HbA1c (Bld) [Mass fraction] 6.1 % 4.5-6.2 [facility] Comment on above: ADA RECOMMENDED LIMI T 4.0 - 6.0ADA THERAPEUTIC TARGET < 7.0ACTION SUGGESTED> 7.0 Immature granulocytes/100 WBC (Bld) 0.4 % 0.0-0.5 [facility] Leukocytes [#/volume] correc chano for nucleated erythrocytes in Blood by Automated counon 12-23-2023 WBC corrected for nucl RBC Auto (Bld) [#/Vol] 9.1 10 3/uL 4.0-11.0 [facility] Lymphocytes Auto (Bld) [#/Vo l]on 12-23-2023 Lymphocytes (Bld) [#/Vol] 3.4 10 3/uL 1.2-3.8 [facility] Lymphocytes/100 WBC Auto (Bl d)on 12-23-2023 Lymphocytes/100 WBC (Bld) 36.8 % 20.5-60.0 [facility] MCH Auto (RBC) [Entitic mass ]on 12-23-2023 MCH (RBC) [Entitic mass] 30.3 pg 25.9-34.0 [facility] MCHC Auto (RBC) [Mass/Vol]on 12-23-2023 MCHC (RBC) [Mass/Vol] 32.5 g/dL 29.9-35.2 [facility] MCV Auto (RBC) [Entitic vol] on 12-23-2023 MCV (RBC) [Entitic vol] 93.3 fL 80.0-94.0 [facility] Microalbumin [Mass/volume] i n Urineon 12-23-2023 Albumin DL <= 20 mg/L (U) [Mass/Vol] 6.2 mg/dL <=30.0 [facility] Monocytes Auto (Bld) [#/Vol] on 12-23-2023 Monocytes (Bld) [#/Vol] 0.8 10 3/uL 0.3-0.8 [facility] Monocytes/100 WBC Auto (Bld) on 12-23-2023 Monocytes/100 WBC (Bld) 9.1 % 1.7-12.0 [facility] Neutrophils Auto (Bld) [#/Vo l]on 12-23-2023 Neutrophils (Bld) [#/Vol] 4.6 10 3/uL 1.4-6.5 [facility] Neutrophils/100 WBC Auto (Bl d)on 12-23-2023 Neutrophils/100 WBC (Bld) 49.9 % 43.0-75.0 [facility] No Panel Informationon 12-22 Eosinophils # (Auto) 0.3 10 3/uL 0.0-0.7 [facility] Immature Granulocyte # (Auto) 0.04 10 3/uL High 0.00-0.03 [facility] Prostate Specific Antigen Screen 0.37 ng/mL <=4.00 [facility] Platelet mean volume Auto (B ld) [Entitic vol]on 12-23-2023 Platelet mean volume (Bld) [Entitic vol] 9.4 fL Low 9.5-13.5 [facility] Platelets Auto (Bld) [#/Vol] on 12-23-2023 Platelets (Bld) [#/Vol] 280 10 3/uL 150-450 [facility] RBC Auto (Bld) [#/Vol]on RBC (Bld) [#/Vol] 4.06 10 6/uL Low 4.70-6.10 [facility] Serum or plasma albumin/glob ulin mass ratioon 12-23-2023 Albumin/Globulin [Mass ratio] 1.1 {ratio} [facility] Serum or plasma anion gap de terminationon 12-23-2023 Anion gap [Moles/Vol] 14.6 mmol/L [facility] Serum or plasma total choles terol/high density lipoprotein (HDL) cholesterol mass nyasia 12-23-2023 Cholesterol.total/ Cholesterol in HDL [Mass ratio] 2.6 {ratio} [facility] Comment on above: 3.3 - 4.4 LOW RISK4. 4 - 7.1 AVERAGE RISK7.1 - 11.0 MODERATE RISK>11.0 HIGH RISK 36on 08-10-2023 36 Regarding echo perfo rmed on 06/28/2023 and stress test performed on 07/27/2023: MD Roseline [place]ers [place] His stress test is normal. Please tell him that with both stress test and echocardiogram being normal there is no cardiac cause behind his shortness of breath. I will see him as planned. Spoke with patient and informed him of results per Dr. Lucero. He verbalized understanding. Normal [facility] Office Visiton 06-14-2023 Follow-up visit [id number] Eloisa Marrufo 1945 M Date Provider Department Center 06/14/2023 RADHA ESCOBAR FRANCISCO JAV[facility] Family History Problem Relation Age of Onset Heart failure Mother Family Status - Relation Status Age at Mother Level of Service:09270 DE OFFICE/OUTPATIENT ESTABLISHED LOW MDM 20 MIN [facility] Office Visiton 12-14-2022 Follow-up visit [id number] Eloisa Marrufo 1945 M Date Provider Department Center 12/14/2022 TIFFANY WINTER [facility] Family History Problem Relation Age of Onset Heart failure Mother Family Status - Relation Status Age at Mother Level of Service:05957 DE OFFICE/OUTPATIENT ESTABLISHED MOD [facility] 30-39 MIN Reason for Visit and Comments: Follow-up [477786] - 6 month follow up Normal [facility] US CAROTID ART BILon 023 [...] RANCHO GLEZ Date: 2022-10-04 16:04 Normal [facility] CBC AUTO DIFFon 12-16-2021 BASO # 0.1 103/ul Normal 0.0-0.1 [facility] Comment on above: Performed By: #### C BC #### [facility] [address] [place] [address] Dr. Rui Moore Basophils/100 WBC (Bld) 0.5 % Normal 0.2-2.0 [facility] Comment on above: Performed By: #### C BC #### [facility] [address] [address] [address] Rui Moore EO # 0.0 103/ul Normal 0.0-0.7 [facility] Comment on above: Performed By: #### C BC #### [facility] [address] [address] [address] Rui Moore Eosinophils/100 WBC (Bld) 0.4 % Critically low 0.9-7.0 [facility] Comment on above: Performed By: #### C BC #### [facility] [address] [place] [address] Dr. Rui Moore Erythrocyte distribution width (RBC) [Ratio] 13.2 % Normal 11.0-15.0 [facility] Comment on above: Performed By: #### C BC #### [facility] [address] [place] [address] Dr. Rui Moore Hematocrit (Bld) [Volume fraction] 38.1 % Critically low 42.0-54.0 [facility] Comment on above: Performed By: #### C BC #### [facility] [address] [place] [address] Dr. Rui Moore Hemoglobin (Bld) [Mass/Vol] 12.3 g/dL Critically low 14.0-18.0 [facility] Comment on above: Performed By: #### C BC #### [facility] [address] [place] [address] Dr. Rui Moore IG # 0.06 10e3/ul Critically high 0.00-0.03 [facility] Comment on above: Performed By: #### C BC #### [facility] [address] [place] [address] Dr. Rui Moore IG % 0.5 % Normal 0.0-0.5 [facility] Comment on above: Performed By: #### C BC #### [facility] [address] [place] [address] Dr. Rui Moore LYMPH # 3.5 103/ul Normal 1.2-3.8 [facility] Comment on above: Performed By: #### C BC #### [facility] [address] [place] [address] Dr. Rui Moore Lymphocytes/100 WBC (Bld) 31.9 % Normal 20.5-60.0 [facility] Comment on above: Performed By: #### C BC #### [facility] [address] [place] [address] Dr. Rui Moore MANUAL DIFF REQ NO Normal [facility] Comment on above: Performed By: #### C BC #### [facility] [address] [address] [address] Rui Moore MCH (RBC) [Entitic mass] 29.9 pg Normal 25.9-34.0 [facility] Comment on above: Performed By: #### C BC #### [facility] [address] [address] [address] Rui Moore MCHC (RBC) [Mass/Vol] 32.3 g/dL Normal 29.9-35.2 [facility] Comment on above: Performed By: #### C BC #### [facility] [address] [address] [address] Rui Moore MCV (RBC) [Entitic vol] 92.5 fL Normal 80.0-94.0 [facility] Comment on above: Performed By: #### C BC #### [facility] [address] [place] [address] Dr. Rui Moore MONO # 0.7 103/ul Normal 0.3-0.8 [facility] Comment on above: Performed By: #### C BC #### [facility] [address] [place] [address] Dr. Rui Moore Monocytes/100 WBC (Bld) 6.6 % Normal 1.7-12.0 [facility] Comment on above: Performed By: #### C BC #### [facility] [address] [place] [address] Dr. Rui Moore NEUT # 6.6 103/ul Critically high 1.4-6.5 [facility] Comment on above: Performed By: #### C BC #### [facility] [address] [place] [address] Dr. Rui Moore Neutrophils/100 WBC (Bld) 60.1 % Normal 43.0-75.0 [facility] Comment on above: Performed By: #### C BC #### [facility] [address] [place] [address] Dr. Rui Moore Platelet mean volume (Bld) [Entitic vol] 9.3 fL Critically low 9.5-13.5 [facility] Comment on above: Performed By: #### C BC #### [facility] [address] [address] [address] Rui Moore PLT 307 103/ul Normal 150-450 [facility] Comment on above: Performed By: #### C BC #### [facility] [address] [address] [address] Rui Moore RBC 4.12 106/ul Critically low 4.70-6.10 [facility] Comment on above: Performed By: #### C BC #### [facility] [address] [address] [address] Rui Moore WBC 11.0 103/ul Normal 4.0-11.0 [facility] Comment on above: Performed By: #### C BC #### [facility] [address] [place] [address] Dr. Rui Moore GLYCOHEMOGLOBIN A1Con 2021 ADA RECOMMENDATION SEE BELOW Normal [facility] Comment on above: Result Comment: ADA RECOMMENDED LIMIT 4.0 - 6.0 ADA THERAPEUTIC TARGET < 7.0 ACTION SUGGESTED > 7.0 Performed By: #### A 1C #### [facility] [address] [place] [address] Dr. Rui Moore Glucose [Mass/Vol] 143 mg/dL Normal [facility] Comment on above: Performed By: #### A 1C #### [facility] [address] [place] [address] Dr. Rui Moore HbA1c (Bld) [Mass fraction] 6.6 % Critically high 4.5-6.2 [facility] Comment on above: Performed By: #### A 1C #### [facility] [address] [place] [address] Dr. Rui Moore LIPID PROFILEon 12-16-2021 CHOL-HDL RATIO NORM SEE BELOW Normal [facility] Comment on above: Result Comment: 3.3 - 4.4 LOW RISK 4.4 - 7.1 AVERAGE RISK 7.1 - 11.0 MODERATE RISK >11.0 HIGH RISK Performed By: #### L IPID, BMP, ALT #### [facility] [address] [address] [address] Rui Moore Cholesterol [Mass/Vol] 109 mg/dL Normal <=200 [facility] Comment on above: Performed By: #### L IPID, BMP, ALT #### [facility] [address] [address] [address] Rui Moore Cholesterol in HDL [Mass/Vol] 39 mg/dL Critically low 40-60 [facility] Comment on above: Performed By: #### L IPID, BMP, ALT #### [facility] [address] [address] [address] Rui Moore Cholesterol in LDL [Mass/Vol] 51.6 mg/dL Normal [facility] Comment on above: Performed By: #### L IPID, BMP, ALT #### [facility] [address] [address] [address] Rui Moore Cholesterol.total/ Cholesterol in HDL [Mass ratio] 2.8 {ratio} Normal [facility] Comment on above: Performed By: #### L IPID, BMP, ALT #### [facility] [address] [address] [address] Rui Moore HDL NORMAL > or = 60 mg/dl - LO W CARDIOVASCULAR RISK <40 mg/dl - HIGH CARDIOVASCULAR RISK Normal [facility] Comment on above: Performed By: #### L IPID, BMP, ALT #### [facility] [address] [address] [address] Rui Moore LDL CALC NORMAL SEE BELOW Normal [facility] Comment on above: Result Comment: <100 mg/dl OPTIMAL 100 - 129 mg/dl NEAR OR ABOVE OPTIMAL 130 - 159 mg/dl BORDERLINE HIGH 160 - 189 mg/dl HIGH >190 mg/dl VERY HIGH Performed By: #### L IPID, BMP, ALT #### [facility] [address] [address] [address] Rui Moore Triglyceride [Mass/Vol] 92 mg/dL Normal <=150 [facility] Comment on above: Performed By: #### L IPID, BMP, ALT #### [facility] [address] [address] [address] Rui Moore VLDL CALC 18.4 mg/dL Normal [facility] Comment on above: Performed By: #### L IPID, BMP, ALT #### [facility] [address] [place] [address] Dr. Rui Moore MICROALBUMIN, RAND URon 06-2 mALB 8.3 mg/L Normal <=30.0 [facility] Comment on above: Performed By: #### M ALBR #### [facility] [address] [place] [address] Dr. Rui Moore PROF CHEM 8 (BAS METB)on Anion gap [Moles/Vol] 14.6 mmol/L Normal [facility] Comment on above: Performed By: #### L IPID, BMP, ALT #### [facility] [address] [place] [address] Dr. Rui Moore Calcium [Mass/Vol] 9.1 mg/dL Normal 8.5-10.1 [facility] Comment on above: Performed By: #### L IPID, BMP, ALT #### [facility] [address] [place] [address] Dr. Rui Moore Chloride [Moles/Vol] 101 mmol/L Normal 98-107 [facility] Comment on above: Performed By: #### L IPID, BMP, ALT #### [facility] [address] [place] [address] Dr. Rui Moore CO2 [Moles/Vol] 25.9 mmol/L Normal 21.0-32.0 [facility] Comment on above: Performed By: #### L IPID, BMP, ALT #### [facility] [address] [place] [address] Dr. Rui Moore Creatinine [Mass/Vol] 1.23 mg/dL Normal 0.70-1.30 [facility] Comment on above: Performed By: #### L IPID, BMP, ALT #### [facility] [address] [place] [address] Dr. Rui Moore EGFR-AF GERMAN >60 Normal >=60 [facility] Comment on above: Performed By: #### L IPID, BMP, ALT #### [facility] [address] [address] [address] Rui Moore EGFR-NON AF GERMAN 57 mL/min/1.73m2 Critically low >=60 [facility] Comment on above: Performed By: #### L IPID, BMP, ALT #### [facility] [address] [place] [address] Dr. Rui Moore Glucose [Mass/Vol] 141 mg/dL Critically high 74-[address] [facility] Comment on above: Performed By: #### L IPID, BMP, ALT #### [facility] [address] [place] [address] Dr. Rui Moore Potassium [Moles/Vol] 4.5 mmol/L Normal 3.5-5.1 [facility] Comment on above: Performed By: #### L IPID, BMP, ALT #### [facility] [address] [place] [address] Dr. Rui Moore Sodium [Moles/Vol] 137 mmol/L Normal 136-145 [facility] Comment on above: Performed By: #### L IPID, BMP, ALT #### [facility] [address] [place] [address] Dr. Rui Moore Urea nitrogen [Mass/Vol] 22.0 mg/dL Critically high 7.0-18.0 [facility] Comment on above: Performed By: #### L IPID, BMP, ALT #### [facility] [address] [place] [address] Dr. Rui Moore Urea nitrogen/Creatinin e [Mass ratio] 17.9 mg/mg Normal [facility] Comment on above: Performed By: #### L IPID, BMP, ALT #### [facility] [address] [place] [address] Dr. Rui Moore [facility] 12-16-2021 ALT [Catalytic activity/Vol] 42 U/L Normal 16-63 [facility] Comment on above: Performed By: #### L IPID, BMP, ALT #### [facility] [address] [place] [address] Dr. Rui Moore Operative Reporton 8 Operative [...] and symptoms of successfulblockade.Shiva Cronin M.D.glsDictated: 10/02/2017 #[id number]: 10/02/2017 #[id number]: Shiva Cronin M.D. [facility] Comment on above: Result Comment: [...] Problem list: All ProblemsHypertension / SNOMED CT 8654811894 / ConfirmedDiabetes / SNOMED CT 249700980 / ConfirmedUmbilical hernia / SNOMED CT 0490609042 / ConfirmedPeripheral artery disease / SNOMED CT 1773692181 / ConfirmedAcid reflux / SNOMED CT 105460611 / ConfirmedCAD (coronary artery disease) / SNOMED CT 10299490 / ConfirmedResolved: High cholesterol / SNOMED CT 22896856 Histories Past Medical History: No active or resolved past medical history items have been selected or recorded. Procedure history: CEA - Carotid endarterectomy left ([id number]) on 03/09/2016 at 70 Years.Allograft bypass of coronary artery x3 stents ([id number]) on 03/09/2016 at 70 Years.Comments:09/19/2017 16:41 - Elen Sutton RNwith left mammary artery , graft to the LAD and left radial artery graft to the OM1 and SVG to PDAColonoscopy ([id number]) on 12/31/2014 at 69 Years.Entire RCA - Right coronary artery stent ([id number]) on 02/10/2012 at 66 Years.History of subdural hematoma (1848010350) on 08/03/2010 at 64 Years.Cataract b/l (003648083).Femoral-popliteal artery bypass graft right and left ([id number]).Comments: 16:39 - Elen Sutton RNstents legs/ 12/13// 10/21/2005/ 12/22/2007. Social History Social & Psychosocial SkdsfeFanoiom35/27/2018 Risk Assessment: High Risk09/19/2017 Use: Current Type: Beer Frequency: 3-5 times per weekSubstance Abuse09/19/2017 Risk Assessment: Denies Substance KwcauNntfawn96/27/2018 Risk Assessment: Denies Tobacco Use09/19/2017 Type: Cigarettes [...] Auto 63.5 % Lymph Auto 25.9 % Motley Auto 8.1 % Eos Auto 1.4 % Basophil Auto 1.1 % Neutro Absolute 5.9 E9/L Lymph Absolute 2.4 E9/L [place]ley Absolute 0.7 E9/L Eos Absolute 0.1 E9/L [...] Pio Suresh M.D. LTranscribed by: LOREN Technologist: CCRREBECCA REPORTThis document has an imageResult type: XR Chest 2 ViewsResult date: September 19, 2017 10:49 EDTResult status: Auth (Verified)Result title: XR Chest 2 ViewsPerformed by: Pio Suresh M.D. on September 19, 2017 13:33 EDTVerified by: Pio Suresh M.D. on September 19, 2017 13:33 EDTEncounter info: [id number], [facility], Outpatient, 09/19/2017 - 09/19/2017 Radiology results ECG interpretation: SINUS RHYTHM. Plan [place] [employer] Anesthesiologists (ASA) physical status classification: [...] failed block and .. Normal [facility] Comment on above: Result Comment: Elec tronically [...] Problem list: All ProblemsHypertension / SNOMED CT 4891838429 / ConfirmedDiabetes / SNOMED CT 099086999 / ConfirmedUmbilical hernia / SNOMED CT 0601427247 / ConfirmedPeripheral artery disease / SNOMED CT 1790425140 / ConfirmedAcid reflux / SNOMED CT 369041097 / ConfirmedCAD (coronary artery disease) / SNOMED CT 09816005 / ConfirmedResolved: High cholesterol / SNOMED CT 47543766 Physical Examination Intake and Output adequate hydration [...] anesthesia care. Condition stable. Normal [facility] Comment on above: Result Comment: Elec tronically Signed By: Mehrdad GALE, Shiva\.br\Date and Time Signed: 10/05/17 13:04 EDT Coding Summary.on 10-03-2017 Coding Summary. CODING DATE: 018 FINAL [facility] DSC STATUS: Home (Routine DC) PAYOR: Medicare APC DESCRIPTION 5361 Level 1 Laparoscopy and Related Services ADMIT DX: REASON FOR VISIT DX: K42.0 Umbilical hernia with obstruction, without gangrene FINAL DX: PRINCIPAL: K42.0 Umbilical hernia with obstruction, without gangrene SECONDARY: I25.10 Atherosclerotic heart disease of [place] coronary artery without angina pectoris I10 Essential (primary) hypertension E11.40 Type 2 diabetes mellitus with diabetic neuropathy, unspecified E78.5 Hyperlipidemia, unspecified M10.9 Gout, unspecified I73.9 Peripheral vascular disease, unspecified Z86.79 Personal history of other diseases of the circulatory system Z95.1 Presence of aortocoronary bypass graft Z79.82 client relation specialist (current) use of aspirin Z95.820 Peripheral vascular angioplasty status with implants and grafts Z87.891 Personal history of nicotine dependence PYMT PROC APC STAT DESCRIPTION DOCTOR NAME DATE 79853 5361 J1 Laparoscopy, surgical, Jean-Paul Roberts MD 10/02/2017 repair, ventral, umbilical, spigelian or epigastric hernia (includes mesh insertion, when performed); incarcerated or strangulated 51093 Anesthesia for hernia Jean-Paul Roberts MD 10/02/2017 repairs in lower abdomen; not otherwise specified 20131 Transversus abdominis Shiva Cronin MD 10/02/2017 plane [...] Saved: 10/03/2017 10:41 am Normal [facility] Main OR Intraoperative Recor don 10-03-2017 Main OR Intraoperative Record IntraOp Document Type FT Summary Primary Physician: Jean-Paul Roberts MD Finalized Date/Time: 10/03/17 10:03:38 Pt. Name: SAE POOJA GibsonO.B./Sex: 1945 Male Med Rec #: [id number] Physician: Jean-Paul Roberts MD Financial #: [id number] Pt. Type: A Room/Bed: [address] [address] Admit/Disch: 10/02/17 06:11:00 - 10/02/17 14:55:00 Institution: [...] BLOCKS, UNDER CONSTANT OBSERVATION PER ANESTHESIA. - E.COY RN 0945- ROBOT DOCKED AT PATIENT. - KYRA MEEHAN 0951- SURGEON BACK TO SURGEON CONSOLE. - KYRA MEEHAN 1101- SURGEON RESCRUBBED AND AWAY FROM CONSOLE. - KYRA MEEHAN 1102- ROBOT UNDOCKED. - KYRA MEEHAN 10/03/2017 Chart opened to review and send charges Radha bolt sawyer Case Attendance FT Entry 1 Entry 2 Entry 3 Case Attendee Mehrdad GALE, Shiva Roberts MD, Jean-Paul Dixon, RN Rajwinder Watson Role Performed Anesthesiologist of Surgeon - Primary CHEESE PROCESSOR Record Time In 10/02/17 08:51:00 10/02/17 08:51:00 10/02/17 08:51:00 Time Out 10/02/17 11:22:00 10/02/17 11:22:00 10/02/17 11:22:00 Procedure HERNIA REPAIR, ROBOT HERNIA REPAIR, ROBOT HERNIA REPAIR, ROBOT ASSISTED(.) ASSISTED(.) ASSISTED(.) Comments Last Modified By: Anurag MEEHAN, Bia Osborn RN, Bia Osborn RN, Bia Campbell 10/02/17 11:25:55 10/02/17 11:25:55 10/02/17 11:25:55 Entry 4 Entry 5 Case Attendee Anurag MEEHAN, Bia Baker INFORMATION SECURITY RISK ANALYST/Sushma LEACH Role Performed Harvesting Manager - Primary Scrub - Primary Time In 10/02/17 08:51:00 10/02/17 08:51:00 Time Out 10/02/17 11:22:00 10/02/17 11:22:00 Procedure HERNIA REPAIR, ROBOT HERNIA REPAIR, ROBOT ASSISTED(.) ASSISTED(.) Comments Last Modified By: Anurag MEEHAN, Bia Osborn RN, Bia Campbell 10/02/17 11:25:55 10/02/17 11:25:55 General Comments: SKIP SINGH REP PRESENT FOR PROCEDURE. - KYRA MEEHANstem crusher Protocols FT Pre-Care Text: Implements protective measures [...] Time Out Shiva Cronin MD, Nill Given Participants Jean-Paul GALE Sutherland, SHEFALI Watson, Bia Osborn RN, Sharp INFORMATION SECURITY RISK ANALYST/SA, Sushma Time Out Complete 10/02/17 09:27:00 Outcomes Met? Yes Last Modified By: iBa Osborn RN 10/02/17 09:39:19 Post-Care Text: The [...] and tissue Entry 1 Skin Integrity Intact, [place], Warm, and Skin Abnormality Yes Dry, Bruised [...] Last Modified By: Anurag RN, Bia Osborn Bia MEEHAN RN, Emily A 10/02/17 07:39:31 10/02/17 07:39:31 [...] RN, Sharp Coy RN, Emily A, Sharp INFORMATION SECURITY RISK ANALYST/SA, Sushma INFORMATION SECURITY RISK ANALYST/SA, Sushma Outcomes Met? Yes Yes Last Modified [...] RN Patient Status Stable Skin. Condition Intact, [place], Warm, and Description UNCHANGED FROM Dry, Bruised PREVIOUSLY Airway Maintenance Oxygen in Use? Yes Airway Device Simple Mask Flow Rate 8 L/min Outcomes Met? Yes Last Modified By: Bia Osborn RN 10/02/17 11:31:29 Post-Care Text: The patient is free from signs and symptoms of injury related to transfer/transport General Comments: REPORT GIVEN TO BRICK OR BLOCK MAKERRN. 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 FT-SiT[employer] Catalog ?# SYM9 [F] Size 9CM Expiration [...] Type TUBE NASOGASTIC SUMP Location MOUTH 18FR [[id number]][F] Quantity 1 Fluid SCANT AMOUNT BLOOD Characteristics [...] Present Upon Arrival No Inserted LF 16FR [323453][F] Insertion Date/Time 10/02/17 09:05:00 Urine Residual 100 [...] BLANKET MISTRAL AIR Quantity 1 Aid TORSO [[id number]][F] Fluid/[place] Unit Mistral warming system Setting HIGH/43 Body Site Upper anterior torso Last Modified By: Bia Osborn RN 10/02/17 09:49:45 Case Comments Finalized By: Kassy Mathews CST Document Signatures Signed By: Bia Osborn RN 10/02/17 11:26 Bia Osborn RN 10/02/17 11:27 Bia Osborn RN 10/02/17 11:29 Bia Osborn RN 10/02/17 11:31 Kassy Mathews CST 10/03/17 10:03 [facility] History and Physicalon 10-02 History and Physical Patient: POOJA MARRUFO Age: 72 years Sex: Male : 1945 Associated Diagnoses: None Author: Jean-Paul Roberts MD Subjective no changes to [facility] Comment on above: Result Comment: Elec tronically Signed By: Jean-Paul Roberts MD\.br\Date and Time Signed: 10/02/17 08:31 EDT Inpatient Patient Summaryon 10-02-2017 Inpatient [facility] Dis[facility] InstructionsPERSON INFORMATION Name: POOJA MARRUFO PHYSICIANS Admitting Physician: Jean-Paul Roberts MD Physician: Jean-Paul Roberts MD PCP: Vidhi DAWKINS DO Diagnosis: Incarcerated umbilical hernia Comment: PATIENT EDUCATION INFORMATIONInstructions:Medic ation Leaflets:Follow up:With: Address: When: [place] [address] [facility] (1) Within 7 to 10 days MEDICATION LISTFill New Prescriptions:acetaminophen-h ydrocodone (acetaminophen-hydrocodone 325 mg-5 mg oral tablet) 1 tab(s) By Mouth every 4 hours as needed for Pain not to exceed 8 tablets/day take with food or milkComment: [facility] Main OR PACU I Recordon Main OR PACU I Record PACU Phase I Document Type FT Summary Primary Physician: Jean-Paul Roberts MD Finalized Date/Time: 10/02/17 12:01:59 Pt. Name: POOJA MARRUFO Lam /Sex: 1945 Male Med Rec #: [id number] Physician: Jean-Paul Roberts MD Financial #: [id number] Pt. Type: A Room/Bed: [address] [address] Admit/Disch: 10/02/17 06:11:42 - Institution: Case Times [...] Sharif RN 10/02/17 12:01 Normal [facility] Main OR Preoperative Recordo n 10-02-2017 Main OR Preoperative Record PreOp Document Type FT Summary Primary Physician: Jean-Paul Roberts MD Finalized Date/Time: 10/02/17 09:50:16 Pt. Name: POOJA MARRUFO Lam Gibson/Sex: 1945 Male Med Rec #: [id number] Physician: Jean-Paul Roberts MD Financial #: [id number] Pt. Type: A Room/Bed: [address] [address] Admit/Disch: 10/02/17 06:11:42 - Institution: Case Times [...] Osborn RN 10/02/17 09:50 Normal [facility] Operative Reporton 8 Operative Report Date of [...] [facility] [...] visualization. Once this wascomplete, the last needle combine driver was brought out through the #1 arm. Therobot was then docked. I then scrubbed back into the field and examinedthe repair. It was noted to be intact. There was no evidence of bleeding.All port sites were examined upon withdrawal of the ports. There was notedto be good hemostasis. The fascia from the right subcostal incision wasthen closed with a 0 Vicryl lhvvjk-bm-vekbo suture. All port sites wereinfiltrated with the [...] sent to Recovery Room in good condition.Jean-Paul Roebrts M.D.glsDictated: 10/02/2017 #[id number]: 10/02/2017 #[id number]: Cherie Newby M.D. [facility] Comment on above: Result Comment: Elec tronically Signed By: Armando GALE, Jean-Paul Bates\Date and Time Signed: 10/02/17 13:56 EDT UA With Cult Reflexon 2017 Bilirubin Ql (U) Negative Normal Negative [facility] Comment on above: Performed By: #### 1 [id number] ####[id number] COLOR:TYPE:PT:URIN E:NOM:AUTO STRAW Abnormal Yellow [facility] Comment on above: Performed By: #### 1 [id number] ####[address] [address] Erythrocytes (RBC) 0-3 Normal 0-3 [facility] Comment on above: Performed By: #### 1 [id number] ####[address] [address] GLUCOSE:MCNC:PT:UR INE:QN:TEST STRIP Negative Normal Negative [facility] Comment on above: Performed By: #### 1 [id number] ####[facility] [address] [place] [address] KETONES:MCNC:PT:UR INE:QN:TEST STRIP Negative Normal Negative [facility] Comment on above: Performed By: #### 1 [id number] ####[facility] [address] [place] [address] LEUKOCYTES:PRTHR:P T:URINE:ORD:AUTOMA CHANO Negative Normal Negative [facility] Comment on above: Performed By: #### 1 [id number] ####[facility] [address] [place] [address] UA Spec Desc Pinedo Normal [facility] Comment on above: Performed By: #### 1 [id number] ####[facility] [address] [place] [address] Urine, clarity CLEAR Normal Clear [facility] Comment on above: Performed By: #### 1 [id number] ####[facility] [address] [place] [address] Urine, hemoglobin presence Negative Normal Negative [facility] Comment on above: Performed By: #### 1 [id number] ####[facility] [address] [place] [address] Urine, leukocytes in sedmiment 0-5 Normal 0-5 [facility] Comment on above: Performed By: #### 1 [id number] ####[facility] [address] [place] [address] Urine, nitrite presence Negative Normal Negative [facility] Comment on above: Performed By: #### 1 [id number] ####[facility] [address] [place] [address] Urine, pH 6.5 [pH] Invalid Interpretation Code 5.0-9.0 [facility] Comment on above: Performed By: #### 1 [id number] ####[facility] [address] [place] [address] Urine, protein Negative Normal Negative [facility] Comment on above: Performed By: #### 1 [id number] ####[facility] [address] [place] [address] Urine, specific gravity <=1.005 Invalid Interpretation Code 1.005-1.030 [facility] Comment on above: Performed By: #### 1 [id number] ####[facility] [address] [place] [address] Urine, squamous cells in sediment 0-2 Normal 0-2 [facility] Comment on above: Performed By: #### 1 [id number] ####[facility] [address] [place] [address] Urine, urobilinogen 0.2 {Aleja'U}/dL Normal 0.0-1.0 [facility] Comment on above: Performed By: #### 1 [id number] ####[facility] [address] [place] [address] Coding Summary.on 09-20-2017 Coding Summary. CODING DATE: 018 FINAL [facility] STATUS: Home (Routine DC) PAYOR: Medicare APC [...] Saved: 09/20/2017 11:31 am Normal [facility] Auto Diffon 09-19-2017 Basophils Auto #/vol (Bld) 0.1 E9/L Normal 0.0-0.2 [facility] Comment on above: Order Comment: Order Added by Discern Expert. Performed By: #### 2 739245, 3641704, 3381586, [id number] ####[facility] [address] [place] [address] Basophils Auto #/vol (Bld) 1.1 % Normal 0.0-2.0 [facility] Comment on above: Order Comment: Order Added by Discern Expert. Performed By: #### 2 585415, 6804607, 3836170, [id number] ####[facility] [address] [place] [address] Eosinophils 0.1 E9/L Normal 0.0-0.5 [facility] Comment on above: Order Comment: Order Added by Discern Expert. Performed By: #### 2 417901, 4572082, 2296315, [id number] ####[facility] [address] [place] [address] Eosinophils/100 leukocytes 1.4 % Normal 0.0-8.0 [facility] Comment on above: Order Comment: Order Added by Discern Expert. Performed By: #### 2 096158, 8612817, 8646692, [id number] ####[facility] [address] [place] [address] Lymphocytes 2.4 E9/L Normal 1.0-4.0 [facility] Comment on above: Order Comment: Order Added by Discern Expert. Performed By: #### 2 596935, 6249233, 9441320, [id number] ####[facility] [address] [place] [address] Lymphocytes/100 leukocytes 25.9 % Normal 14.0-50.0 [facility] Comment on above: Order Comment: Order Added by Discern Expert. Performed By: #### 2 054219, 6762757, 3138352, 60164639 ####[address] [place] [address] Monocytes 0.7 E9/L Normal 0.2-1.0 [facility] Comment on above: Order Comment: Order Added by Discern Expert. Performed By: #### 2 974342, 7063447, 0419646, [id number] ####[address] [place] [address] Monocytes/100 leukocytes 8.1 % Normal 4.0-14.0 [facility] Comment on above: Order Comment: Order Added by Discern Expert. Performed By: #### 2 475083, 8382985, 9622530, [id number] ####[facility] [address] [place] [address] Neutrophils 5.9 E9/L Normal 2.0-7.5 [facility] Comment on above: Order Comment: Order Added by Discern Expert. Performed By: #### 2 853345, 8576787, 8126062, 83479615 ####[facility] [address] [place] [address] Neutrophils/100 leukocytes 63.5 % Normal 36.0-75.0 [facility] Comment on above: Order Comment: Order Added by Discern Expert. Performed By: #### 2 736277, 4893169, 2587084, [id number] ####[address] [place] [address] CBC w/ Auto Diffon Erythrocyte distribution width Auto Ratio (RBC) 13.7 % Normal 10.9-14.2 [facility] Comment on above: Performed By: #### 2 716941, 6462520, 2745957, 74429920 ####[address] [address] Erythrocytes (RBC) 4.3 E12/L Normal 4.3-5.9 [facility] Comment on above: Performed By: #### 2 337233, 1857320, 1789452, 36127321 ####[address] [address] Hematocrit (HCT) 40.0 % Normal 37.7-49.0 [facility] Comment on above: Performed By: #### 2 854365, 6305004, 5451280, 67849262 ####[address] [address] Hemoglobin mass conc (Bld) 13.9 g/dL Normal 13.5-17.5 [facility] Comment on above: Performed By: #### 2 769475, 9955710, 7640467, 89619256 ####[address] [address] MCH 32.3 pg Normal 27.0-34.0 [facility] Comment on above: Performed By: #### 2 813102, 1522868, 8058884, [id number] ####[address] [address] MCHC mass conc (RBC) 34.9 g/dL Normal 31.4-39.3 [facility] Comment on above: Performed By: #### 2 809035, 5595325, 9566294, [id number] ####[address] [address] MCV 92.8 fL Normal 80.0-100.0 [facility] Comment on above: Performed By: #### 2 646422, 7054343, 0602989, [id number] ####[facility] [address] [place] [address] Platelet mean volume (PMV) 8.4 fL Normal 6.4-10.8 [facility] Comment on above: Performed By: #### 2 691314, 4421166, 6136231, [id number] ####[facility] [address] [place] [address] Platelets 311.0 E9/L Normal 150.0-500.0 [facility] Comment on above: Performed By: #### 2 210048, 5628331, 1703509, 02120123 ####[address] [address] WBC (Leukocytes) 9.3 E9/L Normal 4.0-11.0 [facility] Comment on above: Performed By: #### 2 755685, 4900357, 8604579, [id number] ####[facility] [address] [place] [address] CMPon 09-19-2017 Alanine aminotransferase (ALT) 39 Int._Unit/L Normal 6-46 [facility] Comment on above: Performed By: #### 2 097006, 4395907, 9628248, [id number] ####[facility] [address] [place] [address] Albumin 4.1 g/dL Normal 3.3-5.0 [facility] Comment on above: Performed By: #### 2 109724, 5816145, 1926013, 90902331 ####[facility] [address] [place] [address] Albumin 1.1 g/dL Normal 1.1-2.2 [facility] Comment on above: Performed By: #### 2 296763, 0346626, 7711778, 66973971 ####[facility] [address] [place] [address] Alkaline phosphatase (ALP) 66 Int._Unit/L Normal 21-98 [facility] Comment on above: Performed By: #### 2 701035, 9426776, 6205926, 27652529 ####[facility] [address] [place] [address] Anion gap 12 mmol/L Normal 6-16 [facility] Comment on above: Performed By: #### 2 195394, 4284472, 3038135, 42906051 ####[facility] [address] [place] [address] Aspartate aminotransferase (AST) 28 Int._Unit/L Normal 5-43 [facility] Comment on above: Performed By: #### 2 029455, 1450471, 6142405, [id number] ####[facility] [address] [place] [address] Bilirubin (total) 0.8 mg/dL Normal 0.0-1.1 [facility] Comment on above: Performed By: #### 2 043028, 9054506, 9501894, 50425708 ####[facility] [address] [place] [address] BUN/Creatinine Ratio 19 No Units Normal 10-20 [facility] Comment on above: Performed By: #### 2 091702, 2390700, 0264889, [id number] ####[facility] [address] [place] [address] Calcium 9.1 mg/dL Normal 8.9-11.1 [facility] Comment on above: Performed By: #### 2 202600, 8656924, 2492065, 64687068 ####[facility] [address] [place] [address] Chloride 96 mmol/L Low 101-111 [facility] Comment on above: Performed By: #### 2 879552, 4606180, 5834548, 87958425 ####[facility] [address] [place] [address] CO2 29 mmol/L Normal 21-31 [facility] Comment on above: Performed By: #### 2 029495, 4615808, 6190525, 24576264 ####[facility] [address] [place] [address] Creatinine 1.1 mg/dL Normal 0.5-1.3 [facility] Comment on above: Performed By: #### 2 707381, 5926854, 9379039, 03462531 ####[facility] [address] [place] [address] Globulin 3.6 g/dL Normal 1.4-4.0 [facility] Comment on above: Performed By: #### 2 685914, 9924651, 4618210, 02692388 ####[facility] [address] [place] [address] Glucose mass conc 157 mg/dL Normal 55-199 [facility] Comment on above: Result Comment: If t his glucose result represents a fasting glucose, interpretation should refer to the following reference range: 55-99 mg/dL Performed By: #### 2 774790, 3767440, 7721859, [id number] ####[facility] [address] [place] [address] Potassium molar conc 3.9 mmol/L Normal 3.5-5.3 [facility] Comment on above: Performed By: #### 2 835247, 9709933, 4653738, 28172818 ####[facility] [address] [place] [address] Protein 7.7 g/dL Normal 6.0-7.8 [facility] Comment on above: Performed By: #### 2 312308, 4446377, 7291698, 08033013 ####[facility] [address] [place] [address] Sodium 133 mmol/L Low 135-145 [facility] Comment on above: Performed By: #### 2 381246, 1046447, 0949531, 73001139 ####[facility] [address] [place] [address] Urea nitrogen 21 mg/dL Normal 5-21 [facility] Comment on above: Performed By: #### 2 261056, 8179253, 6919577, 96923036 ####[facility] [address] [place] [address] XR Chest 2 Viewson 8 XR Chest [...] by: LOREN Technologist: IRENA Normal [facility] eGFRon 09-19-2017 eGFR (black) mL/min/{1.73_m2} Normal >=59 [facility] Comment on above: Order Comment: Order added by Discern Expert. Result Comment: eGFR is race adjusted. AA=. Performed By: #### 2 199339, 8141830, 2342206, 30135532 ####[facility] [address] [place] [address] eGFR (non-black) mL/min/{1.73_m2} Normal >=59 [facility] Comment on above: Order Comment: Order added by Discern Expert. Result Comment: Web Developer Programmer chris kidney disease could be indicated at eGFR's of less than 60 mL/min/1.73m2. Kidney failure is indicated at less than 15 mL/min/1.73m2. Performed By: #### 2 211272, 0828665, 4979455, [id number] ####[facility] [address] [place] [address] Coding Summary.on 04-19-2017 Coding Summary. CODING DATE: 017 FINAL [facility] STATUS: Home (Routine DC) PAYOR: Medicare APC [...] Saved: 04/19/2017 03:05 pm Normal [facility] Vital Signs Date Time Vital Sign Value Performing Clinician Facility 12-19-2023 09:12-0400 Body height 187.96 cm [facility] 12-19-2023 09:12-0400 Body mass index (BMI) [Ratio] 28.6 kg/m2 [facility] 12-19-2023 09:12-0400 Body weight 101.26 kg [facility] 12-19-2023 09:12-0400 Diastolic blood pressure 66 mm[Hg] [facility] 12-19-2023 09:12-0400 Heart rate 60 /min [facility] 12-19-2023 09:12-0400 Respiratory rate 12 /min [facility] 12-19-2023 09:12-0400 Systolic blood pressure 127 mm[Hg] [facility] 07-26-2023 08:30-0500 Body height 187.96 cm [employer] Other [facility] 07-26-2023 08:30-0500 Body mass index (BMI) [Ratio] 29.04 kg/m2 Robin Ball Other [facility] Other 07-26-2023 08:30-0500 Body weight 102.6 kg Robin Ball Other [facility] 07-26-2023 08:30-0500 Diastolic blood pressure 67 mm[Hg] Robin Ball Other [facility] 07-26-2023 08:30-0500 Respiratory rate 12 /min Robin Ball Other [facility] [employer] Other 07-26-2023 08:30-0500 Systolic blood pressure 122 mm[Hg] Robin Ball Other [facility] 04-20-2023 08:30-0400 Body height 187.96 cm Robin Ball Other [facility] [employer] Other 04-20-2023 08:30-0400 Body mass index (BMI) [Ratio] 29.3 kg/m2 Robin Ball Other [facility] [employer] Other 04-20-2023 08:30-0400 Body weight 103.51 kg Robin Ball Other [facility] [employer] Other 04-20-2023 08:30-0400 Diastolic blood pressure 66 mm[Hg] Robin Ball Other [facility] [employer] Other 04-20-2023 08:30-0400 Respiratory rate 12 /min Robin Ball Other [employer] Other 04-20-2023 08:30-0400 Systolic blood pressure 124 mm[Hg] Robin Ball Other [facility] Other 12-15-2022 08:30-0400 Body height 187.96 cm Robin Ball Other [facility] Other 12-15-2022 08:30-0400 Body mass index (BMI) [Ratio] 29.76 kg/m2 Robin Ball Other [facility] Other 12-15-2022 08:30-0400 Body weight 105.14 kg Robin Ball Other [facility] Other 12-15-2022 08:30-0400 Diastolic blood pressure 71 mm[Hg] Robin Ball Other [facility] Other 12-15-2022 08:30-0400 Respiratory rate 12 /min Robin Ball Other [facility] Other 12-15-2022 08:30-0400 Systolic blood pressure 127 mm[Hg] Robin Ball Other [facility] Other 11-22-2022 13:45-0400 Body height 187.96 cm Robin Ball Other [facility] Other 11-22-2022 13:45-0400 Body mass index (BMI) [Ratio] 29.94 kg/m2 Robin Ball Other [employer] Other 11-22-2022 13:45-0400 Body weight 105.78 kg Robin Ball Other [facility] Other 11-22-2022 13:45-0400 Diastolic blood pressure 64 mm[Hg] Robin Ball Other [facility] Other 11-22-2022 13:45-0400 Respiratory rate 12 /min Robin Ball Other [employer] Other 11-22-2022 13:45-0400 Systolic blood pressure 115 mm[Hg] Robin Ball Other [facility] Other 09-21-2022 09:30-0400 Body height 187.96 cm Robin Ball Other [employer] Other 09-21-2022 09:30-0400 Body mass index (BMI) [Ratio] 31.17 kg/m2 [facility] Other [facility] Other 09-21-2022 09:30-0400 Body weight 110.13 kg [facility] [employer] Other [facility] Other 09-21-2022 09:30-0400 Diastolic blood pressure 68 mm[Hg] [facility] [employer] Other [facility] Other 09-21-2022 09:30-0400 Respiratory rate 12 /min [facility] [employer] Other [employer] Other 09-21-2022 09:30-0400 Systolic blood pressure 130 mm[Hg] [facility] [employer] Other [facility] Other Encounters Encounter Date Encounter Type Care Provider Facility Start: 02-02-2024 End: 02-02-2024 ambulatory [facility] Work Phone: Start: 02-02-2024 End: 02-02-2024 Patient encounter procedure [facility] Work Phone: Start: 12-23-2023 Non-patient / Non-visit [facility] [employer] Work Phone: Start: 12-19-2023 End: 12-19-2023 ambulatory [facility] Work Phone: Start: 12-19-2023 End: 12-19-2023 Patient encounter procedure [facility] Work Phone: Start: 10-05-2023 End: 10-05-2023 ambulatory [facility] Start: 09-07-2023 End: 09-07-2023 ambulatory [facility] Work Phone: Start: 09-07-2023 End: 09-07-2023 Patient encounter procedure [facility] Work Phone: Start: 08-25-2023 End: 08-25-2023 Patient encounter procedure [facility] Work Phone: Start: 07-26-2023 End: 07-26-2023 ambulatory Robin Ball Other [facility] Other Start: 07-26-2023 Office outpatient vi sit 25 minutes Robin Ball [facility] Start: 07-26-2023 End: 07-26-2023 Patient encounter procedure [facility]- Start: 07-19-2023 End: 07-19-2023 ambulatory Robin Ball Other [facility] Other Start: 07-19-2023 Telephone encounter Robin Ball [facility] Start: 06-14-2023 End: 06-14-[address] [facility] Start: 04-21-2023 End: 04-21-2023 ambulatory Robin Ball Other [employer] Other Start: 04-21-2023 Telephone encounter Robin Ball [facility] Start: 04-20-2023 End: 04-20-2023 ambulatory Robin Ball Other [facility] Other Start: 04-20-2023 Office outpatient vi sit 25 minutes Robin Ball [facility] Start: 04-12-2023 End: 04-12-2023 ambulatory Robin Ball Other [facility] Other Start: 04-12-2023 Telephone encounter Robin Ball [facility] Start: 04-07-2023 End: 04-07-2023 ambulatory Robin Ball Other [facility] Other Start: 04-07-2023 Telephone encounter Robin Ball [facility] Start: 02-06-2023 End: 02-06-2023 ambulatory Robin Ball Other [facility] Other Start: 02-06-2023 Telephone encounter Robin Dawkins [facility] Start: 12-20-2022 End: 12-20-2022 ambulatory Robin Dawkins Other [facility] Other Start: 12-20-2022 Telephone encounter Robin Dawkins [facility] Start: 12-15-2022 End: 12-15-2022 ambulatory Robin Dawkins Other [facility] Other Start: 12-15-2022 Patient encounter procedure Robin Dawkins [facility] Start: 12-14-2022 End: 12-14-2022 ambulatory [facility] Start: 11-22-2022 End: 11-22-2022 ambulatory Robin Dawkins Other [facility] Other Start: 11-22-2022 Office outpatient vi sit 15 minutes Robin Ball [facility] Start: 11-22-2022 Telephone encounter Robin Dawkins [facility] Start: 10-31-2022 End: 10-31-2022 ambulatory Robin Dawkins Other [facility] Other Start: 10-31-2022 Office outpatient vi sit 15 minutes Robin Ball [facility] Start: 10-04-2022 End: 10-05-[address] MAE MCCORMICK [facility] Other Start: 10-04-2022 Telephone encounter Robin Dawkins [facility] Start: 09-21-2022 End: 09-21-2022 ambulatory Robin Dawkins Other [employer] Other Start: 09-21-2022 Office outpatient vi sit 25 minutes Robin Ball [facility] Start: 03-30-2022 End: 03-31-[address] MAE MCCORMICK Facility:[facility] Start: 12-16-2021 End: 12-17-[address] ROBIN DAWKINS Facility:[facility] Start: 12-06-2021 Adult health examination Robin Dawkins Other [employer] Other Start: 10-03-2018 End: 10-04-2018 Patient encounter procedure RONNYKARIE NEWMAN Facility:[facility] Start: 10-02-2017 End: 10-02-2017 Ambulatory Jean-Paul Roberts Facility:[facility] Start: 09-19-2017 End: 09-20-2017 Ambulatory Jean-Paul Roberts Facility:[facility] Start: 04-18-2017 End: 04-18-2017 Ambulatory Bipin Cruz Facility:[facility] Procedures Date Procedure Procedure Detail Performing Clinician Start: 12-16-[address] MANZO IN [place] Comment on above: Performed By: #### P [facility] #### [facility] [address] [place] [address] Dr. Rui Moore Start: 06-09-2016 Removal of [...] Health System enter Microalbumin [Mass/volume] in Urine [facility] Immunizations Immunization Date Immunization Notes Care Provider Fa cility 11-16-2022 tetanus and diphther ia toxoids, adsorbed, preservative free, for adult use (5 Lf of tetanus toxoid and 2 Lf of diphtheria toxoid) [facility] 11-16-2022 tetanus toxoid, redu suzy diphtheria toxoid, and acellular pertussis vaccine, adsorbed Robin Dawkins Other [employer] Other 04-06-2022 influenza virus vaccine, unspecified formulation [facility] 04-06-2022 influenza, high dose seasonal, preservative-free Robin Dawkins Other [facility] [employer] Other 03-17-2022 COVID-19 Pfizer (bivalent) Robin Dawkins Other [facility] 10-06-2021 COVID-19 Vaccine Pfi zer - Documentation Purposes Only Robin Dawkins Other [facility] 03-31-2021 COVID-19 Vaccine Pfi zer - Documentation Purposes Only Robin Dawkins Other [facility] 09-28-2020 COVID-19 Vaccine Pfi zer - Documentation Purposes Only Robin Dawkins Other [facility] 09-01-2020 COVID-19 Vaccine Pfi zer - Documentation Purposes Only Robin Dawkins Other [facility] 04-01-2020 influenza virus vaccine, split virus (incl. purified surface antigen) Robin Dawkins Other [facility] [employer] Other 04-01-2020 influenza virus vaccine, unspecified formulation [facility] 04-18-2019 influenza virus vaccine, split virus (incl. purified surface antigen) Robin Dawkins Other [facility] [employer] Other 04-18-2019 influenza virus vaccine, unspecified formulation [facility] 04-12-2018 influenza virus vaccine, split virus (incl. purified surface antigen) Robin Dawkins Other [facility] [employer] Other 04-12-2018 influenza virus vaccine, unspecified formulation [facility] 05-11-2017 influenza virus vaccine, split virus (incl. purified surface antigen) Robin Dawkins Other [facility] [employer] Other 05-11-2017 influenza virus vaccine, unspecified formulation [facility] 04-04-2016 influenza virus vaccine, split virus (incl. purified surface antigen) Robin Dawkins Other [facility] [employer] Other 04-04-2016 influenza virus vaccine, unspecified formulation [facility] 04-16-2015 influenza virus vaccine, split virus (incl. purified surface antigen) Robin Dawkins Other [employer] Other 04-16-2015 influenza virus vaccine, unspecified formulation [facility] 04-16-2015 pneumococcal conjuga te vaccine, 13 valent Robin Dawkins Other [facility] 01-24-2015 zoster vaccine, live Benjeladia Dawkins Other [facility] 12-30-2013 pneumococcal polysaccharide vaccine, 23 valent Robin Dawkins Other [facility] 04-04-2013 pneumococcal conjuga te vaccine, 13 valent Robin Dawkins Other [facility] 04-03-2013 tetanus and diphther ia toxoids, adsorbed, preservative free, for adult use (5 Lf of tetanus toxoid and 2 Lf of diphtheria toxoid) Robin Dawkins Other [facility] 03-08-2012 tetanus and diphther ia toxoids, adsorbed, preservative free, for adult use (5 Lf of tetanus toxoid and 2 Lf of diphtheria toxoid) Robin Dawkins Other [facility] 09-29-2010 diphtheria, tetanus toxoids and acellular pertussis vaccine, unspecified formulation Robin Dawkins Other [facility] 04-28-2010 pneumococcal polysaccharide vaccine, 23 valent Robin Dawkins Other [facility] Payers Date Payer Category Payer Medicare [id number] 1960 Medicare [id number] 2.1 [id number] 1960 Unknown [id number] 1945 Unknown [id number] 2.16.8 [id number] 1945 Unknown [id number] 2.16.84 [id number] 1945 Unknown [id number] 2.16.84 [id number] 1945 Unknown [id number] 2.16.84 [id number] 1945 Unknown [id number] 2.16.8 [id number] Social History Date Type Detail Facility Sex Assigned At [facility] [employer] Other Start: 08-25-2023 Tobacco smoking stat [facility] Never smoked tobacco (finding) [facility] Start: 1945 Sex Assigned At Male F [facility] Medical Equipment Procedure Code Equipment Code Equipment [...] Z87.39) No acute flares Reviewed diet restrictions [facility] Other 01-24-2024 Evaluation note* Encounter Date Diagnosis Assessment Notes Treatment Notes Treatment Clinical Notes Jun, Anemia, unspecified type (ICD-10 - D64.9) [facility] Other 01-24-2024 Evaluation note* Encounter Date Diagnosis Assessment Notes Treatment Notes Treatment Clinical Notes Jun, Type 2 diabetes mellitus with hyperglycemia, without long-term current use of insulin (ICD-10 - E11.65) [facility] Other 12-20-2023 Note[facility] - [facility] Subjective Pooja Marrufo is a 77 y.o. [...] April 2020 he was admitted to the [facility] with COVID-19. He developed atrial fibrillation. [...] Judgment: Judgment normal. Allergies Allergies Allergen Reactions Vuvdokz-Cga-Odo Reductase Inhibitors Other Lisinopril Losartan Medications Current [...] metFORMIN (Glucophage) 500 m (more content not included)...[facility]10-26-20[facility] Evaluation note* Encounter Date Diagnosis Assessment Notes Treatment Notes Treatment Clinical Notes Mar, ASHD (arteriosclerot ic heart disease) (ICD-10 - I25.10) Mar, Type 2 diabetes mellitus with hyperglycemia, without long-term current use of insulin (ICD-10 - E11.65) Mar, Atherosclerosis of [place] artery of both lower extremities with intermittent [...] Mar, Other chronic pain (ICD-10 - G89.29) [facility] Other [id number] Evaluation note* Encounter Date Diagnosis Assessment Notes [...] exam and Foot exam Mar, Atherosclerosis of [place] artery of both lower extremities with intermittent [...] No acute attacks present at this time. [facility] Other 10-13-2023 Evaluation note* Encounter Date Diagnosis Assessment Notes Treatment Notes Treatment Clinical Notes Mar, Anemia, unspecified type (ICD-10 - D64.9) [facility] Other 06-22-2023 Evaluation note* Encounter Date Diagnosis [...] Nov, Hx of gout (ICD-10 - Z87.39) [facility] Other 06-21-2023 NoteRCRI- 3 points Class IV Risk 15.0???% 30-day risk of , ME, or cardiac arrest From a cardiology perspective pt may proceed with planned vascular procedure, he is a moderate risk for a low risk procedure. May hold plavix if neededUn[facility]06-[facility]-2023 NoteContinue metoprolol for rate control, [...] fibrillation happened in the setting of COVID-19 infection.[facility]06-21-2023 NotePT is planning for angiogram/intervention with Dr Mccormick- vascular surgery [facility]06-21-2023 NoteUTP CARDIOLOGY PROGRESS NOTE HPI: [...] Former BSA 2.34 m??? Allergies Allergen Reactions Ygibfmq-Fgt-Uqf Reductase Inhibitors Other Lisinopril Losartan Medications: Current [...] of 10 beats. EKG (more content not included)...[facility] 12-14-2022 NoteLipid abnormalities are Continue crestor- pt having annual labs tomorrow and if LDL remains > 70 he needs to increase crestor to 40 mg daily Chol 163, LDL 99.4Un[facility]06-21-2023 NoteHypertension is well controlled 126/70 Continue amlodipine, metoprololUnKettering [facility]06-21-2023 NoteCoronary artery disease is stable without concerning symptoms Continue GDMT- ASA, plavix, metoprolol, crestor continue risk factor modifications- heart healthy diet, regular exercise as tolerated and continue all medications.[facility] 11-22-2022 Evaluation note* Encounter Date [...] to continue exercise and AHA diet plan. [facility] Other 05-08-2023 Evaluation note* Encounter Date Diagnosis [...] to continue exercise and AHA diet plan. [facility] Other 04-11-2023 Evaluation note* Encounter Date Diagnosis Assessment Notes Treatment Notes Treatment Clinical Notes Sep, Stenosis of right carotid artery (ICD-10 - I65.21) Carotid US: 50-69% right carotid artery, 0-49% left carotid artery - 09/2022 [facility] Other 03-29-2023 Evaluation note* Encounter Date Diagnosis [...] are maintaining regular scheduled appts with their nurse practitioner physicians assistant. Aug, Anemia, unspecified type (ICD-10 - D64.9) Aug, Hx of gout (ICD-10 - Z87.39) No recent flares, continue urate lowering treatment Aug, Acute seasonal allergic rhinitis due to pollen (ICD-10 - J30.1) [facility] Other Evaluation noteNo [facility] [employer] Other Evaluation note* Diagnosis Onset Date Resolution Status [id number] acute Acute bronchitis due to other specified organisms noneactive Acute seasonal allergic rhinitis due to pollen acute [facility] Work Phone: Evaluation note* Diagnosis Onset Date Resolution Status Anemia acute ASHD (arteriosclerotic heart disease) acute Chronic kidney disease acute Chronic venous insufficiency acute Hypercholesterolemia acute Paroxysmal atrial fibrillation acute Primary hypertension acute Type 2 diabetes mellitus with hyperglycemia acute Medicare annual wellness visit, subsequent noneactive Screening PSA (prostate specific antigen) noneactive [facility] Work Phone: History general Narrative [...] History BYPASS Hospitalization History SEE SURGICAL HX [facility] Other history general Narrative - Reported* Type Description Date [...] /stenting 12/2022 Hospitalization History SEE SURGICAL HX [facility] Other history general Narrative - Reported* Type Description Date [...] Colonoscopy 2015 Hospitalization History SEE SURGICAL HX [facility] Other Summary Purpose Family History Relationship Condition Age at Onset Recorded Date/T alonso father Unknown Malignant neoplasm Unknown Advance Directives Advance Directive Response Recorded Date/ Time Advance Directives No July 26, 2023 10:15am Chief Complaint and Reason for Visit Chief Complaint 3 Month Follow Up Sinuses, cough- neg covid Allergy Shot Reason for Visit [id number] Acute bronchitis due to other specified organisms Acute seasonal allergic rhinitis due to pollen Chief Complaint Medicare Wellness Reason for Visit Anemia ASHD (arteriosclerotic heart disease) Chronic kidney disease Chronic venous insufficiency Hypercholesterolemia Paroxysmal atrial fibrillation Primary hypertension Type 2 diabetes mellitus with hyperglycemia Medicare annual wellness visit, subsequent Screening PSA (prostate specific antigen) Chief Complaint Medicare Wellness allergy shot Reason for Visit Anemia ASHD (arteriosclerotic heart [...] section and content) DATE CREATED AUTHOR 12/14/2017 [facility] DATE CREATED AUTHOR AUTHOR'S ORGANIZ ATION 10/08/2018 [facility] DATE CREATED AUTHOR AUTHOR'S ORGANIZ ATION 10/09/2022 [facility] DATE CREATED AUTHOR AUTHOR'S ORGANIZ ATION 08/12/2023 [facility] DATE CREATED AUTHOR AUTHOR'S ORGANIZ ATION 10/06/2023 [facility] REASON FOR VISIT (unrecogniz ed section and content) FOLLOW UPNo InformationCough , Congestion- NEGATIVE COVID [phone] in TodayCheck Up from FallWELLNESSLab ResultsNo InformationLab workLab results4 month Follow upScript4 month Follow upNo InformationRepeat LabsRefill3 month Follow up Care Teams (unrecognized sec tion and content) Team Status: Active Member Role Status Dates Robin Dawkins , DO Primary Care Provider Active Team Status: Inactive Member Role Status Dates Robin Dawkins , DO Attending Provider Active Sta rt: July 26, 2023 End: July 26, 2023 Team Status: Inactive Member Role Status Dates Robin Dawkins , DO Primary Care Provide r, Attending Provider Active Start: August 25, 2023 End: August 25, 2023 Team Status: Inactive Member Role Status Dates Robin Dawkins , DO Primary Care Provide r, Attending Provider Active Start: September 07, 2023 End: September 07, 2023 Team Status: Inactive Member Role Status Dates Robin Dawkins , DO Primary Care Provide r, Attending Provider Active Start: December 19, 2023 End: December 19, 2023 Team Status: Active Member Role Status Dates Robin Dawkins , DO Primary Care Provide r, Attending Provider Active Start: December 23, 2023 Team Status: Inactive Member Role Status Dates Robin Dawkins , DO Primary Care Provide r, Attending Provider Active Start: February 02, 2024 End: February 02, 2024 Goals (unrecognized section and content) Goals may [...] BE BASED ON THE PRIMARY CLINICAL RECORDS. [facility] [employer] provides no warranty or guarantee of the accuracy or completeness of information in this document.
[2024-03-04 07:49] LABS: Basophils Absolute Auto 0.1 10^3/uL (0.0-0.1); Basophils Percent Auto 0.6 % (0.2-2.0); Eosinophils Absolute Auto 0.1 10^3/uL (0.0-0.7); Eosinophils Percent Auto 1.3 % (0.9-7.0); Hematocrit 39.7 % (42.0-54.0); Immature Granulocytes Abs Auto 0.06 10^3/uL (0.00-0.03); Immature Granulocytes Pct Auto 0.6 % (0.0-0.5); Lymphocytes Absolute Auto 4.4 10^3/uL (1.2-3.8); Lymphocytes Percent Auto 42.6 % (20.5-60.0); Mean Corpuscular HGB Conc 32.7 g/dL (29.9-35.2); Mean Corpuscular Hemoglobin 30.5 pg (25.9-34.0); Mean Corpuscular Volume 93.2 fL (80.0-94.0); Mean Platelet Volume 9.5 fL (9.5-13.5); Monocytes Absolute Auto 0.7 10^3/uL (0.3-0.8); Monocytes Percent Auto 6.8 % (1.7-12.0); Neutrophils Absolute Auto 4.9 10^3/uL (1.4-6.5); Neutrophils Percent Auto 48.1 % (43.0-75.0); Platelet Count 233 10^3/uL (150-450); Red Blood Count 4.26 10^6/uL (4.70-6.10); Red Cell Distribution Width 13.2 % (11.0-15.0); White Blood Count 10.2 10^3/uL (4.0-11.0)
[2024-03-05 04:07] LABS: Vitamin B12 424 pg/mL (232-1245)
== END 2024-03-04 07:10 | disposition home or self-care (01) ==
LOC: LAB 07:10
PROVIDERS: PCP Internal Medicine; Visit Provider Internal Medicine
DX: D64.9 Anemia, unspecified (principal)
CPT/HCPCS: 36415; 82607; 85025

== ENCOUNTER 2024-09-05 09:40 | Outpatient (OUT) | payer MEDICARE, SELFPAY ==
--- OUTSIDE RECORDS SUMMARY | 2024-09-05 09:55 | XMS_ITS | CCD ---
Author Organization [facility] Care Team Providers Care Board Worker Name Role Phone Zafoxer, Bipin Unavailable Unavailable Zahler, Bipin Unavailable Unavailable Zahler, Bipin Unavailable Unavailable ROBIN DAWKINS~[id number] UNKNOWN Unavailable Unavailable Nill, Jean-Paul R Unavailable Unavailable Nill, Jean-Paul R Unavailable Unavailable Nill, Jean-Paul R Unavailable Unavailable ROBIN DAWKINS~[id number] UNKNOWN Unavailable Unavailable Nill, Jean-Paul R Unavailable Unavailable Nill, Jean-Paul R Unavailable Unavailable Nill, Jean-Paul R Unavailable Unavailable ROBIN DAWKINS~[id number] UNKNOWN Unavailable Unavailable RONNY NEWMAN Admitting Unavailable TRENTRONNY Attending Unavailable ROBIN DAWKINS Referring Unavailable JESE, ROBIN Primary Care Unavailable Robin Dawkins Unavailable JESE, DR PEÑALOZA Admitting Unavailable BALL, DR PEÑALOZA Attending Unavailable BALL, DR PEÑALOZA Primary Care Unavailable BALL, DR PEÑALOZA Consulting Unavailable ABBAS, DR WALL Admitting Unavailable ABBAS, DR WALL Attending Unavailable BALL, DR PEÑALOZA Primary Care Unavailable ABBAS, DR WALL Consulting Unavailable ABBAS, DR WALL Admitting Unavailable ABBAS, DR WALL Attending Unavailable JESE, DR PEÑALOZA Primary Care Unavailable ABBAS, DR WALL Consulting Unavailable Zieber, Rancho Consulting Unavailable ELI JASSO F Attending Unavailable ROBIN DAWKINS Referring Unavailable ROBIN DAWKINS Primary Care Unavailable RADHA CASTELLON Attending Unavailable RADHA CASTELLON Attending Unavailable Robin Dawkins DO Primary Care Provider Allergies Allergy Classification Reported Allergen(s) Allergy Type Date of Onset Reaction(s) Facility (20 sources) lisinopril; Translations: [lisinopril] Drug Allergy 11-02-19 19 Cough [facility] Repository (6 sources) losartan; Translations: [losartan] Drug Allergy 04-20-20 16 Hives [facility] Repository (1 source) nystatin / triamcinolone; Translations: [Tri-Statin II] Drug Allergy AOF [facility] Repository (4 sources) black walnut pollen extract; Translations: [[id number] REDUCTASE INHIBITORS] Drug Allergy 02-07-20 12 [facility] Repository (9 sources) Angiotensin-convert ing enzyme inhibitor agent Drug allergy Unknown [facility] Other (10 sources) Hmg-Coa Reductase Inhibitors (Statins) Propensity to adverse reactions Unknown [facility] Other (15 sources) Simvastatin Drug Allergy 07-26-19 24 Unknown, Unknown Reaction [facility] (10 sources) FELICIA inhibitor use, contraindication Propensity to adverse reactions 10-13-19 17 Comment:advers e rxn/side effects [facility] [email or web address] Other (9 sources) patient allergy list reviewed by nurse or physicia Propensity to adverse reactions 12-13-19 19 Comment:Done [facility] Other (5 sources) Qcjpsma-GIW-HmB Reductase Inhibitor Allergy to substance 07-26-19 Unknown Reaction [facility] (3 sources) atorvastatin; Translations: [ATORVASTATIN] Drug Allergy 03-16-20 16 Nausea [facility] Repository (3 sources) cilostazol; Translations: [CILOSTAZOL] Drug Allergy 01-03-20 23 Swelling [facility] Repository (2 sources) HMG-CoA reductase inhibitor Propensity to adverse reactions to drug 07-26-19 24 [facility] Medications Current Medications Medication Drug Class(es) Dates Sig (Normalized) Sig (Original) allopurinol 300 mg oral tablet (20 sources) Xanthine Oxidase Inhibitor Start: 12-19-2023 take 1 tablet by mouth once daily Allopurinol 300 mg tablet Active 300 MG PO Daily December 19, 2023 10:01am Start: 11-21-2023 End: 12-19-2023 take 1 tablet by mouth once daily Allopurinol 300 mg tablet Discontinued 0 .ROUTE .COMPLEX November 21, 2023 12:57pm December 19, 2023 10:05am Take 1 tablet by mouth once daily Start: 11-21-2023 End: 12-19-2023 take 1 tablet by mouth once daily Allopurinol Discontinued 0 .ROUTE .COMPLEX November 21, 2023 12:57pm December 19, 2023 10:05am Take 1 tablet by mouth once daily Start: 11-21-2023 take 1 tablet by frank th once daily Allopurinol Active 0 .ROUTE .COMPLEX November 21, 2023 12:57pm Take 1 tablet by mouth once daily Start: 08-25-2023 End: 11-21-2023 take 1 tablet by mouth once daily Allopurinol 300 mg tablet Discontinued 300 MG PO Daily August 25, 2023 1:00am November 21, 2023 12:57pm amLODIPine 10 mg oral tablet (20 sources) Dihydropyridine Calcium Channel [place] Start: 04-03-2018 take 1 tablet by mouth once daily Amlodipine 10 mg tablet Active 10 MG PO Daily August 25, 2023 1:00am aspirin 81 mg delayed release oral tablet (19 sources) Platelet Aggregation Inhibitor, Nonsteroidal Anti-inflammatory Drug Start: 08-25-2023 take 1 tablet by mouth once daily Aspirin 81 mg tablet,delayed release (DR/EC) Active 81 MG PO Daily August 25, 2023 1:00am azithromycin 250 mg oral tablet (3 sources) Macrolide Antimicrobial Start: 10-31-2022 Azithromycin 250 MG as directed Orally daily for 5 days October, Active benazepril (5 sources) Angiotensin Converting Enzyme Inhibitor Benazepril HCl Active clopidogrel 75 mg oral tablet (20 sources) P2Y12 Platelet Inhibitor Start: 02-24-2023 End: 09-02-2024 take 1 tablet by mouth once daily Clopidogrel (Plavix) 75 mg tablet Active 75 MG PO Daily September 02, 2024 9:18am Plavix Active Contour Next Test - (17 sources) Start: 09-21-2022 Contour Next T est - Use to test home BS qd In Vitro daily for 90 days Aug, Active furosemide 40 mg oral tablet (19 sources) Loop Diuretic Start: 08-25-2023 take 1 tablet by mouth once daily Furosemide 40 mg tablet Active 40 MG PO Daily August 25, 2023 1:00am mecobalamin 1 mg sublingual tablet (2 sources) Start: 03-21-2024 Mecobalamin (Vitamin B12) 1,000 mcg tablet,disintegrat ing Active 1000 MCG SUBLINGUAL Daily March 21, 2024 12:00am place tablet under tongue and allow to dissolve for at least30 secs before swallowing metFORMIN hydrochloride 500 mg oral tablet (20 sources) Biguanide Start: 08-25-2023 End: 09-02-2024 take 1 tablet by mouth twice daily Metformin 500 mg tablet Active 500 MG PO Twice daily 180 90 September 02, 2024 9:19am take 1 tablet by frank th every twenty-four hours metFORMIN HCl 500 MG 1 tablet with a meal Orally Once a day Active metoprolol tartrate 50 mg oral tablet (20 sources) beta-Adrenergic [place] Start: 12-19-2023 take 1 tablet by mouth twice daily Metoprolol Tartrate 50 mg tablet Active 50 MG PO Twice daily 180 December 19, 2023 10:03am Start: 12-19-2023 take 1 tablet by frank th twice daily Metoprolol Tartrate 100 mg tablet Active 100 MG PO Twice daily 180 December 19, 2023 10:03am Start: 11-21-2023 End: 12-19-2023 take 1 tablet by mouth twice daily Metoprolol Tartrate 50 mg tablet Discontinued 0 .ROUTE .COMPLEX 180 November 21, 2023 12:57pm December 19, 2023 10:05am Take 1 tablet by mouth twice daily Start: 11-21-2023 End: 12-19-2023 take 1 tablet by mouth twice daily Metoprolol Tartrate 100 mg tablet Discontinued 0 .ROUTE .COMPLEX 180 November 21, 2023 12:56pm December 19, 2023 10:05am Take 1 tablet by mouth twice daily Start: 08-25-2023 End: 11-21-2023 take 1 tablet by mouth twice daily Metoprolol Tartrate 100 mg tablet Discontinued 100 MG PO Twice daily August 25, 2023 1:00am November 21, 2023 12:57pm Start: 08-25-2023 End: 11-21-2023 take 1 tablet by mouth twice daily Metoprolol Tartrate 50 mg tablet Discontinued 50 MG PO Twice daily August 25, 2023 1:00am November 21, 2023 12:57pm take 3 tablets by mo [facility] in the morning, then take 3 tablets by mouth at bedtime metoprolol tartrate (LOPRESSOR) 50 mg tablet Take 3 tablets (150 mg total) by mouth in the morning and 3 tablets (150 mg total) before bedtime. Active take 1 tablet by frank th twice daily Metoprolol Tartrate 100 MG Take 1 tablet by mouth twice daily Active take 1 tablet by frank th twice daily Metoprolol Tartrate 50 MG Take 1 tablet by mouth twice daily Active mupirocin 0.02 mg/mg topical ointment (1 source) RNA Synthetase Inhibitor Antibacterial Start: 09-02-2024 Mupirocin 2 % ointment Active 1 APPLIC TOPICAL Twice daily 16 04September 02, 2024 12:00am [place]-3 Fatty Acids-Fish Oil (Fish Oil Pearls) 300-400 mg capsule (5 sources) Start: 08-25-2023 take 1 capsule by mouth once daily [place]-3 Fatty Acids-Fish Oil (Fish Oil Pearls) 300-400 mg capsule Active 1 CAP PO Daily August 25, 2023 1:00am omega-3 fatty acids-fish oil (FISH OIL) 360-1,200 mg capsule (2 sources) take 3 capsules by mouth in the evening omega-3 fatty acids-fish oil (FISH OIL) 360-1,200 mg capsule Take 3 capsules by mouth in the evening. Active omeprazole 40 mg delayed release oral capsule (5 sources) Proton Pump Inhibitor Start: 04-21-2023 take 1 capsule by mouth once daily Omeprazole 40 MG 1 capsule 30 minutes before morning meal Orally Once a day for 30 days Mar, Active microencapsulated potassium chloride 20 meq extended release oral tablet (19 sources) Start: 08-25-2023 Potassium Chloride (Klor-Con M20) 20 mEq tablet,ER particles/cryst als Active 20 MEQ PO Daily August 25, 2023 1:00am potassium chlori de (K-TAB,KLOR-CON) 20 mEq CR tablet Take 1 tablet (20 mEq total) by mouth nightly. Active take 1 tablet by frank th every twenty-four hours Klor-Con M20 20 MEQ 1 tablet with food O rally Once a day Active rivaroxaban 2.5 mg oral tablet (2 sources) Factor Xa Inhibitor Start: 01-11-2023 take 1 tablet by mouth in the morning, then take 1 tablet by mouth at bedtime rivaroxaban (XARELTO) 2.5 mg tablet Take 1 tablet (2.5 mg total) by mouth in the morning and 1 tablet (2.5 mg total) before bedtime. 60 tablet 3 01/11/2023 Active rosuvastatin calcium 20 mg oral tablet (19 sources) HMG-CoA Reductase Inhibitor Start: 08-25-2023 take 1 tablet by mouth once daily Rosuvastatin 20 mg tablet Active 20 MG PO Daily August 25, 2023 1:00am Triamcinolone (20 sources) Corticosteroid Start: 09-02-2024 Triamcinolone Acetonide 0.1 % ointment Active 1 APPLIC TOPICAL Daily as needed for pain and itching September 02, 2024 12:00am Start: 11-22-2022 Kenalog-40 Mar, 40 mg Start: 09-21-2022 Kenalog-40 Aug, 60 mg Completed/Discontinued Medications Medication Drug Class(es) Dates Sig (Normalized) Sig (Original) ASA (17 sources) ASA Not-Taking/P RN ASA Not-Taking doxycycline hyclate 100 mg oral capsule (5 sources) Tetracycline-class Drug Start: 08-25-2023 End: 12-19-2023 take 1 capsule by mouth twice daily Doxycycline Hyclate 100 mg capsule Discontinued 100 MG PO Twice daily August 25, 2023 1:00am December 19, 2023 10:02am Fish Oils (17 sources) Fish Oil Not-Taking/PRN Fish Oil Not-Angel ing latanoprost 0.05 mg/ml ophthalmic solution (20 sources) Prostaglandin Analog Start: 08-25-2023 End: 12-19-2023 take 1 drop(s) into the eye(s) once daily Latanoprost 0.005 % drops Discontinued 1 DROPS EYE-BOTH Daily August 25, 2023 1:00am December 19, 2023 10:02am Start: 08-25-2023 End: 12-19-2023 take 1 drop(s) into the eye(s) once daily Latanoprost Discontinued 1 DROPS EYE-BOTH Daily August 25, 2023 1:00am December 19, 2023 10:02am Latanoprost Not- Taking/PRN Latanoprost Not- Taking Lidocaine (20 sources) Antiarrhythmic, Amide Local Anesthetic Start: 04-20-2023 Lidocaine 26 Oct, 23 20 mg Start: 11-22-2022 Lidocaine 30 2022 20 mg niacin 500 mg oral tablet (20 sources) Nicotinic Acid Start: 08-25-2023 End: 12-19-2023 take 1 tablet by mouth once daily as needed Niacin 500 mg tablet Discontinued 500 MG PO Daily as needed August 25, 2023 1:00am December 19, 2023 10:04am Niacin Not-Takin g/PRN Niacin Not-Takin g Suprep Bowel Prep . (17 sources) Start: 12-03-2014 Suprep Bowel P rep . as directed Orally 1 for 1 days Nov, Not-Taking/PRN Start: 12-03-2014 Suprep Bowel P rep . as directed Orally 1 for 1 days Nov, Not-Taking valACYclovir 1000 mg oral tablet (14 sources) Herpesvirus Nucleoside Analog DNA Polymerase Inhibitor, Herpes Simplex Virus Nucleoside Analog DNA Polymerase Inhibitor, Herpes Zoster Virus Nucleoside Analog DNA Polymerase Inhibitor Start: 08-25-2023 End: 12-19-2023 Valacyclovir 1 gram tablet Discontinued 1000 MG PO Three times daily August 25, 2023 1:00am December 19, 2023 10:05am Start: 08-25-2023 End: 12-19-2023 take 1000 mg [...] atrial fibrillation; Translations: [Paroxysmal atrial fibrillation] Onset: 09-17-2020 Chronic Chronic kidney disease (20 sources) Chronic kidney disease stage 3A ; Translations: [Stage 3a chronic kidney disease] 08-25-2023 Chronic Chronic obstructive pulmonary disease and bronchiectasis (15 sources) Simple chronic bronchitis; Translations: [Simple chronic bronchitis] Chronic Coronary atherosclerosis and other heart disease (20 sources) Coronary arteriosclerosis; Translations: [Atherosclerotic heart disease of [place] coronary artery without angina pectoris] Onset: 06-26-1960 Chronic Comment on above: Stress testing: no i schemia - 07/2023Echo: LVEF 55-60%, normal RV size/function, LAE, diastolic dysfunction - 06/2023 Deficiency and other anemia (11 sources) Anemia, unspecified; Translations: [Anemia, unspecified] Episodic Deficiency and other anemia (5 sources) Anemia; Translations: [Anemia, unspecified] 12-17-2023 Episodic Deficiency and other anemia (1 source) Pernicious anemia; Translations: [Vitamin B12 deficiency anemia due to intrinsic factor deficiency] 09-02-2024 Episodic Deficiency and other anemia (1 source) Vitamin B12 deficiency anemia due to intrinsic factor deficiency; Translations: [Pernicious anemia] 09-02-2024 Episodic Diabetes mellitus with complications (20 sources) [...] hypercholesterolemia, unspecified] Onset: [birth year]26-1960 Chronic Esophageal disorders (11 sources) Gastro-esophageal reflux disease with esophagitis; Translations: [...] [Right carotid artery stenosis] Onset: 10-03-2018 Chronic Comment on above: US: right 71%, left < 50% - 12/2023 Osteoarthritis (20 sources) Osteoarthritis of joint of right shoulder region; Translations: [Primary osteoarthritis, right shoulder] Onset: 09-05-2017 Chronic Other aftercare (2 sources) Other mcc (current) drug therapy; Translations: [OTH HALFWAY CURRENT DRUG THERAPY] Onset: 12-21-2021 Episodic Other aftercare (1 source) Long-term current use of drug therapy; Translations: [Other mcc (current) drug therapy] Episodic Other circulatory disease [...] Episodic Other diseases of veins and lymphatics (6 sources) Venous insufficiency (chronic) (peripheral); Translations: [Venous [...] fall; Translations: [History of falling] Episodic Other nervous system disorders (12 sources) Chronic pain; Translations: [Other chronic pain] [...] and lump, right lower limb] Episodic Other skin disorders (1 source) Foot callus; Translations: [Corns and callosities] 09-02-2024 Episodic Other skin disorders (1 source) Corns and callosities; Translations: [Corns and callosities] 09-02-2024 Episodic Other upper respiratory disease (20 sources) [...] Onset: 10-12-2016 Episodic Peripheral and visceral atherosclerosis (20 sources) Peripheral vascular disease, unspecified; Translations: [Peripheral vascular disease] Onset: 10-01-2020 Chronic Residual codes; unclassified (3 sources) Localized edema; Translations: [Localized edema] Onset: 10-12-2015 Episodic Spondylosis; intervertebral disc disorders; other back problems [...] Lower Limb Ischemia Onset: 10-05-2023 Viral infection (14 sources) Post-herpetic polyneuropathy; 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] 08-25-2023 [...] limited to brkdwn skin] Resolved: 06-14-2021 Chronic Coronary atherosclerosis and other heart disease (4 sources) Presence of coronary angioplasty implant and graft; Translations: [Presence of aortocoronary bypass graft] Onset: 06-14-2023 Episodic E Codes: Adverse effects of medical drugs (1 source) Antihypertensive adverse reaction; Translations: [Adverse effect of other antihypertensive drugs, initial encounter] Onset: 04-20-2016 Episodic Esophageal disorders (2 sources) Esophageal disorders Mood disorders (2 sources) Mood disorders Onset: 01-11-2023 01-11-2023 Nonspecific chest pain (1 source) Chest pain; Translations: [Chest pain, unspecified] Resolved: 03-08-2021 Episodic Open wounds of extremities (1 source) Open wound of shoulder region with tendon involvement; Translations: [Laceration of muscle, fascia and tendon of long head of biceps, left arm, initial encounter] Onset: 01-14-2016 Episodic Other aftercare (2 sources) Patient encounter status; Translations: [Encounter for therapeutic drug level monitoring] Onset: 12-21-2022 12-21-2022 Episodic Other circulatory disease (2 sources) Lower limb ischemia; Translations: [Other disorder of circulatory system] Onset: 09-12-2020 09-12-2020 Episodic Other connective tissue disease (1 source) Pain in right leg; Translations: [PAIN IN RIGHT LEG] Onset: 04-01-2022 Episodic Other connective tissue disease (1 source) Pain in left leg; Translations: [PAIN IN LEFT LEG] Onset: 04-01-2022 Episodic Other connective tissue disease (1 source) Cramp in limb; Translations: [Cramp of limb] Onset: 02-15-2016 Episodic Other connective tissue disease (2 sources) Pain in bilateral legs; Translations: [Pain in right leg] Onset: 11-02-2018 11-02-2018 Episodic Other liver diseases (1 source) Elevated levels of transaminase & lactic acid dehydrogenase; Translations: [Nonspecific elevation of levels of transaminase or lactic acid dehydrogenase (LDH)] Onset: 10-30-2014 Episodic Other lower respiratory disease (2 sources) Cough; Translations: [Cough] Onset: 09-10-2015 Episodic Other lower respiratory disease (1 source) Dyspnea; Translations: [Other forms of dyspnea] Onset: 09-10-2015 Episodic Other lower respiratory disease (2 sources) Shortness of breath; Translations: [Shortness of breath] Onset: 06-14-2023 Episodic Other nervous system disorders (1 source) [...] 05-11-2017 Episodic Residual codes; unclassified (1 source) Other [...] Value Interpretation Reference Range Facility Office Visiton 06-10-2024 Follow-up visit [id number] Eloisa Marrufo 1945 M Date Provider Department Center 06/10/2024 RADHA ESCOBAR FRANCISCO [facility] Family History Problem Relation Age of Onset Heart failure Mother Family Status - Relation Status Age at Mother Level of Service:25472 NE OFFICE/OUTPATIENT ESTABLISHED LOW MDM 20 MIN Normal [facility] Basophils Auto (Bld) [#/Vol] on 03-04-2024 Basophils (Bld) [#/Vol] 0.1 10 3/uL 0.0-0.1 [facility] Basophils/100 WBC Auto (Bld) on 03-04-2024 Basophils/100 WBC (Bld) 0.6 % 0.2-2.0 [facility] Eosinophils/100 WBC Auto (Bl d)on 03-04-2024 Eosinophils/100 WBC (Bld) 1.3 % 0.9-7.0 [facility] Erythrocyte distribution wid th Auto (RBC) [Ratio]on 03-04-2024 Erythrocyte distribution width (RBC) [Ratio] 13.2 % 11.0-15.0 [facility] Hematocrit Auto (Bld) [Volum e fraction]on 03-04-2024 Hematocrit (Bld) [Volume fraction] 39.7 % Low 42.0-54.0 [facility] Hemoglobin [Mass/volume] in Bloodon 03-04-2024 Hemoglobin (Bld) [Mass/Vol] 13.0 g/dL Low 14.0-18.0 [facility] Laboratory - Chemistry and C hemistry - challengeon 03-04-2024 Cobalamin (Vitamin B12) [Mass/Vol] 424 pg/mL 232-1245 [facility] Comment on above: Performed at: [facility] [address] [id number] Director: Silvano Zarate PhD, Phone: [phone] Laboratory - Hematology and Cell countson 03-04-2024 Immature granulocytes/100 WBC (Bld) 0.6 % High 0.0-0.5 [facility] Leukocytes [#/volume] correc chano for nucleated erythrocytes in Blood by Automated counon 03-04-2024 WBC corrected for nucl RBC Auto (Bld) [#/Vol] 10.2 10 3/uL 4.0-11.0 [facility] Lymphocytes Auto (Bld) [#/Vo l]on 03-04-2024 Lymphocytes (Bld) [#/Vol] 4.4 10 3/uL High 1.2-3.8 [facility] Lymphocytes/100 WBC Auto (Bl d)on 03-04-2024 Lymphocytes/100 WBC (Bld) 42.6 % 20.5-60.0 [facility] MCH Auto (RBC) [Entitic mass ]on 03-04-2024 MCH (RBC) [Entitic mass] 30.5 pg 25.9-34.0 [facility] MCHC Auto (RBC) [Mass/Vol]on 03-04-2024 MCHC (RBC) [Mass/Vol] 32.7 g/dL 29.9-35.2 [facility] MCV Auto (RBC) [Entitic vol] on 03-04-2024 MCV (RBC) [Entitic vol] 93.2 fL 80.0-94.0 [facility] Monocytes Auto (Bld) [#/Vol] on 03-04-2024 Monocytes (Bld) [#/Vol] 0.7 10 3/uL 0.3-0.8 [facility] Monocytes/100 WBC Auto (Bld) on 03-04-2024 Monocytes/100 WBC (Bld) 6.8 % 1.7-12.0 [facility] Neutrophils Auto (Bld) [#/Vo l]on 03-04-2024 Neutrophils (Bld) [#/Vol] 4.9 10 3/uL 1.4-6.5 [facility] Neutrophils/100 WBC Auto (Bl d)on 03-04-2024 Neutrophils/100 WBC (Bld) 48.1 % 43.0-75.0 [facility] No Panel Informationon 03-04 Eosinophils # (Auto) 0.1 10 3/uL 0.0-0.7 [facility] Immature Granulocyte # (Auto) 0.06 10 3/uL High 0.00-0.03 [facility] Platelet mean volume Auto (B ld) [Entitic vol]on 03-04-2024 Platelet mean volume (Bld) [Entitic vol] 9.5 fL 9.5-13.5 [facility] Platelets Auto (Bld) [#/Vol] on 03-04-2024 Platelets (Bld) [#/Vol] 233 10 3/uL 150-450 [facility] RBC Auto (Bld) [#/Vol]on RBC (Bld) [#/Vol] 4.26 10 6/uL Low 4.70-6.10 [facility] Basophils Auto (Bld) [#/Vol] on 12-23-2023 Basophils (Bld) [#/Vol] 0.1 10 3/uL 0.0-0.1 [facility] Basophils/100 WBC Auto (Bld) on 12-23-2023 Basophils/100 WBC (Bld) 0.8 % 0.2-2.0 [facility] Cholesterol in LDL Calc [Mas s/Vol]on 12-23-2023 Cholesterol in LDL [Mass/Vol] 44.8 mg/dL [facility] Comment on above: <100 mg/dl [id number] 0-129 mg/dl NEAR OR ABOVE [id number] mg/dl BORDERLINE [id number] mg/dl HIGH>190 mg/dl VERY HIGH Cholesterol in VLDL Calc [Ma ss/Vol]on 12-23-2023 Cholesterol in VLDL [Mass/Vol] 27.2 mg/dL [facility] Eosinophils/100 WBC Auto (Bl d)on 12-23-2023 Eosinophils/100 WBC (Bld) 3.0 % 0.9-7.0 [facility] Erythrocyte distribution wid th Auto (RBC) [Ratio]on 12-23-2023 Erythrocyte distribution width (RBC) [Ratio] 13.5 % 11.0-15.0 [facility] Estimated glomerular filtrat ion rate (GFR) non- Americanon 12-23-2023 GFR/1.73 sq M.predicted among non-blacks MDRD (S/P/Bld) [Vol rate/Area] 50 mL/min/{1.73_m2} Low >=60 [facility] Globulin Calc (S) [Mass/Vol] on 12-23-2023 Globulin (S) [Mass/Vol] 3.4 g/dL [facility] Glucose mean value [Mass/vol ume] in Blood Estimated from glycated hemoglobinon 12-23-2023 Average glucose Estimated from glycated hemoglobin (Bld) [Mass/Vol] 128 mg/dL [facility] Hematocrit Auto (Bld) [Volum e fraction]on 12-23-2023 Hematocrit (Bld) [Volume fraction] 37.9 % Low 42.0-54.0 [facility] Hemoglobin [Mass/volume] in Bloodon 12-23-2023 Hemoglobin (Bld) [Mass/Vol] 12.3 g/dL Low 14.0-18.0 [facility] Iron binding capacity [Mass/ volume] in Serum or Plasmaon 12-23-2023 Iron binding capacity [Mass/Vol] 367.0 ug/dL 250.0-450.0 [facility] Iron saturation [Mass Fracti on] in Serum or Plasmaon 12-23-2023 Iron saturation [Mass fraction] 21.5 % [facility] Laboratory - Chemistry and C hemistry - challengeon 12-23-2023 Albumin [Mass/Vol] 3.8 g/dL 3.4-5.[address] [facility] ALP [Catalytic activity/Vol] 81 U/L 46-116 [facility] ALT [Catalytic activity/Vol] 28 U/L 16-63 [facility] AST [Catalytic activity/Vol] 21 U/L 15-37 [facility] Bilirubin [Mass/Vol] 0.7 mg/dL 0.2-1.0 [facility] Calcium [Mass/Vol] 9.0 mg/dL 8.5-10.[address] [facility] Chloride [Moles/Vol] 102 mmol/L 98-107 [facility] Cholesterol [Mass/Vol] 118 mg/dL <=200 [facility] Cholesterol in HDL [Mass/Vol] 46 mg/dL 40-60 [facility] Comment on above: > or =60 mg/dl - LOW CARDIOVASCULAR RISK<40 mg/dl - HIGH CARDIOVASCULAR RISK CO2 [Moles/Vol] 27.7 mmol/L 21.0-32.0 [facility] Cobalamin (Vitamin B12) [Mass/Vol] 211.0 pg/mL 193.0-986.0 [facility] Creatinine [Mass/Vol] 1.38 mg/dL High 0.70-1.30 [facility] Ferritin [Mass/Vol] 101.0 ng/mL 26.0-388.0 [facility] [facility] GFR/1.73 sq M.predicted MDRD (S/P/Bld) [Vol rate/Area] mL/min/{1.73_m2} >=60 [facility] Glucose [Mass/Vol] 137 mg/dL High 74-[address] [facility] Iron [Mass/Vol] 79.0 ug/dL 65.0-175.0 [facility] Potassium [Moles/Vol] 4.3 mmol/L 3.5-5.1 [facility] Protein [Mass/Vol] 7.2 g/dL 6.4-8.[address] [facility] Sodium [Moles/Vol] 140 mmol/L 136-[address] [facility] Triglyceride [Mass/Vol] 136 mg/dL <=150 [facility] Urea nitrogen [Mass/Vol] 24.0 mg/dL High 7.0-18.0 [facility] Urea nitrogen/Creatinin e [Mass ratio] 17.4 mg/mg [facility] Laboratory - Hematology and Cell countson 12-23-2023 HbA1c (Bld) [Mass fraction] 6.1 % 4.5-6.2 [facility] Comment on above: ADA RECOMMENDED LIMI T 4.0 - 6.0ADA THERAPEUTIC TARGET < 7.0ACTION SUGGESTED> 7.0 Immature granulocytes/100 WBC (Bld) 0.4 % 0.0-0.5 [facility] Leukocytes [#/volume] correc chano for nucleated erythrocytes in Blood by Automated counon 12-23-2023 WBC corrected for nucl RBC Auto (Bld) [#/Vol] 9.1 10 3/uL 4.0-11.0 [facility] Lymphocytes Auto (Bld) [#/Vo l]on 12-23-2023 Lymphocytes (Bld) [#/Vol] 3.4 10 3/uL 1.2-3.8 [facility] Lymphocytes/100 WBC Auto (Bl d)on 12-23-2023 Lymphocytes/100 WBC (Bld) 36.8 % 20.5-60.0 [facility] MCH Auto (RBC) [Entitic mass ]on 12-23-2023 MCH (RBC) [Entitic mass] 30.3 pg 25.9-34.0 [facility] MCHC Auto (RBC) [Mass/Vol]on 12-23-2023 MCHC (RBC) [Mass/Vol] 32.5 g/dL 29.9-35.2 [facility] MCV Auto (RBC) [Entitic vol] on 12-23-2023 MCV (RBC) [Entitic vol] 93.3 fL 80.0-94.0 [facility] Microalbumin [Mass/volume] i n Urineon 12-23-2023 Albumin DL <= 20 mg/L (U) [Mass/Vol] 6.2 mg/dL <=30.0 [facility] Monocytes Auto (Bld) [#/Vol] on 12-23-2023 Monocytes (Bld) [#/Vol] 0.8 10 3/uL 0.3-0.8 [facility] Monocytes/100 WBC Auto (Bld) on 12-23-2023 Monocytes/100 WBC (Bld) 9.1 % 1.7-12.0 [facility] Neutrophils Auto (Bld) [#/Vo l]on 12-23-2023 Neutrophils (Bld) [#/Vol] 4.6 10 3/uL 1.4-6.5 [facility] Neutrophils/100 WBC Auto (Bl d)on 12-23-2023 Neutrophils/100 WBC (Bld) 49.9 % 43.0-75.0 [facility] No Panel Informationon 12-22 Eosinophils # (Auto) 0.3 10 3/uL 0.0-0.7 [facility] Immature Granulocyte # (Auto) 0.04 10 3/uL High 0.00-0.03 [facility] Prostate Specific Antigen Screen 0.37 ng/mL <=4.00 [facility] Platelet mean volume Auto (B ld) [Entitic vol]on 12-23-2023 Platelet mean volume (Bld) [Entitic vol] 9.4 fL Low 9.5-13.5 [facility] Platelets Auto (Bld) [#/Vol] on 12-23-2023 Platelets (Bld) [#/Vol] 280 10 3/uL 150-450 [facility] RBC Auto (Bld) [#/Vol]on RBC (Bld) [#/Vol] 4.06 10 6/uL Low 4.70-6.10 [facility] Serum or plasma albumin/glob ulin mass ratioon 12-23-2023 Albumin/Globulin [Mass ratio] 1.1 {ratio} [facility] Serum or plasma anion gap de terminationon 12-23-2023 Anion gap [Moles/Vol] 14.6 mmol/L [facility] Serum or plasma total choles terol/high density lipoprotein (HDL) cholesterol mass nyasia 12-23-2023 Cholesterol.total/ Cholesterol in HDL [Mass ratio] 2.6 {ratio} [facility] Comment on above: 3.3 - [...] and informed him of results per Dr. Castellon. He verbalized understanding. Normal [facility] Office Visiton 06-14-2023 Follow-up visit [id number] Eloisa Marrufo 1945 M Date Provider Department Center 06/14/2023 RADHA ESCOBAR FRANCISCO JAVIER Hope Family History Problem Relation Age of Onset Heart failure Mother Family Status - Relation Status Age at Mother Level of Service:31164 NE OFFICE/OUTPATIENT ESTABLISHED LOW MDM 20 MIN Normal [facility] US CAROTID ART BILon 023 US CAROTID ART DAYDAY EXAMINATION: US MCKEON TID ART DAYDAY HISTORY: Peripheral vascular disease (disorder) ; carotid [...] RANCHO GLEZ Date: 2022-10-04 16:04 Normal [facility] CBC AUTO DIFFon 12-16-2021 BASO # 0.1 103/ul Normal 0.0-0.1 [facility] Comment on above: Performed By: #### C BC #### [facility] [address] [place] [address] Dr. Rui Moore Basophils/100 WBC (Bld) 0.5 % Normal 0.2-2.0 [facility] Comment on above: Performed By: #### C BC #### [facility] [address] [place] [address] Dr. Rui Moore EO # 0.0 103/ul Normal 0.0-0.7 [facility] Comment on above: Performed By: #### C BC #### [facility] [address] [place] [address] Dr. Rui Moore Eosinophils/100 WBC (Bld) 0.4 % Critically low 0.9-7.0 [facility] Comment on above: Performed By: #### C BC #### [facility] [address] [place] [address] Dr. Rui Moore Erythrocyte distribution width (RBC) [Ratio] 13.2 % Normal 11.0-15.0 [facility] Comment on above: Performed By: #### C BC #### [facility] [address] [place] [address] Dr. Rui Moore Hematocrit (Bld) [Volume fraction] 38.1 % Critically low 42.0-54.0 [facility] Comment on above: Performed By: #### C BC #### [facility] [address] [place] [address] Dr. Rui Moore Hemoglobin (Bld) [Mass/Vol] 12.3 g/dL Critically low 14.0-18.0 [facility] Comment on above: Performed By: #### C BC #### [facility] [address] [place] [address] Dr. Rui Moore IG # 0.06 10e3/ul Critically high 0.00-0.03 [facility] Comment on above: Performed By: #### C BC #### [facility] [address] [place] [address] Dr. Rui Moore IG % 0.5 % Normal 0.0-0.5 [facility] Comment on above: Performed By: #### C BC #### [facility] [address] [place] [address] Dr. Rui Moore LYMPH # 3.5 103/ul Normal 1.2-3.8 [facility] Comment on above: Performed By: #### C BC #### [facility] [address] [place] [address] Dr. Rui Moore Lymphocytes/100 WBC (Bld) 31.9 % Normal 20.5-60.0 [facility] Comment on above: Performed By: #### C BC #### [facility] [address] [place] [address] Dr. Rui Moore MANUAL DIFF REQ NO Normal [facility] Comment on above: Performed By: #### C BC #### [facility] [address] [place] [address] Dr. Rui Moore MCH (RBC) [Entitic mass] 29.9 pg Normal 25.9-34.0 [facility] Comment on above: Performed By: #### C BC #### [facility] [address] [place] [address] Dr. Rui Moore MCHC (RBC) [Mass/Vol] 32.3 g/dL Normal 29.9-35.2 [facility] Comment on above: Performed By: #### C BC #### [facility] [id number] Rui Moore MCV (RBC) [Entitic vol] 92.5 fL Normal 80.0-94.0 [facility] Comment on above: Performed By: #### C BC #### [facility] [address] [address] [address] Rui Moore MONO # 0.7 103/ul Normal 0.3-0.8 [facility] Comment on above: Performed By: #### C BC #### [facility] [address] [address] [address] Rui Moore Monocytes/100 WBC (Bld) 6.6 % Normal 1.7-12.0 [facility] Comment on above: Performed By: #### C BC #### [facility] [address] [address] [address] Rui Moore NEUT # 6.6 103/ul Critically high 1.4-6.5 [facility] Comment on above: Performed By: #### C BC #### [facility] [address] [address] [address] Rui Moore Neutrophils/100 WBC (Bld) 60.1 % Normal 43.0-75.0 [facility] Comment on above: Performed By: #### C BC #### [facility] [address] [address] [address] Rui Moore Platelet mean volume (Bld) [Entitic vol] 9.3 fL Critically low 9.5-13.5 [facility] Comment on above: Performed By: #### C BC #### [facility] [address] [address] [address] Rui Moore PLT 307 103/ul Normal 150-450 [facility] Comment on above: Performed By: #### C BC #### [facility] [id number] Rui Moore RBC 4.12 106/ul Critically low 4.70-6.10 [facility] Comment on above: Performed By: #### C BC #### [facility] [address] [address] [address] Rui Moore WBC 11.0 103/ul Normal 4.0-11.0 [facility] Comment on above: Performed By: #### C BC #### [facility] [address] [address] [address] Rui Moore GLYCOHEMOGLOBIN A1Con 2021 ADA RECOMMENDATION SEE BELOW Normal [facility] Comment on above: Result Comment: ADA RECOMMENDED LIMIT 4.0 - 6.0 ADA THERAPEUTIC TARGET < 7.0 ACTION SUGGESTED > 7.0 Performed By: #### A 1C #### [facility] [address] [address] [address] Rui Moore Glucose [Mass/Vol] 143 mg/dL Normal [facility] Comment on above: Performed By: #### A 1C #### [facility] [address] [place] [address] Dr. Rui Moore HbA1c (Bld) [Mass fraction] 6.6 % Critically high 4.5-6.2 [facility] Comment on above: Performed By: #### A 1C #### [facility] [address] [address] [address] Rui Moore LIPID PROFILEon 12-16-2021 CHOL-HDL RATIO NORM SEE BELOW Normal [facility] Comment on above: Result Comment: 3.3 - 4.4 LOW RISK 4.4 - 7.1 AVERAGE RISK 7.1 - 11.0 MODERATE RISK >11.0 HIGH RISK Performed By: #### L IPID, BMP, ALT #### [facility] [address] [place] [address] Dr. Rui Moore Cholesterol [Mass/Vol] 109 mg/dL Normal <=200 [facility] Comment on above: Performed By: #### L IPID, BMP, ALT #### [facility] [address] [address] [address] Rui Moore Cholesterol in HDL [Mass/Vol] 39 mg/dL Critically low 40-60 [facility] Comment on above: Performed By: #### L IPID, BMP, ALT #### [facility] [address] [address] [address] Rui Moore Cholesterol in LDL [Mass/Vol] 51.6 mg/dL Normal [facility] Comment on above: Performed By: #### L IPID, BMP, ALT #### [facility] [address] [address] [address] Rui Moore Cholesterol.total/ Cholesterol in HDL [Mass ratio] 2.8 {ratio} Normal [facility] Comment on above: Performed By: #### L IPID, BMP, ALT #### [facility] [address] [address] [address] Rui Moore HDL NORMAL > or = 60 mg/dl - LO W CARDIOVASCULAR RISK <40 mg/dl - HIGH CARDIOVASCULAR RISK Normal [facility] Comment on above: Performed By: #### L IPID, BMP, ALT #### [facility] [address] [place] [address] Dr. Rui Moore LDL CALC NORMAL SEE BELOW Normal [facility] Comment on above: Result Comment: <100 mg/dl OPTIMAL 100 - 129 mg/dl NEAR OR ABOVE OPTIMAL 130 - 159 mg/dl BORDERLINE HIGH 160 - 189 mg/dl HIGH >190 mg/dl VERY HIGH Performed By: #### L IPID, BMP, ALT #### [facility] [address] [place] [address] Dr. Rui Moore Triglyceride [Mass/Vol] 92 mg/dL Normal <=150 [facility] Comment on above: Performed By: #### L IPID, BMP, ALT #### [facility] [address] [address] [address] Rui Moore VLDL CALC 18.4 mg/dL Normal [facility] Comment on above: Performed By: #### L IPID, BMP, ALT #### [facility] [address] [place] [address] Dr. Rui Moore MICROALBUMIN, RAND URon 06-2 mALB 8.3 mg/L Normal <=30.0 [facility] Comment on above: Performed By: #### M ALBR #### [facility] [address] [place] [address] Dr. Rui Moore PROF CHEM 8 (BAS METB)on Anion gap [Moles/Vol] 14.6 mmol/L Normal [facility] Comment on above: Performed By: #### L IPID, BMP, ALT #### [facility] [address] [address] [address] Rui Moore Calcium [Mass/Vol] 9.1 mg/dL Normal 8.5-10.1 [facility] Comment on above: Performed By: #### L IPID, BMP, ALT #### [facility] [address] [address] [address] Rui Moore Chloride [Moles/Vol] 101 mmol/L Normal 98-107 [facility] Comment on above: Performed By: #### L IPID, BMP, ALT #### [facility] [address] [place] [address] Dr. Rui Moore CO2 [Moles/Vol] 25.9 mmol/L Normal 21.0-32.0 [facility] Comment on above: Performed By: #### L IPID, BMP, ALT #### [facility] [address] [address] [address] Rui Moore Creatinine [Mass/Vol] 1.23 mg/dL Normal 0.70-1.30 [facility] Comment on above: Performed By: #### L IPID, BMP, ALT #### [facility] [address] [address] [address] Rui Moore EGFR-AF RUSSIAN >60 Normal >=60 [facility] Comment on above: Performed By: #### L IPID, BMP, ALT #### [facility] [address] [address] [address] Rui Moore EGFR-NON AF RUSSIAN 57 mL/min/1.73m2 Critically low >=60 [facility] Comment on above: Performed By: #### L IPID, BMP, ALT #### [facility] [address] [address] [address] Rui Moore Glucose [Mass/Vol] 141 mg/dL Critically high 74-106 [facility] Comment on above: Performed By: #### L IPID, BMP, ALT #### [facility] [address] [place] [address] Dr. Rui Moore Potassium [Moles/Vol] 4.5 mmol/L Normal 3.5-5.1 [facility] Comment on above: Performed By: #### L IPID, BMP, ALT #### [facility] [address] [place] [address] Dr. Rui Moore Sodium [Moles/Vol] 137 mmol/L Normal 136-145 [facility] Comment on above: Performed By: #### L IPID, BMP, ALT #### [facility] [address] [place] [address] Dr. Rui Moore Urea nitrogen [Mass/Vol] 22.0 mg/dL Critically high 7.0-18.0 [facility] Comment on above: Performed By: #### L IPID, BMP, ALT #### [facility] [address] [place] [address] Dr. Rui Moore Urea nitrogen/Creatinin e [Mass ratio] 17.9 mg/mg Normal [facility] Comment on above: Performed By: #### L IPID, BMP, ALT #### [facility] [address] [place] [address] Dr. Rui Moore [facility] 12-16-2021 ALT [Catalytic activity/Vol] 42 U/L Normal 16-63 [facility] Comment on above: Performed By: #### L IPID, BMP, ALT #### [facility] [address] [place] [address] Dr. Rui Moore Operative Reporton 8 Operative [...] began to show signs and symptoms of successfulblockade.Shvia Cronin M.D.glsDictated: 10/02/2017 #[id number]: 10/02/2017 #[id number]: Shiva Cronin M.D. [facility] Comment on above: Result Comment: Elec [...] Problem list: All ProblemsHypertension / SNOMED CT 4022940640 / ConfirmedDiabetes / SNOMED CT 097041026 / ConfirmedUmbilical hernia / SNOMED CT 0122487741 / ConfirmedPeripheral artery disease / SNOMED CT 8385636795 / ConfirmedAcid reflux / SNOMED CT 867865553 / ConfirmedCAD (coronary artery disease) / SNOMED CT 21416183 / ConfirmedResolved: High cholesterol / SNOMED CT 12897897 Histories Past Medical History: No active or resolved past medical history items have been selected or recorded. Procedure history: CEA - Carotid endarterectomy left ([id number]) on 03/09/2016 at 70 Years.Allograft bypass of coronary artery x3 stents ([id number]) on 03/09/2016 at 70 Years.Comments:09/19/2017 16:41 - Elen Sutton RNwith left mammary artery , graft to the LAD and left radial artery graft to the OM1 and SVG to PDAColonoscopy ([id number]) on 12/31/2014 at 69 Years.Entire RCA - Right coronary artery stent ([id number]) on 02/10/2012 at 66 Years.History of subdural hematoma (3213995112) on 08/03/2010 at 64 Years.Cataract b/l ([id number]).Femoral-popliteal artery bypass graft right and left ([id number]).Comments: 16:39 - Elen Sutton RNstents legs/ 12/13// 10/21/2005/ 12/22/2007. Social History Social & Psychosocial JmafsbWmrrcjd49/27/2018 Risk Assessment: High Risk09/19/2017 Use: Current Type: Beer Frequency: 3-5 times per weekSubstance Abuse09/19/2017 Risk Assessment: Denies Substance QddloIkiymtg59/27/2018 Risk Assessment: Denies Tobacco Use09/19/2017 Type: Cigarettes [...] Auto 63.5 % Lymph Auto 25.9 % Campbell Auto 8.1 % Eos Auto 1.4 % Basophil Auto 1.1 % Neutro Absolute 5.9 E9/L Lymph Absolute 2.4 E9/L Campbell Absolute 0.7 E9/L Eos Absolute 0.1 E9/L [...] on September 19, 2017 13:33 EDTEncounter info: [id number], Palomo Dixon, Outpatient, 09/19/2017 - 09/19/2017 Radiology results ECG interpretation: SINUS RHYTHM. Plan [place] [employer]esthesi[employer] (ASA) physical status classification: [...] allergic reactions, failed block and .. Normal [facility] Comment on above: Result Comment: Elec tronically [...] Problem list: All ProblemsHypertension / SNOMED CT 7312165182 / ConfirmedDiabetes / SNOMED CT 042980166 / ConfirmedUmbilical hernia / SNOMED CT 9315331426 / ConfirmedPeripheral artery disease / SNOMED CT 9013641903 / ConfirmedAcid reflux / SNOMED CT 589388719 / ConfirmedCAD (coronary artery disease) / SNOMED CT 14626281 / ConfirmedResolved: High cholesterol / SNOMED CT 56826453 Physical Examination Intake and Output adequate hydration [...] discharged from anesthesia care. Condition stable. Normal [facility] Comment on above: Result Comment: Elec tronically Signed By: Mehrdad GALE, Shiva\.br\Date and Time Signed: 10/05/17 13:04 EDT Coding Summary.on 10-03-2017 Coding Summary. CODING DATE: 018 FINAL [facility] STATUS: Home (Routine DC) PAYOR: Medicare APC DESCRIPTION 5361 Level 1 Laparoscopy and Related Services ADMIT DX: REASON FOR VISIT DX: K42.0 Umbilical hernia with obstruction, without gangrene FINAL DX: PRINCIPAL: K42.0 Umbilical hernia with obstruction, without gangrene SECONDARY: I25.10 Atherosclerotic heart disease of [place] coronary artery without angina pectoris I10 Essential (primary) hypertension E11.40 Type 2 diabetes mellitus with diabetic neuropathy, unspecified E78.5 Hyperlipidemia, unspecified M10.9 Gout, unspecified I73.9 Peripheral vascular disease, unspecified Z86.79 Personal history of other diseases of the circulatory system Z95.1 Presence of aortocoronary bypass graft 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 Z95.820 Peripheral vascular angioplasty status with implants and grafts Z87.891 Personal history of nicotine dependence PYMT PROC APC STAT DESCRIPTION DOCTOR NAME DATE 89051 5693 J1 Laparoscopy, surgical, Jean-Paul Roberts MD 10/02/2017 repair, ventral, umbilical, spigelian or epigastric hernia (includes mesh insertion, when performed); incarcerated or strangulated 42863 Anesthesia for hernia Jean-Paul Roberts MD 10/02/2017 repairs in lower abdomen; not otherwise specified 45024 Transversus abdominis Shiva Cronin MD 10/02/2017 plane [...] Revised Date Saved: 10/03/2017 10:41 am Normal [facility] Main OR Intraoperative Recor don 10-03-2017 Main OR Intraoperative Record IntraOp Document Type FT Summary Primary Physician: Jean-Paul Roberts MD Finalized Date/Time: 10/03/17 10:03:38 Pt. Name: POOJA MARRUFO Lam /Sex: 1945 Male Med Rec #: [id number] Physician: Jean-Paul Roberts MD Financial #: [id number] Pt. Type: A Room/Bed: [place] [address] Admit/Disch: 10/02/17 06:11:00 - 10/02/17 14:55:00 Institution: [...] Case Attendee Mehrdad GALE, Shiva Roberts MD, SHEFALI Elizabeth Role Performed Anesthesiologist of Surgeon - Primary BPM ANALYST Record Time In 10/02/17 08:51:00 10/02/17 08:51:00 10/02/17 08:51:00 Time Out 10/02/17 11:22:00 10/02/17 11:22:00 10/02/17 11:22:00 Procedure HERNIA REPAIR, ROBOT HERNIA REPAIR, ROBOT HERNIA REPAIR, ROBOT ASSISTED(.) ASSISTED(.) ASSISTED(.) Comments Last Modified By: Anurag RN, Bia Osborn RN, Bia Bryant RN 10/02/17 11:25:55 10/02/17 11:25:55 10/02/17 11:25:55 Entry 4 Entry 5 Case Attendee Anurag MEEHAN, Bia Baker CST/Sushma LEACH Role Performed Cash Control Specialist - Primary Scrub - Primary Time In 10/02/17 08:51:00 10/02/17 08:51:00 Time Out 10/02/17 11:22:00 10/02/17 11:22:00 Procedure HERNIA REPAIR, ROBOT HERNIA REPAIR, ROBOT ASSISTED(.) ASSISTED(.) Comments Last Modified By: Anurag RN, Bia Osborn RN, Bia Campbell 10/02/17 11:25:55 10/02/17 11:25:55 General Comments: SKIP SINGH REP PRESENT FOR PROCEDURE. Jonh RAE RNnet application support specialist Protocols FT Pre-Care Text: Implements protective measures [...] Yes Time Out Mehrdad GALE, Armando Shannon Given Participants , Zack Braden, RN Anurag Foss RN, Olivia Rios CST/SA, Sushma Time Out Complete 10/02/17 09:27:00 Outcomes [...] Procedure Yes Primary Surgeon Jean-Paul Roberts MD 10/02/17 09:30:00 Stop 10/02/17 11:16:00 Anesthesia Type [...] and tissue Entry 1 Skin Integrity Intact, [place], Warm, and Skin Abnormality Yes Dry, Bruised [...] Outcomes Met? Yes Yes Last Modified By: Anurag MEEHAN, Bia Bryant RN 10/02/17 07:39:31 10/02/17 09:43:20 Post-Care Text: The [...] Bia Osborn RN, Bia Camara RN, Sharp CEMENTER HAND/SA, Sushma CEMENTER HAND/SA, Sushma Outcomes Met? Yes Yes Last Modified [...] RN Patient Status Stable Skin. Condition Intact, [place], Warm, and Description UNCHANGED FROM Dry, Bruised PREVIOUSLY Airway Maintenance Oxygen in Use? Yes Airway Device Simple Mask Flow Rate 8 L/min Outcomes Met? Yes Last Modified By: Bia Osborn RN 10/02/17 11:31:29 Post-Care Text: The patient is free from signs and symptoms of injury related to transfer/transport General Comments: REPORT GIVEN TO INCOME TAX CONSULTANTRN. Jonh RAE RN Dressing/Packing FT Pre-Care Text: [...] safely administered during the perioperative period For [place] please see scanned medication reconcilliation form for medications used at the field during the procedure. Implant Log FT Pre-Care Text: Records devices implanted during the operative or invasive procedure Entry 1 Implant/Explant Implant Implant Identification Description MESH STEX ROUND 9CM Lot Number [id number] (3.6 ) [SYM9][F] Ccu Nurse FT-3rdKind Catalog ?# [id number] [F] Size 9CM Expiration [...] Type TUBE NASOGASTIC SUMP Location MOUTH 18FR [[id number]][F] Quantity 1 Fluid SCANT AMOUNT BLOOD Characteristics [...] Present Upon Arrival No Inserted LF 16FR [[id number]][F] Insertion Date/Time 10/02/17 09:05:00 Urine Residual 100 [...] BLANKET MISTRAL AIR Quantity 1 Aid TORSO [[id number]][F] Fluid/[facility] Mistral warming system Setting HIGH/43 Body Site Upper anterior torso Last Modified By: Bia Osborn RN 10/02/17 09:49:45 Case Comments Finalized By: Kassy Mathews CST Document Signatures Signed By: Bia Osborn RN 10/02/17 11:26 Bia Osborn RN 10/02/17 11:27 Bia Osborn RN 10/02/17 11:29 Bia Osborn RN 10/02/17 11:31 Kassy Mathews CST 10/03/17 10:03 [facility] History and Physicalon 10-02 History and Physical Patient: POOJA MARRUFO Age: 72 years Sex: Male : 1945 Associated Diagnoses: None Author: Jean-Paul Roberts MD Subjective no changes to [facility] Comment on above: Result Comment: Elec tronically Signed By: Jean-Paul Roberts MD\.br\Date and Time Signed: 10/02/17 08:31 EDT Inpatient Patient Summaryon 10-02-2017 [facility] IN[facility] Name: POOJA MARRUFO PHYSICIANS Admitting Physician: Jean-Paul Roberts MD Physician: Jean-Paul Roberts MD PCP: Vidhi DAWKINS DO Diagnosis: Incarcerated umbilical hernia Comment: PATIENT EDUCATION INFORMATIONInstructions:Medic ation Leaflets:Follow up:With: Address: When: Jean-Paul Roberts [employer] [address] [place] [id number] [facility] () Within 7 to 10 days MEDICATION LISTFill New Prescriptions:acetaminophen-h ydrocodone (acetaminophen-hydrocodone 325 mg-5 mg oral tablet) 1 tab(s) By Mouth every 4 hours as needed for Pain not to exceed 8 tablets/day take with food or milkComment: [facility] Main OR PACU I Record PACU Phase I Document Type FT Summary Primary Physician: Jean-Paul Roberts MD Finalized Date/Time: 10/02/17 12:01:59 Pt. Name: POOJA MARRUFO Lam /Sex: 1945 Male Med Rec #: [id number] Physician: Jean-Paul Roberts MD Financial #: [id number] Pt. Type: A Room/Bed: Admit/Disch: 10/02/17 06:11:42 [...] Signed By: Cinthia Sharif RN 10/02/17 12:01 [facility] Main OR Preoperative Recordo n 10-02-2017 Main OR Preoperative Record PreOp Document Type FT Summary Primary Physician: Jean-Paul Roberts MD Finalized Date/Time: 10/02/17 09:50:16 Pt. Name: POOJA MARRUFO /Sex: 1945 Male Med Rec #: [id number] Physician: Jean-Paul Roberts MD Financial #: [id number] Pt. Type: A Room/Bed: [place] [address] Admit/Disch: 10/02/17 06:11:42 - Institution: Case Times [...] By: Bia Osborn RN 10/02/17 09:50 Normal [facility] Operative Reporton 8 Operative Report Date of [...] wasinserted. There were no adhesions noted. The Adrianan trocar was theninserted and secured using the [...] [facility] was noted to be [facility] [...] visualization. Once this wascomplete, the last needle distribution driver was brought out through the #1 arm. Therobot was then docked. I then scrubbed back into the field and examinedthe repair. It was noted to be intact. There was no evidence of bleeding.All port sites were examined upon withdrawal of the ports. There was notedto be good hemostasis. The fascia from the right subcostal incision wasthen closed with a 0 Vicryl yzwfll-oh-oodpa suture. All port sites wereinfiltrated with the [...] Room in good condition.Jean-Paul Roberts M.D.glsDictated: 10/02/2017 #[id number]: 10/02/2017 #[id number]: Cherie Newby M.D. [facility] Comment on above: Result Comment: Elec tronically Signed By: Armando GALE, Jean-Paul Mcknightbr\Date and Time Signed: 10/02/17 13:56 EDT UA With Cult Reflexon 2017 Bilirubin Ql (U) Negative Normal Negative [facility] Comment on above: Performed By: #### 1 [id number] ####[address] [address] COLOR:TYPE:PT:URIN E:NOM:AUTO STRAW Abnormal Yellow [facility] Comment on above: Performed By: #### 1 [id number] ####[address] [address] Erythrocytes (RBC) 0-3 Normal 0-3 [facility] Comment on above: Performed By: #### 1 [id number] ####[address] [address] GLUCOSE:MCNC:PT:UR INE:QN:TEST STRIP Negative Normal Negative [facility] Comment on above: Performed By: #### 1 [id number] ####[address] [address] KETONES:MCNC:PT:UR INE:QN:TEST STRIP Negative Normal Negative [facility] Comment on above: Performed By: #### 1 [id number] ####[facility] [address] [place] [address] LEUKOCYTES:PRTHR:P T:URINE:ORD:AUTOMA CHANO Negative Normal Negative [facility] Comment on above: Performed By: #### 1 [id number] ####[facility] [address] [place] [address] UA Spec Desc Pinedo Normal [facility] Comment on above: Performed By: #### 1 [id number] ####[facility] [address] [place] [address] Urine, clarity CLEAR Normal Clear [facility] Comment on above: Performed By: #### 1 [id number] ####[facility] [address] [place] [address] Urine, hemoglobin presence Negative Normal Negative [facility] Comment on above: Performed By: #### 1 [id number] ####[facility] [address] [place] [address] Urine, leukocytes in sedmiment 0-5 Normal 0-5 [facility] Comment on above: Performed By: #### 1 [id number] ####[facility] [address] [address] Urine, nitrite presence Negative Normal Negative [facility] Comment on above: Performed By: #### 1 [id number] ####[facility] [address] [place] [address] Urine, pH 6.5 [pH] Invalid Interpretation Code 5.0-9.0 [facility] Comment on above: Performed By: #### 1 [id number] ####[facility] [address] [place] [address] Urine, protein Negative Normal Negative [facility] Comment on above: Performed By: #### 1 [id number] ####[facility] [address] [place] [address] Urine, specific gravity <=1.005 Invalid Interpretation Code 1.005-1.030 [facility] Comment on above: Performed By: #### 1 [id number] ####[facility] [address] [place] [address] Urine, squamous cells in sediment 0-2 Normal 0-2 [facility] Comment on above: Performed By: #### 1 [id number] ####[facility] [address] [address] Urine, urobilinogen 0.2 {Aleja'U}/dL Normal 0.0-1.0 [facility] Comment on above: Performed By: #### 1 8798950 ####[facility] [address] [place] [address] Coding Summary.on 09-20-2017 Coding Summary. CODING DATE: 018 FINAL [facility] STATUS: Home (Routine DC) PAYOR: Medicare [...] Zarco Date Saved: 09/20/2017 11:31 am Normal [facility] Auto Diffon 09-19-2017 Basophils Auto #/vol (Bld) 0.1 E9/L Normal 0.0-0.2 [facility] Comment on above: Order Comment: Order Added by Mike Expert. Performed By: #### 2 047293, 7474218, 0801214, [id number] ####[place] [address] [place] [address] Basophils Auto #/vol (Bld) 1.1 % Normal 0.0-2.0 [facility] Comment on above: Order Comment: Order Added by Mike Expert. Performed By: #### 2 721927, 3310335, 3634819, 63832928 ####[facility] [address] [place] [address] Eosinophils 0.1 E9/L Normal 0.0-0.5 [facility] Comment on above: Order Comment: Order Added by Mike Expert. Performed By: #### 2 271401, 9991847, 0603779, [id number] ####[facility] [address] [place] [address] Eosinophils/100 leukocytes 1.4 % Normal 0.0-8.0 [facility] Comment on above: Order Comment: Order Added by Mike Expert. Performed By: #### 2 837030, 7930130, 8636985, 97970802 ####[facility] [address] [place] [address] Lymphocytes 2.4 E9/L Normal 1.0-4.0 [facility] Comment on above: Order Comment: Order Added by Mike Expert. Performed By: #### 2 662280, 6847434, 6421492, 17226093 ####[facility] [address] [place] [address] Lymphocytes/100 leukocytes 25.9 % Normal 14.0-50.0 [facility] Comment on above: Order Comment: Order Added by Mike Expert. Performed By: #### 2 789346, 9380348, 8234884, 13481089 ####[facility] [address] [place] [address] Monocytes 0.7 E9/L Normal 0.2-1.0 [facility] Comment on above: Order Comment: Order Added by Discern Expert. Performed By: #### 2 514770, 6393466, 4579749, 41465953 ####[place] [place] [address] Monocytes/100 leukocytes 8.1 % Normal 4.0-14.0 [facility] Comment on above: Order Comment: Order Added by Mike Expert. Performed By: #### 2 385054, 4079877, 6058765, 09778405 ####[address] [place] [address] Neutrophils 5.9 E9/L Normal 2.0-7.5 [facility] Comment on above: Order Comment: Order Added by Mike Expert. Performed By: #### 2 148151, 4435902, 4893329, 68268529 ####[address] [place] [address] Neutrophils/100 leukocytes 63.5 % Normal 36.0-75.0 [facility] Comment on above: Order Comment: Order Added by Mike Expert. Performed By: #### 2 084141, 2266233, 4023099, 73814869 ####[address] [place] [address] CBC w/ Auto Diffon 8 Erythrocyte distribution width Auto Ratio (RBC) 13.7 % Normal 10.9-14.2 [facility] Comment on above: Performed By: #### 2 088732, 3772104, 1746339, 42602632 ####[address] [place] [address] Erythrocytes (RBC) 4.3 E12/L Normal 4.3-5.9 [facility] Comment on above: Performed By: #### 2 656892, 0349634, 1069419, 37551756 ####[place] [address] [place] [address] Hematocrit (HCT) 40.0 % Normal 37.7-49.0 [facility] Comment on above: Performed By: #### 2 490983, 5158114, 0151640, 52887560 ####[place] [address] Hemoglobin mass conc (Bld) 13.9 g/dL Normal 13.5-17.5 [facility] Comment on above: Performed By: #### 2 934417, 5931540, 7327740, 05294455 ####[place] [address] MCH 32.3 pg Normal 27.0-34.0 [facility] Comment on above: Performed By: #### 2 627881, 8800988, 5189269, 10724227 ####[place] [address] MCHC mass conc (RBC) 34.9 g/dL Normal 31.4-39.3 [facility] Comment on above: Performed By: #### 2 402896, 5619451, 5633020, 22189766 ####[place] [address] MCV 92.8 fL Normal 80.0-100.0 [facility] Comment on above: Performed By: #### 2 645988, 4630877, 1888256, 78102042 ####[place] [address] [place] [address]57 Platelet mean volume (PMV) 8.4 fL Normal 6.4-10.8 [facility] Comment on above: Performed By: #### 2 858107, 0948371, 4359316, 28744776 ####[place] [address] [place] [address] Platelets 311.0 E9/L Normal 150.0-500.0 [facility] Comment on above: Performed By: #### 2 906538, 2706757, 4726644, 46657241 ####[facility] [address] [place] [address] WBC (Leukocytes) 9.3 E9/L Normal 4.0-11.0 [facility] Comment on above: Performed By: #### 2 581455, 6204095, 5135067, 90665888 ####[facility] [address] [place] [address] CMPon 09-19-2017 Alanine aminotransferase (ALT) 39 Int._Unit/L Normal 6-46 [facility] Comment on above: Performed By: #### 2 019804, 2407854, 6715981, 59451491 ####[address] [place] [address] Albumin 4.1 g/dL Normal 3.3-5.0 [facility] Comment on above: Performed By: #### 2 408227, 0647813, 8336864, 53225841 ####[facility] [address] [place] [address] Albumin 1.1 g/dL Normal 1.1-2.2 [facility] Comment on above: Performed By: #### 2 012586, 7398090, 5017174, 33847490 ####[address] [place] [address] Alkaline phosphatase (ALP) 66 Int._Unit/L Normal 21-98 [facility] Comment on above: Performed By: #### 2 513741, 0599363, 4087461, 23217325 ####[facility] [address] [place] [address] Anion gap 12 mmol/L Normal 6-16 [facility] Comment on above: Performed By: #### 2 003026, 7192365, 0974210, 48110733 ####[facility] [address] [place] [address] Aspartate aminotransferase (AST) 28 Int._Unit/L Normal 5-43 [facility] Comment on above: Performed By: #### 2 444274, 0652556, 4242218, 11306659 ####[facility] [address] [place] [address] Bilirubin (total) 0.8 mg/dL Normal 0.0-1.1 [facility] Comment on above: Performed By: #### 2 165535, 0820350, 9830641, 60375904 ####[facility] [address] [place] [address] BUN/Creatinine Ratio 19 No Units Normal 10-20 [facility] Comment on above: Performed By: #### 2 827251, 7795913, 5996445, 53026491 ####[facility] [address] [place] [address] Calcium 9.1 mg/dL Normal 8.9-11.1 [facility] Comment on above: Performed By: #### 2 820981, 9426512, 2935292, 76690041 ####[facility] [address] [place] [address] Chloride 96 mmol/L Low 101-111 [facility] Comment on above: Performed By: #### 2 055496, 6438057, 4188946, 59737703 ####[facility] [address] [place] [address] CO2 29 mmol/L Normal 21-31 [facility] Comment on above: Performed By: #### 2 242911, 2882569, 6760929, 24921971 ####[facility] [address] [place] [address] Creatinine 1.1 mg/dL Normal 0.5-1.3 [facility] Comment on above: Performed By: #### 2 180349, 9668911, 0873604, 19579085 ####[facility] [address] [place] [address] Globulin 3.6 g/dL Normal 1.4-4.0 [facility] Comment on above: Performed By: #### 2 611119, 0198255, 7064625, 42132811 ####[facility] [address] [place] [address] Glucose mass conc 157 mg/dL Normal 55-199 [facility] Comment on above: Result Comment: If t his glucose result represents a fasting glucose, interpretation should refer to the following reference range: 55-99 mg/dL Performed By: #### 2 834086, 6439132, 4817020, 75306501 ####[facility] [address] [place] [address] Potassium molar conc 3.9 mmol/L Normal 3.5-5.3 [facility] Comment on above: Performed By: #### 2 512291, 9963147, 6717069, 43534449 ####[facility] [address] [place] [address] Protein 7.7 g/dL Normal 6.0-7.8 [facility] Comment on above: Performed By: #### 2 596068, 1475208, 8034320, 04057470 ####[facility] [address] [place] [address] Sodium 133 mmol/L Low 135-145 [facility] Comment on above: Performed By: #### 2 984606, 7152157, 2359434, 36947286 ####[facility] [address] [place] [address] Urea nitrogen 21 mg/dL Normal 5-21 [facility] Comment on above: Performed By: #### 2 847863, 6695145, 4093438, 09197774 ####[facility] [address] [place] [address] XR Chest 2 Viewson 8 XR Chest [...] M.D. Transcribed by: LOREN Technologist: IRENA Normal [facility] eGFRon 09-19-2017 eGFR (black) mL/min/{1.73_m2} Normal >=59 [facility] Comment on above: Order Comment: Order added by Discern Expert. Result Comment: eGFR is race adjusted. AA=. Performed By: #### 2 702874, 8168129, 0747949, 60463736 ####[facility] [address] [place] [address] eGFR (non-black) mL/min/{1.73_m2} Normal >=59 [facility] Comment on above: Order Comment: Order added by Discern Expert. Result Comment: [employer] crhis kidney disease could be indicated at eGFR's of less than 60 mL/min/1.73m2. Kidney failure is indicated at less than 15 mL/min/1.73m2. Performed By: #### 2 061679, 6469603, 9707820, 81422646 ####[facility] [address] [place] [address] Coding Summary.on 04-19-2017 Coding Summary. 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 FINAL DX: PRINCIPAL: H26.40 Unspecified secondary cataract SECONDARY: PYMT PROC APC STAT DESCRIPTION DOCTOR NAME DATE 01402 4452 T Discission of secondary Bipin Cruz DO [...] Haley Leyva Date Saved: 04/19/2017 03:05 pm [facility] Vital Signs Date Time Vital Sign Value Performing Clinician Facility 09-02-2024 09:05-0400 Body height 187.96 cm [facility] 09-02-2024 09:05-0400 Body mass index (BMI) [Ratio] 29.5 kg/m2 [facility] 09-02-2024 09:05-0400 Body weight 104.49 kg [facility] 09-02-2024 09:05-0400 Diastolic blood pressure 61 mm[Hg] [facility] 09-02-2024 09:05-0400 Heart rate 77 /min [facility] 09-02-2024 09:05-0400 Respiratory rate 12 /min [facility] 09-02-2024 09:05-0400 Systolic blood pressure 115 mm[Hg] [facility] 06-21-2024 09:04-0500 Body height 187.96 cm [facility] 06-21-2024 09:04-0500 Body mass index (BMI) [Ratio] 30.1 kg/m2 [facility] 06-21-2024 09:04-0500 Body weight 106.31 kg [facility] 06-21-2024 09:04-0500 Diastolic blood pressure 89 mm[Hg] [facility] 06-21-2024 09:04-0500 Heart rate 78 /min [facility] 06-21-2024 09:04-0500 Respiratory rate 12 /min [facility] 06-21-2024 09:04-0500 Systolic blood pressure 139 mm[Hg] [facility] 03-21-2024 10:15-0400 Body mass index (BMI) [Ratio] 28.8 kg/m2 [facility] 03-21-2024 10:15-0400 Diastolic blood pressure 64 mm[Hg] [facility] 03-21-2024 10:15-0400 Heart rate 46 /min [facility] 03-21-2024 10:15-0400 SaO2% (BldA) [Mass fraction] 97 % [facility] 03-21-2024 10:15-0400 Systolic blood pressure 144 mm[Hg] [facility] 03-19-2024 07:16-0400 Body height 187.96 cm [facility] 03-19-2024 07:16-0400 Body weight 101.6 kg [facility] 12-19-2023 09:12-0400 Body height 187.96 cm [facility] 12-19-2023 09:12-0400 Body mass index (BMI) [Ratio] 28.6 kg/m2 [facility] 12-19-2023 09:12-0400 Body weight 101.26 kg [facility] 12-19-2023 09:12-0400 Diastolic blood pressure 66 mm[Hg] [facility] 12-19-2023 09:12-0400 Heart rate 60 /min [facility] 12-19-2023 09:12-0400 Respiratory rate 12 /min [facility] 12-19-2023 09:12-0400 Systolic blood pressure 127 mm[Hg] [facility] 10-05-2023 10:37-0400 Body height 188 cm Eli Jasso MD Work Phone: [facility] 10-05-2023 10:37-0400 Body mass index (BMI) [Ratio] 28.02 kg/m2 Eli Jasso MD Work Phone: [facility] 10-05-2023 10:37-0400 Body weight 98.97 kg Eli Jasso MD Work Phone: [facility] 10-05-2023 10:37-0400 Diastolic blood pressure 65 mm[Hg] Eli Jasso MD Work Phone: [facility] 10-05-2023 10:37-0400 Heart rate 65 /min Eli Jasso MD Work Phone: [facility] 10-05-2023 10:37-0400 Systolic blood pressure 124 mm[Hg] Eli Jasso MD Work Phone: [employer] 07-26-2023 08:30-0500 Body height 187.96 cm Robin Ball Other [facility] 07-26-2023 08:30-0500 Body mass index (BMI) [Ratio] 29.04 kg/m2 Robin Ball Other [place] [employer] Other 07-26-2023 08:30-0500 Body weight 102.6 kg Robin Ball Other [facility] 07-26-2023 08:30-0500 Diastolic blood pressure 67 mm[Hg] Robin Ball Other [facility] 07-26-2023 08:30-0500 Respiratory rate 12 /min Robin Ball Other [facility] [employer] Other 07-26-2023 08:30-0500 Systolic blood pressure 122 mm[Hg] Robin Ball Other [facility] 04-20-2023 08:30-0400 Body height 187.96 cm Roibn Ball Other [employer] Other 04-20-2023 08:30-0400 Body mass index (BMI) [Ratio] 29.3 kg/m2 Robin Ball Other [employer] Other 04-20-2023 08:30-0400 Body weight 103.51 kg Robin Ball Other [employer] Other 04-20-2023 08:30-0400 Diastolic blood pressure 66 mm[Hg] Robin Ball Other [employer] Other 04-20-2023 08:30-0400 Respiratory rate 12 /min Robin Ball Other [employer] Other 04-20-2023 08:30-0400 Systolic blood pressure 124 mm[Hg] Robin Ball Other [employer] Other 12-15-2022 08:30-0400 Body height 187.96 cm Robin Ball Other [employer] Other 12-15-2022 08:30-0400 Body mass index (BMI) [Ratio] 29.76 kg/m2 Robin Ball Other [employer] Other 12-15-2022 08:30-0400 Body weight 105.14 kg Robin Ball Other [employer] Other 12-15-2022 08:30-0400 Diastolic blood pressure 71 mm[Hg] Robin Ball Other [employer] Other 12-15-2022 08:30-0400 Respiratory rate 12 /min Robin Ball Other [employer] Other 12-15-2022 08:30-0400 Systolic blood pressure 127 mm[Hg] Robin Ball Other [employer] Other 11-22-2022 13:45-0400 Body height 187.96 cm Robin Ball Other [employer] Other 11-22-2022 13:45-0400 Body mass index (BMI) [Ratio] 29.94 kg/m2 Robin Ball Other [employer] Other 11-22-2022 13:45-0400 Body weight 105.78 kg Robin Ball Other [employer] Other 11-22-2022 13:45-0400 Diastolic blood pressure 64 mm[Hg] Robin Ball Other [employer] Other 11-22-2022 13:45-0400 Respiratory rate 12 /min Robin Ball Other [employer] Other 11-22-2022 13:45-0400 Systolic blood pressure 115 mm[Hg] Robin Ball Other [employer] Other 09-21-2022 09:30-0400 Body height 187.96 cm Robin Ball Other [employer] Other 09-21-2022 09:30-0400 Body mass index (BMI) [Ratio] 31.17 kg/m2 Robin Ball Other [employer] Other 09-21-2022 09:30-0400 Body weight 110.13 kg Robin Ball Other [employer] Other 09-21-2022 09:30-0400 Diastolic blood pressure 68 mm[Hg] Robin Ball Other [employer] Other 09-21-2022 09:30-0400 Respiratory rate 12 /min Robin Ball Other [employer] Other 09-21-2022 09:30-0400 Systolic blood pressure 130 mm[Hg] Robin Ball Other [employer] Other Encounters Encounter Date Encounter Type Care Provider Facility Start: 09-02-2024 End: 09-02-2024 ambulatory [facility] Work Phone: Start: 09-02-2024 End: 09-02-2024 Patient encounter procedure [facility] Work Phone: Start: 07-02-2024 Non-patient / Non-visit [facility] Work Phone: Start: 06-21-2024 End: 06-21-2024 Patient encounter procedure [facility] Work Phone: Start: 06-10-2024 End: 06-10-2024 ambulatory [facility] Start: 03-21-2024 End: 03-21-[address] [facility] Work Phone: Start: 03-21-2024 End: 03-21-2024 Patient encounter procedure [facility] Work Phone: Start: 03-04-2024 Non-patient / Non-visit [facility] Work Phone: Start: 02-02-2024 End: 02-02-[address] [facility] Work Phone: Start: 02-02-2024 End: 02-02-[address] [facility] Work Phone: Start: 01-18-2024 End: 01-18-2024 Office outpatient visit 25 minutes Eli Jasso MD Work Phone: [facility] Comment on above: Claudication (CMS-HC C) (Primary Dx); Bilateral carotid artery stenosis Start: 12-23-2023 Non-patient / Non-visit [facility] Work Phone: Start: 12-19-2023 End: 12-19-[address] [facility] Work Phone: Start: 12-19-2023 End: 12-19-2023 Patient encounter procedure [facility] Work Phone: Start: 10-05-2023 End: 10-05-2023 ambulatory ELI JASSO [facility] Start: 10-05-2023 End: 10-05-2023 Office outpatient visit 25 minutes Eli Jasso MD Work Phone: [facility] Comment on above: Internal carotid art anahi stenosis, bilateral (Primary Dx); PAD (peripheral artery disease) ([facility]); History of carotid endarterectomy Start: 09-07-2023 End: 09-07-[address] [facility] Work Phone: Start: 09-07-2023 End: 09-07-2023 Patient encounter procedure [facility] Work Phone: Start: 08-25-2023 End: 08-25-2023 Patient encounter procedure [facility] Work Phone: Start: 07-26-2023 End: 07-26-2023 ambulatory Robin Dawkins Other [employer] Other Start: 07-26-2023 Office outpatient vi sit 25 minutes Robin Ball [facility] Start: 07-26-2023 End: 07-26-2023 Patient encounter procedure [facility] Start: 07-19-2023 End: 07-19-2023 ambulatory Robin Dawkins Other [employer] Other Start: 07-19-2023 Telephone encounter Robin Dawkins [facility] Start: 06-14-2023 End: 06-14-2023 ambulatory [facility] Start: 04-21-2023 End: 04-21-2023 ambulatory Robin Dawkins Other [employer] Other Start: 04-21-2023 Telephone encounter Robin Dawkins [facility] Start: 04-20-2023 End: 04-20-2023 ambulatory Robin Dawknis Other [employer] Other Start: 04-20-2023 Office outpatient vi sit 25 minutes Robin Ball [facility] Start: 04-12-2023 End: 04-12-2023 ambulatory Robin Ball Other [employer] Other Start: 04-12-2023 Telephone encounter Robin Ball [facility] Start: 04-07-2023 End: 04-07-2023 ambulatory Robin Dawkins Other [employer] Other Start: 04-07-2023 Telephone encounter Robin Ball [facility] Start: 02-06-2023 End: 02-06-2023 ambulatory Robin Ball Other [employer] Other Start: 02-06-2023 Telephone encounter Robin Ball [facility] Start: 12-20-2022 End: 12-20-2022 ambulatory Robin Ball Other [employer] Other Start: 12-20-2022 Telephone encounter Robin Dawkins [facility] Start: 12-15-2022 End: 12-15-2022 ambulatory Robin Jese Other [employer] Other Start: 12-15-2022 Patient encounter procedure [facility] Start: 11-22-2022 End: 11-22-2022 ambulatory Robin Ball Other [employer] Other Start: 11-22-2022 Office outpatient vi sit 15 minutes Robin Ball [facility] Start: 11-22-2022 Telephone encounter Robin Ball [facility] Start: 10-31-2022 End: 10-31-2022 ambulatory Robin Ball Other [employer] Other Start: 10-31-2022 Office outpatient vi sit 15 minutes Robin Ball [facility] Start: 10-04-2022 End: 10-05-[address] MAE MCCORMICK [employer] Other Start: 10-04-2022 Telephone encounter Robin Ball [facility] Start: 09-21-2022 End: 09-21-2022 ambulatory Robin Ball Other [employer] Other Start: 09-21-2022 Office outpatient vi sit 25 minutes Robin Ball [facility] Start: 03-30-2022 End: 03-31-[address] MAE MCCORMICK Facility:[facility] Start: 12-16-2021 End: 12-17-[address] ROBIN DAWKINS Facility:[facility] Start: 12-06-2021 Adult health examination Scott Dawkins Other [facility] [email or web address] Other Start: 10-03-2018 End: 10-04-2018 Patient encounter procedure RONNY NEWMAN Facility:[facility] Start: 10-02-2017 End: 10-02-2017 Ambulatory Jean-Paul Roberts Facility:[facility] Start: 09-19-2017 End: 09-20-2017 Ambulatory Jean-Paul Roberts Facility:[facility] Start: 04-18-2017 End: 04-18-2017 Ambulatory Bipin Cruz Facility:[facility] Procedures Date Procedure Procedure Detail Performing Clinician Start: 01-11-2023 Adult depression screening assessment Eli Jasso MD Work Phone: Start: 12-16-[address] MANZO IN [place] Comment on above: Performed By: #### P [facility] #### [facility] [address] [place] [address] Dr. Rui Moore Start: 11-02-2018 History of carotid endarterectomy History of carotid endarterectomy Eli Jasso MD Work Phone: Start: 06-09-2016 Removal of suture Scott Dawkins Other Start: 11-10-2015 Screening for malign ant neoplasm of colon Robin Dawkins Other Start: 10-21-2013 Screening for malign ant neoplasm of prostate Robin Dawkins Other Depression screening Jose Dawkins Other History of carotid endarterectomy History of carotid endarterectomy Eli Jasso MD Work Phone: Screening for malign ant neoplasm of prostate Robin Dawkins Other Plan of Treatment Date Care Activity Detail Author Start: 11-16-2032 DTaP,Tdap and Td Vaccines (5 - Td or Tdap) DTaP,Tdap and Td Vaccines (5 - Td or Tdap) [facility] Start: 01-16-2025 End: 01-16-2025 Patient encounter procedure 01/16/2025 9:10 AM EDT [facility] [address] [place] [address] Eli Jasso MD [address], [address] [address] [facility] Start: 10-04-2024 Adult BMI Screening Adult BMI Screen ing [facility] Start: 10-04-2024 Tobacco Screening Tobacco Screening [facility] Start: 02-25-2024 Influenza vaccination Influenza Vacc ine [facility] Start: 01-18-2024 End: 01-17-2025 US Carotid arteries - bilateral Vas carotid duplex bilateral Vascular Ultrasound Routine Bilateral carotid artery stenosis Expected: 01/18/2024, Expires: 01/17/2025 [facility] Work Phone: Comment on above: Expected: 01/18/2024 , Expires: 01/17/2025 Start: 01-18-2024 End: 01-17-2025 US.doppler Extremity arteries - bilateral for physiologic artery study Vas art doppler lwr bilat mult lev/PVR Vascular Ultrasound Routine Claudication ([facility]) Bilateral carotid artery stenosis Expected: 01/18/2024, Expires: 01/17/2025 [facility] Comment on above: Expected: 01/18/2024 , Expires: 01/17/2025 Start: 01-18-2024 End: 01-17-2025 US.doppler Lower extremity artery - bilateral Vas art duplex lwr graft scan bilat Vascular Ultrasound Routine Claudication ([facility]) Bilateral carotid artery stenosis Expected: 01/18/2024, Expires: 01/17/2025 [facility] Comment on above: Expected: 01/18/2024 , Expires: 01/17/2025 Start: 01-12-2024 Depression Screening Depression Scre ening [facility] Start: 01-04-2024 End: 01-04-2024 Patient encounter procedure 01/04/2024 8:40 AM EDT Office Visit [facility] [address] [place] [address] Eli Jasso MD [address], [address] [address] [facility] Start: 11-22-2023 Administration of varicella zoster vaccine Zoster (Shingles) Vaccine (3 of 3) [email or web address] Start: 10-05-2023 End: 10-04-2024 US Carotid arteries - bilateral Vas carotid duplex bilateral Vascular Ultrasound Routine Internal carotid artery stenosis, bilateral History of carotid endarterectomy Expected: 10/05/2023, Expires: 10/04/2024 [email or web address] Comment on above: Expected: 10/05/2023 , Expires: 10/04/2024 Start: 10-05-2023 End: 10-04-2024 US.doppler Extremity arteries - bilateral for physiologic artery study Vas art doppler lwr bilat mult lev/PVR Vascular Ultrasound Routine PAD (peripheral artery disease) ([facility]) Expected: 10/05/2023, Expires: 10/04/2024 [employer] Work Phone: Comment on above: Expected: 10/05/2023 , Expires: 10/04/2024 Start: 08-12-2023 COVID-19 Vaccine ( season) COVID-19 Vaccine ( season) [employer] Start: 2009 Fall [facility] Start: [facility] Adult BMI Follow Up Plan Adult BMI F [facility]llow Up Plan [facility] Start: 1944 Medicare Annual Well ness Visit Medicare Annual Well[facility] Comprehensive metabo lic 2000 panel - Serum or Plasma [facility] Microalbumin [Mass/volume] in Urine [facility] Immunizations Immunization Date Immunization Notes Care Provider Fa cility 09-27-2023 zoster vaccine, unspecified formulation [facility]asso [facility] 04-11-2023 influenza virus vaccine, unspecified formulation Eli Jasso MD Work Phone: [facility] 11-16-2022 tetanus and diphther ia toxoids, adsorbed, preservative free, for adult use (5 Lf of tetanus toxoid and 2 Lf of diphtheria toxoid) [facility] 11-16-2022 tetanus toxoid, redu suzy diphtheria toxoid, and acellular pertussis vaccine, adsorbed Robin Dawkins Other [facility] [email or web address] Other 04-06-2022 Influenza Vaccine, Quadrivalent, Adjuvanted Eli Jasso MD Work Phone: [facility] 04-06-2022 influenza virus vaccine, unspecified formulation [facility] 04-06-2022 influenza, high dose seasonal, preservative-free Robin Dawkins Other [facility] [email or web address] Other 03-17-2022 COVID-19 Pfizer (bivalent) Robin Dawkins Other [facility] 10-06-2021 COVID-19 Vaccine Pfi zer - Documentation Purposes Only Robin Dawkins Other [facility] 03-31-2021 COVID-19 Vaccine Pfi zer - Documentation Purposes Only Robin Dawkins Other [facility] 03-31-2021 Influenza, High-dose , Quadrivalent Eli Jasso MD Work Phone: [facility] 09-28-2020 COVID-19 Vaccine Pfi zer - Documentation Purposes Only Robin Dawkins Other [facility] 09-01-2020 COVID-19 Vaccine Pfi zer - Documentation Purposes Only Robin Dawkins Other [facility] 04-01-2020 influenza virus vaccine, split virus (incl. purified surface antigen) Robin Dawkins Other [facility] [employer] Other 04-01-2020 influenza virus vaccine, unspecified formulation [facility] 04-18-2019 influenza virus vaccine, split virus (incl. purified surface antigen) Robin Dawkins Other [facility] [email or web address] Other 04-18-2019 influenza virus vaccine, unspecified formulation [facility] 04-12-2018 influenza virus vaccine, split virus (incl. purified surface antigen) Robin Dawkins Other [facility] [employer] Other 04-12-2018 influenza virus vaccine, unspecified formulation [facility] 04-12-2018 Seasonal trivalent influenza vaccine, adjuvanted, preservative free Eli Jasso MD Work Phone: [facility] 05-26-2017 influenza, injectabl e, quadrivalent, contains preservative Eli Jasso MD Work Phone: [facility] 05-11-2017 influenza virus vaccine, split virus (incl. purified surface antigen) Robin Dawkins Other [facility] [email or web address] Other 05-11-2017 influenza virus vaccine, unspecified formulation [facility] 05-11-2017 influenza, high dose seasonal, preservative-free Eli Jasso MD Work Phone: [facility] 04-04-2016 influenza virus vaccine, split virus (incl. purified surface antigen) Robin Dawkins Other [facility] [email or web address] Other 04-04-2016 influenza virus vaccine, unspecified formulation [facility] 04-04-2016 influenza, high dose seasonal, preservative-free Eli Jasso MD Work Phone: [facility] 09-25-2015 pneumococcal vaccine , unspecified formulation Eli Jasso MD Work Phone: [facility] 04-16-2015 influenza virus vaccine, split virus (incl. purified surface antigen) Robin Dawkins Other [facility] [employer] Other 04-16-2015 influenza virus vaccine, unspecified formulation [facility] 04-16-2015 pneumococcal conjuga te vaccine, 13 valent Robin Dawkins Other [facility] 03-12-2015 zoster vaccine, live Eli Jasso MD Work Phone: [facility] [employer] [facility] 01-24-2015 zoster vaccine, live Jose robb Jese Other [facility] 04-19-2014 influenza, seasonal, injectable, preservative free Eli Jasso MD Work Phone: [facility] 12-30-2013 pneumococcal polysaccharide vaccine, 23 valent Robin Jese Other [facility] 04-08-2013 influenza, seasonal, injectable Eli Jasso MD Work Phone: [facility] 04-04-2013 pneumococcal vaccine , unspecified formulation Eli Jasso MD Work Phone: [facility] 04-04-2013 pneumococcal conjuga te vaccine, 13 valent Robin Dawkins Other [facility] 04-03-2013 tetanus and diphther ia toxoids, adsorbed, preservative free, for adult use (5 Lf of tetanus toxoid and 2 Lf of diphtheria toxoid) Robin Dawkins Other [facility] 03-08-2012 tetanus and diphther ia toxoids, adsorbed, preservative free, for adult use (5 Lf of tetanus toxoid and 2 Lf of diphtheria toxoid) Robin Dawkins Other [facility] 09-29-2010 diphtheria, tetanus toxoids and acellular pertussis vaccine, unspecified formulation Robin Dawkins Other [facility] 04-28-2010 pneumococcal polysaccharide vaccine, 23 valent Robin Dawkins Other [facility] Payers Date Payer Category Payer Private Health Insurance [facility] SUPPLEMENT [id number] 2018-Present [phone] [address] [place] [address] [id number] 2017 Medicare [id number] 2009 Medicare MEDICARE MEDICAR E PART A & B [id number] 2009-Present [phone] [address] [place] [address] [id number] 1959 Medicare [id number] 1959 Unknown [id number] 1944 Unknown [id number] 1944 Unknown [id number] 1944 Unknown [id number] 1944 Unknown [id number] 1944 Unknown [id number] Social History Date Type Detail Facility Start: 08-06-2020 End: 09-12-2020 Sex Assigned At [employer] Other Start: 08-25-2023 Tobacco smoking status [facility] Never smoked tobacco (finding) [facility] Start: 1945 Sex Assigned At Male [facility] Start: 01-02-2023 Tobacco smoking status [facility] Ex-smoker [facility] Start: 06-26-1974 End: 06-26-1989 History of tobacco use Current smoker [facility] Start: 06-26-1974 End: 06-26-1989 History of tobacco use Cigarette Smoker [facility] Start: 08-06-2020 End: 01-02-2023 Cigarettes smoked current (pack per day) - Reported 1 [facility] Start: 01-02-2023 Tobacco use and exposure Smokeless tobacco non-user [facility] Start: 10-05-2023 Alcoholic beverage intake Current drinker of alcohol (finding) [facility] Do you belong to any clubs or organizations such as evangelical groups, unions, fraternal or athletic groups, or school groups? No [facility] Are you now , , , , never or living with a partner? [facility] How often to you hav e a drink containing alcohol? Never [facility] How many standard dr inks containing alcohol do you have on a typical day? Patient does not drink [facility] Do you feel stress - tense, restless, nervous, or anxious, or unable to sleep at night because your mind is troubled all the time - these days [OSQ] Not at all [facility] Start: 1945 Sex assigned at Not on file [facility] [employer] Start: 09-02-2024 Sex Male (finding) [facility] Medical Equipment Procedure Code Equipment Code Equipment Origin al Text Equipment Identifier Dates Start: 09-21-2022 Blood Sugar Diagnostic (Contour Next Test Strips) strip Start: 08-25-2023 Lancets (Micro Thin Lancets) 33 gauge misc Start: 08-25-2023 Blood Sugar Diagnostic (Contour Next Test Strips) strip Start: 08-25-2023 Lancets (Micro Thin Lancets) 33 gauge misc Start: 08-25-2023 Blood Sugar Diagnostic (Contour Next Test Strips) strip Start: 08-25-2023 Lancets (Micro Thin Lancets) 33 gauge misc Start: 08-25-2023 Blood Sugar Diagnostic (Contour Next Test Strips) strip Start: 08-25-2023 Lancets (Micro Thin Lancets) 33 gauge misc Start: 08-25-2023 Ptch [employer] 0.8x8cm Rpl [id number] - [id number] Start: 09-15-2020 Comment on above: Description: RIGHT F EMORAL ARTERY Gft Hep Rr T8mm 70cm [id number] - [id number] - [id number] Start: 09-15-2020 Comment on above: Description: RIGHT F EMORAL ARTERY TO POPLITEAL ARTERY Stent 7mm 11mm 7 fr 59mm Bln Expandable Gw [place] Vbhn Vbx - [id number] - [id number] Start: 01-11-2023 Comment on above: Description: LEFT IL IAC ARTERY Stent Dayday 7mm 37 mm 75cm 40mm Otw Prmnt Bln Xpd Rdpq Ilc Xpr Rpl [id number] - [id number] Start: 01-11-2023 Comment on above: Description: LEFT IL IAC ARTERY Blood Sugar Diagnostic (Contour Next Test Strips) strip Start: 08-25-2023 Lancets (Micro Thin Lancets) 33 gauge misc Start: 08-25-2023 Goals Date Patient Goal Desired Activity /State Personal health goal Comment on above: Formatting of this n ote might be different from the original. Evaluation of progress towards goal: Discharge home with family support Clinical Notes 09-21-2022 to 06-21-2024 Note Date & Type Note Facility 06-21-2024 Evaluation note Diagnosis Onset Date Resolution Anemia acute June 21, 2024 8:57am ASHD (arteriosclerotic heart disease) acute June 21, 2024 8:57am Chronic kidney disease acute De cember 2023 8:57am Chronic venous insufficiency acute June 21, 2024 8:57am Hypercholesterolemia acute Dece 2023 8:57am Paroxysmal atrial fibrillation acute June 21, 2024 8:57am Primary hypertension acute Dece 2023 8:57am Type 2 diabetes mellitus with hyperglycemia acute May 8:57am Anemia acute September 02 8:54am ASHD (arteriosclerotic heart disease) acute September 02, 2024 8:54am Callus of foot acute August 8:54am Chronic kidney disease acute [facility] 2024 8:54am Chronic venous insufficiency acute September 02, 2024 8:54am Hypercholesterolemia acute Art[facility] 2024 8:54am Paroxysmal atrial fibrillation acute September 02, 2024 8:54am Pernicious anemia acute August 242024 8:54am Primary hypertension acute [facility] 2024 8:54am Type 2 diabetes mellitus with hyperglycemia acute September 02, 025 8:54am [facility] Work Phone: 1(401) 574-971912-16-2024 NoteUT Cardiology - [facility] Subjective Pooja Marrufo is a 78 y.o. year old male patient being seen for 1 year follow up CAD, hypertension, hyperlipidemia, PAF, and PAD. He had routine labs with lipid profile and carotid US this past summer. He denies chest pain, SOB, and palpitations. Doing very well cardiac goodman. Patient Active Problem List Diagnosis Abnormal results [...] opacification), left Peripheral opacity of both corneas Acute seasonal allergic rhinitis due to pollen Anemia Bilateral carotid artery stenosis Chronic kidney disease Chronic venous insufficiency Gastroesophageal reflux disease with esophagitis without hemorrhage Other chronic pain Post-herpetic polyneuropathy Type 2 diabetes mellitus with hyperglycemia (CMS/HCC) Family History Problem Relation Name Age of Onset Heart failure Mother Social History Tobacco Use Smoking status: Former Types: Cigarettes Smokeless tobacco: Never HPI Mr. Pooja Marrufo is seen in follow up. He is a 78-year-old man. He has CAD, hypertension and PAD. [...] April 2020 he was admitted to [facility] with COVID-19. He developed atrial fibrillation. [...] artery angioplasty and stenting by Dr Mccormick. Last cardiac testing was in June and July 2023 with an echocardiogram and a stress test that were within normal limits. Today he is seen in follow up. He reports that he has been doing well. No palpitations, no chest pain, He has no shortness of breath on exertion. He has occasional mild lower extremity swelling. He takes furosemide for that. Review of Systems Cardiovascular: Positive for claudication and leg swelling (intermittent). Hematologic/Lymphatic: Bruises/bleeds easily. Skin: Positive for color change and dry skin. Musculoskeletal: Positive for back pain, joint pain, muscle cramps, muscle weakness and myalgias. Neurological: Positive for light-headedness (upon standing too quickly). All other systems reviewed and are negative. Objective Visit Vitals BP 148/72 (BP Location: Left arm, Patient Position: Sitting) Pulse 65 Ht 1.88 m (6' 2 ) Wt 105 kg (231 lb) SpO2 98% BMI 29.66 kg/m??? Smoking Status Former BSA 2.34 m??? Physical Exam Constitutional: Appearance: He is [...] swelling. Cervical back: Neck supple. Right lower le+ Pitting Edema present. Left lower le+ Pitting Edema present. Skin: General: Skin is warm and dry. Neurological: General: No focal deficit present. Mental Status: He is alert and oriented to person, place, and time. Psychiatric: Mood and Affect: Mood normal. Behavior: Behavior is cooperative. Judgment: Judgment normal. Allergies Allergies Allergen Reactions [id number] Reductase (more content not included)...[facility]07-25-2024 Evaluation + Plan note* Assessment & Plan Note - Eli Jasso MD - 01/18/2024 9:44 AM EDTAssociated Problem(s): Claudication ([facility]) He has some claudication more on the left side. He had previous bypasses bilaterally. He does not have tissue loss or rest pain. He will continue aspirin statin and Xarelto. Discussed with him risk factors modification supervised walking program. He declined supervised walking program however he will continue to do walking program at home.We will get PVR and duplex ultrasound in a year [facility]07-25-2024 Evaluation + Plan note* Assessment & Plan Note - Eli Jasso MD - 01/18/2024 9:44 AM EDTAssociated Problem(s): Bilateral carotid artery stenosis He is wide open left carotid endarterectomy site. On the right side he has moderate stenosis. No stroke or mini strokes. Recommend continue aspirin atorvastatin and he is also on Xarelto. Will get surveillance imaging in a year. [facility]07-25-2024 Miscellaneous Notes* Assessment & Plan Note - Eli Jasso MD - 01/18/2024 9:44 AM EDTAssociated Problem(s): Claudication ([facility]) He has some claudication more on the left side. He had previous bypasses bilaterally. He does not have tissue loss or rest pain. He will continue aspirin statin and Xarelto. Discussed with him risk factors modification supervised walking program. He declined supervised walking program however he will continue to do walking program at home.We will get PVR and duplex ultrasound in a year * Assessment & Plan Note - Eli Jasso MD - 01/18/2024 9:44 AM EDT Associated Problem(s): Bilateral carotid artery stenosis He is wide open left carotid endarterectomy site. On the right side he has moderate stenosis. No stroke or mini strokes. Recommend continue aspirin atorvastatin and he is also on Xarelto. Will get surveillance imaging in a year. [facility] History of Present illness Narrative* Eli Jasso MD - 01/18/2024 9:00 AM EDT Images from the original note were not included. To: ROBIN DAWKINS, DO HPI: Pooja Marrufo is a 78 y.o. male with Bilateral lower extremity bypasses and claudication. He also have carotid endarterectomy in the left side and carotid stenosis in the right side. He comes in with PVR and carotid duplex ultrasound. We had a long discussion about the 2 conditions and risk factors modifications and supervised walking program.. Review of Systems: Review of Systems Constitutional: Negative. HENT: Negative. Respiratory: Negative. Cardiovascular: Negative. Gastrointestinal: Negative. Endocrine: Negative. Genitourinary: Negative. Musculoskeletal: Negative. Skin: Negative. Neurological: Negative. Hematological: Negative. Medications: Current Outpatient Medications on File Prior to Visit Medication Sig Dispense Refill allopurinoL (ZYLOPRIM) 300 mg tablet Take 1 tablet (300 mg total) by mouth in the morning. amLODIPine (NORVASC) 10 mg tablet aspirin 81 mg Take 1 tablet (81 mg total) by mouth nightly. clopidogreL (PLAVIX) 75 mg tablet Take 1 tablet by mouth once daily 90 tablet 0 furosemide (LASIX) 40 mg tablet Take 1 tablet (40 mg total) by mouth daily. metFORMIN (GLUCOPHAGE) 500 mg tablet Take 1 tablet (500 mg total) by mouth in the morning and 1 tablet (500 mg total) in the evening. Take with meals. metoprolol tartrate (LOPRESSOR) 50 mg tablet Take 3 tablets (150 mg total) by mouth in the morning and 3 tablets (150 mg total) before bedtime. omega-3 fatty acids-fish oil (FISH OIL) 360-1,200 mg capsule Take 3 capsules by mouth in the evening. potassium chloride (K-TAB,KLOR-CON) 20 mEq CR tablet Take 1 tablet (20 mEq total) by mouth nightly. rivaroxaban (XARELTO) 2.5 mg tablet Take 1 tablet (2.5 mg total) by mouth in the morning and 1 tablet (2.5 mg total) before bedtime. 60 tablet 3 rosuvastatin (CRESTOR) 20 mg tablet Take 1 tablet (20 mg total) by mouth nightly. No current facility-administered medications on file prior to visit. Past Medical History: Past Medical History: Diagnosis Date Arrhythmia Arthritis Atrial fibrillation ([facility]) caused by COVID Cataract 04/07/2015 Coronary artery disease Diabetes mellitus type 2, controlled ([facility]) H/O colonoscopy 12/31/2014 H/O heart artery stent History of femoropopliteal bypass both left and right Hyperlipidemia Hypertension Lower limb ischemia 09/12/2020 Obesity S/P right coronary artery (RCA) stent placement 02/10/2012 Skin cancer Subdural hematoma ([facility]) Subdural hematoma ([facility]) 08/03/2010 TIA (transient ischemic attack) x 3 Umbilical hernia 10/02/2017 Past Surgical History: Past Surgical History: Procedure Laterality Date Angiogram extremity left LEG 10/22/2020 Performed by Mae Mccormick MD at [facility] Angiogram extremity right iliac 09/14/2020 Performed by Pablito Painting MD at [facility] angiogram lower Left 10/20/2022 Performed by Mae Mccormick MD at [facility] Aortography abdomen and runoff N/A 10/22/2020 Performed by Mae Mccormick MD at [facility] Aortography abdominal N/A 09/14/2020 Performed by Pablito Painting MD at [facility] BALLOON ANGIOPLASTY AND ILIAC-STENT PLACEMENT Left 01/11/2023 Performed by Mae Mccormick MD at [facility] CAROTID ENDARTERECTOMY Left CATARACT EXTRACTION, BILATERAL Bilateral right: 04/07/15 left: 04/21/15 COLONOSCOPY CORONARY ARTERY BYPASS GRAFT FEMORAL ARTERY - POPLITEAL ARTERY BYPASS GRAFT Bilateral right : 04/25/12 left : 10/03/12 FEMORAL EXTENDED PROFUNDA ENDARTERECTOMY Right 09/15/2020 Performed by Pablito Painting MD at [facility] OTHER SURGICAL HISTORY Bilateral stents12/13/02, 10/21/05, 12/20/07 Patch Angioplasty Femoral Right 09/15/2020 Performed by Pablito Painting MD at [facility] PROC PROFUNDA/POPLITEAL/TIBIAL THROMBECTOMY Right 09/15/2020 Performed by Pablito Painting MD at [facility] PROC REDO BYPASS ARTERY FEMORAL POPLITEAL W/ GRAFT Right 09/15/2020 Performed by Pablito Painting MD at [facility] PROC UMBILICAL HERNIA REPAIR Social and Family History: Social History Socioeconomic History Marital status: Spouse name: Not on file Number of children: Not on file Years of education: Not on file Highest education level: Not on file Occupational History Not on file Tobacco Use Smoking status: Former Current packs/day: 0.00 Average packs/day: 1 pack/day for 15.0 years (15.0 tt pk-yrs) Types: Cigarettes Start date: 06/26/1974 Quit date: 06/26/1989 Years since quittin.5 Smokeless tobacco: Never Vaping Use Vaping status: Never Used Substance and Sexual Activity Alcohol use: Yes Alcohol/week: 8.0 standard drinks of alcohol Types: 8 Cans of beer per week Drug use: No Sexual activity: Yes Partners: Female Other Topics Concern Not on file Social History Narrative Not on file Social Determinants of Health Financial Resource Strain: Low Risk (09/12/2020) Overall Financial Resource Strain (CARDIA) Difficulty of Paying Living Expenses: Not hard at all Food Insecurity: No Food Insecurity (10/05/2023) Hunger Screening Food Insecurity - Worry: Never True Food Insecurity - Inability: Never True Transportation Needs: No Transportation Needs (09/12/2020) PRAPARE - Transportation Lack of Transportation (Medical): No Lack of Transportation (Non-Medical): No Physical Activity: Sufficiently Active (09/12/2020) Exercise Vital Sign Days of Exercise per Week: 3 days Minutes of Exercise per Session: 60 min Stress: No Stress Concern Present (09/12/2020) [employer] - Occupational Stress Questionnaire Feeling of Stress : Not at all Social Connections: Moderately Isolated (09/12/2020) Social Connection and Isolation Panel [NHANES] Frequency of Communication with Friends and Family: Never Frequency of Social Gatherings with Friends and Family: More than three times a week Attends Sikh Services: Never Active Member of Clubs or Organizations: No Attends Club or Organization Meetings: Never Marital Status: Interpersonal Safety: Unknown (08/17/2023) Received from [facility] Fear of Current or Ex-Partner: Not on file Emotionally Abused: Not on file Physically Abused: Not on file Sexually Abused: Not on file Physically or Sexually Abused: Not on file Housing Instability: Not on file Family History Problem Relation Age of Onset Heart disease Mother Heart failure Mother Cancer Father Diabetes Sister Diabetes Sister Arthritis Sister Recent Labs: Recent and relative labs were reviewed and interpreted and contributed to the assessment and plan below. Vitals: There were no vitals taken for this visit. There is no height or weight on file to calculate BMI. Physical Exam: Physical Exam Constitutional: Appearance: Normal appearance. HENT: Head: Normocephalic and atraumatic. Mouth/Throat: Mouth: Mucous membranes are moist. Eyes: Extraocular Movements: Extraocular movements intact. Pupils: Pupils are equal, round, and reactive to light. Cardiovascular: Rate and Rhythm: Normal rate and regular rhythm. Pulmonary: Effort: Pulmonary effort is normal. Breath sounds: Normal breath sounds. Abdominal: General: Abdomen is flat. Bowel sounds are normal. Palpations: Abdomen is soft. Musculoskeletal: General: Normal range of motion. Cervical back: Normal range of motion. Skin: General: Skin is warm and dry. Neurological: General: No focal deficit present. Mental Status: He is alert and oriented to person, place, and time. Mental status is at baseline. Psychiatric: Mood and Affect: Mood normal. Behavior: Behavior normal. Thought Content: Thought content normal. Judgment: Judgment normal. Recent testing: PVR carotid ultrasound Assessment and Plan: Problem List Bilateral carotid artery stenosis Current Assessment & Plan He is wide open left carotid endarterectomy site. On the right side he has moderate stenosis. No stroke or mini strokes. Recommend continue aspirin atorvastatin and he is also on Xarelto. Will get surveillance imaging in a year. Claudication ([facility]) - Primary Current Assessment & Plan He has some claudication more on the left side. He had previous bypasses bilaterally. He does not have tissue loss or rest pain. He will continue aspirin statin and Xarelto. Discussed with him risk factors modification supervised walking program. He declined supervised walking program however he will continue to do walking program at home.We will get PVR and duplex ultrasound in a year Diagnoses and all orders for this visit: Claudication (CMS-HCC) Bilateral carotid artery stenosis Eli Jasso MD, JJ, RPVI, FSVS, FACS [facility] This note was created with the assistance of a speech recognition program. While intending to generate a timely document that accurately reflects the content of the visit, no guarantee can be provided that every grammatical or spelling mistake has been or will be identified or corrected. Thank you for your understanding. [facility] Evaluation + Plan note* Assessment & Plan Note - Eli Jasso MD - 10/05/2023 9:35 AM EDT Associated Problem(s): PAD (peripheral artery disease) ([facility]) PVR, Arterial duplex US [facility]04-[facility] Miscellaneous Notes* Assessment & Plan Note - Eli Jasso MD - 10/05/2023 9:35 AM EDTAssociated Problem(s): PAD (peripheral artery disease) ([facility]) PVR, Arterial duplex US * Assessment & Plan Note - Eli Jasso MD - 10/05/2023 9:34 AM EDT Associated Problem(s): Internal carotid artery stenosis, bilateral Carotid duplex US documented in this encounterSam[facility]04-[facility]-2024 Evaluation + Plan note* Assessment & Plan Note - Eli Jasso MD - 10/05/2023 9:34 AM EDT Associated Problem(s): Internal carotid artery stenosis, bilateral Carotid duplex US [facility]04[facility] History of Present illness Narrative* Eli Jasso MD - 10/05/2023 9:10 AM EDT Images from the original note were not included. To: ROBIN DAWKINS, DO HPI: Pooja Marrufo is a 78 y.o. male with multi vascular bed occlusive disease. He had bilateral lower extremity interventions for claudication. Continued to have claudication which has been stable. He also has carotid stenosis with bilateral interventions there. He has left iliac stent. He does not have any recent testing. No surveillance imaging. I discussed with him continuing aspirin Plavix and statin.. Review of Systems: Review of Systems Constitutional: Negative. HENT: Negative. Respiratory: Negative. Cardiovascular: Negative. Gastrointestinal: Negative. Endocrine: Negative. Genitourinary: Negative. Musculoskeletal: Negative. Skin: Negative. Neurological: Negative. Hematological: Negative. Medications: Current Outpatient Medications on File Prior to Visit Medication Sig Dispense Refill allopurinoL (ZYLOPRIM) 300 mg tablet Take 1 tablet (300 mg total) by mouth in the morning. amLODIPine (NORVASC) 10 mg tablet aspirin 81 mg Take 1 tablet (81 mg total) by mouth nightly. clopidogreL (PLAVIX) 75 mg tablet Take 1 tablet by mouth once daily 90 tablet 0 furosemide (LASIX) 40 mg tablet Take 1 tablet (40 mg total) by mouth daily. metFORMIN (GLUCOPHAGE) 500 mg tablet Take 1 tablet (500 mg total) by mouth in the morning and 1 tablet (500 mg total) in the evening. Take with meals. metoprolol tartrate (LOPRESSOR) 50 mg tablet Take 3 tablets (150 mg total) by mouth in the morning and 3 tablets (150 mg total) before bedtime. omega-3 fatty acids-fish oil (FISH OIL) 360-1,200 mg capsule Take 3 capsules by mouth in the evening. potassium chloride (K-TAB,KLOR-CON) 20 mEq CR tablet Take 1 tablet (20 mEq total) by mouth nightly. rivaroxaban (XARELTO) 2.5 mg tablet Take 1 tablet (2.5 mg total) by mouth in the morning and 1 tablet (2.5 mg total) before bedtime. 60 tablet 3 rosuvastatin (CRESTOR) 20 mg tablet Take 1 tablet (20 mg total) by mouth nightly. No current facility-administered medications on file prior to visit. Past Medical History: Past Medical History: Diagnosis Date Arrhythmia Arthritis Atrial fibrillation ([facility]) caused by COVID Cataract 04/07/2015 Coronary artery disease Diabetes mellitus type 2, controlled ([facility]) H/O colonoscopy 12/31/2014 H/O heart artery stent History of femoropopliteal bypass both left and right Hyperlipidemia Hypertension Lower limb ischemia 09/12/2020 Obesity S/P right coronary artery (RCA) stent placement 02/10/2012 Skin cancer Subdural hematoma ([facility]) Subdural hematoma ([facility]) 08/03/2010 TIA (transient ischemic attack) x 3 Umbilical hernia 10/02/2017 Past Surgical History: Past Surgical History: Procedure Laterality Date Angiogram extremity left LEG 10/22/2020 Performed by Mae Mccormick MD at [facility] Angiogram extremity right iliac 09/14/2020 Performed by Pablito Painting MD at [facility] angiogram lower Left 10/20/2022 Performed by Mae Mccormick MD at [facility] Aortography abdomen and runoff N/A 10/22/2020 Performed by Mae Mccormick MD at [facility] Aortography abdominal N/A 09/14/2020 Performed by Pablito Painting MD at [facility] BALLOON ANGIOPLASTY AND ILIAC-STENT PLACEMENT Left 01/11/2023 Performed by Mae Mccormick MD at [facility] CAROTID ENDARTERECTOMY Left CATARACT EXTRACTION, BILATERAL Bilateral right: 04/07/15 left: 04/21/15 COLONOSCOPY CORONARY ARTERY BYPASS GRAFT FEMORAL ARTERY - POPLITEAL ARTERY BYPASS GRAFT Bilateral right : 04/25/12 left : 10/03/12 FEMORAL EXTENDED PROFUNDA ENDARTERECTOMY Right 09/15/2020 Performed by Pablito Painting MD at [facility] OTHER SURGICAL HISTORY Bilateral stents12/13/02, 10/21/05, 12/20/07 Patch Angioplasty Femoral Right 09/15/2020 Performed by Pablito Painting MD at [facility] PROC PROFUNDA/POPLITEAL/TIBIAL THROMBECTOMY Right 09/15/2020 Performed by Pablito Painting MD at [facility] PROC REDO BYPASS ARTERY FEMORAL POPLITEAL W/ GRAFT Right 09/15/2020 Performed by Pablito Painting MD at [facility] PROC UMBILICAL HERNIA REPAIR Social and Family History: Social History Socioeconomic History Marital status: Spouse name: Not on file Number of children: Not on file Years of education: Not on file Highest education level: Not on file Occupational History Not on file Tobacco Use Smoking status: Former Current packs/day: 0.00 Average packs/day: 1 pack/day for 15.0 years (15.0 ttl pk-yrs) Types: Cigarettes Start date: 06/26/1974 Quit date: 06/26/1989 Years since quittin.2 Smokeless tobacco: Never Vaping Use Vaping status: Never Used Substance and Sexual Activity Alcohol use: Yes Alcohol/week: 8.0 standard drinks of alcohol Types: 8 Cans of beer per week Drug use: No Sexual activity: Yes Partners: Female Other Topics Concern Not on file Social History Narrative Not on file Social Determinants of Health Financial Resource Strain: Low Risk (09/12/2020) Overall Financial Resource Strain (CARDIA) Difficulty of Paying Living Expenses: Not hard at all Food Insecurity: No Food Insecurity (10/05/2023) Hunger Screening Food Insecurity - Worry: Never True Food Insecurity - Inability: Never True Transportation Needs: No Transportation Needs (09/12/2020) PRAPARE - Transportation Lack of Transportation (Medical): No Lack of Transportation (Non-Medical): No Physical Activity: Sufficiently Active (09/12/2020) Exercise Vital Sign Days of Exercise per Week: 3 days Minutes of Exercise per Session: 60 min Stress: No Stress Concern Present (09/12/2020) [employer] - Occupational Stress Questionnaire Feeling of Stress : Not at all Social Connections: Moderately Isolated (09/12/2020) Social Connection and Isolation Panel [NHANES] Frequency of Communication with Friends and Family: Never Frequency of Social Gatherings with Friends and Family: More than three times a week Attends Sikh Services: Never Active Member of Clubs or Organizations: No Attends Club or Organization Meetings: Never Marital Status: Interpersonal Safety: Unknown (08/17/2023) Received from [facility] [place] [facility] Fear of Current or Ex-Partner: Not on file Emotionally Abused: Not on file Physically Abused: Not on file Sexually Abused: Not on file Physically or Sexually Abused: Not on file Housing Instability: Not on file Family History Problem Relation Age of Onset Heart disease Mother Heart failure Mother Cancer Father Diabetes Sister Diabetes Sister Arthritis Sister Recent Labs: Recent and relative labs were reviewed and interpreted and contributed to the assessment and plan below. Vitals: BP 124/65 (BP Site: Left Arm, BP Postition: Sitting, BP CUFF SIZE: L (13-17 inches)) Pulse 65 Ht 188 cm (6' 2 ) Wt 99 kg (218 lb 3.2 oz) BMI 28.02 kg/m Body mass index is 28.02 kg/m . Physical Exam: Physical Exam Constitutional: Appearance: Normal appearance. HENT: Head: Normocephalic and atraumatic. Mouth/Throat: Mouth: Mucous membranes are moist. Eyes: Extraocular Movements: Extraocular movements intact. Pupils: Pupils are equal, round, and reactive to light. Cardiovascular: Rate and Rhythm: Normal rate and regular rhythm. Pulmonary: Effort: Pulmonary effort is normal. Breath sounds: Normal breath sounds. Abdominal: General: Abdomen is flat. Bowel sounds are normal. Palpations: Abdomen is soft. Musculoskeletal: General: Normal range of motion. Cervical back: Normal range of motion. Skin: General: Skin is warm and dry. Neurological: General: No focal deficit present. Mental Status: He is alert and oriented to person, place, and time. Mental status is at baseline. Psychiatric: Mood and Affect: Mood normal. Behavior: Behavior normal. Thought Content: Thought content normal. Judgment: Judgment normal. Recent testing: Assessment and Plan: Problem List Cardiovascular and Mediastinum Internal carotid artery stenosis, bilateral - Primary Current Assessment & Plan Carotid duplex US Relevant Orders Vas carotid duplex bilateral PAD (peripheral artery disease) ([facility]) Overview Added automatically from request for surgery [id number] Current Assessment & Plan PVR, Arterial duplex US Relevant Orders Vas art doppler lwr bilat mult lev/PVR Other History of carotid endarterectomy Relevant Orders Vas carotid duplex bilateral Pooja was seen today for claudication, lower limb ischemia and peripheral artery disease. Diagnoses and all orders for this visit: Internal carotid artery stenosis, bilateral - Vas carotid duplex bilateral; Future PAD (peripheral artery disease) ([facility]) - Vas art doppler lwr bilat mult lev/PVR; Future History of carotid endarterectomy - Vas carotid duplex bilateral; Future Eli Jasso MD, JJ, RPVI, FSVS, FACS [facility] This note was created with the assistance of a speech recognition program. While intending to generate a timely document that accurately reflects the content of the visit, no guarantee can be provided that every grammatical or spelling mistake has been or will be identified or corrected. Thank you for your understanding. documented in this encounterMet[facility] [id number] Evaluation note* Encounter Date Diagnosis Assessment Notes Treatment Notes Treatment Clinical Notes Jun, ASHD (arteriosclerotic heart disease) (ICD-10 [...] meals may be better tolerated.Weight loss if overweight.Monitor for dysphagia. Intolerant to PPI Jun, Anemia, [...] Z87.39) No acute flares Reviewed diet restrictions [facility] Other 01-24-2024 Evaluation note* Encounter Date Diagnosis Assessment Notes Treatment Notes Treatment Clinical Notes Jun, Anemia, unspecified type (ICD-10 - D64.9) [facility] Other 01-24-2024 Evaluation note* Encounter Date Diagnosis Assessment Notes Treatment Notes Treatment Clinical Notes Jun, Type 2 diabetes mellitus with hyperglycemia, without long-term current use of insulin (ICD-10 - E11.65) [facility] Other 12-20-2023 Note[facility] Subjective Pooja Marrufo is a [...] April 2020 he was admitted to the [facility] with COVID-19. He developed atrial fibrillation. [...] Judgment: Judgment normal. Allergies Allergies Allergen Reactions Kylthmg-Drx-Fvm Reductase Inhibitors Other Lisinopril Losartan Medications Current [...] metFORMIN (Glucophage) 500 m (more content not included)...[facility]10-26-2023 Evaluation note* Encounter Date Diagnosis Assessment Notes Treatment Notes Treatment Clinical Notes Mar, ASHD (arteriosclerot ic heart disease) (ICD-10 - I25.10) Mar, Type 2 diabetes mellitus with hyperglycemia, without long-term current use of insulin (ICD-10 - E11.65) Mar, Atherosclerosis of [place] artery of both lower extremities with intermittent [...] Mar, Other chronic pain (ICD-10 - G89.29) [facility] Other 10-26-2023 Evaluation note* Encounter Date Diagnosis [...] exam and Foot exam Mar, Atherosclerosis of [place] artery of both lower extremities with intermittent [...] No acute attacks present at this time. [facility] Other 10-13-2023 Evaluation note* Encounter Date Diagnosis Assessment Notes Treatment Notes Treatment Clinical Notes Mar, Anemia, unspecified type (ICD-10 - D64.9) [facility] Other 06-22-2023 Evaluation note* Encounter Date Diagnosis [...] Nov, Hx of gout (ICD-10 - Z87.39) [facility] Other 05-30-2023 Evaluation note* Encounter Date Diagnosis Assessment Notes [...] to continue exercise and AHA diet plan. [facility] Other 05-08-2023 Evaluation note* Encounter Date Diagnosis [...] to continue exercise and AHA diet plan. 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 Aug, Anemia, unspecified type (ICD-10 - D64.9) Aug, Hx of gout (ICD-10 - Z87.39) No recent flares, continue urate lowering treatment Aug, Acute seasonal allergic rhinitis due to pollen (ICD-10 - J30.1) [facility] [email or web address] Other Evaluation noteNo InformationNortDepartment of [facility] [email or web address] Other Evaluation note* Diagnosis Onset Date Resolution Status [id number] acute Acute bronchitis due to other specified organisms noneactive Acute seasonal allergic rhinitis due to pollen acute [facility] Work Phone: Evaluation note* Diagnosis Onset Date Resolution Status Anemia acute ASHD (arteriosclerotic heart disease) acute Chronic kidney disease acute Chronic venous insufficiency acute Hypercholesterolemia acute Paroxysmal atrial fibrillation acute Primary hypertension acute Type 2 diabetes mellitus with hyperglycemia acute Medicare annual wellness visit, subsequent noneactive Screening PSA (prostate specific antigen) noneactive [facility] Work Phone: Evaluation note* Diagnosis Onset Date Resolution Status Anemia acute ASHD (arteriosclerotic heart disease) acute Chronic kidney disease acute Chronic venous insufficiency acute Hypercholesterolemia acute Paroxysmal atrial fibrillation acute Primary hypertension acute Type 2 diabetes mellitus with hyperglycemia acute [facility] Work Phone: Evaluation note* Diagnosis Claudication ([facility])- Primary Unspecified peripheral vascular disease Bilateral carotid artery stenosis Occlusion and stenosis of carotid artery without mention of cerebral infarction [facility] Diagnosis Internal carotid artery stenosis, bilateral- Primary PAD (peripheral artery disease) ([facility]) Unspecified peripheral vascular disease History of carotid endarterectomy Other postprocedural status documented in this encounter [facility] [employer] SystemHistory general Narrative - Reported* Type Description Date [...] History BYPASS Hospitalization History SEE SURGICAL HX [facility] Other History general Narrative - Reported* Type [...] /stenting 12/2022 Hospitalization History SEE SURGICAL HX [facility] Other Hisopqa general Narrative - Reported* Type Description Date [...] Colonoscopy 2015 Hospitalization History SEE SURGICAL HX [employer] Other InstructionsNot on filedocumented in this encounter [facility] Summary Purpose Family History Relationship Condition Age at Onset Recorded Date/T alonso father Unknown Malignant neoplasm Unknown Advance Directives Advance Directive Response Recorded Date/ Time Advance Directives No July 26, 2023 10:15am Documents on File Type Date Recorded 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 09/23/2020 4:09 PM Living Will 09/23/2020 4:09 PM Date Activated Date Inactivated Comments 09/12/2020 10:19 AM 09/20/2020 2:16 PM Chief Complaint and Reason for Visit Chief Complaint 3 Month Follow Up Sinuses, cough- neg covid Allergy Shot Reason for Visit [id number] Acute bronchitis due to other specified organisms [...] Screening PSA (prostate specific antigen) Chief Complaint allergy shot 3 month f/u Reason for Visit Anemia ASHD (arteriosclerotic heart disease) Chronic kidney disease Chronic venous insufficiency Hypercholesterolemia Paroxysmal atrial fibrillation Primary hypertension Type 2 diabetes mellitus with hyperglycemia Chief Complaint Admit Date 3 month f/u June 21, 2024 8:57am CC Adult Risk Stratification June 10:42am 3 month f/u September 02, 2024 8:5 4am Reason for Visit Admit Date Anemia June 21, 2024 8:57am ASHD (arteriosclerotic heart disease) [facility] 2023 8:57am Chronic kidney disease June 21 8:57am Chronic venous insufficiency June 212023 8:57am Hypercholesterolemia June 21, 2024 8:57am Paroxysmal atrial fibrillation June 21, 2024 8:57am Primary hypertension June 21, 2024 8:57am Type 2 diabetes mellitus with hyperglyce jose armando June 21, 2024 8:57am Anemia September 02, 2024 8:5 4am ASHD (arteriosclerotic heart disease) [facility] 2024 8:54am Callus of foot September 02, 2024 8:5 4am Chronic kidney disease September 02, 2024 8:54am Chronic venous insufficiency September 02, 2024 8:54am Hypercholesterolemia September 02, 2024 8: 54am Paroxysmal atrial fibrillation August 8:54am Pernicious anemia September 02, 2024 8:5 4am Primary hypertension September 02, 2024 8: 54am Type 2 diabetes mellitus with hyperglyce jose armando September 02, 2024 8:54am Reason for Referral Specialty Diagnoses / Procedures Referred By Contac t Referred To Contact Diagnoses Internal carotid artery stenosis, bilateral History of carotid endarterectomy Procedures Vas carotid duplex bilateral Eli Jasso MD [address], [address] [address] Referral ID Status Reason Start Date Expiration Date V isits Requested Visits Authorized [id number] Pending Review 10/05/2023 10/04/2024 1 1 Specialty Diagnoses / Procedures Referred By Contac t Referred To Contact Diagnoses PAD (peripheral artery disease) ([facility]) Procedures Vas art doppler lwr bilat mult lev/PVR Eli Jasso MD [address], [address] [address] Phone: Referral ID Status Reason Start Date Expiration Date V isits Requested Visits Authorized [id number] Pending Review 10/05/2023 10/04/2024 1 1 Specialty Diagnoses / Procedures Referred By Contac t Referred To Contact Diagnoses Claudication ([facility]) Bilateral carotid artery stenosis Procedures Vas art duplex lwr graft scan Eli Tang MD [address], [address] [address] Phone: Referral ID Status Reason Start Date Expiration Date V isits Requested Visits Authorized [id number] Pending Review 01/18/2024 01/17/2025 1 1 Specialty Diagnoses / Procedures Referred By Contac t Referred To Contact Diagnoses Claudication ([facility]) Bilateral carotid artery stenosis Procedures Vas art doppler lwr bilat mult lev/PVR Eli Jasso MD [address], [address] [address] Phone: Referral ID Status Reason Start Date Expiration Date V isits Requested Visits Authorized [id number] Pending Review 01/18/2024 01/17/2025 1 1 Specialty Diagnoses / Procedures Referred By Contac t Referred To Contact Diagnoses Bilateral carotid artery stenosis Procedures Vas carotid duplex bilateral Eli Jasso MD [address], [address] [address] Referral ID Status Reason Start Date Expiration Date V isits Requested Visits Authorized [id number] Pending Review 01/18/2024 01/17/2025 1 1 Additional Source Comments (unrecognized sect ion and content) No Status Records FoundNo Status Records FoundNo Status Records FoundNo Status Records FoundNo Status Records Found INFORMATION SOURCE (unrecogn ized section and content) DATE CREATED AUTHOR 12/14/2017 [facility] DATE CREATED AUTHOR AUTHOR'S ORGANIZ ATION 10/08/2018 [facility] DATE CREATED AUTHOR AUTHOR'S ORGANIZ ATION 10/09/2022 [facility] DATE CREATED AUTHOR AUTHOR'S ORGANIZ ATION 10/06/2023 [facility] DATE CREATED AUTHOR AUTHOR'S ORGANIZ ATION 06/12/[address] [facility] REASON FOR VISIT (unrecogniz ed section and content) Reason Comments Claudication Lower Limb Ischemia Peripheral Artery Disease Care Teams (unrecognized sec tion and content) Team Status: Active Member Role Status Dates Robin Dawkins DO Primary Care Provider Active Team Status: Inactive Member Role Status Dates Robin Dawkins DO Primary Care Provide r, Attending Provider Active Start: June 21, 2024 End: June 21, 2024 Team Status: Active Member Role Status Dates Robin Dawkins DO Primary Care Provide r, Attending Provider Active Start: July 02, 2024 Team Status: Inactive Member Role Status Dates Robin Dawkins DO Primary Care Provide r, Attending Provider Active Start: September 02, 2024 End: September 02, 2024 Team Status: Active Member Role Status Dates Robin Dawkins DO Primary Care Provider Active Team Status: Active Member Role Status Dates Robin Dawkins DO Primary Care Provide r, Attending Provider Active Start: December 23, 2023 Team Status: Inactive Member Role Status Dates Robin Dawkins DO Primary Care Provide r, Attending Provider Active Start: February 02, 2024 End: February 02, 2024 Team Status: Active Member Role Status Dates Robin Dawkins DO Primary Care Provide r, Attending Provider Active Start: March 04, 2024 Team Status: Inactive Member Role Status Dates Robin Dawkins DO Primary Care Provide r, Attending Provider Active Start: March 21, 2024 End: March 21, 2024 Team Status: Inactive Member Role Status Dates Robin Dawkins Attending Provider Active Sta rt: July 26, [...] December 19, 2023 End: December 19, 2023 Board Worker Relationship Specialty Start Date End Date Robin Dawkins DO [address] [place] [id number] PCP - General 03/15/16 Board Worker Relationship Specialty Start Date End Date Robin Dawkins DO [address] [place] [id number] PCP - General 03/15/16 Team Status: Inactive Member Role Status Dates Robin Dawkins DO Primary Care Provide r, Attending Provider Active Start: June 21, 2024 End: June 21, 2024 Team Status: Active Member Role Status Dates Robin Dawkins DO Primary Care Provide r, Attending Provider Active Start: July 02, 2024 Team Status: Inactive Member Role Status Dates Robin Dawkins DO Primary Care Provide r, Attending Provider Active Start: September 02, 2024 End: September 02, 2024 Goals (unrecognized section and content) [...] BE BASED ON THE PRIMARY CLINICAL RECORDS. [employer] [facility] provides no warranty or guarantee of the accuracy or completeness of information in this document.
[2024-09-05 09:57] LABS: Basophils Absolute Auto 0.1 10^3/uL (0.0-0.1); Eosinophils Absolute Auto 0.3 10^3/uL (0.0-0.7); Hematocrit 36.8 % (42.0-54.0); Hemoglobin 12.2 g/dL (14.0-18.0); Immature Granulocytes Abs Auto 0.06 10^3/uL (0.00-0.03); Immature Granulocytes Pct Auto 0.6 % (0.0-0.5); Lymphocytes Absolute Auto 3.5 10^3/uL (1.2-3.8); Lymphocytes Percent Auto 35.8 % (20.5-60.0); Mean Corpuscular HGB Conc 33.2 g/dL (29.9-35.2); Mean Corpuscular Hemoglobin 31.3 pg (25.9-34.0); Mean Corpuscular Volume 94.4 fL (80.0-94.0); Mean Platelet Volume 9.1 fL (9.5-13.5); Monocytes Absolute Auto 0.8 10^3/uL (0.3-0.8); Monocytes Percent Auto 7.9 % (1.7-12.0); Neutrophils Absolute Auto 5.1 10^3/uL (1.4-6.5); Neutrophils Percent Auto 51.7 % (43.0-75.0); Platelet Count 243 10^3/uL (150-450); Red Cell Distribution Width 13.7 % (11.0-15.0); White Blood Count 9.9 10^3/uL (4.0-11.0)
[2024-09-05 10:30] LABS: Anion Gap 14.3; BUN Creatinine Ratio 14.1; Calcium 9.3 mg/dL (8.5-10.1); Carbon Dioxide 27.6 mmol/L (21.0-32.0); Chloride 102 mmol/L (98-107); Estimated GFR (African America 55 (>=60 mL/min/1.73m^2); Estimated GFR (Non-African Ame 45 (>=60 mL/min/1.73m^2); Glucose 144 mg/dL (74-106); Potassium 3.9 mmol/L (3.5-5.1); Sodium 140 mmol/L (136-145)
[2024-09-05 10:35] LABS: Estimated Average Glucose 134 mg/dL; Glycohemoglobin A1C 6.3 % (4.5-6.2)
== END 2024-09-05 09:41 | disposition home or self-care (01) ==
LOC: LAB 09:41
PROVIDERS: PCP Internal Medicine; Visit Provider Internal Medicine
DX: D51.0 Vitamin B12 deficiency anemia due to intrinsic factor deficiency (principal); E11.65 Type 2 diabetes mellitus with hyperglycemia; N18.31 Chronic kidney disease, stage 3a
CPT/HCPCS: 36415; 80048; 83036; 85025

== ENCOUNTER 2024-11-05 10:19 | Outpatient (OUT) | payer MEDICARE, SELFPAY ==
--- NOTE | 2024-11-05 10:31 | XR_ITS ---
The [address] [address] Patient Name: POOJA QUEVEDO MRN: [id number] date: 1945 Sex: M Assigned Patient Location: [facility] Current Patient Location: [facility] Accession/Order Number: [id number] Exam Date: 11/05/2024 11:33 Report Date: 11/05/2024 11:35 At the request of: ANABELA SAWANT DO Procedure: XR chest 2V PA AND LATERAL CHEST: CLINICAL HISTORY: Cough ankle symptoms for the past 3-4 weeks. COMPARISON: 05/20/2020 Median sternotomy wires are present. There is slight hyperinflation. There is no developing consolidation, effusion or pneumothorax. The cardiac, hilar and mediastinal silhouettes are within normal limits. There is no vascular congestion. The visualized bony thorax is intact. Degenerative changes are visualized at the spine. XR/XR chest 2V IMPRESSION: NO ACUTE CARDIOPULMONARY ABNORMALITY. Impression dictated by: Melissa Cordova M.D. 11/05/2024 11:35 AM Dictation Location: [place] [address] Electronically authenticated by: [id number] Y Date: 11/05/2024 11:35
== END 2024-11-05 10:20 | disposition home or self-care (01) ==
LOC: RAD 10:23
PROVIDERS: PCP Internal Medicine; Visit Provider Internal Medicine
DX: R05.9 Cough, unspecified (principal)
CPT/HCPCS: 71046

== ENCOUNTER 2024-12-23 06:58 | Outpatient (OUT) | payer MEDICARE, SELFPAY ==
--- OUTSIDE RECORDS SUMMARY | 2024-12-23 07:02 | XMS_ITS | CCD ---
Author Organization [facility] Care Team Providers Care [employer] Name Role Phone Bipin Cruz Unavailable Unavailable Zahlwendy, Bipin Unavailable Unavailable Zahler, Bipin Unavailable Unavailable ROBIN DAWKINS~[phone] UNKNOWN Unavailable Unavailable Nill, Jean-Paul R Unavailable Unavailable Nill, Jean-Paul R Unavailable Unavailable Nill, Jean-Paul R Unavailable Unavailable ROBIN DAWKINS~[id number] UNKNOWN Unavailable Unavailable Nill, Jean-Paul R Unavailable Unavailable Nill, Jean-Paul R Unavailable Unavailable Nill, Jean-Paul R Unavailable Unavailable ROBIN DAWKINS~[phone] UNKNOWN Unavailable Unavailable RONNY NEWMAN Admitting Unavailable [...] Care Unavailable ABBAS, DR WALL Consulting Unavailable Zieber Rancho Consulting Unavailable ELI JASSO F Attending Unavailable ROBIN DAWKINS Referring Unavailable ROBIN DAWKINS Primary Care Unavailable RADHA CASTELLON Attending Unavailable RADHA CASTELLON Attending Unavailable Robin Dawkins DO Primary Care Provider Robin Dawkins DO Primary Care Provider Robin Dawkins DO Attending Provider Allergies Allergy Classification Reported Allergen(s) Allergy Type Date of Onset Reaction(s) Facility (20 sources) lisinopril; Translations: [lisinopril] Drug Allergy 11-02-19 [facility] Repository (6 sources) losartan; Translations: [losartan] Drug Allergy 04-20-20 16 Hives [facility] Repository (1 source) nystatin / triamcinolone; Translations: [Tri-Statin II] Drug Allergy [facility]OF [facility] Repository (4 sources) black walnut pollen extract; Translations: [[id number] REDUCTASE INHIBITORS] Drug Allergy 02-07-20 12 [facility] Repository (9 sources) Angiotensin-convert ing enzyme inhibitor agent Drug allergy Unknown [facility] Other (10 sources) Hmg-Coa Reductase Inhibitors (Statins) Propensity to adverse reactions Unknown [facility] Other (18 sources) Simvastatin Drug Allergy 07-26-19 24 Unknown, Unknown Reaction [facility] (10 sources) FELICIA inhibitor use, contraindication Propensity to adverse reactions 10-13-19 17 Comment:advers e rxn/side effects [facility] [employer] [facility] Other (9 sources) patient allergy list reviewed by nurse or physicia Propensity to adverse reactions 12-13-19 19 Comment:Done [facility] Other (8 sources) Mtfaesu-DPJ-PmW Reductase Inhibitor Allergy to substance 07-26-19 Unknown Reaction [facility] (3 sources) atorvastatin; Translations: [ATORVASTATIN] Drug Allergy 03-16-20 16 Nausea [facility] Repository (3 sources) cilostazol; Translations: [CILOSTAZOL] Drug Allergy 01-03-20 23 Swelling [facility] Repository (2 sources) HMG-CoA reductase inhibitor Propensity to adverse reactions to drug 07-26-19 [facility] Medications Current Medications Medication Drug Class(es) Dates Sig (Normalized) Sig (Original) allopurinol 300 mg oral tablet (20 sources) Xanthine Oxidase Inhibitor Start: 12-19-2023 End: 11-11-2024 take 1 tablet by mouth once daily Allopurinol 300 mg tablet Active 300 MG PO Daily November 11, 2024 5:51pm Complies with drug therapy Start: 11-21-2023 End: 12-19-2023 take 1 tablet [...] MG PO Daily August 25, 2023 1:00am Complies with drug therapy aspirin 81 mg delayed release oral tablet (20 sources) Platelet Aggregation Inhibitor, Nonsteroidal Anti-inflammatory Drug Start: 08-25-2023 take 1 tablet by mouth once daily Aspirin 81 mg tablet,delayed release (DR/EC) Active 81 MG PO Daily August 25, 2023 1:00am Complies with drug therapy benazepril (5 sources) Angiotensin Converting Enzyme Inhibitor Benazepril HCl Active benzonatate 200 mg oral capsule (2 sources) Non-narcotic Antitussive Start: 10-22-2024 take 1 capsule by mouth three times daily Benzonatate 200 mg capsule Active 200 MG PO Three times daily 24 04October 22, 2024 12:00am Complies with drug therapy cefdinir 300 mg oral capsule (2 sources) Cephalosporin Antibacterial Start: 11-01-2024 take 1 capsule by mouth twice daily Cefdinir 300 mg capsule Active 300 MG PO Twice daily 06 01November 01, 2024 12:00am Complies with drug therapy Contour Next Test - (17 sources) Start: 09-21-2022 Contour Next Test - Use to test home BS qd In Vitro daily for 90 days Aug, Active furosemide 40 mg oral tablet (20 sources) Loop Diuretic Start: 10-14-2024 take 1 tablet by mouth every other day Furosemide 40 mg tablet Active 40 MG PO .QOD October 14, 2024 2:48pm Complies with drug therapy Start: 08-25-2023 End: 10-14-2024 take 1 tablet by mouth once daily Furosemide 40 mg tablet Discontinued 40 MG PO Daily August 25, 2023 1:00am October 14, 2024 2:48pm mecobalamin 1 mg sublingual tablet (5 sources) Start: 03-21-2024 Mecobalamin (Vitamin B12) 1,000 mcg tablet,disintegrating Active 1000 MCG SUBLINGUAL Daily March 21, 2024 12:00am place tablet under tongue and allow to dissolve for at least30 secs before swallowing Complies with drug therapy metFORMIN hydrochloride 500 mg oral tablet (20 sources) Biguanide Start: 08-25-2023 End: 09-02-2024 take 1 tablet by mouth twice daily Metformin 500 mg tablet Active 500 MG PO Twice daily 180 90 September 02, 2024 9:19am Complies with drug therapy take 1 tablet by frank th every twenty-four hours metFORMIN HCl 500 MG 1 tablet with a meal Orally Once a day Active metoprolol tartrate 100 mg oral tablet (20 sources) beta-Adrenergic Bronwyn Start: 12-19-2023 End: 11-11-2024 take 1 tablet by mouth twice daily Metoprolol Tartrate 50 mg tablet Active 50 MG PO Twice daily 180 90 November 11, 2024 5:51pm Complies with drug therapy Start: 12-19-2023 End: 11-11-2024 take 1 tablet by mouth twice daily Metoprolol Tartrate 100 mg tablet Active 100 MG PO Twice daily 180 90 November 11, 2024 5:51pm Complies with drug therapy Start: 11-21-2023 End: 12-19-2023 take 1 tablet [...] 2023 12:57pm take 3 tablets by mo [facility] in the morning, then take 3 tablets by mouth at bedtime metoprolol tartrate (LOPRESSOR) 50 mg tablet Take 3 tablets (150 mg total) by mouth in the morning and 3 tablets (150 mg total) before bedtime. Active take 1 tablet by frank th twice daily Metoprolol Tartrate 100 MG Take 1 tablet by mouth twice daily Active take 1 tablet by frakn th twice daily Metoprolol Tartrate 50 MG Take 1 tablet by mouth twice daily Active mupirocin 0.02 mg/mg topical ointment (4 sources) RNA Synthetase Inhibitor Antibacterial Start: 09-02-2024 Mupirocin 2 % ointment Active 1 APPLIC TOPICAL Twice daily 16 04September 02, 2024 12:00am Complies with drug therapy [place]-3 Fatty Acids-Fish Oil (Fish Oil Pearls) 300-400 mg capsule (8 sources) Start: 08-25-2023 take 1 capsule by mouth once daily [place]-3 Fatty Acids-Fish Oil (Fish Oil Pearls) 300-400 mg capsule Active 1 CAP PO Daily August 25, 2023 1:00am Complies with drug therapy Start: 08-25-2023 take 1 capsule by mo wih once daily [place]-3 Fatty Acids-Fish Oil (Fish Oil Pearls) 300-400 [...] capsule (5 sources) Proton Pump Inhibitor Start: 04-21-20 take 1 capsule by mouth once daily Omeprazole 40 MG 1 capsule 30 minutes before morning meal Orally Once a day for 30 days Mar, Active ondansetron 4 mg disintegrating oral tablet (2 sources) Serotonin-3 Receptor Antagonist Start: 10-23-19 take 1 tablet by mouth every eight hours Ondansetron 4 mg tablet,disintegrat ing Active 4 MG PO Every 8 hours 15 October 22, 2024 12:00am Complies with drug therapy microencapsulated potassium chloride 20 meq extended release oral tablet (20 sources) Start: 08-25-19 Potassium Chloride (Klor-Con M20) 20 mEq tablet,ER particles/crystals Active 20 MEQ PO Daily August 25, 2023 1:00am Complies with drug therapy potassium chlori de (K-TAB,KLOR-CON) 20 mEq CR [...] Active rosuvastatin calcium 20 mg oral tablet (20 sources) HMG-CoA Reductase Inhibitor Start: 08-25-2023 take 1 tablet by mouth once daily Rosuvastatin 20 mg tablet Active 20 MG PO Daily August 25, 2023 1:00am Complies with drug therapy triamcinolone acetonide 0.001 mg/mg topical ointment (20 sources) Corticosteroid Start: 09-02-2024 Triamcinolone Acetonide 0.1 % ointment Active 1 APPLIC TOPICAL Daily as needed for pain and itching September 02, 2024 12:00am Complies with drug therapy Start: 09-02-2024 Triamcinolone Acetonide 0.1 % ointment Active 1 APPLIC TOPICAL Daily as needed for pain and itching September 02, 2024 12:00am Start: 11-22-2022 Kenalog-40 Mar, 40 mg Start: 09-21-2022 Kenalog-40 Aug, 60 mg Completed/Discontinued Medications Medication Drug Class(es) Dates Sig (Normalized) Sig (Original) ASA (17 sources) ASA Not-Taking/P RN ASA Not-Taking azithromycin 250 mg oral tablet (5 sources) Macrolide Antimicrobial Start: 10-22-2024 End: 11-01-2024 Azithromycin 250 mg tablet Discontinued 250 MG PO .COMPLEX 6 5 October 22, 2024 12:00am November 01, 2024 1:10pm 2 tabs on first day followed by 1 tab on days 2-5 Start: 10-31-2022 Azithromycin 2 50 MG as directed Orally daily for 5 days October, Active clopidogrel 75 mg oral tablet (20 sources) P2Y12 Platelet Inhibitor Start: 02-24-2023 End: 09-02-2024 take 1 tablet by mouth once daily Clopidogrel (Plavix) 75 mg tablet Discontinued 75 MG PO Daily August 25, 2023 1:00am September 02, 2024 9:20am Plavix Active doxycycline hyclate 100 mg oral capsule (8 sources) Tetracycline-class Drug Start: 08-25-2023 End: 12-19-2023 [...] Local Anesthetic Start: 04-20-2023 Lidocaine 26 Oct 20 mg Start: 11-22-2022 Lidocaine 30 M [...] Nov, Not-Taking valACYclovir 1000 mg oral tablet (17 sources) Herpesvirus Nucleoside Analog DNA Polymerase Inhibitor, [...] Date Documented Da te Episodic/Chronic Acute bronchitis (7 sources) Acute bronchitis due to other specified [...] Chronic Chronic obstructive pulmonary disease and bronchiectasis (17 sources) Simple chronic bronchitis; Translations: [Simple chronic bronchitis] Chronic Coronary atherosclerosis and other heart disease (20 sources) Coronary arteriosclerosis; Translations: [Atherosclerotic heart disease of [place] coronary artery without angina pectoris] Onset: 06-26-1960 Chronic Comment on above: Stress testing: no i schemia - 07/2023Echo: LVEF 55-60%, normal RV size/function, LAE, diastolic dysfunction - 06/2023 Deficiency and other anemia (13 sources) Anemia, unspecified; Translations: [Anemia, unspecified] Episodic Deficiency and other anemia (8 sources) Anemia; Translations: [Anemia, unspecified] 12-17-2023 Episodic Deficiency and other anemia (5 sources) Pernicious anemia; Translations: [Vitamin B12 deficiency anemia due to intrinsic factor deficiency] 09-02-2024 Episodic Deficiency and other anemia (3 sources) Vitamin B12 deficiency anemia due to intrinsic [...] hypercholesterolemia, unspecified] Onset: 06-26-1960 Chronic Esophageal disorders (14 sources) Gastro-esophageal reflux disease with esophagitis; Translations: [...] Candidiasis of mouth; Translations: [Candidal stomatitis] Episodic Nausea and vomiting (4 sources) Nausea and vomiting; Translations: [Nausea with vomiting, unspecified] 10-22-2024 Episodic Occlusion or stenosis of precerebral arteries [...] transportation intermediary (current) drug therapy; Translations: [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 CAR 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 CURRENT DRUG THERAPY] Onset: 12-21-2021 Episodic Other [...] Episodic Other diseases of veins and lymphatics (8 sources) Venous insufficiency (chronic) (peripheral); Translations: [Venous (peripheral) insufficiency, unspecified] Episodic Other eye disorders (1 source) Optic disc edema; 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] Chronic Other gastrointestinal disorders (10 sources) Diarrhea; Translations: [Diarrhea] Onset: 10-30-2014 10-22-2024 Episodic Other gastrointestinal disorders (8 sources) Constipation; Translations: [Constipation] Episodic Other gastrointestinal disorders (1 source) Oropharyngeal dysphagia; Translations: [Dysphagia, oropharyngeal phase] Episodic Other gastrointestinal disorders (1 source) Diarrhea, unspecified; Translations: [Diarrhea] 10-22-2024 Episodic Other injuries and conditions due to external causes (1 source) History of fall; Translations: [History of falling] Episodic Other lower respiratory disease (4 sources) Cough; Translations: [Cough] Onset: 09-10-2015 11-05-2024 Episodic Other nervous system disorders (15 sources) Chronic pain; Translations: [Other chronic pain] [...] conditions (not mental disorders or infectious disease) (13 sources) Liver function tests abnormal; Translations: [Elevated liver function tests] Onset: 12-21-2021 Episodic Other skin disorders (1 source) Localized swelling, mass and lump, right lower limb; Translations: [Localized swelling, mass and lump, right lower limb] Episodic Other skin disorders (4 sources) Foot callus; Translations: [Corns and callosities] 09-02-2024 Episodic Other skin disorders (3 sources) Corns and callosities; Translations: [Corns and callosities] 09-02-2024 Episodic Other upper respiratory disease (20 sources) Allergic rhinitis due to pollen; Translations: [Allergic rhinitis due to pollen] 08-25-2023 Chronic Other upper respiratory disease (2 sources) Allergic rhinitis due to pollen; Translations: [Allergic rhinitis due to pollen] Chronic Other upper respiratory disease (2 sources) Allergic rhinitis; Translations: [Allergic rhinitis, unspecified] 11-05-2024 Chronic Other upper respiratory disease (1 source) Allergic rhinitis, unspecified; Translations: [Allergic rhinitis, cause unspecified] 11-05-2024 Chronic Other upper respiratory infections (3 sources) [...] Lower Limb Ischemia Onset: 10-05-2023 Viral infection (17 sources) Post-herpetic polyneuropathy; 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] 08-25-2023 [...] Onset: 10-30-2014 Episodic Other lower respiratory disease (1 source) [...] Range Facility Basophils Auto (Bld) [#/Vol] on 09-05-2024 Basophils (Bld) [#/Vol] Automated basophil count 0.0-0.1 [facility] Basophils/100 WBC Auto (Bld) on 09-05-2024 Basophils/100 WBC (Bld) Automated basophil % 0.2-2.0 [facility] Eosinophils/100 WBC Auto (Bl d)on 09-05-2024 Eosinophils/100 WBC (Bld) Automated eosinophil % 0.9-7.0 [facility] Erythrocyte distribution wid th Auto (RBC) [Ratio]on 09-05-2024 Erythrocyte distribution width (RBC) [Ratio] Erythrocyte distribution width [Ratio] by Automated count 11.0-15.0 [facility] Estimated glomerular filtrat ion rate (GFR) non- Americanon 09-05-2024 GFR/1.73 sq M.predicted among non-blacks MDRD (S/P/Bld) [Vol rate/Area] Estimated glomerular filtration rate (GFR) non- Low >=60 mL/min/1.73 m 2 [facility] Glucose mean value [Mass/vol ume] in Blood Estimated from glycated hemoglobinon 09-05-2024 Average glucose Estimated from glycated hemoglobin (Bld) [Mass/Vol] Glucose mean value [Mass/volume] in Blood Estimated from glycated hemoglobin [facility] Hematocrit Auto (Bld) [Volum e fraction]on 09-05-2024 Hematocrit (Bld) [Volume fraction] Hematocrit [Volume Fraction] of Blood by Automated count Low 42.0-54.0 [facility] Hemoglobin A1c percentageon 09-05-2024 HbA1c (Bld) [Mass fraction] Hemoglobin A1c percentage High 4.5-6.2 [facility] Comment on above: ADA RECOMMENDED LIMI T 4.0 - 6.0ADA THERAPEUTIC TARGET < 7.0ACTION SUGGESTED> 7.0 Hemoglobin [Mass/volume] in Bloodon 09-05-2024 Hemoglobin (Bld) [Mass/Vol] Hemoglobin [Mass/volume] in Blood Low 14.0-18.0 [facility] Laboratory - Chemistry and C hemistry - challengeon 09-05-2024 Calcium [Mass/Vol] 9.3 mg/dL 8.5-10.1 [facility] Chloride [Moles/Vol] 102 mmol/L 98-107 [facility] CO2 [Moles/Vol] 27.6 mmol/L 21.0-32.0 [facility] Creatinine [Mass/Vol] 1.49 mg/dL High 0.70-1.30 [facility] GFR/1.73 sq M.predicted MDRD (S/P/Bld) [Vol rate/Area] 55 mL/min/{1.73_m2} Low >=60 mL/min/1.73 m 2 [facility] Glucose [Mass/Vol] 144 mg/dL High 74-106 [facility] Potassium [Moles/Vol] 3.9 mmol/L 3.5-5.1 [facility] Sodium [Moles/Vol] 140 mmol/L 136-145 [facility] Urea nitrogen [Mass/Vol] 21.0 mg/dL High 7.0-18.0 [facility] Urea nitrogen/Creatinin e [Mass ratio] 14.1 mg/mg [facility] Laboratory - Hematology and Cell countson 09-05-2024 Immature granulocytes/100 WBC (Bld) 0.6 % High 0.0-0.5 [facility] Leukocytes [#/volume] correc chano for nucleated erythrocytes in Blood by Automated counon 09-05-2024 WBC corrected for nucl RBC Auto (Bld) [#/Vol] Leukocytes [#/volume] corrected for nucleated erythrocytes in Blood by Automated coun 4.0-11.0 [facility] Lymphocytes Auto (Bld) [#/Vo l]on 09-05-2024 Lymphocytes (Bld) [#/Vol] Lymphocytes [#/volume] in Blood by Automated count 1.2-3.8 [facility] Lymphocytes/100 WBC Auto (Bl d)on 09-05-2024 Lymphocytes/100 WBC (Bld) Lymphocytes/100 leukocytes in Blood by Automated count 20.5-60.0 [facility] MCH Auto (RBC) [Entitic mass ]on 09-05-2024 MCH (RBC) [Entitic mass] MCH [Entitic mass] by Automated count 25.9-34.0 [facility] MCHC Auto (RBC) [Mass/Vol]on 09-05-2024 MCHC (RBC) [Mass/Vol] MCHC [Mass/volume] by Automated count 29.9-35.2 [facility] MCV Auto (RBC) [Entitic vol] on 09-05-2024 MCV (RBC) [Entitic vol] MCV [Entitic volume] by Automated count High 80.0-94.0 [facility] Monocytes Auto (Bld) [#/Vol] on 09-05-2024 Monocytes (Bld) [#/Vol] Automated blood monocyte count 0.3-0.8 [facility] Monocytes/100 WBC Auto (Bld) on 09-05-2024 Monocytes/100 WBC (Bld) Automated monocyte % 1.7-12.0 [facility] Neutrophils Auto (Bld) [#/Vo l]on 09-05-2024 Neutrophils (Bld) [#/Vol] Neutrophils [#/volume] in Blood by Automated count 1.4-6.5 [facility] Neutrophils/100 WBC Auto (Bl d)on 09-05-2024 Neutrophils/100 WBC (Bld) Automated neutrophil % 43.0-75.0 [facility] No Panel Informationon 09-05 Eosinophils # (Auto) 0.3 10 3/uL 0.0-0.7 [facility] Immature Granulocyte # (Auto) 0.06 10 3/uL High 0.00-0.03 [facility] Platelet mean volume Auto (B ld) [Entitic vol]on 09-05-2024 Platelet mean volume (Bld) [Entitic vol] Platelet mean volume [Entitic volume] in Blood by Automated count Low 9.5-13.5 [facility] Platelets Auto (Bld) [#/Vol] on 09-05-2024 Platelets (Bld) [#/Vol] Platelets [#/volume] in Blood by Automated count 150-450 [facility] RBC Auto (Bld) [#/Vol]on RBC (Bld) [#/Vol] Erythrocytes [#/volu me] in Blood by Automated count Low 4.70-6.10 [facility] Serum or plasma anion gap de terminationon 09-05-2024 Anion gap [Moles/Vol] Serum or plasma anion gap determination [facility] Office Visiton 06-10-2024 Follow-up visit [id number] Eloisa Marrufo 1945 M Date Provider Department [place] 06/10/2024 RADHA ESCOBAR Family History Problem Relation Age of Onset Heart failure Mother Family Status - Relation Status Age at Mother Level of Service:38878 [place] OFFICE/OUTPATIENT ESTABLISHED LOW MDM 20 MIN Normal [facility] Basophils Auto (Bld) [#/Vol] on 03-04-2024 Basophils (Bld) [#/Vol] 0.1 10 3/uL 0.0-0.1 [facility] Basophils/100 WBC Auto (Bld) on 03-04-2024 Basophils/100 WBC (Bld) 0.6 % 0.2-2.0 [facility] Eosinophils/100 WBC Auto (Bl d)on 03-04-2024 Eosinophils/100 WBC (Bld) 1.3 % 0.9-7.0 [facility] Erythrocyte distribution wid th Auto (RBC) [Ratio]on 03-04-2024 Erythrocyte distribution width (RBC) [Ratio] 13.2 % 11.0-15.0 [facility] Hematocrit Auto (Bld) [Volum e fraction]on 03-04-2024 Hematocrit (Bld) [Volume fraction] 39.7 % Low 42.0-54.0 [facility] Hemoglobin [Mass/volume] in Bloodon 03-04-2024 Hemoglobin (Bld) [Mass/Vol] 13.0 g/dL Low 14.0-18.0 [facility] Laboratory - Chemistry and C hemistry - challengeon 03-04-2024 Cobalamin (Vitamin B12) [Mass/Vol] 424 pg/mL [id number] [facility] Comment on above: Performed at: [place] [id number] Director: Silvano Zarate PhD, Phone: [phone] Laboratory - Hematology and Cell countson 03-04-2024 Immature granulocytes/100 WBC (Bld) 0.6 % High 0.0-0.5 [facility] Leukocytes [#/volume] correc chano for nucleated erythrocytes in Blood by Automated counon 03-04-2024 WBC corrected for nucl RBC Auto (Bld) [#/Vol] 10.2 10 3/uL 4.0-11.0 [facility] Lymphocytes Auto (Bld) [#/Vo l]on 03-04-2024 Lymphocytes (Bld) [#/Vol] 4.4 10 3/uL High 1.2-3.8 [facility] Lymphocytes/100 WBC Auto (Bl d)on 03-04-2024 Lymphocytes/100 WBC (Bld) 42.6 % 20.5-60.0 [facility] MCH Auto (RBC) [Entitic mass ]on 03-04-2024 MCH (RBC) [Entitic mass] 30.5 pg 25.9-34.0 [facility] MCHC Auto (RBC) [Mass/Vol]on 03-04-2024 MCHC (RBC) [Mass/Vol] 32.7 g/dL 29.9-35.2 [facility] MCV Auto (RBC) [Entitic vol] on 03-04-2024 MCV (RBC) [Entitic vol] 93.2 fL 80.0-94.0 [facility] Monocytes Auto (Bld) [#/Vol] on 03-04-2024 Monocytes (Bld) [#/Vol] 0.7 10 3/uL 0.3-0.8 [facility] Monocytes/100 WBC Auto (Bld) on 03-04-2024 Monocytes/100 WBC (Bld) 6.8 % 1.7-12.0 [facility] Neutrophils Auto (Bld) [#/Vo l]on 03-04-2024 Neutrophils (Bld) [#/Vol] 4.9 10 3/uL 1.4-6.5 [facility] Neutrophils/100 WBC Auto (Bl d)on 03-04-2024 Neutrophils/100 WBC (Bld) 48.1 % 43.0-75.0 [facility] No Panel Informationon 03-04 Eosinophils # (Auto) 0.1 10 3/uL 0.0-0.7 [facility] Immature Granulocyte # (Auto) 0.06 10 3/uL High 0.00-0.03 [facility] Platelet mean volume Auto (B ld) [Entitic vol]on 03-04-2024 Platelet mean volume (Bld) [Entitic vol] 9.5 fL 9.5-13.5 [facility] Platelets Auto (Bld) [#/Vol] on 03-04-2024 Platelets (Bld) [#/Vol] 233 10 3/uL 150-450 [facility] RBC Auto (Bld) [#/Vol]on RBC (Bld) [#/Vol] 4.26 10 6/uL Low 4.70-6.10 [facility] Basophils Auto (Bld) [#/Vol] on 12-23-2023 Basophils (Bld) [#/Vol] 0.1 10 3/uL 0.0-0.1 [facility] Basophils/100 WBC Auto (Bld) on 12-23-2023 Basophils/100 WBC (Bld) 0.8 % 0.2-2.0 [facility] Cholesterol in LDL Calc [Mas s/Vol]on 12-23-2023 Cholesterol in LDL [Mass/Vol] 44.8 mg/dL [facility] Comment on above: <100 mg/dl [id number] 0-129 mg/dl NEAR OR ABOVE [id number] mg/dl BORDERLINE [id number] mg/dl HIGH>190 mg/dl VERY HIGH Cholesterol in VLDL Calc [Ma ss/Vol]on 12-23-2023 Cholesterol in VLDL [Mass/Vol] 27.2 mg/dL [facility] Eosinophils/100 WBC Auto (Bl d)on 12-23-2023 Eosinophils/100 WBC (Bld) 3.0 % 0.9-7.0 [facility] Erythrocyte distribution wid th Auto (RBC) [Ratio]on 12-23-2023 Erythrocyte distribution width (RBC) [Ratio] 13.5 % 11.0-15.0 [facility] Estimated glomerular filtrat ion rate (GFR) non- Americanon 12-23-2023 GFR/1.73 sq M.predicted among non-blacks MDRD (S/P/Bld) [Vol rate/Area] 50 mL/min/{1.73_m2} Low >=60 [facility] Globulin Calc (S) [Mass/Vol] on 12-23-2023 Globulin (S) [Mass/Vol] 3.4 g/dL [facility] Glucose mean value [Mass/vol ume] in Blood Estimated from glycated hemoglobinon 12-23-2023 Average glucose Estimated from glycated hemoglobin (Bld) [Mass/Vol] 128 mg/dL [facility] Hematocrit Auto (Bld) [Volum e fraction]on 12-23-2023 Hematocrit (Bld) [Volume fraction] 37.9 % Low 42.0-54.0 [facility] Hemoglobin [Mass/volume] in Bloodon 12-23-2023 Hemoglobin (Bld) [Mass/Vol] 12.3 g/dL Low 14.0-18.0 [facility] Iron binding capacity [Mass/ volume] in Serum or Plasmaon 12-23-2023 Iron binding capacity [Mass/Vol] 367.0 ug/dL 250.0-450.0 [facility] Iron saturation [Mass Fracti on] in Serum or Plasmaon 12-23-2023 Iron saturation [Mass fraction] 21.5 % [facility] Laboratory - Chemistry and C hemistry - challengeon 12-23-2023 Albumin [Mass/Vol] 3.8 g/dL 3.4-5.0 [facility] ALP [Catalytic activity/Vol] 81 U/L 46-116 [facility] ALT [Catalytic activity/Vol] 28 U/L 16-63 [facility] AST [Catalytic activity/Vol] 21 U/L 15-37 [facility] Bilirubin [Mass/Vol] 0.7 mg/dL 0.2-1.0 [facility] Calcium [Mass/Vol] 9.0 mg/dL 8.5-10.1 [facility] Chloride [Moles/Vol] 102 mmol/L 98-107 [facility] Cholesterol [Mass/Vol] 118 mg/dL <=200 [facility] Cholesterol in HDL [Mass/Vol] 46 mg/dL 40-60 [facility] Comment on above: > or =60 mg/dl - LOW CARDIOVASCULAR RISK<40 mg/dl - HIGH CARDIOVASCULAR RISK CO2 [Moles/Vol] 27.7 mmol/L 21.0-32.0 [facility] Cobalamin (Vitamin B12) [Mass/Vol] 211.0 pg/mL 193.0-986.0 [facility] Creatinine [Mass/Vol] 1.38 mg/dL High 0.70-1.30 [facility] Ferritin [Mass/Vol] 101.0 ng/mL 26.0-388.0 [facility] GFR/1.73 sq M.predicted MDRD (S/P/Bld) [Vol rate/Area] mL/min/{1.73_m2} >=60 [facility] Glucose [Mass/Vol] 137 mg/dL High 74-106 [facility] Iron [Mass/Vol] 79.0 ug/dL 65.0-175.0 [facility] Potassium [Moles/Vol] 4.3 mmol/L 3.5-5.1 [facility] Protein [Mass/Vol] 7.2 g/dL 6.4-8.2 [facility] Sodium [Moles/Vol] 140 mmol/L 136-145 [facility] Triglyceride [Mass/Vol] 136 mg/dL <=150 [facility] Urea nitrogen [Mass/Vol] 24.0 mg/dL High 7.0-18.0 [facility] Urea nitrogen/Creatinin e [Mass ratio] 17.4 mg/mg [facility] Laboratory - Hematology and Cell countson 12-23-2023 HbA1c (Bld) [Mass fraction] 6.1 % 4.5-6.2 [facility] Comment on above: ADA RECOMMENDED LIMI T 4.0 - 6.0ADA THERAPEUTIC TARGET < 7.0ACTION SUGGESTED> 7.0 Immature granulocytes/100 WBC (Bld) 0.4 % 0.0-0.5 [facility] Leukocytes [#/volume] correc chano for nucleated erythrocytes in Blood by Automated counon 12-23-2023 WBC corrected for nucl RBC Auto (Bld) [#/Vol] 9.1 10 3/uL 4.0-11.0 [facility] Lymphocytes Auto (Bld) [#/Vo l]on 12-23-2023 Lymphocytes (Bld) [#/Vol] 3.4 10 3/uL 1.2-3.8 [facility] Lymphocytes/100 WBC Auto (Bl d)on 12-23-2023 Lymphocytes/100 WBC (Bld) 36.8 % 20.5-60.0 [facility] MCH Auto (RBC) [Entitic mass ]on 12-23-2023 MCH (RBC) [Entitic mass] 30.3 pg 25.9-34.0 [facility] MCHC Auto (RBC) [Mass/Vol]on 12-23-2023 MCHC (RBC) [Mass/Vol] 32.5 g/dL 29.9-35.2 [facility] MCV Auto (RBC) [Entitic vol] on 12-23-2023 MCV (RBC) [Entitic vol] 93.3 fL 80.0-94.0 [facility] Microalbumin [Mass/volume] i n Urineon 12-23-2023 Albumin DL <= 20 mg/L (U) [Mass/Vol] 6.2 mg/dL <=30.0 [facility] Monocytes Auto (Bld) [#/Vol] on 12-23-2023 Monocytes (Bld) [#/Vol] 0.8 10 3/uL 0.3-0.8 [facility] Monocytes/100 WBC Auto (Bld) on 12-23-2023 Monocytes/100 WBC (Bld) 9.1 % 1.7-12.0 [facility] Neutrophils Auto (Bld) [#/Vo l]on 12-23-2023 Neutrophils (Bld) [#/Vol] 4.6 10 3/uL 1.4-6.5 [facility] Neutrophils/100 WBC Auto (Bl d)on 12-23-2023 Neutrophils/100 WBC (Bld) 49.9 % 43.0-75.0 [facility] No Panel Informationon 12-22 Eosinophils # (Auto) 0.3 10 3/uL 0.0-0.7 [facility] Immature Granulocyte # (Auto) 0.04 10 3/uL High 0.00-0.03 [facility] Prostate Specific Antigen Screen 0.37 ng/mL <=4.00 [facility] Platelet mean volume Auto (B ld) [Entitic vol]on 12-23-2023 Platelet mean volume (Bld) [Entitic vol] 9.4 fL Low 9.5-13.5 [facility] Platelets Auto (Bld) [#/Vol] on 12-23-2023 Platelets (Bld) [#/Vol] 280 10 3/uL 150-450 [facility] RBC Auto (Bld) [#/Vol]on RBC (Bld) [#/Vol] 4.06 10 6/uL Low 4.70-6.10 [facility] Serum or plasma albumin/glob ulin mass ratioon 12-23-2023 Albumin/Globulin [Mass ratio] 1.1 {ratio} [facility] Serum or plasma anion gap de terminationon 12-23-2023 Anion gap [Moles/Vol] 14.6 mmol/L [facility] Serum or plasma total choles terol/high density lipoprotein (HDL) cholesterol mass nyasia 12-23-2023 Cholesterol.total/ Cholesterol in HDL [Mass ratio] 2.6 {ratio} [facility] Comment on above: 3.3 - [...] per Dr. Castellon. He verbalized understanding. Normal [facility] Office Visiton 06-14-2023 Follow-up visit [id number] Eloisa Marrufo carol annezra Lam 1945 M Date Provider Department Center 06/14/2023 RADHA ESCOBAR FRANCISCO JAVIER Gamble [facility] Family History Problem Relation Age of Onset Heart failure Mother Family Status - Relation Status Age at Mother Level of Service:11208 [place] OFFICE/OUTPATIENT ESTABLISHED LOW MDM 20 MIN Normal [facility] US CAROTID ART BILon 023 [...] Date: 2022-10-04 16:04 Normal [facility] CBC AUTO DIFFon 12-16-2021 BASO # 0.1 103/ul Normal 0.0-0.1 [facility] Comment on above: Performed By: #### C BC #### [facility] [address] [place] [address] Dr. Rui Moore Basophils/100 WBC (Bld) 0.5 % Normal 0.2-2.0 [facility] Comment on above: Performed By: #### C BC #### [facility] [address] [place] [address] Dr. Rui Moore EO # 0.0 103/ul Normal 0.0-0.7 [facility] Comment on above: Performed By: #### C BC #### [facility] [address] [place] [address] Dr. Rui Moore Eosinophils/100 WBC (Bld) 0.4 % Critically low 0.9-7.0 [facility] Comment on above: Performed By: #### C BC #### [facility] [address] [place] [address] Dr. Rui Moore Erythrocyte distribution width (RBC) [Ratio] 13.2 % Normal 11.0-15.0 [facility] Comment on above: Performed By: #### C BC #### [facility] [address] [place] [address] Dr. Rui Moore Hematocrit (Bld) [Volume fraction] 38.1 % Critically low 42.0-54.0 [facility] Comment on above: Performed By: #### C BC #### [facility] [address] [place] [address] Dr. Rui Moore Hemoglobin (Bld) [Mass/Vol] 12.3 g/dL Critically low 14.0-18.0 [facility] Comment on above: Performed By: #### C BC #### [facility] [address] [place] [address] Dr. Rui Moore IG # 0.06 10e3/ul Critically high 0.00-0.03 [facility] Comment on above: Performed By: #### C BC #### [facility] [address] [place] [address] Dr. Rui Moore IG % 0.5 % Normal 0.0-0.5 [facility] Comment on above: Performed By: #### C BC #### [facility] [address] [place] [address] Dr. Rui Moore LYMPH # 3.5 103/ul Normal 1.2-3.8 [facility] Comment on above: Performed By: #### C BC #### [facility] [address] [place] [address] Dr. Rui Moore Lymphocytes/100 WBC (Bld) 31.9 % Normal 20.5-60.0 [facility] Comment on above: Performed By: #### C BC #### [facility] [address] [place] [address] Dr. Rui Moore MANUAL DIFF REQ NO Normal [facility] Comment on above: Performed By: #### C BC #### [facility] [address] [place] [address] Dr. Rui Moore MCH (RBC) [Entitic mass] 29.9 pg Normal 25.9-34.0 [facility] Comment on above: Performed By: #### C BC #### [facility] [address] [place] [address] Dr. Rui Moore MCHC (RBC) [Mass/Vol] 32.3 g/dL Normal 29.9-35.2 [facility] Comment on above: Performed By: #### C BC #### [facility] [address] [place] [address] Dr. Rui Moore MCV (RBC) [Entitic vol] 92.5 fL Normal 80.0-94.0 [facility] Comment on above: Performed By: #### C BC #### [facility] [address] [place] [address] Dr. Rui Moore MONO # 0.7 103/ul Normal 0.3-0.8 [facility] Comment on above: Performed By: #### C BC #### [facility] [address] [place] [address] Dr. Rui Moore Monocytes/100 WBC (Bld) 6.6 % Normal 1.7-12.0 [facility] Comment on above: Performed By: #### C BC #### [facility] [address] [place] [address] Dr. Rui Moore NEUT # 6.6 103/ul Critically high 1.4-6.5 [facility] Comment on above: Performed By: #### C BC #### [facility] [address] [address] [address] Rui Moore Neutrophils/100 WBC (Bld) 60.1 % Normal 43.0-75.0 [facility] Comment on above: Performed By: #### C BC #### [facility] [address] [address] [address] Rui Moore Platelet mean volume (Bld) [Entitic vol] 9.3 fL Critically low 9.5-13.5 [facility] Comment on above: Performed By: #### C BC #### [facility] [address] [address] [address] Rui Moore PLT 307 103/ul Normal 150-450 [facility] Comment on above: Performed By: #### C BC #### [facility] [address] [place] [address] Dr. Rui Moore RBC 4.12 106/ul Critically low 4.70-6.10 [facility] Comment on above: Performed By: #### C BC #### [facility] [address] [address] [address] Rui Moore WBC 11.0 103/ul Normal 4.0-11.0 [facility] Comment on above: Performed By: #### C BC #### [facility] [address] [place] [address] Dr. Rui Moore GLYCOHEMOGLOBIN A1Con 2021 ADA RECOMMENDATION SEE BELOW Normal [facility] Comment on above: Result Comment: ADA RECOMMENDED LIMIT 4.0 - 6.0 ADA THERAPEUTIC TARGET < 7.0 ACTION SUGGESTED > 7.0 Performed By: #### A 1C #### [facility] [address] [place] [address] Dr. Rui Moore Glucose [Mass/Vol] 143 mg/dL Normal [facility] Comment on above: Performed By: #### A 1C #### [facility] [address] [place] [address] Dr. Rui Moore HbA1c (Bld) [Mass fraction] 6.6 % Critically high 4.5-6.2 [facility] Comment on above: Performed By: #### A 1C #### [facility] [address] [address] [address] Rui Moore LIPID PROFILEon 12-16-2021 CHOL-HDL RATIO NORM SEE BELOW Normal [facility] Comment on above: Result Comment: 3.3 - 4.4 LOW RISK 4.4 - 7.1 AVERAGE RISK 7.1 - 11.0 MODERATE RISK >11.0 HIGH RISK Performed By: #### L IPID, BMP, ALT #### [facility] [address] [address] [address] Rui Moore Cholesterol [Mass/Vol] 109 mg/dL Normal <=200 [facility] Comment on above: Performed By: #### L IPID, BMP, ALT #### [facility] [address] [address] [address] Rui Moore Cholesterol in HDL [Mass/Vol] 39 mg/dL Critically low 40-60 [facility] Comment on above: Performed By: #### L IPID, BMP, ALT #### [facility] [address] [address] [address] Rui Moore Cholesterol in LDL [Mass/Vol] 51.6 mg/dL Normal [facility] Comment on above: Performed By: #### L IPID, BMP, ALT #### [facility] [address] [address] [address] Rui Moore Cholesterol.total/ Cholesterol in HDL [Mass ratio] 2.8 {ratio} Normal [facility] Comment on above: Performed By: #### L IPID, BMP, ALT #### [facility] [address] [address] [address] Rui Moore HDL NORMAL > or = 60 mg/dl - LO W CARDIOVASCULAR RISK <40 mg/dl - HIGH CARDIOVASCULAR RISK Normal [facility] Comment on above: Performed By: #### L IPID, BMP, ALT #### [facility] [address] [place] [address] Dr. Rui Moore LDL CALC NORMAL SEE BELOW Normal [facility] Comment on above: Result Comment: <100 mg/dl OPTIMAL 100 - 129 mg/dl NEAR OR ABOVE OPTIMAL 130 - 159 mg/dl BORDERLINE HIGH 160 - 189 mg/dl HIGH >190 mg/dl VERY HIGH Performed By: #### L IPID, BMP, ALT #### [facility] [address] [address] [address] Rui Moore Triglyceride [Mass/Vol] 92 mg/dL Normal <=150 [facility] Comment on above: Performed By: #### L IPID, BMP, ALT #### [facility] [address] [address] [address] Rui Moore VLDL CALC 18.4 mg/dL Normal [facility] Comment on above: Performed By: #### L IPID, BMP, ALT #### [facility] [address] [address] [address] Rui Moore MICROALBUMIN, RAND URon 06- mALB 8.3 mg/L Normal <=30.0 [facility] Comment on above: Performed By: #### M ALBR #### [facility] [address] [place] [address] Dr. Rui Moore PROF CHEM 8 (BAS METB)on Anion gap [Moles/Vol] 14.6 mmol/L Normal [facility] Comment on above: Performed By: #### L IPID, BMP, ALT #### [facility] [address] [place] [address] Dr. Rui Moore Calcium [Mass/Vol] 9.1 mg/dL Normal 8.5-10.1 [facility] Comment on above: Performed By: #### L IPID, BMP, ALT #### [facility] [address] [place] [address] Dr. Rui Moore Chloride [Moles/Vol] 101 mmol/L Normal 98-107 [facility] Comment on above: Performed By: #### L IPID, BMP, ALT #### [facility] [address] [place] [address] Dr. Rui Moore CO2 [Moles/Vol] 25.9 mmol/L Normal 21.0-32.0 [facility] Comment on above: Performed By: #### L IPID, BMP, ALT #### [facility] [address] [address] [address] Rui Moore Creatinine [Mass/Vol] 1.23 mg/dL Normal 0.70-1.30 [facility] Comment on above: Performed By: #### L IPID, BMP, ALT #### [facility] [address] [address] [address] Rui Moore EGFR-AF THAI >60 Normal >=60 [facility] Comment on above: Performed By: #### L IPID, BMP, ALT #### [facility] [address] [address] [address] Rui Moore EGFR-NON AF THAI 57 mL/min/1.73m2 Critically low >=60 [facility] Comment on above: Performed By: #### L IPID, BMP, ALT #### [facility] [address] [address] [address] Rui Moore Glucose [Mass/Vol] 141 mg/dL Critically high 74-106 [facility] Comment on above: Performed By: #### L IPID, BMP, ALT #### [facility] [address] [address] [address] Rui Moore Potassium [Moles/Vol] 4.5 mmol/L Normal 3.5-5.1 [facility] Comment on above: Performed By: #### L IPID, BMP, ALT #### [facility] [address] [address] [address] Rui Moore Sodium [Moles/Vol] 137 mmol/L Normal 136-145 [facility] Comment on above: Performed By: #### L IPID, BMP, ALT #### [facility] [address] [address] [address] Rui Moore Urea nitrogen [Mass/Vol] 22.0 mg/dL Critically high 7.0-18.0 [facility] Comment on above: Performed By: #### L IPID, BMP, ALT #### [facility] [address] [address] [address] Rui Moore Urea nitrogen/Creatinin e [Mass ratio] 17.9 mg/mg Normal [facility] Comment on above: Performed By: #### L IPID, BMP, ALT #### [facility] [address] [place], [place] [address] Dr. Rui Moore [facility] 12-16-2021 ALT [Catalytic activity/Vol] 42 U/L Normal 16-63 [facility] Comment on above: Performed By: #### L IPID, BMP, ALT #### [facility] [address] [place], [place] [address] Dr. Rui Moore Operative Reporton 8 Operative [...] and symptoms of successfulblockade.Shiva Cronin M.D.glsDictated: 10/02/2017 #[id number]: 10/02/2017 #[id number]: Shiva Cronin M.D. [facility] Comment on above: Result Comment: Elec [...] Problem list: All ProblemsHypertension / SNOMED CT 1092608154 / ConfirmedDiabetes / SNOMED CT 847172685 / ConfirmedUmbilical hernia / SNOMED CT 2363967718 / ConfirmedPeripheral artery disease / SNOMED CT 4429232875 / ConfirmedAcid reflux / SNOMED CT 001835773 / ConfirmedCAD (coronary artery disease) / SNOMED CT 50924549 / ConfirmedResolved: High cholesterol / SNOMED CT 05269200 Histories Past Medical History: No active or resolved past medical history items have been selected or recorded. Procedure history: CEA - Carotid endarterectomy left ([id number]) on 03/09/2016 at 70 Years.Allograft bypass of coronary artery x3 stents ([id number]) on 03/09/2016 at 70 Years.Comments:09/19/2017 16:41 - Elen Sutton RNwith left mammary artery , graft to the LAD and left radial artery graft to the OM1 and SVG to PDAColonoscopy ([id number]) on 12/31/2014 at 69 Years.Entire RCA - Right coronary artery stent ([id number]) on 02/10/2012 at 66 Years.History of subdural hematoma ([id number]) on 08/03/2010 at 64 Years.Cataract b/l ([id number]).Femoral-popliteal artery bypass graft right and left ([id number]).Comments: 16:39 - Elen Sutton RNstents / 12/13// 10/21/2005/ 12/22/2007. Social History Social & Psychosocial ZtxikgSmfwwip23/27/2018 Risk Assessment: High Risk09/19/2017 Use: Current Type: Beer Frequency: 3-5 times per weekSubstance Abuse09/19/2017 Risk Assessment: Denies Substance YaeegNizrjsb04/27/2018 Risk Assessment: Denies Tobacco Use09/19/2017 Type: Cigarettes [...] Auto 63.5 % Lymph Auto 25.9 % [place] Auto 8.1 % Eos Auto 1.4 % Basophil Auto 1.1 % Neutro Absolute 5.9 E9/L Lymph Absolute 2.4 E9/L [place] Absolute 0.7 E9/L Eos Absolute 0.1 E9/L [...] on September 19, 2017 13:33 EDTEncounter info: [id number], [facility] Outpatient, 09/19/2017 - 09/19/2017 Radiology results ECG interpretation: SINUS RHYTHM. Plan [place] [employer] (ASA) physical status classification: [...] allergic reactions, failed block and .. Normal [facility] Comment on above: Result Comment: Elec [...] Problem list: All ProblemsHypertension / SNOMED CT 7153915932 / ConfirmedDiabetes / SNOMED CT 264443760 / ConfirmedUmbilical hernia / SNOMED CT 3728437114 / ConfirmedPeripheral artery disease / SNOMED CT 2017473811 / ConfirmedAcid reflux / SNOMED CT 833444194 / ConfirmedCAD (coronary artery disease) / SNOMED CT 28959258 / ConfirmedResolved: High cholesterol / SNOMED CT 89020581 Physical Examination Intake and Output adequate hydration [...] discharged from anesthesia care. Condition stable. Normal [facility] Comment on above: Result Comment: Elec tronically Signed By: Mehrdad GALE, Shiva\.br\Date and Time Signed: 10/05/17 13:04 EDT Coding Summary.on 10-03-2017 Coding Summary. CODING DATE: 018 FINAL [facility] [place] [facility] STATUS: Home (Routine DC) PAYOR: Medicare APC DESCRIPTION 5361 Level 1 Laparoscopy and Related Services ADMIT DX: REASON FOR VISIT DX: K42.0 Umbilical hernia with obstruction, without gangrene FINAL DX: PRINCIPAL: K42.0 Umbilical hernia with obstruction, without gangrene SECONDARY: I25.10 Atherosclerotic heart disease of [place] coronary artery without angina pectoris I10 Essential (primary) hypertension E11.40 Type 2 diabetes mellitus with diabetic neuropathy, unspecified E78.5 Hyperlipidemia, unspecified M10.9 Gout, unspecified I73.9 Peripheral vascular disease, unspecified Z86.79 Personal history of other diseases of the circulatory system Z95.1 Presence of aortocoronary bypass graft Z79.82 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 Z95.820 Peripheral vascular angioplasty status with implants and grafts Z87.891 Personal history of nicotine dependence PYMT PROC APC STAT DESCRIPTION DOCTOR NAME DATE 69487 5361 J1 Laparoscopy, surgical, Jean-Paul Roberts MD 10/02/2017 repair, ventral, umbilical, spigelian or epigastric hernia (includes mesh insertion, when performed); incarcerated or strangulated 67316 Anesthesia for hernia Jean-Paul Roberts MD 10/02/2017 repairs in lower abdomen; not otherwise specified 72596 Transversus abdominis Shiva Cronin MD 10/02/2017 plane [...] Revised Date Saved: 10/03/2017 10:41 am Normal [facility] Main OR Intraoperative Recor oswaldo 10-03-2017 Main OR Intraoperative Record IntraOp Document Type FT Summary Primary Physician: Jean-Paul Roberts MD Finalized Date/Time: 10/03/17 10:03:38 Pt. Name: VICKYASHPOOJA/Sex: 1945 Male Med Rec #: [id number] Physician: Jean-Paul Roberts MD Financial #: [id number] Pt. Type: A Room/Bed: Admit/Disch: 10/02/17 06:11:00 [...] opened to review and send charges Radha care manager Case Attendance FT Entry 1 Entry 2 Entry 3 Case Attendee Mehrdad GALE, Shiva Roberts MD, Jean-Paul Dixon, RN Rajwinder Watson Role Performed Anesthesiologist of Surgeon - Primary CATTLE STICKER Record Time In 10/02/17 08:51:00 10/02/17 08:51:00 10/02/17 08:51:00 Time Out 10/02/17 11:22:00 10/02/17 11:22:00 10/02/17 11:22:00 Procedure HERNIA REPAIR, ROBOT HERNIA REPAIR, ROBOT HERNIA REPAIR, ROBOT ASSISTED(.) ASSISTED(.) ASSISTED(.) Comments Last Modified By: Anurag RN, Bia Osborn RN, Bia Bryant RN 10/02/17 11:25:55 10/02/17 11:25:55 10/02/17 11:25:55 Entry 4 Entry 5 Case Attendee Bia Osborn RN, CST/Sushma LEACH Role Performed [employer] A[employer] Cashier - Primary Scrub - Primary Time In 10/02/17 08:51:00 10/02/17 08:51:00 Time Out 10/02/17 11:22:00 10/02/17 11:22:00 Procedure HERNIA REPAIR, ROBOT HERNIA REPAIR, ROBOT ASSISTED(.) ASSISTED(.) Comments Last Modified By: Anurag MEEHAN, Bia Bryant RN 10/02/17 11:25:55 10/02/17 11:25:55 General Comments: SKIP SINGH REP PRESENT FOR PROCEDURE. Jonh RAE RNnetwork support Protocols FT Pre-Care Text: Implements protective measures [...] PreOp Antibiotic Yes Time Out Mehrdad GALE, Keaton Shannon MD, Zack Braden RN Nichole C, Anurag MEEHAN, Olivia Rios [employer] [place] [address]/SA, Sushma Time Out Complete 10/02/17 09:27:00 Outcomes [...] 1 - Clean Last Modified By: Bia Osbron RN 10/02/17 11:25:58 General Case Data FT [...] and tissue Entry 1 Skin Integrity Intact, Higbee, Warm, and Skin Abnormality Yes Dry, Bruised [...] RN, Sutherland, RN Nichole C, Barney MD, Keaton Shannon MD, Keaton Braden MD, Jean-Paul Fritz Outcomes Met? Yes [...] By Bia Osborn RN, Bia Camara RN, Olivia [employer] [place] [employer]/SA, Sushma [employer] [place] [employer] [address]/SA, Sushma Outcomes Met? Yes Yes Last Modified [...] Solution Hair Removal Methods Clipper Site DR KEATON USED CLIPPERS ON ABDOMEN By Bia Osborn [...] RN Patient Status Stable Skin. Condition Intact, Higbee, Warm, and Description UNCHANGED FROM Dry, Bruised PREVIOUSLY Airway Maintenance Oxygen in Use? Yes Airway Device Simple Mask Flow Rate 8 L/min Outcomes Met? Yes Last Modified By: Bia Osborn RN 10/02/17 11:31:29 Post-Care Text: The patient is free from signs and symptoms of injury related to transfer/transport General Comments: REPORT GIVEN TO ASSESSMENT SERVICES MANAGERRN. Jonh RAE RN Dressing/Packing FT Pre-Care Text: [...] Description MESH STEX ROUND 9CM Lot Number [id number] (3.6 ) [SYM9][F] Mid Level Practitioner FT-Advebs Catalog ?# SYM9 [F] Size 9CM Expiration [...] Type TUBE NASOGASTIC SUMP Location MOUTH 18FR [[id number]][F] Quantity 1 Fluid SCANT AMOUNT BLOOD Characteristics [...] Present Upon Arrival No Inserted LF 16FR [[id number]][F] Insertion Date/Time 10/02/17 09:05:00 Urine Residual 100 [...] BLANKET MISTRAL AIR Quantity 1 Aid TORSO [[id number]][F] Fluid/Herriman Unit Mistral warming system Setting HIGH/43 Body Site Upper anterior torso Last Modified By: Bia Osborn RN 10/02/17 09:49:45 Case Comments Finalized By: Kassy Mathews CST Document Signatures Signed By: iBa Osborn RN 10/02/17 11:26 Bia Osborn RN 10/02/17 11:27 Bia Osborn RN 10/02/17 11:29 Bia Osborn RN 10/02/17 11:31 Kassy Mathews CST 10/03/17 10:03 Normal [facility] History and Physicalon 10-02 History and Physical Patient: POOJA MARRUFO Age: 72 years Sex: Male : 1945 Associated Diagnoses: None Author: Jean-Paul Roberts MD Subjective no changes to H & P Normal [facility] Comment on above: Result Comment: Elec tronically Signed By: Jean-Paul Roberts MD\.br\Date and Time Signed: 10/02/17 08:31 EDT Inpatient Patient Summaryon 10-02-2017 [facility] Dis[facility] InstructionsPERSON INFORMATION Name: POOJA MARRUFO PHYSICIANS Admitting Physician: Jean-Paul Roberts MD Physician: Jean-Paul Roberts MD PCP: Vidhi DAWKINS DO Diagnosis: Incarcerated umbilical hernia Comment: PATIENT EDUCATION INFORMATIONInstructions:Medic ation Leaflets:Follow up:With: Address: When: Jean-Paul [address] [place] [phone] Business (1) Within 7 to 10 days MEDICATION LISTFill New Prescriptions:acetaminophen-h ydrocodone (acetaminophen-hydrocodone 325 mg-5 mg oral tablet) 1 tab(s) By Mouth every 4 hours as needed for Pain not to exceed 8 tablets/day take with food or milkComment: Araceli [facility] Main OR PACU I Recordon Main OR PACU I Record PACU Phase I Document Type FT Summary Primary Physician: Jean-Paul Roberts MD Finalized Date/Time: 10/02/17 12:01:59 Pt. Name: POOJA MARRUFO Lam CastanoB./Sex: 1945 Male Med Rec #: [id number] Physician: Jean-Paul Roberts MD Financial #: [id number] Pt. Type: Room/Bed: [facility] Admit/Disch: 10/02/17 06:11:42 - Institution: Case [...] By: Cinthia Sharif RN 10/02/17 12:01 Normal [facility] Main OR Preoperative Recordo n 10-02-2017 Main OR Preoperative Record PreOp Document Type FT Summary Primary Physician: Jean-Paul Roberts MD Finalized Date/Time: 10/02/17 09:50:16 Pt. Name: POOJA MARRUFO Lam Gibson/Sex: 1945 Male Med Rec #: [id number] Physician: Jean-Paul Roberts MD Financial #: [id number] Pt. Type: A Room/Bed: [place] [address] Admit/Disch: 10/02/17 06:11:42 - Institution: Case Times [...] By: Bia Osborn RN 10/02/17 09:50 Normal [facility] Operative Reporton 8 Operative Report Date [...] [facility] [...] visualization. Once this wascomplete, the last needle security patrol driver was brought out through the #1 arm. Therobot was then docked. I then scrubbed back into the field and examinedthe repair. It was noted to be intact. There was no evidence of bleeding.All port sites were examined upon withdrawal of the ports. There was notedto be good hemostasis. The fascia from the right subcostal incision wasthen closed with a 0 Vicryl kjeale-oy-tcvjf suture. All port sites wereinfiltrated with the [...] Room in good condition.Jean-Paul Roberts M.D.glsDictated: 10/02/2017 #[id number]: 10/02/2017 #[id number]: Cherie Newby M.D. [facility] Comment on above: Result Comment: Elec tronically Signed By: Keaton GALE, Jean-Paul Mcknightbr\Date and Time Signed: 10/02/17 13:56 EDT UA With Cult Reflexon 2017 Bilirubin Ql (U) Negative Normal Negative [facility] Comment on above: Performed By: #### 1 [id number] ####[place] [id number] COLOR:TYPE:PT:URIN E:NOM:AUTO STRAW Abnormal Yellow [facility] Comment on above: Performed By: #### 1 [id number] ####[address] [address] Erythrocytes (RBC) 0-3 Normal 0-3 [facility] Comment on above: Performed By: #### 1 [id number] ####[address] [address] GLUCOSE:MCNC:PT:UR INE:QN:TEST STRIP Negative Normal Negative [facility] Comment on above: Performed By: #### 1 [id number] ####[place] [address] [place] [address] KETONES:MCNC:PT:UR INE:QN:TEST STRIP Negative Normal Negative [facility] Comment on above: Performed By: #### 1 [id number] ####[facility] [address] [place] [address] LEUKOCYTES:PRTHR:P T:URINE:ORD:AUTOMA CHANO Negative Normal Negative [facility] Comment on above: Performed By: #### 1 [id number] ####[facility] [address] [place] [address] UA Spec Desc Pinedo Normal [facility] Comment on above: Performed By: #### 1 [id number] ####[facility] [address] [place] [address] Urine, clarity CLEAR Normal Clear [facility] Comment on above: Performed By: #### 1 [id number] ####[address] [address] Urine, hemoglobin presence Negative Normal Negative [facility] Comment on above: Performed By: #### 1 0566459 ####[address] [address] Urine, leukocytes in sedmiment 0-5 Normal 0-5 [facility] Comment on above: Performed By: #### 1 [id number] ####[facility] [address] [place] [address] Urine, nitrite presence Negative Normal Negative [facility] Comment on above: Performed By: #### 1 0669966 ####[address] [address] Urine, pH 6.5 [pH] Invalid Interpretation Code 5.0-9.0 [facility] Comment on above: Performed By: #### 1 [id number] ####[facility] [address] [place] [address] Urine, protein Negative Normal Negative [facility] Comment on above: Performed By: #### 1 [id number] ####[address] [address] Urine, specific gravity <=1.005 Invalid Interpretation Code 1.005-1.030 [facility] Comment on above: Performed By: #### 1 [id number] ####[address] [place] [address] Urine, squamous cells in sediment 0-2 Normal 0-2 [facility] Comment on above: Performed By: #### 1 9453112 ####[place] [address] [place] [address] Urine, urobilinogen 0.2 {Aleja'U}/dL Normal 0.0-1.0 [facility] Comment on above: Performed By: #### 1 [id number] ####[address] [address] Coding Summary.on 09-20-2017 Coding Summary. CODING DATE: 018 FINAL [facility] STATUS: Home (Routine DC) PAYOR: Medicare APC [...] Zarco Date Saved: 09/20/2017 11:31 am Normal [facility] Auto Diffon 09-19-2017 Basophils Auto #/vol (Bld) 0.1 E9/L Normal 0.0-0.2 [facility] Comment on above: Order Comment: Order Added by Discern Expert. Performed By: #### 2 125227, 5291079, 9220507, [id number] ####[facility] [address] [place] [address] Basophils Auto #/vol (Bld) 1.1 % Normal 0.0-2.0 [facility] Comment on above: Order Comment: Order Added by Discern Expert. Performed By: #### 2 096737, 8941477, 2810632, 38406793 ####[facility] [address] [place] [address] Eosinophils 0.1 E9/L Normal 0.0-0.5 [facility] Comment on above: Order Comment: Order Added by Mike Expert. Performed By: #### 2 683858, 9908518, 4534428, 62637242 ####[facility] [address] [place] [address] Eosinophils/100 leukocytes 1.4 % Normal 0.0-8.0 [facility] Comment on above: Order Comment: Order Added by Mike Expert. Performed By: #### 2 263989, 7986897, 5898785, 93281114 ####[facility] [address] [place] [address] Lymphocytes 2.4 E9/L Normal 1.0-4.0 [facility] Comment on above: Order Comment: Order Added by Mike Expert. Performed By: #### 2 143488, 7459507, 4936643, 48797617 ####[facility] [address] [place] [address] Lymphocytes/100 leukocytes 25.9 % Normal 14.0-50.0 [facility] Comment on above: Order Comment: Order Added by Mike Expert. Performed By: #### 2 198218, 2831798, 6001968, 88339305 ####[facility] [address] [place] [address] Monocytes 0.7 E9/L Normal 0.2-1.0 [facility] Comment on above: Order Comment: Order Added by Mike Expert. Performed By: #### 2 535189, 5323303, 0526913, 87387754 ####[facility] [address] [place] [address] Monocytes/100 leukocytes 8.1 % Normal 4.0-14.0 [facility] Comment on above: Order Comment: Order Added by Mike Expert. Performed By: #### 2 864498, 2861183, 3808201, 21388388 ####[facility] [address] [place] [address] Neutrophils 5.9 E9/L Normal 2.0-7.5 [facility] Comment on above: Order Comment: Order Added by Mike Expert. Performed By: #### 2 927434, 6855060, 2575610, 86560650 ####[place] [address] Neutrophils/100 leukocytes 63.5 % Normal 36.0-75.0 [facility] Comment on above: Order Comment: Order Added by Discern Expert. Performed By: #### 2 704716, 3881119, 2557867, 29715251 ####[place] [address] CBC w/ Auto Diffon 8 Erythrocyte distribution width Auto Ratio (RBC) 13.7 % Normal 10.9-14.2 [facility] Comment on above: Performed By: #### 2 496251, 0229600, 5158437, 03068767 ####[address] [address] Erythrocytes (RBC) 4.3 E12/L Normal 4.3-5.9 [facility] Comment on above: Performed By: #### 2 399189, 1849528, 9782673, 58187076 ####[place] [address] Hematocrit (HCT) 40.0 % Normal 37.7-49.0 [facility] Comment on above: Performed By: #### 2 858715, 8802418, 9203575, 48995783 ####[place] [address] Hemoglobin mass conc (Bld) 13.9 g/dL Normal 13.5-17.5 [facility] Comment on above: Performed By: #### 2 962576, 6864644, 5870703, 16974964 ####[place] [address] MCH 32.3 pg Normal 27.0-34.0 [facility] Comment on above: Performed By: #### 2 453619, 2065710, 0732943, 39762802 ####[address] [place] [address] MCHC mass conc (RBC) 34.9 g/dL Normal 31.4-39.3 [facility] Comment on above: Performed By: #### 2 689735, 7114030, 7815328, 74248577 ####[address] [address] MCV 92.8 fL Normal 80.0-100.0 [facility] Comment on above: Performed By: #### 2 716673, 7573322, 4528348, 89623502 ####[address] [address] Platelet mean volume (PMV) 8.4 fL Normal 6.4-10.8 [facility] Comment on above: Performed By: #### 2 880331, 0829648, 5037171, 26807542 ####[place] [address] Platelets 311.0 E9/L Normal 150.0-500.0 [facility] Comment on above: Performed By: #### 2 117989, 2630055, 1435774, 72853087 ####[address] [address] WBC (Leukocytes) 9.3 E9/L Normal 4.0-11.0 [facility] Comment on above: Performed By: #### 2 235535, 0488674, 1472718, 25322825 ####[address] [address] CMPon 09-19-2017 Alanine aminotransferase (ALT) 39 Int._Unit/L Normal 6-46 [facility] Comment on above: Performed By: #### 2 004067, 9760518, 3708064, 42193835 ####[address] [address] Albumin 4.1 g/dL Normal 3.3-5.0 [facility] Comment on above: Performed By: #### 2 518783, 7751201, 7286013, 25512001 ####[facility] [address] [place] [address] Albumin 1.1 g/dL Normal 1.1-2.2 [facility] Comment on above: Performed By: #### 2 402468, 0092898, 4902001, 92735615 ####[facility] [address] [place] [address] Alkaline phosphatase (ALP) 66 Int._Unit/L Normal 21-98 [facility] Comment on above: Performed By: #### 2 529612, 2731592, 3653823, 75029980 ####[facility] [address] [place] [id number] Anion gap 12 mmol/L Normal 6-16 [facility] Comment on above: Performed By: #### 2 515185, 7135891, 8642110, 56469887 ####[facility] [address] [place] [address] Aspartate aminotransferase (AST) 28 Int._Unit/L Normal 5-43 [facility] Comment on above: Performed By: #### 2 256168, 8967866, 7333933, 29193172 ####[place] [address] [place] [address] Bilirubin (total) 0.8 mg/dL Normal 0.0-1.1 [facility] Comment on above: Performed By: #### 2 244819, 0127880, 0123248, 57593425 ####[facility] [address] [place] [address] BUN/Creatinine Ratio 19 No Units Normal 10-20 [facility] Comment on above: Performed By: #### 2 284567, 3347894, 7293525, 18283556 ####[facility] [address] [place] [address] Calcium 9.1 mg/dL Normal 8.9-11.1 [facility] Comment on above: Performed By: #### 2 523413, 8430535, 7581749, 29260837 ####[facility] [address] [place] [address] Chloride 96 mmol/L Low 101-111 [facility] Comment on above: Performed By: #### 2 673730, 5117685, 5456369, 01675221 ####[facility] [address] [place] [address] CO2 29 mmol/L Normal 21-31 [facility] Comment on above: Performed By: #### 2 638723, 2470398, 4660936, 66188901 ####[facility] [address] [place] [address] Creatinine 1.1 mg/dL Normal 0.5-1.3 [facility] Comment on above: Performed By: #### 2 552631, 6969069, 0347174, 06952311 ####[facility] [address] [place] [address] Globulin 3.6 g/dL Normal 1.4-4.0 [facility] Comment on above: Performed By: #### 2 961768, 4732077, 5646397, 00123333 ####[facility] [address] [place] [address] Glucose mass conc 157 mg/dL Normal 55-199 [facility] Comment on above: Result Comment: If t his glucose result represents a fasting glucose, interpretation should refer to the following reference range: 55-99 mg/dL Performed By: #### 2 790158, 5265717, 7585589, 72161153 ####[facility] [address] [place] [address] Potassium molar conc 3.9 mmol/L Normal 3.5-5.3 [facility] Comment on above: Performed By: #### 2 863479, 5366494, 1633924, 79799880 ####[facility] [address] [place] [address] Protein 7.7 g/dL Normal 6.0-7.8 [facility] Comment on above: Performed By: #### 2 495285, 5170451, 4095882, 83193941 ####[facility] [address] [place] [address] Sodium 133 mmol/L Low 135-145 [facility] Comment on above: Performed By: #### 2 367148, 4805843, 8451006, 98453757 ####[facility] [address] [place] [address] Urea nitrogen 21 mg/dL Normal 5-21 [facility] Comment on above: Performed By: #### 2 518455, 2691075, 5140056, 94959052 ####[facility] [address] [place] [address] XR Chest 2 Viewson 8 XR Chest [...] Pio Suresh M.D. Transcribed by: LOREN Technologist: CC Normal [facility] eGFRon 09-19-2017 eGFR (black) mL/min/{1.73_m2} Normal >=59 [facility] Comment on above: Order Comment: Order added by Discern Expert. Result Comment: eGFR is race adjusted. AA=. Performed By: #### 2 806071, 6138942, 6662366, 85001574 ####[facility] [address] [place] [address] eGFR (non-black) mL/min/{1.73_m2} Normal >=59 [facility] Comment on above: Order Comment: Order added by Discern Expert. Result Comment: General Counselor chris kidney disease could be indicated at eGFR's of less than 60 mL/min/1.73m2. Kidney failure is indicated at less than 15 mL/min/1.73m2. Performed By: #### 2 749820, 0174266, 1086450, 92238127 ####[facility] [address] [place] [address] Coding Summary.on 04-19-2017 Coding Summary. CODING DATE: 017 [facility] STATUS: Home (Routine DC) PAYOR: [...] Leyva Date Saved: 04/19/2017 03:05 pm Normal [facility] Vital Signs Date Time Vital Sign Value Performing Clinician Facility 12-20-2024 09:33-0400 Body height 187.96 cm [facility] Work Phone: [facility] 12-20-2024 09:33-0400 Body mass index (BMI) [Ratio] 28.5 kg/m2 [facility] Work Phone: [facility] 12-20-2024 09:33-0400 Body weight 100.69 kg [facility] Work Phone: [facility] 12-20-2024 09:33-0400 Diastolic blood pressure 69 mm[Hg] [facility] Work Phone: [facility] 12-20-2024 09:33-0400 Heart rate 64 /min [facility] Work Phone: [facility] 12-20-2024 09:33-0400 Respiratory rate 12 /min Robin Ball DO Work Phone: [facility] 12-20-2024 09:33-0400 Systolic blood pressure 133 mm[Hg] Robin Ball DO Work Phone: [facility] 11-05-2024 09:27-0400 Body height 187.96 cm [facility] 11-05-2024 09:27-0400 Body mass index (BMI) [Ratio] 28 kg/m2 [facility] 11-05-2024 09:27-0400 Body weight 99.05 kg [facility] 11-05-2024 09:27-0400 Diastolic blood pressure 60 mm[Hg] [facility] 11-05-2024 09:27-0400 Heart rate 78 /min [facility] 11-05-2024 09:27-0400 Respiratory rate 12 /min [facility] 11-05-2024 09:27-0400 Systolic blood pressure 110 mm[Hg] [facility] 10-22-2024 09:26-0400 Body height 187.96 cm [facility] 10-22-2024 09:26-0400 Body mass index (BMI) [Ratio] 28.8 kg/m2 [facility] 10-22-2024 09:26-0400 Body weight 101.6 kg [facility] 10-22-2024 09:26-0400 Diastolic blood pressure 60 mm[Hg] [facility] 10-22-2024 09:26-0400 Heart rate 86 /min [facility] 10-22-2024 09:26-0400 Respiratory rate 12 /min [facility] 10-22-2024 09:26-0400 Systolic blood pressure 99 mm[Hg] [facility] 09-02-2024 09:05-0400 Body height 187.96 cm [facility] 09-02-2024 09:05-0400 Body mass index (BMI) [Ratio] 29.5 kg/m2 [facility] 09-02-2024 09:05-0400 Body weight 104.49 kg [facility] 09-02-2024 09:05-0400 Diastolic blood pressure 61 mm[Hg] [facility] 09-02-2024 09:05-0400 Heart rate 77 /min [facility] 09-02-2024 09:05-0400 Respiratory rate 12 /min [facility] 09-02-2024 09:05-0400 Systolic blood pressure 115 mm[Hg] [facility] 06-21-2024 09:04-0500 Body height 187.96 cm [facility] 06-21-2024 09:04-0500 Body mass index (BMI) [Ratio] 30.1 kg/m2 [facility] 06-21-2024 09:04-0500 Body weight 106.31 kg [facility] 06-21-2024 09:04-0500 Diastolic blood pressure 89 mm[Hg] [facility] 06-21-2024 09:04-0500 Heart rate 78 /min [facility] 06-21-2024 09:04-0500 Respiratory rate 12 /min [facility] 06-21-2024 09:04-0500 Systolic blood pressure 139 mm[Hg] [facility] 03-21-2024 10:15-0400 Body mass index (BMI) [Ratio] 28.8 kg/m2 [facility] 03-21-2024 10:15-0400 Diastolic blood pressure 64 mm[Hg] [facility] 03-21-2024 10:15-0400 Heart rate 46 /min [facility] 03-21-2024 10:15-0400 SaO2% (BldA) [Mass fraction] 97 % [facility] 03-21-2024 10:15-0400 Systolic blood pressure 144 mm[Hg] [facility] 03-19-2024 07:16-0400 Body height 187.96 cm [facility] 03-19-2024 07:16-0400 Body weight 101.6 kg [facility] 12-19-2023 09:12-0400 Body height 187.96 cm [facility] 12-19-2023 09:12-0400 Body mass index (BMI) [Ratio] 28.6 kg/m2 [facility] 12-19-2023 09:12-0400 Body weight 101.26 kg [facility] 12-19-2023 09:12-0400 Diastolic blood pressure 66 mm[Hg] [facility] 12-19-2023 09:12-0400 Heart rate 60 /min [facility] 12-19-2023 09:12-0400 Respiratory rate 12 /min [facility] 12-19-2023 09:12-0400 Systolic blood pressure 127 mm[Hg] [facility] 10-05-2023 10:37-0400 Body height 188 cm Eli Jasso MD Work Phone: [facility] 10-05-2023 10:37-0400 Body mass index (BMI) [Ratio] 28.02 kg/m2 Eli Jasso MD Work Phone: [facility] 10-05-2023 10:37-0400 Body weight 98.97 kg Eli Jasso MD Work Phone: [facility] 10-05-2023 10:37-0400 Diastolic blood pressure 65 mm[Hg] Eli Jasso MD Work Phone: [facility] 10-05-2023 10:37-0400 Heart rate 65 /min Eli Jasso MD Work Phone: [facility] 10-05-2023 10:37-0400 Systolic blood pressure 124 mm[Hg] Eli Jasso MD Work Phone: [facility] 07-26-2023 08:30-0500 Body height 187.96 cm Robin Ball Other [facility] 07-26-2023 08:30-0500 Body mass index (BMI) [Ratio] 29.04 kg/m2 Robin Ball Other [facility] [employer] Other 07-26-2023 08:30-0500 Body weight 102.6 kg Robin Ball Other [facility] 07-26-2023 08:30-0500 Diastolic blood pressure 67 mm[Hg] Robin Ball Other [facility] 07-26-2023 08:30-0500 Respiratory rate 12 /min Robin Ball Other [facility] [employer] Other 07-26-2023 08:30-0500 Systolic blood pressure 122 mm[Hg] Robin Ball Other [facility] 04-20-2023 08:30-0400 Body height 187.96 cm Robin Ball Other [facility] [employer] Other 04-20-2023 08:30-0400 Body mass index (BMI) [Ratio] 29.3 kg/m2 Robin Ball Other [facility] [employer] Other 04-20-2023 08:30-0400 Body weight 103.51 kg Robin Ball Other [facility] [employer] Other 04-20-2023 08:30-0400 Diastolic blood pressure 66 mm[Hg] Robin Ball Other [facility] Other 04-20-2023 08:30-0400 Respiratory rate 12 /min Robin Ball Other [employer] Other 04-20-2023 08:30-0400 Systolic blood pressure 124 mm[Hg] Robin Ball Other [facility] Other 12-15-2022 08:30-0400 Body height 187.96 cm Robin Ball Other [facility] Other 12-15-2022 08:30-0400 Body mass index (BMI) [Ratio] 29.76 kg/m2 Robin Ball Other [facility] Other 12-15-2022 08:30-0400 Body weight 105.14 kg Robin Ball Other [facility] Other 12-15-2022 08:30-0400 Diastolic blood pressure 71 mm[Hg] Robin Ball Other [facility] Other 12-15-2022 08:30-0400 Respiratory rate 12 /min Robin Ball Other [facility] Other 12-15-2022 08:30-0400 Systolic blood pressure 127 mm[Hg] Robin Ball Other [facility] Other 11-22-2022 13:45-0400 Body height 187.96 cm Robin Ball Other [facility] Other 11-22-2022 13:45-0400 Body mass index (BMI) [Ratio] 29.94 kg/m2 Robin Ball Other [facility] Other 11-22-2022 13:45-0400 Body weight 105.78 kg Robin Ball Other [facility] Other 11-22-2022 13:45-0400 Diastolic blood pressure 64 mm[Hg] Robin Ball Other [facility] Other 11-22-2022 13:45-0400 Respiratory rate 12 /min Robin Ball Other [facility] Other 11-22-2022 13:45-0400 Systolic blood pressure 115 mm[Hg] Robin Ball Other [facility] Other 09-21-2022 09:30-0400 Body height 187.96 cm Robin Ball Other [facility] Other 09-21-2022 09:30-0400 Body mass index (BMI) [Ratio] 31.17 kg/m2 Robin Dawkins Other [facility] Other 09-21-2022 09:30-0400 Body weight 110.13 kg Robin Dawkins Other [facility] Other 09-21-2022 09:30-0400 Diastolic blood pressure 68 mm[Hg] Robin Dawkins Other [facility] Other 09-21-2022 09:30-0400 Respiratory rate 12 /min Robin Dawkins Other [facility] Other 09-21-2022 09:30-0400 Systolic blood pressure 130 mm[Hg] Robin Dawkins Other [facility] Other Encounters Encounter Date Encounter Type Care Provider Facility Start: 12-20-2024 End: 12-20-2024 ambulatory Robin Dawkins DO Work Phone: [facility] Work Phone: Start: 12-20-2024 End: 12-20-2024 Patient encounter procedure Robin Dawkins DO -[facility] Work Phone: Start: 11-05-2024 End: 11-05-2024 ambulatory [facility] Work Phone: Start: 11-05-2024 End: 11-05-2024 Patient encounter procedure [facility] Work Phone: Start: 10-22-2024 End: 10-22-2024 ambulatory [facility] Work Phone: Start: 10-22-2024 End: 10-22-2024 Patient encounter procedure [facility] Work Phone: Start: 09-05-2024 Non-patient / Non-visit [facility] Work Phone: Start: 09-02-2024 End: 09-02-2024 ambulatory [facility] Work Phone: Start: 09-02-2024 End: 09-02-2024 Patient encounter procedure [facility] Work Phone: Start: 07-02-2024 Non-patient / Non-visit [facility] Work Phone: Start: 06-21-2024 End: 06-21-2024 Patient encounter procedure [facility] Work Phone: Start: 06-10-2024 End: 06-10-2024 [facility] Start: 03-21-2024 End: 03-21-2024 [facility] Work Phone: Start: 03-21-2024 End: 03-21-2024 Patient encounter procedure [facility] Work Phone: Start: 03-04-2024 Non-patient / Non-visit [facility] Work Phone: Start: 02-02-2024 End: 02-02-2024 ambulatory [facility] Work Phone: Start: 02-02-2024 End: 02-02-2024 Patient encounter procedure [facility] Work Phone: Start: 01-18-2024 End: 01-18-2024 Office outpatient visit 25 minutes Eli Jasso MD Work Phone: [facility] Comment on above: Claudication (CMS-HC C) (Primary Dx); Bilateral carotid artery stenosis Start: 12-23-2023 Non-patient / Non-visit [facility] Work Phone: Start: 12-19-2023 End: 12-19-2023 ambulatory [facility] Work Phone: Start: 12-19-2023 End: 12-19-2023 Patient encounter procedure [facility] Work Phone: Start: 10-05-2023 End: 10-05-2023 ambulatory ELI JASSO [facility] Start: 10-05-2023 End: 10-05-2023 Office outpatient visit 25 minutes Eli Jasso MD Work Phone: [facility] Comment on above: Internal carotid art anahi stenosis, bilateral (Primary Dx); PAD (peripheral artery disease) ([facility]); History of carotid endarterectomy Start: 09-07-2023 End: 09-07-2023 ambulatory [facility] Work Phone: Start: 09-07-2023 End: 09-07-2023 Patient encounter procedure [facility] Work Phone: Start: 08-25-2023 End: 08-25-2023 Patient encounter procedure [facility] Work Phone: Start: 07-26-2023 End: 07-26-2023 ambulatory Robin Dawkins Other [facility] Other Start: 07-26-2023 Office outpatient vi sit 25 minutes Robin Dawkins [facility] Start: 07-26-2023 End: 07-26-2023 Patient encounter procedure [facility]- Start: 07-19-2023 End: 07-19-2023 ambulatory Robin Dawkins Other [facility] Other Start: 07-19-2023 Telephone encounter [facility] Start: 06-14-2023 End: 06-14-2023 ambulatory [facility] Start: 04-21-2023 End: 04-21-2023 ambulatory Robin Dawkins Other [facility] Other Start: 04-21-2023 Telephone encounter Robin Ball [facility] Start: 04-20-2023 End: 04-20-2023 ambulatory Robin Dakwins Other [facility] Other Start: 04-20-2023 Office outpatient vi sit 25 minutes Robin Ball [facility] Start: 04-12-2023 End: 04-12-2023 ambulatory Robin Dawkins Other [facility] Other Start: 04-12-2023 Telephone encounter Robin Dawkins [facility] Start: 04-07-2023 End: 04-07-2023 ambulatory Robin Dawkins Other [facility] Other Start: 04-07-2023 Telephone encounter Robin Dawkins [facility] Start: 02-06-2023 End: 02-06-2023 ambulatory Robin Dawkins Other [facility] Other Start: 02-06-2023 Telephone encounter Robin Dawkins [facility] Start: 12-20-2022 End: 12-20-2022 ambulatory Robin Dawkins Other [facility] Other Start: 12-20-2022 Telephone encounter Robin Dawkins [facility] Start: 12-15-2022 End: 12-15-2022 ambulatory Robin Dawkins Other [facility] Other Start: 12-15-2022 Patient encounter procedure Robin Dawkins [facility] Start: 11-22-2022 End: 11-22-2022 ambulatory Robin Dawkins Other [facility] Other Start: 11-22-2022 Office outpatient vi sit 15 minutes Robin Ball [facility] Start: 11-22-2022 Telephone encounter Robin Ball [facility] Start: 10-31-2022 End: 10-31-2022 ambulatory Robin Dawkins Other [facility] Other Start: 10-31-2022 Office outpatient vi sit 15 minutes Robin Jese [facility] Start: 10-04-2022 End: 10-05-[address] MAE MCCORMICK [facility] [employer] Other Start: 10-04-2022 Telephone encounter Robin Dawkins [facility] Start: 09-21-2022 End: 09-21-2022 ambulatory Robin Dawkins Other [facility] Other Start: 09-21-2022 Office outpatient vi sit 25 minutes Robin Jese [facility] Start: 03-30-2022 End: 03-31-[address] MAE MCCORMICK Facility:[facility] Start: 12-16-2021 End: 12-17-[address] ROBIN DAWKINS Facility: Start: 12-06-2021 Adult health examination Scott Dawkins Other [facility] Other Start: 10-03-2018 End: 10-04-2018 Patient encounter procedure RONNY NEWMAN Facility:[facility] Start: 10-02-2017 End: 10-02-2017 Ambulatory Jean-Paul Roberts [facility] Start: 09-19-2017 End: 09-20-2017 Ambulatory Jean-Paul Roberts [facility] Start: 04-18-2017 End: 04-18-2017 Ambulatory Bipin Cruz Facility:[facility] Procedures Date Procedure Procedure Detail Performing Clinician Start: 01-11-2023 Adult depression screening assessment Eli Jasso MD Work Phone: Start: 12-16-[address] MANZO [place] Comment on above: Performed By: #### P [facility] #### [facility] [address] [place] [address] Dr. Rui Moore Start: 11-02-2018 History of carotid endarterectomy History of carotid endarterectomy Eli Jasso MD Work Phone: Start: 06-09-2016 Removal of suture Scott soares Jese Other Start: 11-10-2015 Screening for malign ant neoplasm of colon Robin Jese Other Start: 10-21-2013 Screening for malign ant [...] Td Vaccines (5 - Td or Tdap) [facility] Start: 01-16-2025 End: 01-16-2025 Patient encounter procedure 01/16/2025 9:10 AM EDT Office Visit [facility] [address] [place] [address] Eli Jasso MD [address], [place] [id number] [facility] Start: 10-04-2024 Adult BMI Screening Adult BMI Screen ing [facility] Start: 10-04-2024 Tobacco Screening Tobacco Screening [facility] Start: 02-25-2024 Influenza vaccination Influenza Vacc ine [facility] Start: 01-18-2024 End: 01-17-2025 US Carotid arteries - bilateral Vas carotid duplex bilateral Vascular Ultrasound Routine Bilateral carotid artery stenosis Expected: 01/18/2024, Expires: 01/17/2025 [email or web address] Work Phone: Comment on above: Expected: 01/18/2024 , Expires: 01/17/2025 Start: 01-18-2024 End: 01-17-2025 US.doppler Extremity arteries - bilateral for physiologic artery study Vas art doppler lwr bilat mult lev/PVR Vascular Ultrasound Routine Claudication ([facility]) Bilateral carotid artery stenosis Expected: 01/18/2024, Expires: 01/17/2025 [facility] Comment on above: Expected: 01/18/2024 , Expires: 01/17/2025 Start: 01-18-2024 End: 01-17-2025 US.doppler Lower extremity artery - bilateral Vas art duplex lwr graft scan bilat Vascular Ultrasound Routine Claudication ([facility]) Bilateral carotid artery stenosis Expected: 01/18/2024, Expires: 01/17/2025 [employer] Comment on above: Expected: 01/18/2024 , Expires: 01/17/2025 Start: 01-12-2024 Depression Screening Depression Scre ening [employer] Start: 01-04-2024 End: 01-04-2024 Patient encounter procedure 01/04/2024 8:40 AM EDT Office Visit [facility] [address] [place] [address] Eli Jasso MD [address], [address] [address] [facility] Start: 11-22-2023 Administration of varicella zoster vaccine Zoster (Shingles) Vaccine (3 of 3) [employer] Start: 10-05-2023 End: 10-04-2024 US Carotid arteries - bilateral Vas carotid duplex bilateral Vascular Ultrasound Routine Internal carotid artery stenosis, bilateral History of carotid endarterectomy Expected: 10/05/2023, Expires: 10/04/2024 [employer] Comment on above: Expected: 10/05/2023 , Expires: 10/04/2024 Start: 10-05-2023 End: 10-04-2024 US.doppler Extremity arteries - bilateral for physiologic artery study Vas art doppler lwr bilat mult lev/PVR Vascular Ultrasound Routine PAD (peripheral artery disease) ([facility]) Expected: 10/05/2023, Expires: 10/04/2024 [email or web address] Work Phone: Comment on above: Expected: 10/05/2023 , Expires: 10/04/2024 Start: 08-12-2023 COVID-19 Vaccine ( season) COVID-19 Vaccine ( season) [employer] Start: 2009 Fall Risk Screening Fall Risk Screen ing [employer] Start: 1962 Adult BMI Follow Up Plan Adult BMI F ollow Up Plan [facility] Start: 1945 Medicare Annual Well ness Visit Medicare Annual Wellness Visit [facility] Comprehensive metabo lic 1999 panel - Serum or Plasma [facility] Comprehensive metabo lic 1999 panel - Serum or Plasma [facility] Microalbumin [Mass/volume] in Urine [facility] XR Chest [address] [facility] Immunizations Immunization Date Immunization Notes Care Provider Fa cility 09-27-2023 zoster vaccine, unspecified formulation Eli Jasso MD Work Phone: [facility] 04-11-2023 influenza virus vaccine, unspecified formulation Eli Jasso MD Work Phone: [facility] 11-16-2022 tetanus and diphther ia toxoids, adsorbed, preservative free, for adult use (5 Lf of tetanus toxoid and 2 Lf of diphtheria toxoid) [facility] 11-16-2022 tetanus toxoid, redu suzy diphtheria toxoid, and acellular pertussis vaccine, adsorbed Robin Dawkins Other [facility] Other 04-06-2022 Influenza Vaccine, Quadrivalent, Adjuvanted Eli Jasso MD Work Phone: [facility] 04-06-2022 influenza virus vaccine, unspecified formulation [facility] 04-06-2022 influenza, high dose seasonal, preservative-free Robin Dawkins Other [employer] [facility] [employer] Other 03-17-2022 COVID-19 Pfizer (bivalent) Robin Dawkins Other [facility] 10-06-2021 COVID-19 Vaccine Pfi zer - Documentation Purposes Only Robin Dawkins Other [facility] 03-31-2021 COVID-19 Vaccine Pfi zer - Documentation Purposes Only Robin Dawkins Other [facility] 03-31-2021 Influenza, High-dose , Quadrivalent Eli Jasso MD Work Phone: [facility] 09-28-2020 COVID-19 Vaccine Pfi zer - Documentation Purposes Only Robin Dawkins Other [facility] 09-01-2020 COVID-19 Vaccine Pfi zer - Documentation Purposes Only Robin Dawkins Other [facility] 04-01-2020 influenza virus vaccine, split virus (incl. purified surface antigen) Robin Dawkins Other [facility] [employer] Other 04-01-2020 influenza virus vaccine, unspecified formulation [facility] 04-18-2019 influenza virus vaccine, split virus (incl. purified surface antigen) Robin Dawkins Other [facility] [employer] Other 04-18-2019 influenza virus vaccine, unspecified formulation [facility] 04-12-2018 influenza virus vaccine, split virus (incl. purified surface antigen) Robin Dawkins Other [facility] [employer] Other 04-12-2018 influenza virus vaccine, unspecified formulation [facility] 04-12-2018 Seasonal trivalent influenza vaccine, adjuvanted, preservative free Eli Jasso MD Work Phone: [facility] 05-26-2017 influenza, injectabl e, quadrivalent, contains preservative Eli Jasso MD Work Phone: [facility] 05-11-2017 influenza virus vaccine, split virus (incl. purified surface antigen) Robin Dawkins Other [facility] [employer] Other 05-11-2017 influenza virus vaccine, unspecified formulation [facility] 05-11-2017 influenza, high dose seasonal, preservative-free Eli Jasso MD Work Phone: [facility] 04-04-2016 influenza virus vaccine, split virus (incl. purified surface antigen) Robin Dawkins Other [facility] [employer] Other 04-04-2016 influenza virus vaccine, unspecified formulation [facility] 04-04-2016 influenza, high dose seasonal, preservative-free Eli Jasso MD Work Phone: [facility] 09-25-2015 pneumococcal vaccine , unspecified formulation Eli Jasso MD Work Phone: [facility] 04-16-2015 influenza virus vaccine, split virus (incl. purified surface antigen) Robin Dawkins Other [facility] [employer] Other 04-16-2015 influenza virus vaccine, unspecified formulation [facility] 04-16-2015 pneumococcal conjuga te vaccine, 13 valent Robin Dawkins Other [facility] 03-12-2015 zoster vaccine, live Eli Jasso MD Work Phone: [facility] 01-24-2015 zoster vaccine, live Jose Dawkins Other [facility] 04-19-2014 influenza, seasonal, injectable, preservative free Eli Jasso MD Work Phone: [facility] 12-30-2013 pneumococcal polysaccharide vaccine, 23 valent Robin Dawkins Other [facility] 04-08-2013 influenza, seasonal, injectable Eli Jasso MD Work Phone: [facility] 04-04-2013 pneumococcal vaccine , unspecified formulation Eli Jasso MD Work Phone: [facility] 04-04-2013 pneumococcal conjuga te vaccine, 13 valent Robin Dawkins Other [facility] 04-03-2013 tetanus and diphther ia toxoids, adsorbed, preservative free, for adult use (5 Lf of tetanus toxoid and 2 Lf of diphtheria toxoid) Robin Dawkins Other [facility] 03-08-2012 tetanus and diphther ia toxoids, adsorbed, preservative free, for adult use (5 Lf of tetanus toxoid and 2 Lf of diphtheria toxoid) Robin Dawkins Other [facility] 09-29-2010 diphtheria, tetanus toxoids and acellular pertussis vaccine, unspecified formulation Robin Dawkins Other [facility] 04-28-2010 pneumococcal polysaccharide vaccine, 23 valent Robin Dawkins Other [facility] Payers Date Payer Category Payer Private Health Insurance [facility] AAR SUPPLEMENT [id number] 2018-Present [phone] [address] [place] [address] [id number] 2017 Medicare [id number] 2009 Medicare MEDICARE MEDICAR E PART A & B [id number] 2009-Present [phone] [address] [place] [address] [id number] 1959 Medicare [id number] 1959 Unknown [id number] 1944 Unknown [id number] 1944 Unknown [id number] 1944 Unknown [id number] 1944 Unknown [id number] 1944 Unknown [id number] Social History Date Type Detail Facility Start: 08-06-2020 End: 09-12-2020 Sex Assigned At [facility] Other Start: 08-25-2023 Tobacco smoking status NHIS Never smoked tobacco (finding) [facility] Start: 1945 Sex Assigned At Male [facility] Start: 01-02-2023 Tobacco smoking status NHIS Ex-smoker [facility] Start: 06-26-1974 End: 06-26-1989 History of tobacco use Current smoker [facility] Start: 06-26-1974 End: 06-26-1989 History of tobacco use Cigarette Smoker [facility] Start: 08-06-2020 End: 01-02-2023 Cigarettes smoked current (pack per day) - Reported 1 [facility] Start: 01-02-2023 Tobacco use and exposure Smokeless tobacco non-user [facility] Start: 10-05-2023 Alcoholic beverage intake Current drinker of alcohol (finding) [facility] Do you belong to any clubs or organizations such as zoroastrianism groups, unions, fraVMTurbo or athletic groups, or school groups? No [facility] Are you now , , , , never or living with a partner? [facility] How often to you hav e a drink containing alcohol? Never [facility] How many standard dr inks containing alcohol do you have on a typical day? Patient does not drink [facility] Do you feel stress - tense, restless, nervous, or anxious, or unable to sleep at night because your mind is troubled all the time - these days [OSQ] Not at all [facility] Start: 1945 Sex assigned at Not on file [facility] [employer] Start: 09-02-2024 End: 11-05-2024 Sex Male (finding) [facility] Medical Equipment Procedure Code Equipment [...] misc Start: 08-25-2023 Ptch [employer] 0.8x8cm Rpl [id number] - [id number] Start: 09-15-2020 Comment on above: Description: RIGHT F EMORAL ARTERY Gft Hep Rr T8mm 70cm [id number] - [id number] - [id number] Start: 09-15-2020 Comment on above: Description: RIGHT F EMORAL ARTERY TO POPLITEAL ARTERY Stent 7mm 11mm 7 fr 59mm Bln Expandable Gw Combes Vbhn Vbx - [id number] - [id number] Start: 01-11-2023 Comment on above: Description: LEFT IL IAC ARTERY Stent Dayday 7mm 37 mm 75cm 40mm Otw Prmnt Bln Xpd Rdpq Ilc Xpr Rpl [id number] - [id number] Start: 01-11-2023 Comment on above: Description: [...] with family support Clinical Notes 09-21-2022 to 10-22-2024 Note Date & Type Note Facility 10-22-2024 Evaluation note Diagnosis Onset Date Resolution Nausea & vomiting acute September 252024 9:12am Diarrhea noneactive October 22 9:12am Acute bronchitis due to other specified organisms noneactive October 22, 2024 9:12am Acute bronchitis due to other specified organisms noneactive November 052024 9:10am Acute exacerbation of chronic obstructive airways disease noneactive November 05, 2024 9:10am Allergic rhinitis noneactive October 9:10am ASHD (arteriosclerotic heart disease) acute December 20, 2024 9:20am Chronic kidney disease acute Ju 2024 9:20am Chronic venous insufficiency acute December 20, 2024 9:20am Hypercholesterolemia acute December 20, 2024 9:20am Paroxysmal atrial fibrillation acute December 20, 2024 9:20am Peripheral arterial occlusive disease acute December 20 9:20am Pernicious anemia acute December 202024 9:20am Primary hypertension acute December 20, 2024 9:20am Type 2 diabetes mellitus with hyperglycemia acute December 20 9:20am Medicare annual wellness visit, subsequent noneactive December 20 9:20am Screening PSA (prostate specific antigen) noneactive December 20 9:20am [facility] Work Phone: 1(491) 310-382503-10-2025 Evaluation note* Diagnosis Onset Date Resolution Status Admit Date Anemia acute September 02 8:54am ASHD (arteriosclerotic heart disease) acute September 02, 2024 8:54am Callus of foot acute August 8:54am Chronic kidney disease acute [facility] 2024 8:54am Chronic venous insufficiency acute September 02, 2024 8:54am Hypercholesterolemia acute 2024 8:54am Paroxysmal atrial fibrillation acute September 02, 2024 8:54am Pernicious anemia acute August 242024 8:54am Primary hypertension acute 2024 8:54am Type 2 diabetes mellitus wit h hyperglycemia acute September 02, 2024 8:54am [facility] Work Phone: 1(112) 843-415203-10-2025 Evaluation note* Diagnosis Onset Date Resolution Status Admit Date Anemia acute September 02 8:54am ASHD (arteriosclerotic heart disease) acute September 02, 2024 8:54am Callus of foot acute August 8:54am Chronic kidney disease acute [facility] 2024 8:54am Chronic venous insufficiency acute September 02, 2024 8:54am Hypercholesterolemia acute [facility] 2024 8:54am Paroxysmal atrial fibrillation acute September 02, 2024 8:54am Pernicious anemia acute August 242024 8:54am Primary hypertension acute [facility] 2024 8:54am Type 2 diabetes mellitus wit h hyperglycemia acute September 02, 2024 8:54am Nausea & vomiting acute September 252024 9:12am Diarrhea noneactive October 22 9:12am Acute bronchitis due to othe r specified organisms noneactive October 22, 2024 9:12am Acute bronchitis due to othe r specified organisms noneactive November 05 9:10am Acute exacerbation of chroni c obstructive airways disease noneactive November 05, 2024 9:10am Allergic rhinitis noneactive October 9:10am [facility] Work Phone: 1(438) 308-400112-27-2024 Evaluation note* Diagnosis Onset Date Resolution Status Admit Date Anemia acute June 21, 2024 8:57am ASHD (arteriosclerotic heart disease) acute June 21 8:57am Chronic kidney disease acute De cem2023 8:57am Chronic venous insufficiency acute June 21, 2024 8:57am Hypercholesterolemia acute Dece 2023 8:57am Paroxysmal atrial fibrillation acute June 21, 2024 8:57am Primary hypertension acute Dece 2023 8:57am Type 2 diabetes mellitus wit h hyperglycemia acute June 21 8:57am Anemia acute September 02 8:54am ASHD (arteriosclerotic heart disease) acute September 02, 2024 8:54am Callus of foot acute August 8:54am Chronic kidney disease acute [facility]2024 8:54am Chronic venous insufficiency acute September 02, 2024 8:54am Hypercholesterolemia acute 2024 8:54am Paroxysmal atrial fibrillation acute September 02, 2024 8:54am Pernicious anemia acute August 242024 8:54am Primary hypertension acute [facility] 2024 8:54am Type 2 diabetes mellitus wit h hyperglycemia acute September 02, 2024 8:54am [facility] Work Phone: [phone]) 195-114612-16-2024 NoteUT Cardiology - [facility] Subjective Pooja Marrufo is a 78 y.o. [...] he was admitted to the [facility] with COVID-19. He developed atrial fibrillation. [...] Judgment: Judgment normal. Allergies Allergies Allergen Reactions Usjnqwf-Srr-Rec Reductase (more content not included)...[facility]07-25-[facility]24 Evaluation + Plan note* Assessment & Plan Note - Eli Jasso MD - 01/18/2024 9:44 AM EDTAssociated Problem(s): Claudication ([facility]) He has some claudication more on the left side. He had previous bypasses bilaterally. He does not have tissue loss or rest pain. He will continue aspirin statin and Xarelto. Discussed with him risk factors modification supervised walking program. He declined supervised walking program however he will continue to do walking program at home.We will get PVR and duplex ultrasound in a year [facility]07-25-2024 Evaluation + Plan note* Assessment & Plan Note - Eli Jasso MD - 01/18/2024 9:44 AM EDTAssociated Problem(s): Bilateral carotid artery stenosis He is wide open left carotid endarterectomy site. On the right side he has moderate stenosis. No stroke or mini strokes. Recommend continue aspirin atorvastatin and he is also on Xarelto. Will get surveillance imaging in a year. [facility]07-25-2024 Miscellaneous Notes* Assessment & Plan Note - Eli Jasso MD - 01/18/2024 9:44 AM EDTAssociated Problem(s): Claudication ([facility]) He has some claudication more on the [...] imaging in a year. documented in this encounterV[facility] History of Present illness Narrative* Eli Jasso [...] History: Diagnosis Date Arrhythmia Arthritis Atrial fibrillation ([facility]) caused by COVID Cataract 04/07/2015 Coronary artery disease Diabetes mellitus type 2, controlled ([facility]) H/O colonoscopy 12/31/2014 H/O heart artery stent History of femoropopliteal bypass both left and right Hyperlipidemia Hypertension Lower limb ischemia 09/12/2020 Obesity S/P right coronary artery (RCA) stent placement 02/10/2012 Skin cancer Subdural hematoma ([facility]) Subdural hematoma ([facility]) 08/03/2010 TIA (transient ischemic attack) x 3 Umbilical hernia 10/02/2017 Past Surgical History: Past Surgical History: Procedure Laterality Date Angiogram extremity left LEG 10/22/2020 Performed by Mae Mccormick MD at [facility] Angiogram extremity right iliac 09/14/2020 Performed by Pablito Painitng MD at [facility] angiogram lower Left 10/20/2022 Performed by Mae Mccormick MD at [facility] Aortography abdomen and runoff N/A 10/22/2020 Performed by Mae Mccormick MD at [facility] Aortography abdominal N/A 09/14/2020 Performed by Pablito Painting MD at [facility] BALLOON ANGIOPLASTY AND ILIAC-STENT PLACEMENT Left 01/11/2023 Performed by Mae Mccormick MD at [facility] CAROTID ENDARTERECTOMY Left CATARACT EXTRACTION, BILATERAL Bilateral right: 04/07/15 left: 04/21/15 COLONOSCOPY CORONARY ARTERY BYPASS GRAFT FEMORAL ARTERY - POPLITEAL ARTERY BYPASS GRAFT Bilateral right : 04/25/12 left : 10/03/12 FEMORAL EXTENDED PROFUNDA ENDARTERECTOMY Right 09/15/2020 Performed by Pablito Painting MD at [facility] SPECIAL PROC OTHER SURGICAL HISTORY Bilateral stents12/13/02, 10/21/05, 12/20/07 Patch Angioplasty Femoral Right 09/15/2020 Performed by Pablito Painting MD at [facility] SPECIAL PROC PROFUNDA/POPLITEAL/TIBIAL THROMBECTOMY Right 09/15/2020 Performed by Pablito Painting MD at [facility] SPECIAL PROC REDO BYPASS ARTERY FEMORAL POPLITEAL W/ GRAFT Right 09/15/2020 Performed by Pablito Painting MD at [facility] SPECIAL PROC UMBILICAL HERNIA REPAIR Social and [...] min Stress: No Stress Concern Present (09/12/2020) [employer] [place] [employer] - Occupational Stress Questionnaire Feeling of Stress : Not at all Social Connections: Moderately Isolated (09/12/2020) Social Connection and Isolation Panel [NHANES] Frequency of Communication with Friends and Family: Never Frequency of Social Gatherings with Friends and Family: More than three times a week Attends [employer] Services: Never Active Member of Clubs or Organizations: No Attends Club or Organization Meetings: Never Marital Status: Interpersonal Safety: Unknown (08/17/2023) Received from [facility] Safety & Environment Fear of Current or [...] get surveillance imaging in a year. Claudication ([facility]) - Primary Current Assessment & Plan He [...] and all orders for this visit: Claudication ([facility]) Bilateral carotid artery stenosis Eli Jasso MD, JJ, RPVI, FSVS, FACS [facility] [facility] This note was created with the assistance of a speech recognition program. While intending to generate a timely document that accurately reflects the content of the visit, no guarantee can be provided that every grammatical or spelling mistake has been or will be identified or corrected. Thank you for your understanding. documented in this encounterV[facility]04-[facility]-2024 Evaluation + Plan note* Assessment & Plan Note - Eli Jasso MD - 10/05/2023 9:35 AM EDT Associated Problem(s): PAD (peripheral artery disease) ([facility]) PVR, Arterial duplex US [facility]04-11-2024 Miscellaneous Notes* Assessment & Plan Note - Eli Jasso MD - 10/05/2023 9:35 AM EDTAssociated Problem(s): PAD (peripheral artery disease) ([facility]) PVR, Arterial duplex US * Assessment & Plan Note - Eli Jasso MD - 10/05/2023 9:34 AM EDT Associated Problem(s): Internal carotid artery stenosis, bilateral Carotid duplex US documented in this encounterVeterans Health [facility]04-11-2024 Evaluation + Plan note* Assessment & Plan Note - Eli Jasso MD - 10/05/2023 9:34 AM EDT Associated Problem(s): Internal carotid artery stenosis, bilateral Carotid duplex US [facility]04-11-2024 History of Present illness Narrative* Eli Jasso [...] History: Diagnosis Date Arrhythmia Arthritis Atrial fibrillation ([facility]) caused by COVID Cataract 04/07/2015 Coronary artery disease Diabetes mellitus type 2, controlled ([facility]) H/O colonoscopy 12/31/2014 H/O heart artery stent History of femoropopliteal bypass both left and right Hyperlipidemia Hypertension Lower limb ischemia 09/12/2020 Obesity S/P right coronary artery (RCA) stent placement 02/10/2012 Skin cancer Subdural hematoma ([facility]) Subdural hematoma ([facility]) 08/03/2010 TIA (transient ischemic attack) x 3 Umbilical hernia 10/02/2017 Past Surgical History: Past Surgical History: Procedure Laterality Date Angiogram extremity left LEG 10/22/2020 Performed by Mae Mccormick MD at [facility] Angiogram extremity right iliac 09/14/2020 Performed by Pablito Painting MD at [facility] angiogram lower Left 10/20/2022 Performed by Mae Mccormick MD at [facility] Aortography abdomen and runoff N/A 10/22/2020 Performed by Mae Mccormick MD at [facility] Aortography abdominal N/A 09/14/2020 Performed by Pablito Painting MD at [facility] BALLOON ANGIOPLASTY AND ILIAC-STENT PLACEMENT Left 01/11/2023 Performed by Mae Mccormick MD at [facility] CAROTID ENDARTERECTOMY Left CATARACT EXTRACTION, BILATERAL Bilateral right: 04/07/15 left: 04/21/15 COLONOSCOPY CORONARY ARTERY BYPASS GRAFT FEMORAL ARTERY - POPLITEAL ARTERY BYPASS GRAFT Bilateral right : 04/25/12 left : 10/03/12 FEMORAL EXTENDED PROFUNDA ENDARTERECTOMY Right 09/15/2020 Performed by Pablito Painting MD at [facility] SPECIAL PROC OTHER SURGICAL HISTORY Bilateral stents12/13/02, 10/21/05, 12/20/07 Patch Angioplasty Femoral Right 09/15/2020 Performed by Pablito Painting MD at [facility] SPECIAL PROC PROFUNDA/POPLITEAL/TIBIAL THROMBECTOMY Right 09/15/2020 Performed by Pablito Painting MD at [facility] SPECIAL PROC REDO BYPASS ARTERY FEMORAL POPLITEAL W/ GRAFT Right 09/15/2020 Performed by Pablito Painting MD at [facility] SPECIAL PROC UMBILICAL HERNIA REPAIR Social and [...] min Stress: No Stress Concern Present (09/12/2020) [place] [employer] - Occupational Stress Questionnaire Feeling of Stress : Not at all Social Connections: Moderately Isolated (09/12/2020) Social Connection and Isolation Panel [NHANES] Frequency of Communication with Friends and Family: Never Frequency of Social Gatherings with Friends and Family: More than three times a week Attends Lutheran Services: Never Active Member of Clubs or Organizations: No Attends Club or Organization Meetings: Never Marital Status: Interpersonal Safety: Unknown (08/17/2023) Re[facility] from [facility] [place] Safety & Environment Fear of Current [...] carotid duplex bilateral PAD (peripheral artery disease) ([facility]) Overview Added automatically from request for surgery [id number] Current Assessment & Plan PVR, Arterial duplex US Relevant Orders Vas art doppler lwr bilat mult lev/PVR Other History of carotid endarterectomy Relevant Orders Vas carotid duplex bilateral Pooja was seen today for claudication, lower limb ischemia and peripheral artery disease. Diagnoses and all orders for this visit: Internal carotid artery stenosis, bilateral - Vas carotid duplex bilateral; Future PAD (peripheral artery disease) ([facility]) - Vas art doppler lwr bilat mult lev/PVR; Future History of carotid endarterectomy - Vas carotid duplex bilateral; Future Eli Jasso MD, JJ, RPVI, FSVS, FACS [facility] [employer] [facility] This note was created with the assistance of a speech recognition program. While intending to generate a timely document that accurately reflects the content of the visit, no guarantee can be provided that every grammatical or spelling mistake has been or will be identified or corrected. Thank you for your understanding. documented in this encounterWayne HealthCare Main CampusPhigenix Pharmaceutical [facility] [id number] Evaluation note* Encounter Date Diagnosis Assessment Notes [...] Z87.39) No acute flares Reviewed diet restrictions [facility] Other 01-24-2024 Evaluation note* Encounter Date Diagnosis Assessment Notes Treatment Notes Treatment Clinical Notes Jun, Anemia, unspecified type (ICD-10 - D64.9) [facility] Other 01-24-2024 Evaluation note* Encounter Date Diagnosis Assessment Notes Treatment Notes Treatment Clinical Notes Jun, Type 2 diabetes mellitus with hyperglycemia, without long-term current use of insulin (ICD-10 - E11.65) [facility] Other 12-20-2023 NoteUT Cardiology - [facility] Subjective Pooja Marrufo is a [...] he was admitted to the [facility] with COVID-19. He developed atrial fibrillation. [...] Judgment: Judgment normal. Allergies Allergies Allergen Reactions Qimgflb-Nwc-Mcr Reductase Inhibitors Other Lisinopril Losartan Medications Current [...] metFORMIN (Glucophage) 500 m (more content not included)...[facility] Evaluation note* Encounter Date Diagnosis Assessment Notes Treatment Notes Treatment Clinical Notes Mar, ASHD (arteriosclerot ic heart disease) (ICD-10 - I25.10) Mar, Type 2 diabetes mellitus with hyperglycemia, without long-term current use of insulin (ICD-10 - E11.65) Mar, Atherosclerosis of [place] artery of both lower extremities with intermittent [...] Mar, Other chronic pain (ICD-10 - G89.29) [facility] Other 10-26-2023 Evaluation note* Encounter Date Diagnosis [...] exam and Foot exam Mar, Atherosclerosis of [place] artery of both lower extremities with intermittent [...] No acute attacks present at this time. [facility] Other 10-13-2023 Evaluation note* Encounter Date Diagnosis Assessment Notes Treatment Notes Treatment Clinical Notes Mar, Anemia, unspecified type (ICD-10 - D64.9) [facility] Other 06-22-2023 Evaluation note* Encounter Date Diagnosis [...] Nov, Hx of gout (ICD-10 - Z87.39) [facility] Other 05-30-2023 Evaluation note* Encounter Date Diagnosis [...] to continue exercise and AHA diet plan. [facility] Other 05-08-2023 Evaluation note* Encounter Date Diagnosis [...] to continue exercise and AHA diet plan. 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 Aug, Anemia, unspecified type (ICD-10 - D64.9) Aug, Hx of gout (ICD-10 - Z87.39) No recent flares, continue urate lowering treatment Aug, Acute seasonal allergic rhinitis due to pollen (ICD-10 - J30.1) [employer] Other Evaluation noteNo InformationNortUpper [facility] Other evaluation note* Diagnosis Onset Date Resolution Status [id number] acute Acute bronchitis due to other specified organisms noneactive Acute seasonal allergic rhinitis due to pollen acute [facility] Work Phone: Evaluation note* Diagnosis Onset Date Resolution Status Anemia acute ASHD (arteriosclerotic heart disease) acute Chronic kidney disease acute Chronic venous insufficiency acute Hypercholesterolemia acute Paroxysmal atrial fibrillation acute Primary hypertension acute Type 2 diabetes mellitus with hyperglycemia acute Medicare annual wellness visit, subsequent noneactive Screening PSA (prostate specific antigen) noneactive [facility] Work Phone: Evaluation note* Diagnosis Onset Date Resolution Status Anemia acute ASHD (arteriosclerotic heart disease) acute Chronic kidney disease acute Chronic venous insufficiency acute Hypercholesterolemia acute Paroxysmal atrial fibrillation acute Primary hypertension acute Type 2 diabetes mellitus with hyperglycemia acute [facility] Work Phone: Evaluation note* Diagnosis Claudication ([facility])- Primary Unspecified peripheral vascular disease Bilateral carotid artery stenosis Occlusion and stenosis of carotid artery without mention of cerebral infarction documented in this encounter [facility] SystemEvaluation note* Diagnosis Internal carotid artery stenosis, bilateral- Primary PAD (peripheral artery disease) ([facility]) Unspecified peripheral vascular disease History of carotid endarterectomy Other postprocedural status documented in this encounter [facility] SystemHistory general Narrative - Reported* Type Description [...] History BYPASS Hospitalization History SEE SURGICAL HX [facility] Other HisQponDirect general Narrative - Reported* Type Description Date [...] /stenting 12/2022 Hospitalization History SEE SURGICAL HX [facility] Other Hishvvj general Narrative - Reported* Type Description Date [...] Colonoscopy 2014 Hospitalization History SEE SURGICAL HX [facility] Other InstructionsNot on filedocumented in this encounter [facility] SystemInstructionsNot on filedocumented in this encounter [facility] SystemReason for referral (narrative)No reason for referral information availableTrumbull Regional Medical Center Work Phone: Summary Purpose Family History Relationship Condition Age at Onset Recorded Date/T alonso father Unknown Malignant neoplasm Unknown Advance Directives Advance Directive Response Recorded Date/ Time Advance Directives No July 26, 2023 10:15am Documents on File Type Date Recorded 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 09/23/2020 4:09 PM Living Will 09/23/2020 4:09 PM Date Activated Date Inactivated Comments 09/12/2020 10:19 AM 09/20/2020 2:16 PM Chief Complaint and Reason for Visit Chief Complaint 3 Month Follow Up Sinuses, cough- neg covid Allergy Shot Reason for Visit [id number] Acute bronchitis due to other specified organisms [...] 21, 2024 8:57am [facility]ios[facility] 8:57[facility] Chronic kidney disease June 21 8:57am Chronic venous insufficiency June 212023 8:57am Hypercholesterolemia June 21, 2024 8:57am Paroxysmal atrial fibrillation June 21, 2024 8:57am Primary hypertension June 21, 2024 8:57am Type 2 diabetes mellitus with hyperglyce jose armando June 21, 2024 8:57am Anemia September 02, 2024 8:5 4am ASHD (arteriosclerotic heart disease) [facility] 2024 8:54am Callus of foot September 02, 2024 8:5 4am Chronic kidney disease September 02, 2024 8:54am Chronic venous insufficiency September 02, 2024 8:54am Hypercholesterolemia September 02, 2024 8: 54am Paroxysmal atrial fibrillation August 8:54am Pernicious anemia September 02, 2024 8:5 4am Primary hypertension September 02, 2024 8: 54am Type 2 diabetes mellitus with hyperglyce jose armando September 02, 2024 8:54am Chief Complaint Admit Date 3 month f/u September 02, 2024 8:5 4am Cough/COVID- October 22, 2024 9:1 2am Reason for Visit Admit Date Anemia September 02, 2024 8:5 4am ASHD (arteriosclerotic heart disease) [facility] 2024 8:54am Callus of foot September 02, 2024 8:5 4am Chronic kidney disease September 02, 2024 8:54am Chronic venous insufficiency September 02, 2024 8:54am Hypercholesterolemia September 02, 2024 8: 54am Paroxysmal atrial fibrillation August 8:54am Pernicious anemia September 02, 2024 8:5 4am Primary hypertension September 02, 2024 8: 54am Type 2 diabetes mellitus with hyperglyce jose armando September 02, 2024 8:54am Chief Complaint Admit Date 3 month f/u September 02, 2024 8:5 4am Cough/COVID- October 22, 2024 9:1 2am follow up November 05, 2024 9:10a m Reason for Visit Admit Date Anemia September 02, 2024 8:5 4am ASHD (arteriosclerotic heart disease) [facility] 2024 8:54am Callus of foot September 02, 2024 8:5 4am Chronic kidney disease September 02, 2024 8:54am Chronic venous insufficiency September 02, 2024 8:54am Hypercholesterolemia September 02, 2024 8: 54am Paroxysmal atrial fibrillation August 8:54am Pernicious anemia September 02, 2024 8:5 4am Primary hypertension September 02, 2024 8: 54am Type 2 diabetes mellitus with hyperglyce jose armando September 02, 2024 8:54am Nausea & vomiting October 22, 2024 9:1 2am Diarrhea October 22, 2024 9:1 2am Acute bronchitis due to other specified organisms October 22, 2024 9:12am Acute bronchitis due to other specified organisms November 05, 2024 9:10am Acute exacerbation of chronic obstructiv e airways disease November 05, 2024 9:10am Allergic rhinitis November 05, 2024 9:10a m Chief Complaint Admit Date Cough/COVID- October 22, 2024 9:1 2am follow up November 05, 2024 9:10a m Wellness December 20, 2024 9:20 am Reason for Visit Admit Date Nausea & vomiting October 22, 2024 9:1 2am Diarrhea October 22, 2024 9:1 2am Acute bronchitis due to other specified organisms October 22, 2024 9:12am Acute bronchitis due to other specified organisms November 05, 2024 9:10am Acute exacerbation of chronic obstructiv e airways disease November 05, 2024 9:10am Allergic rhinitis November 05, 2024 9:10a m ASHD (arteriosclerotic heart disease) [facility] 2024 9:20am Chronic kidney disease December 20, 2024 9 :20am Chronic venous insufficiency December 20, 2024 9:20am Hypercholesterolemia December 20, 2024 9:2 0am Paroxysmal atrial fibrillation November 9:20am Peripheral arterial occlusive disease [facility] 2024 9:20am Pernicious anemia December 20, 2024 9:20 am Primary hypertension December 20, 2024 9:2 0am Type 2 diabetes mellitus with hyperglyce jose armando December 20, 2024 9:20am Medicare annual wellness visit, subseque nt December 20, 2024 9:20am Screening PSA (prostate specific antigen ) December 20, 2024 9:20am Reason for Referral Specialty Diagnoses / Procedures Referred By Contac t Referred To Contact Diagnoses Internal carotid artery stenosis, bilateral History of carotid endarterectomy Procedures Vas carotid duplex bilateral Eli Jasso MD [address], [address] [address] Referral ID Status Reason Start Date Expiration Date V isits Requested Visits Authorized [id number] Pending Review 10/05/2023 10/04/2024 1 1 Specialty Diagnoses / Procedures Referred By Contac t Referred To Contact Diagnoses PAD (peripheral artery disease) ([facility]) Procedures Vas art doppler lwr bilat mult lev/PVR Eli Jasso MD [address], [address] [address] Phone: Referral ID Status Reason Start Date Expiration Date V isits Requested Visits Authorized [id number] Pending Review 10/05/2023 10/04/2024 1 1 Specialty Diagnoses / Procedures Referred By Contac t Referred To Contact Diagnoses Claudication ([facility]) Bilateral carotid artery stenosis Procedures Vas art duplex lwr graft scan daydayat Eli Jasso MD [address], [address] [address] Referral ID Status Reason Start Date Expiration Date V isits Requested Visits Authorized [id number] Pending Review 01/18/2024 01/17/2025 1 1 Specialty Diagnoses / Procedures Referred By Contac t Referred To Contact Diagnoses Claudication ([facility]) Bilateral carotid artery stenosis Procedures Vas art doppler lwr bilat mult lev/PVR Eli Jasso MD [address], [address] [address] Phone: Referral ID Status Reason Start Date Expiration Date V isits Requested Visits Authorized [id number] Pending Review 01/18/2024 01/17/2025 1 1 Specialty Diagnoses / Procedures Referred By Contac t Referred To Contact Diagnoses Bilateral carotid artery stenosis Procedures Vas carotid duplex bilateral Eli Jasso MD [address], [address] [address] Phone: Referral ID Status Reason Start Date Expiration Date V isits Requested Visits Authorized [id number] Pending Review 01/18/2024 01/17/2025 1 1 Additional Source Comments (unrecognized sect ion and content) No Status Records FoundNo Status Records FoundNo Status Records FoundNo Status Records FoundNo Status Records Found INFORMATION SOURCE (unrecogn ized section and content) DATE CREATED AUTHOR 12/14/2017 [facility] DATE CREATED AUTHOR AUTHOR'S ORGANIZ ATION 10/08/2018 [facility] DATE CREATED AUTHOR AUTHOR'S ORGANIZ ATION 10/09/2022 [facility] DATE CREATED AUTHOR AUTHOR'S ORGANIZ ATION 10/06/2023 [facility] DATE CREATED AUTHOR AUTHOR'S ORGANIZ ATION 06/12/2024 [facility] REASON FOR VISIT (unrecogniz ed section [...] 2024 Team Status: Active Member Role Status Case Dawkins DO Primary Care Provide r, Attending Provider Active Start: December 23, 2023 Team Status: Inactive Member Role Status Case Dawkins DO Primary Care Provide r, Attending Provider Active Start: February 02, 2024 End: February 02, 2024 Team Status: Active Member Role Status Case Dawkins DO Primary Care Provide r, Attending Provider Active Start: March 04, 2024 Team Status: Inactive Member Role Status Case Dawkins DO Primary Care Provide r, Attending Provider Active Start: March 21, 2024 End: March 21, 2024 Team Status: Inactive Member Role Status Case Dawkins DO Attending Provider Active Sta rt: July 26, 2023 End: July 26, 2023 Team Status: Inactive Member Role Status Case Dawkins DO Primary Care Provide r, Attending Provider Active Start: August 25, 2023 End: August 25, 2023 Team Status: Inactive Member Role Status Dates Robin Dawkins DO Primary Care Provide r, Attending Provider Active Start: September 07, 2023 End: September 07, 2023 Team Status: Inactive Member Role Status Case Dawkins DO Primary Care Provide r, Attending Provider Active Start: December 19, 2023 End: December 19, 2023 School Guard Relationship Specialty Start Date End Date Robin Dawkins DO [address] [place] [address] PCP - General 03/15/16 School Guard Relationship Specialty Start Date End Date Robin Dawkins DO [address] [place] [address] PCP - General 03/15/16 Team Status: Active Member Role Status Dates Robin Dawknis DO Primary Care Provide r, Attending Provider Active Start: September 05, 2024 Team Status: Inactive Member Role Status Dates Robin Dawkins , DO Primary Care Provide r, Attending Provider Active Start: October 22, 2024 End: October 22, 2024 Team Status: Inactive Member Role Status Dates Robin Dawkins DO Primary Care Provide r, Attending Provider Active Start: November 05, 2024 End: November 05, 2024 Team Status: Inactive Member Role Status Dates Robin Dawkins DO Primary Care Provider Active Start: October 22, 2024 End: October 22, 2024 Robin Dawkins , Attending Provider Active Sta rt: October 22, 2024 End: October 22, 2024 Team Status: Inactive Member Role Status Dates Robin Dawkins Primary Care Provider Active Start: November 05, 2024 End: November 05, 2024 Robin Dawkins , Attending Provider Active Sta rt: November 05, 2024 End: November 05, 2024 Team Status: Inactive Member Role Status Dates Robin Dawkins Primary Care Provider Active Start: December 20, 2024 End: December 20, 2024 Robin Dawkins DO Attending Provider Active Sta rt: December 20, 2024 End: December 20, 2024 Goals (unrecognized section and content) Goals [...] BE BASED ON THE PRIMARY CLINICAL RECORDS. [facility]. provides no warranty or guarantee of the accuracy or completeness of information in this document.
--- OUTSIDE RECORDS SUMMARY | 2024-12-23 07:03 | XMS_ITS | Encounter Summary ---
Author Organization [facility] Address [id number] [address] [place] [address] Care Team Providers Care Compliance Spec Name Role Phone JuanchoRobin Lorena CARTER Primary Care Provider Encounter Details Date Type Department Care Team (Late st Contact Info) Description 04/29/2021 Orders Only [facility] [address] [place] [address] Ref Prov, [place] [address] Social History Tobacco Use Types Packs/Day Years Used Date Smoking Tobacco: Former Cigarettes 0 06/26/1974 - 06/26/1989 Smokeless Tobacco: Never Alcohol Use Standard Drinks/Week Comments Yes 24 (1 standard drink = 0.6 oz pu re alcohol) Social Connection and Isolat ion Panel [NHANES] Answer Date Recorded In a typical week, how many times do you talk on the phone with family, friends, or neighbors? Never 09/12/2020 How often do you get togethe r with friends or relatives? More than three times a week 09/12/2020 How often do you attend chur ch or judaism services? Never 09/12/2020 Do you belong to any clubs o r organizations such as mu-ism groups, unions, fraternal or athletic groups, or school groups? No 09/12/2020 How often do you attend meet ings of the clubs or organizations you belong to? Never 09/12/2020 Are you , , di vorced, , never , or living with a partner? 09/12/2020 AUDIT-C Answer Date Recorded Frequency of Alcohol Consumption Never 09/12/2020 Average Number of Drinks Not on file 021 Frequency of Binge Drinking Not on file 08/25 Overall Financial Resource Strain (CARDIA) Answe r Date Recorded How hard is it for you to pa y for the very basics like food, housing, medical care, and heating? Not hard at all 09/12/2020 PHQ-2 Answer Date Recorded Total Score 0 09/12/2020 [facility] - Occupational Stress Questionnaire Answer Date Recorded Do you feel stress - tense, restless, nervous, or anxious, or unable to sleep at night because your mind is troubled all the time - these days? Not at all 09/12/2020 Exercise Vital Sign Answer Date Recorde d On average, how many days pe r week do you engage in moderate to strenuous exercise (like a brisk walk)? 3 days 09/12/2020 On average, how many minutes do you engage in exercise at this level? 60 min 09/12/2020 PRAPARE - Transportation Answer Date Re corded In the past 12 months, has l ack of transportation kept you from medical appointments or from getting medications? No 08/25 In the past 12 months, has l ack of transportation kept you from meetings, work, or from getting things needed for daily living? No 09/12/2020 Childcare Answer Date Recorded Do problems getting child ca re make it difficult for you to work or study? No 09/12/2020 Employment Answer Date Recorded Do you need help finding a [facility] career center and/or a training program? No 09/12/2020 Purpose - Life Answer Date Recorded Purpose and direction in life Unknown Sex and Gender Information Value Date Recorded Sex Assigned at Not on file Legal Sex Male 11:08 AM EDT Gender Identity Not on file Sexual Orientation Not on file COVID-19 Exposure Response Date Recorded In the last month, have you been in contact with someone who was confirmed or suspected to have Coronavirus / COVID-19? No / Unsure 04/08/2021 9:25 AM EDT documented as of this encounter Plan of Treatment Upcoming Encounters Date Type Department Care Team (Late st Contact Info) Description 01/16/2025 9:10 AM EDT [facility] Visit [facility] [address] [place] [address] Eli Jasso MD [address], [address] [address] documented as of this encounter Goals Goal Patient Goal Type Associated Problems Recent Progress Patient-Stated? Author Discharge home with family support General Yes Akanksha Estrada, SURVEY STATISTICIAN Note: Evaluation of progress towards goal: Discharge home with family support documented as of this encounter Procedures Procedure Name Priority Date/Time Associated Diagnosis Comments VASC VENOUS DUPLEX LOWER BILATERAL Routine 04/28/2021 documented in this encounter Results * Vas venous duplex lwr bilateral (04/28/2021) Anatomical Region Laterality Modality Vascular Bilateral Ultrasound us Not In System Ref Prov CV VASCULAR ORDERABLES Fi nal Result documented in this encounter Visit Diagnoses Not on filedocumented in this encounter Additional Health Concerns Assessment Noted Time PHQ-9 Depression Total Score: 0 09/13/19 21 2:27 PM EDT documented as of this encounter Care Teams Compliance Spec Relationship Specialty Start Date End Date Robin Dawkins DO [address] [place] [id number] PCP - General 03/15/16 documented as of this encounter
--- OUTSIDE RECORDS SUMMARY | 2024-12-23 07:03 | XMS_ITS | Clinical Summary ---
Author Organization [facility] Address [address] [place] [address] Care Team Providers Care Product Developer Name Role Phone Robin Dawkins DO Primary Care Provider [phone] Allergies Active Allergy Reactions Criticality Noted Date Comments Atorvastatin Nausea Only Low 03/16/2016 Cilostazol Swelling Low 01/02/2023 Legs swelled Lisinopril Cough Low 11/01/2018 Other Reaction(s): Not available Losartan Hives Low 11/01/2018 Other Reaction(s): Not available Medications allopurinol (Zyloprim) 300 MG tablet Take 1 tablet by mouth in the morning. Active amLODIPine (Norvasc) 10 MG tablet Take 10 mg by mouth in the morning. 3 Active metoprolol tartrate (Lopressor) 100 MG tablet Take 1 tablet by mouth in the morning and 1 tablet before bedtime. 3 Active furosemide (Lasix) 40 MG tablet Take 40 mg by mouth in the morning. 3 Active rosuvastatin (Crestor) 20 MG tablet Take 20 mg by mouth at bedtime. 3 Active clopidogrel (Plavix) 75 MG tablet Take 1 tablet by mouth in the morning. Active metFORMIN (Glucophage) 500 MG tablet TAKE 1 TABLET BY MOUTH BEFORE BREAKFAST AND EVENING MEAL Active potassium chloride CR (K-Tab) 20 MEQ ER tablet TAKE 1 TABLET BY MOUTH IN THE MORNING DIRECTED 3 Active aspirin 81 MG EC tablet Take 81 mg by mouth at bedtime. 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 Dry eyes 03/08/2023 Family History Medical History Relation Name Comments Diabetes Maternal Grandmother Hypertension Mother Diabetes Sister Relation Name Status Comments Maternal Grandmother Mother Sister Social History Tobacco Use Types Packs/Day Years Used Date Smoking Tobacco: Former Cigarettes Tobacco Cessation:Counseling Given: Yes Sex and Gender Information Value Date Recorded Sex Assigned at Not on file Legal Sex Male 9:35 PM EDT Gender Identity Not on file Sexual Orientation Not on file Last Filed Vital Signs Vital Sign Reading Time Taken Comments Blood Pressure 144/77 03/15/2019 12:00 PM EDT Pulse - - Temperature - - Respiratory Rate - - Oxygen Saturation - - Inhaled Oxygen Concentration - - Weight 114 kg (252 lb) 03/15/2019 12:00 PM EDT Height 185.4 cm (6' 1 ) 03/15/2019 12:00 PM EDT Body Mass Index 33.25 03/15/2019 12:00 PM EDT Plan of Treatment Health Maintenance Due Date Last Done Comments Pneumococcal Vaccine: 65+ Ye ars (2 of 2 - PCV) 09/24/2016 09/25/2015, 12/30/2013, 04/04/2013 Influenza Vaccine (Season Ended) 2025 04/06/2022, 03/31/2021, 04/12/2018, Additional history exists Insurance [facility]ICARE [facility] Care Teams Product Developer Relationship Specialty Start Date End Date Robin Dawkins DO PCP - General Internal Medicine 03/08/23
--- OUTSIDE RECORDS SUMMARY | 2024-12-23 07:03 | XMS_ITS | Clinical Summary ---
Author Organization [employer] [facility] Address [id number] [address] [place] [address] Care Team Providers Care Hunter Skin Diver Name Role Phone Robin Dawkins Primary Care Provider Allergies Active Allergy Reactions Criticality Noted Date Comments Atorvastatin Nausea Low 03/16/2016 Cilostazol Swelling Low 01/02/2023 Legs swelled Lisinopril Cough Low 11/01/2018 Losartan Hives Low 11/01/2018 Kzbzvkh-Ayn-Huh Reductase Inhibitors 07/26/2023 Medications omega-3 fatty acids-fish oil (FISH OIL) 360-1,200 mg capsule Take 3 capsules by mouth in the evening. Active metFORMIN (GLUCOPHAGE) 500 mg tablet Take 1 tablet (500 mg total) by mouth in the morning and 1 tablet (500 mg total) in the evening. Take with meals. Active metoprolol tartrate (LOPRESSOR) 50 mg tablet Take 3 tablets (150 mg total) by mouth in the morning and 3 tablets (150 mg total) before bedtime. Active potassium chloride (K-TAB,KLOR-CON ) 20 mEq CR tablet Take 1 tablet (20 mEq total) by mouth nightly. Active amLODIPine (NORVASC) 10 mg tablet 04/03/2018 Active furosemide (LASIX) 40 mg tablet Take 1 tablet (40 mg total) by mouth daily. Active aspirin 81 mg Take 1 tablet (81 mg total) by mouth nightly. Active allopurinoL (ZYLOPRIM) 300 mg tablet Take 1 tablet (300 mg total) by mouth in the morning. Active rosuvastatin (CRESTOR) 20 mg tablet Take 1 tablet (20 mg total) by mouth nightly. Active rivaroxaban (XARELTO) 2.5 mg tablet Take 1 tablet (2.5 mg total) by mouth in the morning and 1 tablet (2.5 mg total) before bedtime. 60 tablet 3 01/11/2023 Active clopidogreL (PLAVIX) 75 mg tablet Take 1 tablet by mouth once daily 90 tablet 06/10/2024 Active Active Problems Problem Noted Date Diagnosed Date Bilateral carotid artery stenosis 01/18/2024 Assessment & Plan (01/18/2024 9:44 AM EDT): He is wide open left carotid endarterectomy site. On the right side he has moderate stenosis. No stroke or mini strokes. Recommend continue aspirin atorvastatin and he is also on Xarelto. Will get surveillance imaging in a year. Claudication 01/18/2024 Assessment & Plan (01/18/2024 9:44 AM EDT): He has some claudication more on the left side. He had previous bypasses bilaterally. He does not have tissue loss or rest pain. He will continue aspirin statin and Xarelto. Discussed with him risk factors modification supervised walking program. He declined supervised walking program however he will continue to do walking program at home.We will get PVR and duplex ultrasound in a year PVD (peripheral vascular disease) 12/21/2022 Claudication 12/21/2022 Encounter for therapeutic drug monitoring 2022 PAD (peripheral artery disease) 10/01/2020 Overview (10/01/2020): Added automatically from request for surgery [id number] Assessment & Plan (10/05/2023 9:35 AM EDT): PVR, Arterial duplex US Cardiac arrhythmia 09/17/2020 Lower limb ischemia 09/12/2020 History of carotid endarterectomy 11/02/2018 Internal carotid artery stenosis, bilateral 10/24 Assessment & Plan (10/05/2023 9:34 AM EDT): Carotid duplex US Bilateral lower extremity pain 11/02/2018 Immunizations Immunization Administration Dates Next Due Influenza (IM) Preservative Free 04/19/2014 Influenza High Dose Preservative Free IM 017,04/04/2016 Influenza Vaccine, Quadrivalent, Adjuvanted 03/26 Influenza, High-dose, Quadrivalent 03/31/2021 Influenza, Im Trivalent Preservative 04/08/2013 Influenza, Injectable, Quadrivalent 05/26/2017 Influenza, Trivalent, Adjuvanted 04/12/2018 Pneumococcal Polysaccharide 12/30/2013 Pneumococcal, Unspecified 09/25/2015,04/04/2013 Tdap 11/16/2022 Zoster Live 03/12/2015 Family History Medical History Relation Name Comments Cancer Father Heart disease Mother Heart failure Mother Diabetes Sister 1 Diabetes Sister 2 Arthritis Sister 5 leo Relation Name Status Comments Father Mother Sister 1 Sister 2 Alive Sister 3 Alive Sister 4 Alive Sister 5 leo Alive Social History Tobacco Use Types Packs/Day Years Used Date Smoking Tobacco: Former Cigarettes 1 15 0 06/26/1974 - 06/26/1989 Smokeless Tobacco: Never Tobacco Cessation:Counseling Given: Yes Alcohol Use Standard Drinks/Week Comments Yes 8 (1 standard drink = 0.6 oz pur e alcohol) Social Connection and Isolat ion Panel [NHANES] Answer Date Recorded In a typical week, how many times do you talk on the phone with family, friends, or neighbors? Never 09/12/2020 How often do you get togethe r with friends or relatives? More than three times a week 09/12/2020 How often do you attend chur or mu-ism services? Never 09/12/2020 Do you belong to any clubs o r organizations such as latter day groups, unions, fraternal or athletic groups, or school groups? No 09/12/2020 How often do you attend meet ings of the clubs or organizations you belong to? Never 09/12/2020 Are you , , di vorced, , never , or living with a partner? 09/12/2020 AUDIT-C Answer Date Recorded Q1: How often do you have a drink containing alcohol? Never 01/11/2023 Q2: How many drinks containi ng alcohol do you have on a typical day when you are drinking? Patient does not drink Q3: How often do you have si x or more drinks on one occasion? Never 01/11/2023 Overall Financial Resource Strain (CARDIA) Answe r Date Recorded How hard is it for you to pa y for the very basics like food, housing, medical care, and heating? Not hard at all 09/12/2020 PHQ-2 Answer Date Recorded Total Score 0 01/11/2023 [facility] Questionnaire Answer Date Recorded [...] Recorded Do you need help finding a [facility] career center and/or a training program? No 09/12/2020 Hunger Screening Answer Date Recorded Within the past 12 months we worried whether our food would run out before we got money to buy more. Never True 10/05/2023 Within the past 12 months th e food we bought just didn't last and we didn't have money to get more. Never True 10/05/2023 Purpose - Life Answer Date Recorded Purpose and direction in life Unknown Sex and Gender Information Value Date Recorded Sex Assigned at Not on file Legal Sex Male 11:08 AM EDT Gender Identity Not on file Sexual Orientation Not on file Last Filed Vital Signs Vital Sign Reading Time Taken Comments Blood Pressure 124/65 10/05/2023 10:37 AM EDT Pulse 65 10/05/2023 10:37 AM EDT Temperature 36 C (96.8 F) 01/11/2023 3:00 PM EDT Respiratory Rate 18 01/26/2023 11:06 AM EDT Oxygen Saturation 100% 01/11/2023 3:00 PM EDT Inhaled Oxygen Concentration - - Weight 99 kg (218 lb 3.2 oz) 10/05/2023 10:37 AM EDT Height 188 cm (6' 2 ) 10/05/2023 10:37 AM EDT Body Mass Index 28.02 10/05/2023 10:37 AM EDT Plan of Treatment Upcoming Encounters Date Type Department Care Team (Late st Contact Info) Description 01/16/2025 9:10 AM EDT Office Visit [facility] [address] [place] [phone] Eli Jasso MD [address], [address] [address] Health Maintenance Due Date Last Done Comments Abdominal Aortic Aneurysm (A AA) Screen 2009 Fall Risk Screening 2009 Depression Screening 01/12/2024 01/11/2023 COVID-19 Vaccine (2023-2 5 season) 2024 04/11/2023, 03/17/2022, 10/06/2021, Additional history exists Tobacco Screening 10/04/2024 10/05/2023 Influenza Vaccine 02/24/2025 04/11/2023, , 03/31/2021, Additional history exists DTaP,Tdap and Td Vaccines (5 - Td or Tdap) 11/16/2032 11/16/2022, 11/16/2022, 04/03/2013, Additional history exists Zoster (Shingles) Vaccine Completed 2023, 09/27/2023, 03/12/2015, Additional history exists Goals Goal Patient Goal Type Associated Problems Recent Progress Patient-Stated? Author Discharge home with family support General Yes Akanksha Estrada LSW Note: Evaluation of progress towards goal: Discharge home with family support Medical Devices Implanted Type Area Churn Driller Device Identifier Shelf Expiration Date Model / Serial / Lot Ptch Photofix 0.8x8cm Rpl [id number] - [id number] Implanted:Qty: 1 on 09/15/2020 by Pablito Painting MD at [facility] Graft Right: Arterial CRYOLIFE 04/24/2022 [id number] / / [id number] Description:RIGHT FEMORAL AR PAUL Gft Hep Rr T8mm 70cm [id number] - [id number] - [id number] Implanted:Qty: 1 on 09/15/2020 by Pablito Painting MD at [facility] Graft Right: Arterial Lucinda 08/29/2023 [id number] / [id number] / Description:RIGHT FEMORAL AR PAUL TO POPLITEAL ARTERY Stent 7mm 11mm 7fr 59mm Bln Expandable Gw Lucinda Vbhn Vbx - [id number] - [id number] Implanted:Qty: 1 on 01/11/2023 by Jostin Baldwin MD at [facility] Stent Left: Arterial Lucinda 10/21/2025 [id number] / [id number] / Description:LEFT ILIAC ARTER Y Stent Dayday 7mm 37mm 75cm 40mm Otw Prmnt Bln Xpd Rdpq Ilc Xpr Rpl [id number] - [id number] Implanted:Qty: 1 on 01/11/2023 by Jostin Baldwin MD at [facility] Stent Left: Arterial [employer]IP HER[employer] I 10/05/2025 [id number] / / [id number] Description:LEFT ILIAC [place] [address] MEDICARE [facility] Advance Directives Documents on File Type Date Recorded Patient Box Loader Expl anation Durable Power of Longitudinal Float Operator 09/23/2020 4:09 PM Living Will 09/23/2020 4:09 PM * Full Code (Latest Code Status on File) Date Activated Date Inactivated Comments 09/12/2020 10:19 AM 09/20/2020 2:16 PM Care Teams Hunter Skin Diver Relationship Specialty Start Date End Date Robin Dawkins DO [address] [place] [address] PCP - General 03/15/16
--- OUTSIDE RECORDS SUMMARY | 2024-12-23 07:03 | XMS_ITS | Encounter Summary ---
Author Organization [facility] Address [facility] [id number] [address] [place] [address] Care Team Providers Care Model And Dye Person Name Role Phone JuanchoRobin Lroena CARTER Primary Care Provider [phone] Encounter Details Date Type Department Care Team (Late st Contact Info) Description 02/03/2021 Orders Only [facility] [address] [place] [address] Ref Prov, [place] [address] Social History Tobacco Use Types Packs/Day Years [...] often do you attend chur ch or tenriism services? Never 09/12/2020 Do you belong to any clubs o r organizations such as denominational groups, unions, fraternal or athletic groups, or [...] Answer Date Recorded Total Score 0 09/12/2020 [facility]at ional Health - Occupational Stress [...] Recorded Do you need help finding a [facility] career center and/or a training [...] have Coronavirus / COVID-19? No / Unsure 01/14/2021 9:23 AM EDT documented as of this encounter Plan of Treatment Upcoming Encounters Date Type Department Care Team (Late st Contact Info) Description 01/16/2025 9:10 AM EDT Office Visit [facility] [address] [place] [address] Eli Jasso MD [address], [address] [address] documented as of this encounter Goals Goal Patient Goal Type Associated Problems Recent Progress Patient-Stated? Author Discharge home with family support General Yes Akanksha Estrada, ENVIRONMENTAL ENGINEERING ASSISTANT Note: Evaluation of progress towards goal: Discharge home with family support documented as of this encounter Procedures Procedure Name Priority Date/Time Associated Diagnosis Comments STRESS TEST, PULMONARY Routine 12/17/2020 documented in this encounter Results * Stress test, pulmonary (12/17/2020) us Not In System Ref Prov PFT ORDERABLES Final Res ult MANUALLY TRANSCRIBED RESULTS documented in this encounter Visit Diagnoses Not on filedocumented in this encounter Additional Health Concerns Assessment Noted Time PHQ-9 Depression Total Score: 0 09/13/19 21 2:27 PM EDT documented as of this encounter Care Teams Model And Dye Person Relationship Specialty Start Date End Date Robin Dawkins DO [address] [place] [id number] PCP - General 03/15/16 documented as of this encounter
--- OUTSIDE RECORDS SUMMARY | 2024-12-23 07:03 | XMS_ITS | Referral Summary ---
Author Organization [facility] Address [address] [place] [address] Care Team Providers Care Counselor Marriage And Family Name Role Phone Robin Dawkins DO Primary Care Provider [phone] Encounters Date Type Department Care Team Description 11/19/2024 Refill [facility] Heart at [facility] [address] [place] [address] uHe Dale MA Cardiac arrhythmia, unspecified cardiac arrhythmia type; Coronary artery disease due to lipid rich plaque from Last 3 Months Allergies Active Allergy Reactions Criticality Noted Date Comments Lisinopril 11/01/2018 Losartan 11/01/2018 Qbbglqo-Xld-Wzb Reductase Inhibitors Other Medium 06/13/2014 Medications allopurinol (Zyloprim) 300 mg tablet allopurinol 300 mg tablet TAKE 1 TABLET BY MOUTH ONCE DAILY Active aspirin 81 mg EC tablet in the morning. Acti ve clopidogrel (Plavix) 75 mg tablet clopidogrel 75 mg tablet Active metFORMIN (Glucophage) 500 mg tablet metformin 500 mg tablet TAKE 1 TABLET BY MOUTH BEFORE BREAKFAST AND EVENING MEAL Active omega-3 fatty acids-fish oil 360-1,200 mg capsule Take 3 capsules by mouth in the morning. Active metoprolol tartrate (Lopressor) 100 mg tabletIndication s:Cardiac arrhythmia, unspecified cardiac arrhythmia type metoprolol tartrate 100 mg tablet TAKE 1 TABLET BY MOUTH TWICE DAILY 180 tablet 3 3 Active Additional Information Patient taking differently: 100 mg oral 2 times daily, In addition to metoprolol tartrate 50mg bid, Reported on 06/10/2024 metoprolol tartrate (Lopressor) 50 mg tabletIndication s:Cardiac arrhythmia, unspecified cardiac arrhythmia type metoprolol tartrate 50 mg tablet TAKE 1 TABLET BY MOUTH TWICE DAILY 180 tablet 3 3 Active Additional Information Patient taking differently: 50 mg oral 2 times daily, In addition to metoprolol tartrate 100mg bid, Reported on 06/10/2024 amLODIPine (Norvasc) 10 mg tabletIndication s:Essential hypertension Take 1 tablet (10 mg) by mouth in the morning. 90 tablet 3 4 02/15/20 25 Active furosemide (Lasix) 40 mg tabletIndication s:Leg edema Take 1 tablet (40 mg) by mouth in the morning. 90 tablet 3 4 Active potassium chloride CR (K-Tab) 20 mEq ER tabletIndication s:Cardiac arrhythmia, unspecified cardiac arrhythmia type Take 1 tablet (20 mEq) by mouth in the morning. Do not crush, chew, or split. 90 tablet 3 5 11/20/19 26 Active rosuvastatin (Crestor) 20 mg tabletIndication s:Coronary artery disease due to lipid rich plaque TAKE 1 TABLET BY MOUTH ONCE DAILY IN THE EVENING 90 tablet 3 5 Active Active Problems Problem Noted Date Diagnosed Date Acute seasonal allergic rhinitis due to pollen 1 08/11/2023 Anemia 06/10/2024 Chronic kidney disease 06/10/2024 Chronic venous insufficiency 06/10/2024 Gastroesophageal reflux dise ase with esophagitis without hemorrhage 06/10/2024 Other chronic pain 06/10/2024 Post-herpetic polyneuropathy 06/10/2024 Type 2 diabetes mellitus with hyperglycemia 05/26 Bilateral carotid artery stenosis 01/18/2024 Dry eyes 03/08/2023 06/14/2023 PCO (posterior capsular opacification), left 06/14/2023 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 May hold plavix if needed Paroxysmal atrial fibrillation 11/11/2020 Assessment & Plan (12/14/2022 11:11 AM EDT): Continue metoprolol for rate control, anticoagulation was DCd per Dr Lucero. In rhythm per assessment Previous note per Dr Lucero ----- ------ Mr. Marrufo is stable from the cardiac [...] fibrillation happened in the setting of COVID-19 infection. PAD (peripheral artery disease) 10/01/2020 Overview (05/26/2022): Added automatically from request for surgery [id number] Assessment & Plan (12/14/2022 10:21 AM EDT): PT is planning for angiogram/intervention with Dr Baldwin- vascular surgery Cardiac arrhythmia 09/17/2020 Lower limb ischemia 09/12/2020 Bilateral lower extremity pain 11/02/2018 History of carotid endarterectomy 11/02/2018 Internal carotid artery stenosis, bilateral 10/24 Coronary atherosclerosis 03/23/2012 Assessment & Plan (12/14/2022 10:19 AM EDT): Coronary artery disease is stable without concerning symptoms Continue GDMT- ASA, plavix, metoprolol, crestor continue risk factor modifications- heart healthy diet, regular exercise as tolerated and continue all medications. Abnormal results of cardiovascular function stud ies 02/07/2012 Hyperlipidemia 02/07/2012 Assessment & Plan (12/14/2022 10:20 AM EDT): Lipid abnormalities are Continue crestor- pt having annual labs tomorrow and if LDL remains > 70 he needs to increase crestor to 40 mg daily Chol 163, LDL 99.4 Intracranial subdural hemorrhage 02/07/2012 Obesity 02/07/2012 Type 2 diabetes mellitus without complication Carotid artery occlusion 12/09/2011 Essential hypertension 12/09/2011 Assessment & Plan (12/14/2022 10:19 AM EDT): Hypertension is well controlled 126/70 Continue amlodipine, metoprolol Immunizations Immunization Administration Dates Next Due Covid (thinkingphones) Bivalent Yoel ter =>12 YRS 03/17/2022 Influenza, High Dose Seasona l, Preservative Free 05/11/2017,04/04/2016 Influenza, High-dose Seasona l, Quadrivalent, Preservative Free 03/31/2021 Influenza, Seasonal, Quadriv alent, Adjuvanted 04/06/2022 Influenza, injectable, quadrivalent 05/26/2017 Influenza, seasonal, injectable 04/08/2013 Influenza, seasonal, injecta ble, preservative free, 6 moonths & older 04/19/2014 Influenza, trivalent, adjuvanted 04/12/2018 Pneumococcal Polysaccharide PPV23 12/30/2013 Pneumococcal, Unspecified 09/25/2015,04/04/2013 Unspecified Sars-Cov-2 Vaccination 10/06,03/31/2021,09/28/2020,09/01 Zoster, live 03/12/2015 Social History Tobacco Use Types Packs/Day Years Used Date Smoking Tobacco: Former Cigarettes Smokeless Tobacco: Never Tobacco Cessation:Counseling Given: Not Answered [place] Safety & Environment Answer Date Rec orded Fear of Current or Ex-Partner Not on file Emotionally Abused Not on file 08/17/2023 Physically Abused Not on file 08/17/2023 Sexually Abused Not on file 08/17/2023 Physically or Sexually Abused Not on file Sex and Gender Information Value Date Recorded Sex Assigned at Not on file Legal Sex Male 10:09 PM EDT Gender Identity Not on file Sexual Orientation Not on file Last Filed Vital Signs Vital Sign Reading Time Taken Comments Blood Pressure 148/72 06/10/2024 2:52 PM EST Pulse 65 06/10/2024 2:52 PM EST Temperature 36.1 C (96.9 F) 10/03/2018 1:24 PM EDT Respiratory Rate - - Oxygen Saturation 98% 06/10/2024 2:52 PM EST Inhaled Oxygen Concentration - - Weight 105 kg (231 lb) 06/10/2024 2:52 PM EST Height 188 cm (6' 2 ) 06/10/2024 2:52 PM EST Body Mass Index 29.66 06/10/2024 2:52 PM EST Plan of Treatment Not on file Insurance MEDICARE [facility] Care Teams Counselor Marriage And Family Relationship Specialty Start Date End Date Robin Dawkins DO [address] [facility] [place] [place] [id number] PCP - General 05/26/22
--- OUTSIDE RECORDS SUMMARY | 2024-12-23 07:03 | XMS_ITS | Clinical Summary ---
Author Organization [facility] Address [address] [place] [address] Care Team Providers Care Topographical Field Assistant Name Role Phone Robin Dawkins DO Primary Care Provider [phone] Allergies Active Allergy Reactions Criticality Noted Date Comments Lisinopril 11/01/2018 Losartan 11/01/2018 Vqyqzqv-Afh-Dtl Reductase Inhibitors Other Medium 06/13/2014 Medications allopurinol [...] Risk 15.0 % 30-day risk of , [place], or cardiac arrest From a cardiology perspective [...] (05/26/2022): Added automatically from request for surgery [id number] Assessment & Plan (12/14/2022 10:21 AM EDT): [...] is well controlled 126/70 Continue amlodipine, metoprolol Encounters Date Type Department Care Team Description 11/19/2024 Refill [facility] Heart at [facility] [address] [place] [address] Hue Dale MA Cardiac arrhythmia, unspecified cardiac arrhythmia type; Coronary artery disease due to lipid rich plaque from Last 3 Months Immunizations Immunization Administration Dates Next Due Covid (WireImage) Bivalent Yoel ter =>12 YRS 03/17/2022 Influenza, [...] Unspecified Sars-Cov-2 Vaccination 10/06,03/31/2021,09/28/2020,09/01 Zoster, live 03/12/2015 Family History Medical History Relation Name Comments Heart failure Mother Relation Name Status Comments Mother Social History Tobacco Use Types Packs/Day Years [...] 06/10/2024 2:52 PM EST Plan of Treatment Health Maintenance Due Date Last Done Comments Diabetes: Hemoglobin A1C 1945 Medicare Annual Wellness (AWV) 1945 Diabetes: Retinopathy Screening 1954 Depression Screening 1956 Diabetes: Urine Protein Screening 08/28/1963 Fall Risk Screening 2009 Pneumococcal Vaccine: 50+ Years (2 of 2 - PCV) 09/24/2016 09/25/2015, 12/30/2013, 04/04/2013 COVID-19 Vaccine ( season) 2024 04/12/2024, 04/11/2023, 03/17/2022, Additional history exists Adult Tetanus 11/16/2032 11/16/2022 Zoster Vaccines Completed 12/04/2023, 04/0 08/2023, 03/12/2015 Influenza Vaccine Completed 04/12/2024, , 04/06/2022, Additional history exists HIB Vaccines Aged Out No longer eligi ble based on patient's age to complete this topic HPV Vaccines Aged Out No longer eligi ble based on patient's age to complete this topic IPV Vaccines Aged Out No longer eligi ble based on patient's age to complete this topic Meningococcal B Vaccine Aged Out No l onger eligible based on patient's age to complete this topic Meningococcal Vaccine Aged Out No kranthi pipe eligible based on patient's age to complete this topic Rotavirus Vaccines Aged Out No longer eligible based on patient's age to complete this topic Insurance MEDICARE [facility] Care Teams Topographical Field Assistant Relationship Specialty Start Date End Date Robin Dawkins DO [address] [facility] [place] [address] PCP - General 05/26/22
--- OUTSIDE RECORDS SUMMARY | 2024-12-23 07:03 | XMS_ITS | Encounter Summary ---
Author Organization [facility] Address [id number] [address] [place] [address] Care Team Providers Care Cardiology Consultants Name Role Phone Robin Dawkins Lorena CATRER Primary Care Provider Encounter Details Date Type Department Care Team (Late st Contact Info) Description 01/18/2024 Orders Only [facility] [address] [place] [address] Francy Lowe CMA Claudication ([facility]); Bilateral carotid artery stenosis Social History Tobacco Use Types Packs/Day Years Used Date Smoking Tobacco: Former Cigarettes 1 15 0 06/26/1974 - 06/26/1989 Smokeless Tobacco: Never Alcohol Use Standard Drinks/Week Comments Yes 8 [...] often do you attend chur ch or church services? Never 09/12/2020 Do you belong to any clubs o r organizations such as judaism groups, unions, fraternal or athletic groups, or [...] Answer Date Recorded Total Score 0 01/11/2023 [facility] of Occupat ional Health - Occupational Stress [...] Recorded Do you need help finding a [facility] and/or a training program? No [...] on file Sexual Orientation Not on file documented as of this encounter Plan of Treatment Upcoming Encounters Date Type Department Care Team (Late st Contact Info) Description 01/16/2025 9:10 AM EDT Office Visit [facility] Surgery [address] [place] [address] Eli Jasso MD [address], [address] [address] documented as of this encounter Goals Goal Patient Goal Type Associated Problems Recent Progress Patient-Stated? Author Discharge home with family support General Yes Akanksha Estrada, JAVA CONSULTANT Note: Evaluation of progress towards goal: Discharge home with family support documented as of this encounter Procedures Procedure Name Priority Date/Time Associated Diagnosis Comments CT CTA CAROTID Routine 01/18/2024 4:53 PM EDT documented in this encounter Results * CT angiogram carotid (01/18/2024 4:53 PM EDT) Anatomical Region Laterality Modality Neuro, Neck, Vascular, Neuro Covera N/A Computed Tomography us Eli Jasso MD IMG CT ORDERABLES Final Resul t documented in this encounter Visit Diagnoses Diagnosis Claudication Unspecified peripheral vascular disease Bilateral carotid artery stenosis Occlusion and stenosis of carotid artery without mention of cerebral infarction documented in this encounter Additional Health Concerns Assessment Noted Time PHQ-9 Depression Total Score: 0 01/12/20 23 2:26 PM EDT documented as of this encounter Care Teams Cardiology Consultants Relationship Specialty Start Date End Date Robin Dawkins DO [address] [place] [address] PCP - General 03/15/16 documented as of this encounter
--- OUTSIDE RECORDS SUMMARY | 2024-12-23 07:03 | XMS_ITS | Encounter Summary ---
Author Organization [facility] Address [address] [place] [address] Care Team Providers Care Counter Supply Worker Name Role Phone Robin Dawkins DO Primary Care Provider Encounter Details Date Type Department Care Team (Late st Contact Info) Description 01/15/2024 Clinisync Result Encounter [facility] External Department Unsolicited Janes Jasso MD [address], [address] [address] Social History Tobacco Use Types Packs/Day Years Used Date Smoking Tobacco: Former Cigarettes Sex and Gender Information Value Date Recorded Sex Assigned at Not on file Legal Sex Male 9:35 PM EDT Gender Identity Not on file Sexual Orientation Not on file documented as of this encounter Plan of Treatment Not on file documented as of this encounter Procedures Procedure Name Priority Date/Time Associated Diagnosis Comments VASC US CAROTID ARTERY DUPLEX BILATERAL 01/15/2024 7:45 AM EDT documented in this encounter Results * Vascular US carotid artery duplex bilateral (01/15/2024 7:45 AM EDT) Anatomical Region Laterality Modality Neck Ultrasound 01/15/2024 7:45 AM EDT Narrative 01/15/2024 7:47 AM EDT The [address] [address] Vein Report Signed Patient: POOJA MARRUFO MR#: [id number] : 1945 Acct:[id number] Age/Sex: 78 / M ADM Date: 01/11/24 Loc: VC Attending Dr: Janes Jasso M.D. Ordering Physician: Janes Jasso M.D. Date of Service: 01/11/24 Procedure(s): VC US Carotid Accession Number(s): [id number] cc: Robin Dawkins D.O.; Janes Jasso M.D. The [place] [id number] Patient Name: POOJA MARRUFO MRN: [id number] date: 1945 Sex: M Assigned Patient Location: Current Patient Location: VC Accession/Order Number: [id number] Exam Date: 01/11/2024 10:17 Report Date: 01/15/2024 07:45 At the request of: JANES JASSO Procedure: VC US Carotid EXAM: VC US Carotid HISTORY: I65.23 COMPARISON: None. TECHNIQUE: Grayscale, color and Doppler FINDINGS: Right neck: Moderate atherosclerosis with maximal reduction 71% in the mid internal carotid artery Subclavian: 101 cm/s CCA: 93 - 103 cm/s ICA: 101 - 179 cm/s Bulb: 67 cm/s ECA: 75 cm/s Vertebral: 40 cm/s antegrade ICA/CCA ratio: 2.4 Left neck: Mild atherosclerosis Subclavian: 81 cm/s CCA: 83-95 cm/s ICA: 82-108 cm/s Bulb: 73 cm/s ECA: 56 cm/s Vertebral: 60 cm/s antegrade ICA/CCA ratio: 1.1 VEIN/VC US Carotid IMPRESSION: Flow velocities suggests 50-69% flow stenosis in the right internal artery artery although the maximum area of reduction was measured 71% 0-49% flow stenosis left internal carotid artery Electronically authenticated by: JESSIE ALLEN Date: 01/15/2024 07:45 Dictated By: Jessie Allen M.D. Signed By: 01/15/2447 DD/ TD/TT: Concrete Bucket Loader: Procedure Note Radiology, Radiologist, - 01/15/2024 [place] [address] Vein Report Signed Patient: POOJA MARRUFO RMR#: [id number] : 5Acct:[id number] Age/Sex: 78 / MADM Date: 01/11/24 Loc: VC Attending Dr: Janes Jasso M.D. Ordering Physician: Janes Jasso M.D. Date of Service: 01/11/24 Procedure(s): VC US Carotid Accession Number(s): [id number] cc: Robin Dawkins D.O.; Janes Jasso M.D. [place] [address] Patient Name: POOJA MARRUFO MRN: [facility]:[id number] date: 1945 Sex: M Assigned Patient Location: Current Patient Location: Accession/Order Number: [id number] Exam Date: 01/11/2024 10:17 Report Date: 01/15/2024 07:45 At the request of: JANES JASSO Procedure: VC US Carotid EXAM: VC US Carotid HISTORY: I65.23 COMPARISON: None. TECHNIQUE: Grayscale, color and Doppler FINDINGS: Right neck: Moderate atherosclerosis with maximal reduction 71% in the mid internal carotid artery Subclavian: 101 cm/s CCA: 93 - 103 cm/s ICA: 101 - 179 cm/s Bulb: 67 cm/s ECA: 75 cm/s Vertebral: 40 cm/s antegrade ICA/CCA ratio: 2.4 Left neck: Mild atherosclerosis Subclavian: 81 cm/s CCA: 83-95 cm/s ICA: 82-108 cm/s Bulb: 73 cm/s ECA: 56 cm/s Vertebral: 60 cm/s antegrade ICA/CCA ratio: 1.1 VEIN/VC US Carotid IMPRESSION: Flow velocities suggests 50-69% flow stenosis in the right internal artery artery although the maximum area of reduction was measured 71% 0-49% flow stenosis left internal carotid artery Electronically authenticated by: JESSIE ALLEN Date: 01/15/2024 07:45 Dictated By: Jessie Allen M.D. Signed By:01/15/2447 DD/ TD/TT: Concrete Bucket Loader: us Janes Jasso MD IMG US PROCEDURES Final Resu lt documented in this encounter Visit Diagnoses Not on filedocumented in this encounter Care Teams Counter Supply Worker Relationship Specialty Start Date End Date Robin Dawkins DO PCP - General Internal Medicine 03/08/23 documented as of this encounter
--- OUTSIDE RECORDS SUMMARY | 2024-12-23 07:03 | XMS_ITS | Encounter Summary ---
Author Organization [facility] Address [address] [place] [address] Care Team Providers Care Want Ad Receiver Name Role Phone Robin Dawkins DO Primary Care Provider [phone] Encounter Details Date Type Department Care Team (Late st Contact Info) Description 01/15/2024 Clinisync Result Encounter [facility] External Department Unsolicited Janes Jasso MD [address], [address] [address] Social History Tobacco Use Types Packs/Day Years [...] Procedure Name Priority Date/Time Associated Diagnosis Comments SEGMENTAL BLOOD PRESSURE 01/15/2024 7:41 AM EDT documented in this encounter Results * SEGMENTAL BLOOD PRESSURE (01/15/2024 7:41 AM EDT) Anatomical Region Laterality Modality Radiographic Rufina ging 01/15/2024 7:41 AM EDT Narrative 01/15/2024 7:44 AM EDT The [address] [address] Vein Report Signed Patient: POOJA MARRUFO MR#: [id number] : 1945 Acct:[id number] Age/Sex: 78 / M ADM Date: 01/11/24 Loc: VC Attending Dr: Janes Jasso M.D. Ordering Physician: Janes Jasso M.D. Date of Service: 01/11/24 Procedure(s): VC SEGMENTAL PRESSURES Accession Number(s): [id number] cc: Robin Dawkins D.O.; Janes Jasso M.D. The [place] [id number] Patient Name: POOJA MARRUFO MRN: [id number] date: 1945 Sex: M Assigned Patient Location: Current Patient Location: Accession/Order Number: [id number] Exam Date: 01/11/2024 10:20 Report Date: 01/15/2024 07:41 At the request of: JANES JASSO Procedure: VC SEGMENTAL PRESSURES EXAM: VC SEGMENTAL PRESSURES HISTORY: I73.9 COMPARISON: None. FINDINGS: Segmental pressures presented as follows (right, left) in mmHg. 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 The TBI's was elevated on the right suggesting arterial sclerosis, moderate ischemia on the left PVR waveforms: Right leg: Thigh: Not obtained Above knee: Not obtained Below knee: Normal Right ankle: Moderate ischemia Metatarsal: Mild ischemia Left leg: Thigh: Not obtained Above knee: Not obtained Below knee: Moderate ischemia Right ankle: Severe ischemia Metatarsal: Severe ischemia VEIN/VC SEGMENTAL PRESSURES IMPRESSION: Marked arterial atherosclerosis throughout the right leg and in the left calf resulting in elevated OLEG and TBI values No waveforms obtained in the thighs The PVR waveforms suggest mild to moderate right leg ischemia and moderate to severe left leg ischemia Electronically authenticated by: JESSIE ALLEN Date: 01/15/2024 07:41 Dictated By: Jessie Allen M.D. Signed By: 01/15/24 0744 DD/ TD/TT: School Examiner: Procedure Note Radiology, Radiologist, - 01/15/2024 [place] [address] Vein Report Signed Patient: POOJA MARRUFO RMR#: [id number] : 5Acct:[id number] Age/Sex: 78 / MADM Date: 01/11/24 Loc: VC Attending Dr: Janes Jasso M.D. Ordering Physician: Janes Jasso M.D. Date of Service: 01/11/24 Procedure(s): VC SEGMENTAL PRESSURES Accession Number(s): [id number] cc: Robin Dawkins D.O.; Janes Jasso M.D. [place] [address] Patient Name: POOJA MARRUFO MRN: [id number] date: 1945 Sex: M Assigned Patient Location: VC Current Patient Location: Accession/Order Number: [id number] Exam Date: 01/11/2024 10:20 Report Date: 01/15/2024 07:41 At the request of: JANES JASSO Procedure: VC SEGMENTAL PRESSURES EXAM: VC SEGMENTAL PRESSURES HISTORY: I73.9 COMPARISON: None. FINDINGS: Segmental pressures presented as follows (right, left) in mmHg. 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 The TBI's was elevated on the right suggesting arterial sclerosis,moderate ischemia on the left PVR waveforms: Right leg: Thigh: Not obtained Above knee: Not obtained Below knee: Normal Right ankle: Moderate ischemia Metatarsal: Mild ischemia Left leg: Thigh: Not obtained Above knee: Not obtained Below knee: Moderate ischemia Right ankle: Severe ischemia Metatarsal: Severe ischemia VEIN/VC SEGMENTAL PRESSURES IMPRESSION: Marked arterial atherosclerosis throughout the right leg and in the leftcalf resulting in elevated OLEG and TBI values No waveforms obtained in the thighs The PVR waveforms suggest mild to moderate right leg ischemia and moderateto severe left leg ischemia Electronically authenticated by: JESSIE ALLEN Date: 01/15/2024 07:41 Dictated By: Jessie Allen M.D. Signed By:01/15/2444 DD/ TD/TT: School Examiner: Janes Jasso MD IMG XR PROCEDURES Final Resu lt documented in this encounter Visit Diagnoses Not on filedocumented in this encounter Care Teams Want Ad Receiver Relationship Specialty Start Date End Date Robin Dawkins DO PCP - General Internal Medicine 03/08/23 documented as of this encounter
--- OUTSIDE RECORDS SUMMARY | 2024-12-23 07:03 | XMS_ITS | Encounter Summary ---
Author Organization [facility] tem Address [id number] [address] [place] [address] Care Team Providers Care Head Field Hockey Coach Name Role Phone JuanchoRobin Lorena CARTER Primary Care Provider [phone] Encounter Details Date Type Department Care Team (Late st Contact Info) Description 04/28/2021 Telephone [facility] - Vein Care [address] [facility] [place] [address] Mary Jefferson CMA Social History Tobacco Use Types Packs/Day Years [...] often do you attend chur ch or quaker services? Never 09/12/2020 Do you belong to any clubs o r organizations such as scientologist groups, unions, fraternal or athletic groups, or [...] Answer Date Recorded Total Score 0 09/12/2020 [facility] [place] of Occupat ional Health - Occupational Stress [...] Recorded Do you need help finding a [facility] career center and/or a training program? [...] AM EDT documented as of this encounter Miscellaneous Notes * Telephone Encounter - Mary Jefferson CMA - 04/28/2021 11:41 AM EDT Patient calling stating since he started the Pletal he Has some swelling his entire right leg, the leg he had surgery on. I spoke with Magaly and she suggest the patient to see his PCP to make sure he dont have anything else going on and as well as Dr Baldwin Next when he is in [place]. Patient will stop Pletal until he sees Dr Baldwin documented in this encounter Plan of Treatment Upcoming Encounters Date Type Department Care Team (Late st Contact Info) Description 01/16/2025 9:10 AM EDT Office Visit [facility] [address] [place] [address] Eli Jasso MD [address], [address] [address] documented as of this encounter Goals Goal Patient Goal Type Associated Problems Recent Progress Patient-Stated? Author Discharge home with family support General Yes Akanksha Estrada, MEGAN Note: Evaluation of progress towards goal: Discharge home with family support documented as of this encounter Visit Diagnoses Not on filedocumented in this encounter Additional Health Concerns Assessment Noted Time PHQ-9 Depression Total Score: 0 09/13/19 21 2:27 PM EDT documented as of this encounter Care Teams Head Field Hockey Coach Relationship Specialty Start Date End Date Robin Dawkins DO [address] [place] [address] PCP - General 03/15/16 documented as of this encounter
--- OUTSIDE RECORDS SUMMARY | 2024-12-23 07:03 | XMS_ITS | Encounter Summary ---
Author Organization [facility] tem Address [facility] [id number] [address] [place] [address] Care Team Providers Care Street Flusher Driver Name Role Phone Robin Dawkins Primary Care Provider [phone] Encounter Details Date Type Department Care Team (Late st Contact Info) Description 12/17/2020 Orders Only [facility] [address] [place] [address] Jostin Baldwin MD [address], [facility] [address] [place] [phone] Social History Tobacco Use Types Packs/Day Years [...] often do you attend chur ch or mormonism services? Never 09/12/2020 Do you belong to any clubs o r organizations such as muslim groups, unions, fraternal or athletic groups, or [...] Answer Date Recorded Total Score 0 09/12/2020 [facility] [place] of Occupat ional Health - Occupational Stress [...] Recorded Do you need help finding a [facility] and/or a training program? [...] Office Visit [facility] [address] [place] [phone] Eli Jasso MD [address], [address] [address] documented as of this encounter Goals Goal Patient Goal Type Associated Problems Recent Progress Patient-Stated? Author Discharge home with family support General Yes Akanksha Estrada, TAILINGS MAN Note: Evaluation of progress towards goal: Discharge home with family support documented as of this encounter Procedures Procedure Name Priority Date/Time Associated Diagnosis Comments VASC ARTERIAL DUPLEX LOWER BILATERAL Routine 12/10/2020 documented in this encounter Results * Vas art duplex lwr bilateral (12/10/2020) Anatomical Region Laterality Modality Vascular Bilateral Ultrasound us Jostin Baldwin MD CV VASCULAR ORDERABLES Final Re sult documented in this encounter Visit Diagnoses Not on filedocumented in this encounter Additional Health Concerns Assessment Noted Time PHQ-9 Depression Total Score: 0 09/13/19 21 2:27 PM EDT documented as of this encounter Care Teams Street Flusher Driver Relationship Specialty Start Date End Date Robin Dawkins DO [address] [place] [address] PCP - General 03/15/16 documented as of this encounter
--- OUTSIDE RECORDS SUMMARY | 2024-12-23 07:04 | XMS_ITS | Encounter Summary ---
Author Organization [facility] Address [address] [place] [address] Care Team Providers Care Rescue Boat Operator Name Role Phone Robin Dawkins DO Primary Care Provider [phone] Reason for Visit * Reason Comments Med Refill Encounter Details Date Type Department Care Team (Late st Contact Info) Description 05/26/2022 Refill [facility] Cardiology [address] [place] [phone] Shiela Yu, SHAPE BRICK MOLDER [address] [place] [phone] Cardiac arrhythmia, unspecified cardiac arrhythmia type Social History Tobacco Use Types Packs/Day Years Used Date Smoking Tobacco: Never Assessed Sex and Gender Information Value Date Recorded Sex Assigned at Not on file Legal Sex Male 10:09 PM EDT Gender Identity Not on file Sexual Orientation Not on file COVID-19 Exposure Response Date Recorded In the last 10 days, have yo u been in contact with someone who was confirmed or suspected to have Coronavirus/COVID-19? No / Unsure 05/27/2022 8:59 AM EST documented as of this encounter Miscellaneous Notes * Telephone Encounter - Jinny Resendez - 05/27/2022 2:06 PM EST Approving, but needs appt for additional refills. documented in this encounter Plan of Treatment Not on file documented as of this encounter Visit Diagnoses Diagnosis Cardiac arrhythmia, unspecified cardiac arrhythmia type documented in this encounter Care Teams Rescue Boat Operator Relationship Specialty Start Date End Date Robin Dawkins DO [address] [facility] [place] [address] PCP - General 05/26/22 documented as of this encounter
--- OUTSIDE RECORDS SUMMARY | 2024-12-23 07:04 | XMS_ITS | Encounter Summary ---
Author Organization [facility] Address [address] [place] [address] Care Team Providers Care Channel Supervisor Name Role Phone Robin Dawkins DO Primary Care Provider [phone] Reason for Visit * Reason Comments Med Refill Encounter Details Date Type Department Care Team ([facility] st Contact Info) Description 02/24/[address] [facility] [address] [place] [address] Shiela Yu, SURFACING MACHINE OPERATOR [address] [place] [address] Essential hypertension; Edema, unspecified type Social History Tobacco Use Types Packs/Day Years Used Date Smoking Tobacco: Former Cigarettes Smokeless Tobacco: Never Sex and Gender Information Value Date Recorded Sex Assigned at Not on file Legal Sex Male 10:09 PM EDT Gender Identity Not on file Sexual Orientation Not on file documented as of this encounter Plan of Treatment Not on file documented as of this encounter Visit Diagnoses Diagnosis Essential hypertension Unspecified essential hypertension Edema, unspecified type documented in this encounter Care Teams Channel Supervisor Relationship Specialty Start Date End Date Robin Dawkins DO [address] [facility] [address] [place] [address] PCP - General 05/26/22 documented as of this encounter
[2024-12-23 08:05] LABS: Basophils Absolute Auto 0.1 10^3/uL (0.0-0.1); Basophils Percent Auto 0.7 % (0.2-2.0); Eosinophils Absolute Auto 0.2 10^3/uL (0.0-0.7); Eosinophils Percent Auto 1.7 % (0.9-7.0); Hematocrit 40.8 % (42.0-54.0); Hemoglobin 13.2 g/dL (14.0-18.0); Immature Granulocytes Abs Auto 0.07 10^3/uL (0.00-0.03); Immature Granulocytes Pct Auto 0.6 % (0.0-0.5); Lymphocytes Absolute Auto 4.8 10^3/uL (1.2-3.8); Mean Corpuscular HGB Conc 32.4 g/dL (29.9-35.2); Mean Corpuscular Hemoglobin 30.3 pg (25.9-34.0); Mean Corpuscular Volume 93.6 fL (80.0-94.0); Mean Platelet Volume 9.8 fL (9.5-13.5); Monocytes Absolute Auto 0.9 10^3/uL (0.3-0.8); Neutrophils Absolute Auto 5.1 10^3/uL (1.4-6.5); Platelet Count 271 10^3/uL (150-450); Red Blood Count 4.36 10^6/uL (4.70-6.10); Red Cell Distribution Width 13.9 % (11.0-15.0); White Blood Count 11.1 10^3/uL (4.0-11.0)
[2024-12-23 08:18] LABS: Creatinine Urine Random 72.26 mg/dL (20.00-300.00); Microalbum Creatinine Ratio Ur 105.1 mg/g (0.0-29.9); Microalbumin Urine Random 7.6 mg/dL (<=30.0)
[2024-12-23 08:25] LABS: Alanine Aminotransferase 27 U/L (16-63); Albumin Globulin Ratio 1.1; Albumin Level 3.6 g/dL (3.4-5.0); Alkaline Phosphatase 79 U/L (46-116); Anion Gap 15.8; Aspartate Amino Transferase 19 U/L (15-37); BUN Creatinine Ratio 22.6; Bilirubin Total 0.6 mg/dL (0.2-1.0); Calcium 9.1 mg/dL (8.5-10.1); Carbon Dioxide 26.7 mmol/L (21.0-32.0); Chloride 105 mmol/L (98-107); Chol HDL Ratio 2.2; Cholesterol 117 mg/dL (<=200); Estimated GFR (African America >60 (>=60 mL/min/1.73m^2); Estimated GFR (Non-African Ame >60 (>=60 mL/min/1.73m^2); Globulin 3.3 g/dL; Glucose 115 mg/dL (74-106); HDL Cholesterol 52 mg/dL (40-60); Potassium 4.5 mmol/L (3.5-5.1); Sodium 143 mmol/L (136-145); Total Protein 6.9 g/dL (6.4-8.2); Triglycerides 95 mg/dL (<=150)
[2024-12-23 08:40] LABS: Estimated Average Glucose 134 mg/dL; Glycohemoglobin A1C 6.3 % (4.5-6.2)
[2024-12-23 08:52] LABS: Prostate Specific Antigen Scrn 0.34 ng/mL (<=4.00)
== END 2024-12-23 06:59 | disposition home or self-care (01) ==
LOC: LAB 07:00
PROVIDERS: PCP Internal Medicine; Visit Provider Internal Medicine
DX: N18.31 Chronic kidney disease, stage 3a (principal); E11.65 Type 2 diabetes mellitus with hyperglycemia; I10 Essential (primary) hypertension; Z12.5 Encounter for screening for malignant neoplasm of prostate
CPT/HCPCS: 36415; 80053; 80061; 82043; 82570; 83036; 85025; G0103